=== PATIENT | female | born 1965 | race African-American/Black ===

== ENCOUNTER 2016-09-23 15:29 | Emergency (ER) | payer MEDICARE, MEDICAID ==
[~2016-09-23] VITALS: Ht 165.1 cm; Wt 80.0 kg
[~2016-09-23 15:29] MED LIST: ALBU0.086 INH; ALBU1AER INH; AMOX500T PO; ASPI81TA82 PO; ATOR20TA PO; FAMO20TA2 PO; GLIP5 PO; HYDR-2768 PO; KCL10 PO; METF1000 PO; NIFE1TAB86 PO; PRED20 PO; VENTAER INH; VITA400D PO; ZOLP10TA3 PO
[2016-09-23 15:30] VITALS: BP 160/80; PULSE 84; RESP 16; TEMP 97.8; O2SAT 95
--- NOTE | 2016-09-23 15:38 | PD ---
Physical Exam Date Seen by Provider: September 23, 2016 Time Seen by Provider: 15:35 Narrative Pt is a 51 y/o female presenting to the ED with cc of left ear pain. This has been ongoing for a month. Pt c/o a frontal headache. She has not taken anything for the pain. Pt denies any nasal congestion, sore throat, cough. VSS. She has a primary she has not followed up with, she was prescribed abx recently. Data Data Last Documented VS Vital Signs Date Time Temp Pulse Resp B/P Pulse Ox O2 Delivery O2 Flow Rate FiO2 09/23/16 15:30 97.8 84 16 160/80 95 MDM Supervised Visit with TERESA: Kendra Welch September 23, 2016 15:38
--- NOTE | 2016-09-23 15:40 | PD ---
HPI . left ear pain and frontal sinus pressure for 1 mt Chief Complaint: ENT Complaint Time Seen by Provider: 15:40 Travel History International Travel<30 days: No Contact w/Intl Traveler<30days: No Traveled to known affect area: No History of Present Illness HPI 51-year-old female with hypertension, hyperlipidemia, diabetes and COPD here with complaints of left-sided ear pain and frontal sinus pressure for over one month. Patient says she was seen by her primary care provider and completed antibiotics. She initially got better and now her symptoms are back. She decided to come to the emergency department for further evaluation. Patient is complaining of a throbbing type of headache that is intermittent in her sinus area on the front. She tells me that it's not really a headache but it's more like pressure. She also tells me that she has some left ear pressure. She denies any fever or chills. She denies any recent illness. PFSH Past Medical History Hx Anticoagulant Therapy: Yes (ASA) Anemia: Yes Arthritis: Yes (LEFT KNEE) Asthma: No Blood Disorders: No Anxiety: No Depression: No Heart Rhythm Problems: No Cancer: No Cardiac Catheterization: Yes (DENIES BUT PREVIOUSLY LISTED YES) Cardiovascular Problems: Yes (HTN) High Cholesterol: Yes Chemotherapy: No Chest Pain: No Congestive Heart Failure: No COPD: Yes Diabetes: Yes Diminished Hearing: No Endocrine: Yes GERD: Yes Glaucoma: No Gout: Yes Genitourinary: No Hepatitis: No Hiatal Hernia: No Hypertension: Yes Immune Disorder: No Implanted Vascular Access Dvce: No Kidney Stones: No Musculoskeletal: Yes Neurologic: Yes (CVA) Psychiatric: No Reproductive: No Respiratory: Yes (COPD) Immunizations Current: Yes Migraines: No Myocardial Infarction: No Pneumonia: Yes Radiation Therapy: No Renal Failure: No Seizures: No Sickle Cell Disease: No Sleep Apnea: No Thyroid Disease: No Ulcer: No ?: Not Menopausal: Yes : 5 Para: 7 Miscarriage: 0 : 0 Tubal Ligation: Yes Past Surgical History Abdominal Surgery: No Appendectomy: No Arteriovenous Shunt: No Cardiac Surgery: No Section: Yes (4) Cholecystectomy: No Ear Surgery: No Endocrine Surgery: No Eye Surgery: No Genitourinary Surgery: No Gynecologic Surgery: Yes (4 CSECTIONS) Neurologic Surgery: Yes (CVA) Oral Surgery: No Pacemaker: No Thoracic Surgery: No Social History Alcohol Use: No Tobacco Use: Yes (1/2 PACK A DAY) Substance Use: No Allergies-Medications (Allergen,Severity, Reaction): Coded Allergies: Levaquin (Verified Allergy, Severe, ITCHING, 09/23/16) OCCURRED THIS FIRST DOSE; ONLY RECEIVED 1/2 Reported Meds & Prescriptions Reported Meds & Active Scripts Active Flonase Nasal [place] (Fluticasone Nasal [place]) 50 Mcg/Act [place] 50 Mcg EACH NARE BID Augmentin (Amoxicillin-Clavulanate) 875-125 mg Tab 875 Mg PO BID not for use in CrCl <30 ml/min. Amoxicillin 500 Mg Cap 1 Tab PO TID Deltasone (Prednisone) 20 Mg Tab 1 Tab PO DAILY 5 Days Ventolin Hfa (Albuterol Sulfate) 18 Gm Aero 2 Puff INH Q4H PRN * SHAKE WELL BEFORE USE * Klor-Con 10 (Potassium Chloride) 10 Meq Tabcr 20 Meq PO DAILY 30 Days Nifedipine Er (Nifedipine) 60 Mg Tabcr 60 Mg PO DAILY 30 Days Reported Ambien 10 Mg Tab (Zolpidem Tartrate) 10 Mg Tab 10 Mg PO HS Glipizide 5 Mg Tab 5 Mg PO BID Famotidine 20 Mg Tab 20 Mg PO DAILY Aspir-81 (Aspirin) 81 Mg Tab 81 Mg PO DAILY Vitamin D (Cholecalciferol) 400 Unit Beto 0 PO DAILY UNKNOWN DOSE Proventil Ud 0.083% (2.5 Mg/3 Ml) (Albuterol Sulfate) 2.5 Mg/3 Ml Inha 2.5 Mg INH Q4 PRN Atorvastatin 20 mg tab (Atorvastatin Calcium) 20 Mg Tab 20 Mg PO DAILY 30 Days Metformin (Metformin HCl) 1,000 Mg Tab 1,000 Mg PO BID Proair Hfa (Albuterol Sulfate) 8.5 Gm Aero 2 Puff INH Q4H PRN * SHAKE WELL BEFORE USE * Hctz (Hydrochlorothiazide) 25 Mg Tab 25 Mg PO DAILY Review of Systems General / Constitutional: No: Fever Eyes: No: Visual changes HENT: Positive: Headaches, Earache, Other (facial pressure) Cardiovascular: No: Chest Pain or Discomfort Respiratory: No: Shortness of Breath Gastrointestinal: No: Abdominal Pain Genitourinary: No: Dysuria Musculoskeletal: No: Pain Skin: No Rash Neurologic: No: Weakness Psychiatric: No: Depression Endocrine: No: Polydipsia Hematologic/Lymphatic: No: Easy Bruising Physical Exam Narrative GENERAL: AAO x 3, no acute distress, Well-nourished, well-developed patient. SKIN: Warm and dry. No visible rashes or bruising. HEAD: Normocephalic and atraumatic. EYES: No scleral icterus. No injection or drainage. EOM intact, PERRLA, ENT: No nasal drainage noted. Mucous membranes pink. Airway patent. B/L ear canal with mild-moderate cerumen, TM otherwise normal, + post nasal drip, + frontal sinus tenderness NECK: Supple, trachea midline. No JVD. No lymphadenopathy CARDIOVASCULAR: Regular rate and rhythm without murmurs, gallops, or rubs. RESPIRATORY: Breath sounds equal bilaterally. No accessory muscle use. No rhonchi or rales. GASTROINTESTINAL: Visual inspection is normal EXTREMITIES: No cyanosis or edema. BACK: Nontender without obvious deformity. No CVA tenderness. PSYCH: AAO x 3, normal affect. Data Data Last Documented VS Vital Signs Date Time Temp Pulse Resp B/P Pulse Ox O2 Delivery O2 Flow Rate FiO2 09/23/16 15:30 97.8 84 16 160/80 95 MDM Medical Decision Making Medical Screen Exam Complete: Yes Emergency Medical Condition: Yes Medical Record Reviewed: Yes Differential Diagnosis Sinusitis, otitis media, otitis externa cerumen impaction, less likely pneumonia Narrative Course 51-year-old female with hypertension, hyperlipidemia, diabetes and COPD here with complaints of left-sided ear pain and frontal sinus pressure for over one month. Patient says she was seen by her primary care provider and completed antibiotics. She initially got better and now her symptoms are back. She decided to come to the emergency department for further evaluation. Patient is complaining of a throbbing type of headache that is intermittent in her sinus area on the front. She tells me that it's not really a headache but it's more like pressure. She also tells me that she has some left ear pressure. She denies any fever or chills. She denies any recent illness. Patient seen and examined. She appears to have an acute sinusitis. She also has mild to moderate buildup of cerumen bilaterally in her ears. I recommend that she try some antibiotics to help with her sinus infection. I've also explained to her to try Debrox [id number] eardrops to help reduce her cerumen buildup. She should try to follow-up with her primary care provider. Patient verbalized understanding of instructions, questions were answered, and thanked me for their care. I advised them if their condition worsens, please return to the nearest emergency room for further care. Diagnosis Primary Impression: Acute sinusitis Qualified Code: J01.10 - Acute non-recurrent frontal sinusitis Additional Impression: Cerumen debris on tympanic membrane of both ears Patient Instructions: General Instructions Additional Instructions: Please return to emergency department if your symptoms return or worsen. Follow up with your primary care provider. Take medications as prescribed. Try [id number] Debrox to help reduce your ear wax buildup. Med/Other Pt SpecificInfo: Prescription(s) given Scripts Fluticasone Nasal [place] (Flonase Nasal [place])50 Mcg/Act Spray50 Mcg EACH NARE BID #1 BOTTLE Ref 0 Prov:Michelle Ventura MD 09/23/16 Amoxicillin-Clavulanate (Augmentin)875-125 mg Fam242 Mg PO BID #20 TAB not for use in CrCl <30 ml/min. Prov:Michelle Ventura MD 09/23/16 Disposition: 01 DISCHARGE HOME Condition: Stable Hilda Benavidez September 23, 2016 15:40
[2016-09-23] MEDS ORDERED: AUGM875T PO (15:46)
[2016-09-23] MEDS ORDERED: FLUT1SPR5 EACH NARE (15:46)
== END 2016-09-23 15:57 | disposition home or self-care (01) ==
LOC: NEPK 15:29
DX: J01.90 Acute sinusitis, unspecified (principal); I10 Essential (primary) hypertension; E11.9 Type 2 diabetes mellitus without complications; D64.9 Anemia, unspecified; F17.210 Nicotine dependence, cigarettes, uncomplicated; Z79.01 Long term (current) use of anticoagulants
CPT/HCPCS: 99283

== ENCOUNTER 2016-12-04 09:47 | Emergency (ER) | payer MEDICARE, MEDICAID ==
[~2016-12-04] VITALS: Ht 165.1 cm; Wt 79.0 kg
[~2016-12-04 09:47] MED LIST changes: +AUGM875T PO; +FLUT1SPR5 EACH NARE
[2016-12-04 09:50] VITALS: BP 175/90; PULSE 98; RESP 24; TEMP 98.7; O2SAT 96
[2016-12-04] MEDS ORDERED: KETOROLAC TROMETHAMINE 60 MG/2 ML (IM) VIAL IM ONE (11:00)
[2016-12-04] MEDS ORDERED: CYCLOBENZAPRINE HCL 10 MG TAB PO ONE (11:00)
--- NOTE | 2016-12-04 11:43 | PD ---
HPI Chief Complaint: Back/ Neck Pain or Injury Time Seen by Provider: 10:49 Travel History International Travel<30 days: No Contact w/Intl Traveler<30days: No Traveled to known affect area: No History of Present Illness HPI Patient is a 51-year-old female comes in complaining of upper back pain. She says about 2 days ago she was carrying a heavy box and a watermelon, the next morning she woke up with the severe pain. She says pain is worse with movement. She localizes the pain to Her left scapula. She denies any direct injury. She denies any falls. She denies any numbness or tingling of her extremities. She denies any incontinence. She denies chest pain or shortness of breath. She has not taken anything at home for pain. PFSH Past Medical History Hx Anticoagulant Therapy: No Anemia: Yes Arthritis: Yes (LEFT KNEE) Asthma: No Blood Disorders: No Anxiety: No Depression: No Heart Rhythm Problems: No Cancer: No Cardiac Catheterization: Yes (DENIES BUT PREVIOUSLY LISTED YES) Cardiovascular Problems: Yes (HTN) High Cholesterol: Yes Chemotherapy: No Chest Pain: No Congestive Heart Failure: No COPD: Yes Cerebrovascular Accident: Yes Diabetes: Yes Patient Takes Glucophage: Yes Diminished Hearing: No Endocrine: Yes GERD: Yes Glaucoma: No Gout: Yes Genitourinary: No Hepatitis: No Hiatal Hernia: No Hypertension: Yes Immune Disorder: No Implanted Vascular Access Dvce: No Kidney Stones: No Musculoskeletal: Yes Neurologic: Yes (CVA) Psychiatric: No Reproductive: No Respiratory: Yes (COPD) Immunizations Current: Yes Migraines: No Myocardial Infarction: No Pneumonia: Yes Radiation Therapy: No Renal Failure: No Seizures: No Sickle Cell Disease: No Sleep Apnea: No Thyroid Disease: No Ulcer: No Tetanus Vaccination: Unknown ?: Unknown Menopausal: Yes : 5 Para: 7 Miscarriage: 0 : 0 Tubal Ligation: Yes Past Surgical History Abdominal Surgery: No Appendectomy: No Arteriovenous Shunt: No Section: Yes (4) Gynecologic Surgery: Yes (4 CSECTIONS) Hysterectomy: No Neurologic Surgery: Yes (CVA) Pacemaker: No Other Surgery: Yes (BREAST SURGERY LEFT BREAST ABCESS 2X ) Social History Alcohol Use: No Tobacco Use: Yes (1/2 PACK A DAY) Substance Use: No Allergies-Medications (Allergen,Severity, Reaction): Coded Allergies: Levaquin (Verified Allergy, Severe, ITCHING, 12/04/16) OCCURRED THIS FIRST DOSE; ONLY RECEIVED 1/2 Reported Meds & Prescriptions Reported Meds & Active Scripts Active Flonase Nasal [place] (Fluticasone Nasal [place]) 50 Mcg/Act [place] 50 Mcg EACH NARE BID Augmentin (Amoxicillin-Clavulanate) 875-125 mg Tab 875 Mg PO BID not for use in CrCl <30 ml/min. Amoxicillin 500 Mg Cap 1 Tab PO TID Deltasone (Prednisone) 20 Mg Tab 1 Tab PO DAILY 5 Days Ventolin Hfa (Albuterol Sulfate) 18 Gm Aero 2 Puff INH Q4H PRN * SHAKE WELL BEFORE USE * Klor-Con 10 (Potassium Chloride) 10 Meq Tabcr 20 Meq PO DAILY 30 Days Nifedipine Er (Nifedipine) 60 Mg Tabcr 60 Mg PO DAILY 30 Days Reported Ambien 10 Mg Tab (Zolpidem Tartrate) 10 Mg Tab 10 Mg PO HS Glipizide 5 Mg Tab 5 Mg PO BID Famotidine 20 Mg Tab 20 Mg PO DAILY Aspir-81 (Aspirin) 81 Mg Tab 81 Mg PO DAILY Vitamin D (Cholecalciferol) 400 Unit Beto 0 PO DAILY UNKNOWN DOSE Proventil Ud 0.083% (2.5 Mg/3 Ml) (Albuterol Sulfate) 2.5 Mg/3 Ml Inha 2.5 Mg INH Q4 PRN Atorvastatin 20 mg tab (Atorvastatin Calcium) 20 Mg Tab 20 Mg PO DAILY 30 Days Metformin (Metformin HCl) 1,000 Mg Tab 1,000 Mg PO BID Proair Hfa (Albuterol Sulfate) 8.5 Gm Aero 2 Puff INH Q4H PRN * SHAKE WELL BEFORE USE * Hctz (Hydrochlorothiazide) 25 Mg Tab 25 Mg PO DAILY Review of Systems Except as stated in HPI: all other systems reviewed are Neg General / Constitutional: No: Fever, Chills HENT: No: Headaches, Lightheadedness Cardiovascular: No: Chest Pain or Discomfort Respiratory: No: Shortness of Breath Gastrointestinal: No: Nausea, Vomiting Musculoskeletal: Positive: Pain Skin: No Rash, No Change in Pigmentation Neurologic: No: Paresthesia, Sensory Disturbance Physical Exam Narrative GENERAL: Awake and alert, in no acute distress. SKIN: Focused skin assessment warm/dry. HEAD: Atraumatic. Normocephalic. EYES: Pupils equal and round. No scleral icterus. No injection or drainage. ENT: No nasal bleeding or discharge. Mucous membranes pink and moist. NECK: Trachea midline. No JVD. CARDIOVASCULAR: Regular rate and rhythm. No murmur appreciated. RESPIRATORY: No accessory muscle use. Clear to auscultation. Breath sounds equal bilaterally. MUSCULOSKELETAL: No obvious deformities. No clubbing. No cyanosis. No edema. Tender to palpation adjacent to the left scapula. No spinal tenderness. NEUROLOGICAL: Awake and alert. No obvious cranial nerve deficits. Motor grossly within normal limits. Normal speech. PSYCHIATRIC: Appropriate mood and affect; insight and judgment normal. Data Data Last Documented VS Vital Signs Date Time Temp Pulse Resp B/P Pulse Ox O2 Delivery O2 Flow Rate FiO2 12/04/16 09:50 98.7 98 24 175/90 96 Room Air Orders Ketorolac Inj (Toradol Inj) (12/04/16 11:00) Cyclobenzaprine (Flexeril) (12/04/16 11:00) [facility] Medical Decision Making Medical Screen Exam Complete: Yes Emergency Medical Condition: Yes Medical Record Reviewed: Yes Differential Diagnosis Musculoskeletal pain vs fracture vs spasm Narrative Course Patient is a 51-year-old female comes in complaining of back pain. Exam shows tenderness to the paraspinal muscles. Patient given Toradol and Flexeril. She reports feeling much better. Discharge with prescription for Flexeril. She is advised to stretch and take Flexeril and Tylenol as needed. Advised to follow- up with her doctor. Advised to return to the emergency department as needed for any worsening symptoms. Diagnosis Primary Impression: Musculoskeletal back pain Patient Instructions: General Instructions, Musculoskeletal Pain (ED) Additional Instructions: Take Tylenol and Flexeril as needed for pain. Follow up with your doctor. Return to the ED as needed for any worsening symptoms. Scripts Cyclobenzaprine (Flexeril)10 Mg Tab10 Mg PO TID #15 TAB Ref 0 Prov:Michelle Ventura MD 12/04/16 Disposition: 01 DISCHARGE HOME Condition: Stable Michelle Ventura MD Dec 04, 2016 11:43
[2016-12-04] MEDS ORDERED: CYCL1TAB29 PO (11:50)
== END 2016-12-04 12:03 | disposition home or self-care (01) ==
LOC: NEPD 09:47
DX: M54.89 Other dorsalgia (principal); E11.9 Type 2 diabetes mellitus without complications; I10 Essential (primary) hypertension; F17.200 Nicotine dependence, unspecified, uncomplicated; Z79.84 Long term (current) use of oral hypoglycemic drugs; Z86.2 Personal history of diseases of the blood and blood-forming organs and certain disorders involving the immune mechanism; Z87.39 Personal history of other diseases of the musculoskeletal system and connective tissue; Z86.79 Personal history of other diseases of the circulatory system; Z87.09 Personal history of other diseases of the respiratory system; Z87.19 Personal history of other diseases of the digestive system; Z86.69 Personal history of other diseases of the nervous system and sense organs
CPT/HCPCS: 96372; 99284; J1885

== ENCOUNTER 2017-06-21 15:10 | Inpatient (IN) | payer MEDICARE, MEDICAID ==
[2017-06-21] VITALS: BP 185/100; PULSE 88; RESP 18; TEMP 97.5; O2SAT 94
[~2017-06-21] VITALS: Ht 165.1 cm; Wt 87.2 kg
[~2017-06-21 15:10] MED LIST changes: +CYCL10TA PO
[2017-06-21 15:14] VITALS: BP 171/99; PULSE 84; RESP 18; TEMP 98.5; O2SAT 98
--- NOTE | 2017-06-21 16:18 | RADRPT ---
EXAM DATE/TIME: 06/21/2017 15:46 [facility] COMPARISON: CHEST SINGLE AP, January 05, 2016, 7:33. INDICATIONS : Short of breath. Cough. MEDICAL HISTORY : Chronic obstructive pulmonary disease. Hypertension Diabetes mellitus type II. Stroke. SURGICAL HISTORY : None. ENCOUNTER: Initial ACUITY: 3 days PAIN SCORE: 0/10 LOCATION: Bilateral chest FINDINGS: PA and lateral views of the chest demonstrate minimal density right lower lobe. Left lung clear. Hear t normal in size The cardiomediastinal contours are unremarkable. Osseous structures are intact. CONCLUSION: Minimal patchy densities right lower lobe could be infiltrate.. Hardeep Mensah MD on June 21, 2017 at 16:15 Board Certified Radiologist. This report was verified electronically.
[2017-06-21 17:04] LABS: AUTOMATED NEUTROPHIL # 3.9 TH/MM3 (1.8-7.7); BASOPHIL # 0.1 TH/MM3 (0-0.2); BASOPHIL % 0.9 % (0.0-2.0); EOSINOPHIL # 0.4 TH/MM3 (0-0.4); EOSINOPHIL % 6.3 % (0.0-4.0); HEMATOCRIT 32.2 % (35.0-46.0); HEMOGLOBIN 10.8 GM/DL (11.6-15.3); LYMPH % 15.3 % (9.0-44.0); MEAN CELL VOLUME 83.2 FL (80.0-100.0); MEAN CORPUSCULAR HEMOGLOBIN 27.9 PG (27.0-34.0); MEAN CORPUSCULAR HGB CONC 33.5 % (32.0-36.0); MEAN PLATELET VOLUME 8.4 FL (7.0-11.0); MONO % 18.1 % (0.0-8.0); MONOCYTE # 1.2 TH/MM3 (0-0.9); NEUT % 59.4 % (16.0-70.0); PLATELET COUNT 209 TH/MM3 (150-450); RED BLOOD COUNT 3.87 MIL/MM3 (4.00-5.30); RED CELL DISTRIBUTION WIDTH 15.9 % (11.6-17.2); WHITE BLOOD COUNT 6.6 TH/MM3 (4.0-11.0)
[2017-06-21 17:21] LABS: BICARBONATE 29.7 MEQ/L (21.0-32.0); CALCIUM 8.3 MG/DL (8.5-10.1); CREATININE 2.25 MG/DL (0.50-1.00); MAGNESIUM 2.5 MG/DL (1.5-2.5)
[2017-06-21 17:26] LABS: TROPONIN I 0.11 NG/ML (0.02-0.05)
[2017-06-21] MEDS ORDERED: NIFE60TA58 PO (17:59)
[2017-06-21] MEDS ORDERED: LOSA100T PO (17:59)
[2017-06-21] MEDS ORDERED: D200CAP PO (17:59)
[2017-06-21] MEDS ORDERED: ZOLP10TA3 PO (17:59)
[2017-06-21] MEDS ORDERED: OMEGCAP PO (17:59)
[2017-06-21] MEDS ORDERED: VITA250T3 PO (17:59)
[2017-06-21] MEDS ORDERED: ASPI-516 CHEW (17:59)
[2017-06-21] MEDS ORDERED: GLIP10TA6 PO (17:59)
[2017-06-21] MEDS ORDERED: METF1000 PO (17:59)
[2017-06-21] MEDS ORDERED: RESP: ALBUTEROL 2.5 MG/IPRATROPIUM 0.5 MG NEB (SCH) NEB ONE (18:00)
[2017-06-21] MEDS ORDERED: methylPREDNISolone SOD SUCC 125 MG/2 ML VIAL IV PUSH ONE (18:00)
[2017-06-21] MEDS ORDERED: ASPIRIN 81 MG CHEW TAB CHEW ONE (18:00)
[2017-06-21] MEDS ORDERED: AZITHROMYCIN INJ 500 MG in SODIUM CHLOR 0.9% 250 ML INJ 250 ML IV ONE (18:00)
[2017-06-21] MEDS ORDERED: SODIUM CHLOR 0.9% 1000 ML INJ 1,000 ML IV ONE (18:00)
[2017-06-21] MEDS ORDERED: cefTRIAXone INJ 1,000 MG in SODIUM CHLORIDE 0.9% INJ 100 ML IV ONE (18:00)
[2017-06-21] MEDS ORDERED: ACETAMINOPHEN 325 MG TAB PO ONE (18:00)
--- NOTE | 2017-06-21 18:02 | PD ---
HPI Chief Complaint: Respiratory Symptoms Time Seen by Provider: 17:49 Travel History International Travel<30 days: No Contact w/Intl Traveler<30days: No Traveled to known affect area: No History of Present Illness HPI Patient is a 52-year-old female who comes in complaining of cough and shortness of breath. She says this is been going on for 3 days. She says she has pain to her upper abdomen/lower chest, but only when she coughs. She says she is not sure if she has had fever or chills. She says she just does not feel well. She has been using albuterol at home without much relief of her symptoms. She denies any sick contacts. She denies nausea or vomiting. She denies any leg swelling. She says she did get a flu shot this year. PFSH Past Medical History Hx Anticoagulant Therapy: No Anemia: Yes Arthritis: Yes (LEFT KNEE) Asthma: No Blood Disorders: No Anxiety: No Depression: No Heart Rhythm Problems: No Cancer: No Cardiac Catheterization: Yes (DENIES BUT PREVIOUSLY LISTED YES) Cardiovascular Problems: Yes (HTN) High Cholesterol: Yes Chemotherapy: No Chest Pain: No Congestive Heart Failure: No COPD: Yes Cerebrovascular Accident: Yes Diabetes: Yes Patient Takes Glucophage: No Diminished Hearing: No Endocrine: Yes GERD: Yes Glaucoma: No Gout: Yes Genitourinary: No Hepatitis: No Hiatal Hernia: No Hypertension: Yes Immune Disorder: No Implanted Vascular Access Dvce: No Kidney Stones: No Musculoskeletal: Yes Neurologic: Yes (CVA) Psychiatric: No Reproductive: No Respiratory: Yes (COPD) Immunizations Current: Yes Migraines: No Myocardial Infarction: No Pneumonia: Yes Radiation Therapy: No Renal Failure: No Seizures: No Sickle Cell Disease: No Sleep Apnea: No Thyroid Disease: No Ulcer: No Influenza Vaccination: Yes ?: Not Menopausal: Yes : 5 Para: 7 Miscarriage: 0 : 0 Tubal Ligation: Yes Past Surgical History Abdominal Surgery: No Appendectomy: No Arteriovenous Shunt: No Section: Yes (4) Gynecologic Surgery: Yes (4 CSECTIONS) Hysterectomy: No Neurologic Surgery: Yes (CVA) Pacemaker: No Other Surgery: Yes (BREAST SURGERY LEFT BREAST ABCESS 2X ) Social History Alcohol Use: No Tobacco Use: Yes Substance Use: No Allergies-Medications (Allergen,Severity, Reaction): Coded Allergies: levofloxacin (Unverified Allergy, Severe, ITCHING, 06/21/17) OCCURRED THIS FIRST DOSE; ONLY RECEIVED /2 Reported Meds & Prescriptions Reported Meds & Active Scripts Active Reported Glipizide 10 Mg Tab 10 Mg PO BIDAC Take 30 minutes before a meal Zolpidem (Zolpidem Tartrate) 10 Mg Tab 10 Mg PO HS PRN Vitamin C (Ascorbic Acid) 250 Mg Tab 500 Mg PO DAILY Aspirin 81 Mg Chew 81 Mg CHEW DAILY Nifedipine ER 24 HR (Nifedipine) 60 Mg Tab 60 Mg PO DAILY Losartan (Losartan Potassium) 100 Mg Tab 100 Mg PO DAILY Metformin (Metformin HCl) 1,000 Mg Tab 1,000 Mg PO DAILY With a meal D3 Super Strength (Cholecalciferol) 2,000 Unit Cap 1,000 Units PO DAILY [place]-3 Fish Oil/Vitamin (Fish Oil-Cholecalciferol) 1,000-1,000 Mg Cap 1 Cap PO DAILY Review of Systems Except as stated in HPI: all other systems reviewed are Neg General / Constitutional: Positive: Fever, Chills HENT: No: Headaches, Lightheadedness Respiratory: Positive: Cough, Shortness of Breath Gastrointestinal: No: Nausea, Vomiting Genitourinary: No: Dysuria Musculoskeletal: Positive: Myalgias, No: Edema Skin: No Rash, No Change in Pigmentation Neurologic: No: Weakness, Dizziness Physical Exam Narrative GENERAL: Awake and alert, in no acute distress. SKIN: Focused skin assessment warm/dry. No wounds or signs of infection. HEAD: Atraumatic. Normocephalic. EYES: Pupils equal and round. No scleral icterus. ENT: Mucous membranes pink and moist. NECK: Trachea midline. No JVD. CARDIOVASCULAR: Regular rate and rhythm. No murmur appreciated. RESPIRATORY: No accessory muscle use. Clear to auscultation. Breath sounds equal bilaterally. GASTROINTESTINAL: Abdomen soft, non-tender, nondistended. Hepatic and splenic margins not palpable. MUSCULOSKELETAL: No obvious deformities. No clubbing. No cyanosis. No edema. NEUROLOGICAL: Awake and alert. No obvious cranial nerve deficits. Motor grossly within normal limits. Normal speech. PSYCHIATRIC: Appropriate mood and affect; insight and judgment normal. Data Data Last Documented VS Vital Signs Date Time Temp Pulse Resp B/P (MAP) Pulse Ox O2 Delivery O2 Flow Rate FiO2 06/21/17 15:14 98.5 84 18 171/99 (123) 98 Orders Orders Complete Blood Count With Diff (06/21/17 15:36) Basic Metabolic Panel (Bmp) (06/21/17 15:36) Magnesium (Mg) (06/21/17 15:36) Ckmb (Isoenzyme) Profile (06/21/17 15:36) Troponin I (06/21/17 15:36) Influenzae A/B Antigen (06/21/17 15:36) Electrocardiogram (06/21/17 15:36) Chest, Pa & Lat (06/21/17 15:36) CKMB (06/21/17 16:18) CKMB% (06/21/17 16:18) Ceftriaxone Inj (Rocephin Inj) (06/21/17 18:00) Azithromycin Inj (Zithromax Inj) (06/21/17 18:00) Aspirin Chew (Aspirin Chew) (06/21/17 18:00) Sodium Chlor 0.9% 1000 Ml Inj (Ns 1000 M (06/21/17 18:00) Acetaminophen (Tylenol) (06/21/17 18:00) Methylprednisolone So Succ Inj (Solumedr (06/21/17 18:00) Albuterol-Ipratropium Neb (Duoneb Neb) (06/21/17 18:00) Admit Order (Ed Use Only) (06/21/17 ) Labs Laboratory Tests Test 06/21/17 16:18 White Blood Count 6.6 TH/MM3 Red Blood Count 3.87 MIL/MM3 Hemoglobin 10.8 GM/DL Hematocrit 32.2 % Mean Corpuscular Volume 83.2 FL Mean Corpuscular Hemoglobin 27.9 PG Mean Corpuscular Hemoglobin Concent 33.5 % Red Cell Distribution Width 15.9 % Platelet Count 209 TH/MM3 Mean Platelet Volume 8.4 FL Neutrophils (%) (Auto) 59.4 % Lymphocytes (%) (Auto) 15.3 % Monocytes (%) (Auto) 18.1 % Eosinophils (%) (Auto) 6.3 % Basophils (%) (Auto) 0.9 % Neutrophils # (Auto) 3.9 TH/MM3 Lymphocytes # (Auto) 1.0 TH/MM3 Monocytes # (Auto) 1.2 TH/MM3 Eosinophils # (Auto) 0.4 TH/MM3 Basophils # (Auto) 0.1 TH/MM3 CBC Comment DIFF FINAL Differential Comment Blood Urea Nitrogen 51 MG/DL Creatinine 2.25 MG/DL Random Glucose 105 MG/DL Calcium Level 8.3 MG/DL Magnesium Level 2.5 MG/DL Sodium Level 148 MEQ/L Potassium Level 4.0 MEQ/L Chloride Level 112 MEQ/L Carbon Dioxide Level 29.7 MEQ/L Anion Gap 6 MEQ/L Estimat Glomerular Filtration Rate 28 ML/MIN Total Creatine Kinase 202 U/L Creatine Kinase MB 1.2 NG/ML Creatine Kinase MB % 0.6 % Troponin I 0.11 NG/ML MDM Medical Decision Making Medical Screen Exam Complete: Yes Emergency Medical Condition: Yes Medical Record Reviewed: Yes Interpretation(s) ECG shows sinus rhythm, no ST elevation. Differential Diagnosis Influenza versus COPD exacerbation versus pneumonia Narrative Course Patient is a 52-year-old female comes in complaining of increasing shortness of breath. IV established, labs sent. Labs show a troponin of 0.11. Flu swab is positive. X-ray concerning for pneumonia. Given antibiotics. Given duo nebs. She will be admitted for further management. Given aspirin. Diagnosis Primary Impression: COPD exacerbation Additional Impressions: Elevated troponin Influenza Pneumonia Qualified Codes: J18.9 - Pneumonia, unspecified organism Admitting Information Admitting Physician Requests: Admit Michelle Ventura MD Jun 21, 2017 18:02
[2017-06-21] MEDS ORDERED: SODIUM CHLORIDE 0.9% FLUSH 10 ML FLUSH IV FLUSH PRN (19:15)
[2017-06-21] MEDS ORDERED: DEXTROSE 50% IN WATER 50 ML VIAL(D50) IV PUSH PRN (19:15)
[2017-06-21] MEDS ORDERED: GLUCAGON 1 MG/ML VIAL OTHER PRN (19:15)
[2017-06-21 19:55] VITALS: BP 179/88; PULSE 77; RESP 18; O2SAT 97
[2017-06-21 20:00] VITALS: BP 169/94; PULSE 80; RESP 18; TEMP 98.6; O2SAT 92
[2017-06-21] MEDS: SODIUM CHLORIDE 0.9% FLUSH 10 ML FLUSH IV FLUSH SCH (20:19)
--- NOTE | 2017-06-21 20:32 | HHI.HP ---
[facility] M[facility] Admission Diagnosis Cough, Pneumonia, elevated troponin, influenza Diagnoses: Travel History International Travel<30 Days: No Contact w/Intl Traveler <30 Da: No Traveled to Known Affected Are: No History of Present Illness 52-year-old female with past medical history significant for COPD, diabetes mellitus, hypertension, hyperlipidemia and CK D presents to the emergency department with 3 days of progressively worsening shortness of breath. Patient reports she had URI symptoms that began 3 days ago including congestion and a cough productive of yellow sputum. She states she has been having a difficult time catching her breath, worse with activity. She endorses fever/chills of one day duration. Denies chest pain. Patient is positive for flu and has a chest x-ray concerning for pneumonia. Vital signs: Temperature 98.5, pulse 84, respirations 18, BP 171/99, pulse ox 98% on room air. Review of Systems Except as stated in HPI: all other systems reviewed are Neg Shortness of breath, productive cough, fever/chills Past Family Social History Past Medical History COPD Diabetes mellitus Hypertension Hyperlipidemia CKD Past Surgical History Reported Medications Reported Meds & Active Scripts Active Reported Glipizide 10 Mg Tab 10 Mg PO BIDAC Take 30 minutes before a meal Zolpidem (Zolpidem Tartrate) 10 Mg Tab 10 Mg PO HS PRN Vitamin C (Ascorbic Acid) 250 Mg Tab 500 Mg PO DAILY Aspirin 81 Mg Chew 81 Mg CHEW DAILY Nifedipine ER 24 HR (Nifedipine) 60 Mg Tab 60 Mg PO DAILY Losartan (Losartan Potassium) 100 Mg Tab 100 Mg PO DAILY Metformin (Metformin HCl) 1,000 Mg Tab 1,000 Mg PO DAILY With a meal D3 Super Strength (Cholecalciferol) 2,000 Unit Cap 1,000 Units PO DAILY [place]-3 Fish Oil/Vitamin (Fish Oil-Cholecalciferol) 1,000-1,000 Mg Cap 1 Cap PO DAILY Allergies: Coded Allergies: levofloxacin (Unverified Allergy, Severe, ITCHING, 06/21/17) OCCURRED THIS FIRST DOSE; ONLY RECEIVED 1/2 Family History Mother with CAD/DM Social History Quit smoking on 04/12/17. Denies alcohol, illicit drugs. Physical Exam Vital Signs Vital Signs Date Time Temp Pulse Resp B/P (MAP) Pulse Ox O2 Delivery O2 Flow Rate FiO2 06/21/17 19:55 77 18 179/88 (118) 97 Room Air 06/21/17 15:14 98.5 84 18 171/99 (123) 98 Physical Exam GENERAL: female sitting up in bed SKIN: No rashes, ecchymoses or lesions. Cool and dry. HEAD: Atraumatic. Normocephalic. No temporal or scalp tenderness. EYES: Pupils equal round and reactive. Extraocular motions intact. No scleral icterus. No injection or drainage. ENT: Nose without bleeding, purulent drainage or septal hematoma. Throat without erythema, tonsillar hypertrophy or exudate. Uvula midline. Airway patent. NECK: Trachea midline. No JVD or lymphadenopathy. Supple, nontender, no meningeal signs. CARDIOVASCULAR: Regular rate and rhythm without murmurs, gallops, or rubs. RESPIRATORY: Clear to auscultation. Breath sounds equal bilaterally. No wheezes , rales, or rhonchi. Poor air movement. GASTROINTESTINAL: Abdomen soft, non-tender, nondistended. No hepato-splenomegaly , or palpable masses. No guarding. MUSCULOSKELETAL: Extremities without clubbing, cyanosis, or edema. No joint tenderness, effusion, or edema noted. No calf tenderness. NEUROLOGICAL: Awake and alert. Cranial nerves II through XII intact. Motor and sensory grossly within normal limits. Normal speech. Laboratory Laboratory Tests Test 06/21/17 16:18 White Blood Count 6.6 Red Blood Count 3.87 Hemoglobin 10.8 Hematocrit 32.2 Mean Corpuscular Volume 83.2 Mean Corpuscular Hemoglobin 27.9 Mean Corpuscular Hemoglobin Concent 33.5 Red Cell Distribution Width 15.9 Platelet Count 209 Mean Platelet Volume 8.4 Neutrophils (%) (Auto) 59.4 Lymphocytes (%) (Auto) 15.3 Monocytes (%) (Auto) 18.1 Eosinophils (%) (Auto) 6.3 Basophils (%) (Auto) 0.9 Neutrophils # (Auto) 3.9 Lymphocytes # (Auto) 1.0 Monocytes # (Auto) 1.2 Eosinophils # (Auto) 0.4 Basophils # (Auto) 0.1 CBC Comment DIFF FINAL Differential Comment Blood Urea Nitrogen 51 Creatinine 2.25 Random Glucose 105 Calcium Level 8.3 Magnesium Level 2.5 Sodium Level 148 Potassium Level 4.0 Chloride Level 112 Carbon Dioxide Level 29.7 Anion Gap 6 Estimat Glomerular Filtration Rate 28 Total Creatine Kinase 202 Creatine Kinase MB 1.2 Creatine Kinase MB % 0.6 Troponin I 0.11 Date/Time Source Procedure Growth Status 06/21/17 16:18 Nasal Aspirate Influenza Types A,B Antigen (MOSES) - Final Positive For Flu A Antigen Complete Result Diagram: 06/21/17 1618 06/21/17 1618 Caprin VTE Risk Assessment Caprin VTE Risk Assessment: No/Low Risk (score <= 1) Caprini Risk Assessment Model Point Value = 1 Point Value = 2 Point Value = 3 Point Value = 5 Age 41-60 Minor surgery BMI > 25 kg/m2 Swollen legs Varicose veins or History of unexplained or recurrent spontaneous Oral contraceptives or hormone replacement Sepsis (< 1 month) Serious lung disease, including pneumonia (< 1 month) Abnormal pulmonary function Acute myocardial infarction Congestive heart failure (< 1 month) History of inflammatory bowel disease Medical patient at bed rest Age 61-74 Arthroscopic surgery Major open surgery (> 45 min) Laparoscopic surgery (> 45 min) Malignancy Confined to bed (> 72 hours) Immobilizing plaster cast Central venous access Age >= 75 History of VTE Family history of VTE Factor V Leiden Prothrombin [id number] Lupus anticoagulant Anticardiolipin antibodies Elevated serum homocysteine Heparin-induced thrombocytopenia Other congenital or acquired thrombophilia Stroke (< 1 month) Elective arthroplasty Hip, pelvis, or leg fracture Acute spinal cord injury (< 1 month) Prophylaxis Regimen Total Risk Factor Score Risk Level Prophylaxis Regimen 0-1 Low Early ambulation 2 Moderate Order ONE of the following: *Sequential Compression Device (SCD) *Heparin 5000 units SQ BID 3-4 Higher Order ONE of the following medications: *Heparin 5000 units SQ TID *Enoxaparin/Lovenox 40 mg SQ daily (WT < 150 kg, CrCl > 30 mL/min) *Enoxaparin/Lovenox 30 mg SQ daily (WT < 150 kg, CrCl > 10-29 mL/min) *Enoxaparin/Lovenox 30 mg SQ BID (WT < 150 kg, CrCl > 30 mL/min) AND/OR *Sequential Compression Device (SCD) 5 or more Highest Order ONE of the following medications: *Heparin 5000 units SQ TID (Preferred with Epidurals) *Enoxaparin/Lovenox 40 mg SQ daily (WT < 150 kg, CrCl > 30 mL/min) *Enoxaparin/Lovenox 30 mg SQ daily (WT < 150 kg, CrCl > 10-29 mL/min) *Enoxaparin/Lovenox 30 mg SQ BID (WT < 150 kg, CrCl > 30 mL/min) AND *Sequential Compression Device (SCD) Assessment and Plan Assessment and Plan Assessment/plan: 1. Influenza Positive for flu a antigen Tamiflu 2. Community acquired pneumonia/SOB Chest x-ray showed minimal patchy densities in the right lower lobe, possible infiltrate, personally reviewed Rocephin/azithromycin Duo nebs Supplemental oxygen when necessary 3. Acute on chronic renal insufficiency Creatinine 2.25, most recent value for comparison was 0.84 on 01/05 Patient reports a history of chronic kidney disease IV fluid hydration Monitor renal function 4. Elevated troponin Troponin 0.11 Initial EKG showed NSR with T wave inversion in V5/V6, no ST segment elevations or depressions, personally reviewed Likely secondary to renal insufficiency ACS rule out pending, serial troponins/EKGs 5. COPD Treatment as above IV steroids 6. Diabetes mellitus Holding home oral anti-hyperglycemics SSI Monitor blood glucose 7. Hypertension/hyperlipidemia Continue home medications FEN NS at 100 cc/hr Heart healthy diet Electrolytes: monitor and replete prn SCDs Physician Certification 2 Midnight Certification Type: Admission for Inpatient Services Order for Inpatient Services The services are ordered in accordance with Medicare regulations or non- Medicare payer requirements, as applicable. In the case of services not specified as inpatient-only, they are appropriately provided as inpatient services in accordance with the 2-midnight benchmark. Estimated LOS (days): 2 2 days is the estimated time the patient will need to remain in the hospital, assuming treatment plan goals are met and no additional complications. Post-Hospital Plan: Not yet determined Charleen Suh MD Jun 21, 2017 20:32
[2017-06-21] MEDS ORDERED: OSELTAMIVIR PHOSPHATE 75 MG CAP PO SCH (21:00)
[2017-06-21 21:11] VITALS: O2SAT 95
[2017-06-21] MEDS: HEPARIN SODIUM - SQ 10,000 UNITS/ML VIAL SQ SCH (22:37)
[2017-06-21] MEDS: INSULIN ASPART SUPPLEMENTAL SCALE SQ SCH (22:37)
[2017-06-21] MEDS: SODIUM CHLOR 0.9% 1000 ML INJ 1,000 ML IV SCH (22:39)
[2017-06-21] MEDS: OSELTAMIVIR PHOSPHATE 6 MG/ML 60 ML SUSP PO SCH (23:05)
[2017-06-21] MEDS: ZOLPIDEM TARTRATE 10 MG TAB PO PRN (23:05)
[2017-06-21 23:23] LABS: TROPONIN I 0.1 NG/ML (0.02-0.05)
[2017-06-21 23:58] VITALS: PULSE 86
[2017-06-22] VITALS (7 sets, daily range): BP systolic 165–186; BP diastolic 87–104; PULSE 56–93; RESP 18–20; TEMP 97.7–98.8; O2SAT 94–96
[2017-06-22] MEDS: cloNIDine HCL 0.1 MG TAB PO PRN ×2 (03:06→11:34)
[2017-06-22] MEDS: methylPREDNISolone SOD SUCC 40 MG/1 ML VIAL IV PUSH SCH ×2 (05:24→14:26)
[2017-06-22] MEDS: HEPARIN SODIUM - SQ 10,000 UNITS/ML VIAL SQ SCH ×3 (05:24→22:10)
[2017-06-22] MEDS: SODIUM CHLOR 0.9% 1000 ML INJ 1,000 ML IV SCH (06:30)
[2017-06-22] MEDS: INSULIN ASPART SUPPLEMENTAL SCALE SQ SCH ×4 (08:00→22:23)
[2017-06-22 08:22] LABS: AUTOMATED NEUTROPHIL # 4.5 TH/MM3 (1.8-7.7); BASOPHIL % 0.5 % (0.0-2.0); EOSINOPHIL % 0.1 % (0.0-4.0); HEMATOCRIT 30.5 % (35.0-46.0); HEMOGLOBIN 10.1 GM/DL (11.6-15.3); LYMPH % 12.3 % (9.0-44.0); LYMPHOCYTE # 0.7 TH/MM3 (1.0-4.8); MEAN CELL VOLUME 82.1 FL (80.0-100.0); MEAN CORPUSCULAR HEMOGLOBIN 27.2 PG (27.0-34.0); MEAN CORPUSCULAR HGB CONC 33.1 % (32.0-36.0); MEAN PLATELET VOLUME 8.3 FL (7.0-11.0); MONO % 6.1 % (0.0-8.0); MONOCYTE # 0.3 TH/MM3 (0-0.9); PLATELET COUNT 185 TH/MM3 (150-450); RED BLOOD COUNT 3.71 MIL/MM3 (4.00-5.30); RED CELL DISTRIBUTION WIDTH 15.9 % (11.6-17.2); WHITE BLOOD COUNT 5.5 TH/MM3 (4.0-11.0)
[2017-06-22 08:38] LABS: BICARBONATE 24.2 MEQ/L (21.0-32.0); CALCIUM 8.3 MG/DL (8.5-10.1); CREATININE 1.93 MG/DL (0.50-1.00)
[2017-06-22 08:43] LABS: TROPONIN I 0.11 NG/ML (0.02-0.05)
[2017-06-22] MEDS: SODIUM CHLORIDE 0.9% FLUSH 10 ML FLUSH IV FLUSH SCH ×2 (09:00→21:00)
[2017-06-22] MEDS ORDERED: LOSARTAN 50 MG TAB PO SCH (09:00)
[2017-06-22] MEDS: OSELTAMIVIR PHOSPHATE 6 MG/ML 60 ML SUSP PO SCH ×2 (09:00→22:09)
[2017-06-22] MEDS: NIFEdipine 60 MG SUSTAINED RELEASE TAB PO SCH (09:33)
[2017-06-22] MEDS: ASPIRIN 81 MG CHEW TAB CHEW SCH (09:34)
--- NOTE | 2017-06-22 09:43 | EKG ---
Date Performed: 06/21/2017 Time Performed: 16:25:27 PTAGE: 52 years EKG: Sinus rhythm POSSIBLE LEFT ATRIAL ENLARGEMENT MODERATE T-WAVE ABNORMALITY, CONSIDER LATERAL ISCHEMIA ABNORMAL ECG PREVIOUS TRACING : 01/05/2016 07.30 Since the prior tracing, nonspecific T-wave changes are mor e prominent DOCTOR: Juan Amaral Interpretating Date/Time 06/22/2017 09:41:36
--- NOTE | 2017-06-22 09:44 | EKG ---
Date Performed: 06/22/2017 Time Performed: 03:13:46 PTAGE: 52 years EKG: Sinus rhythm Extensive ST-T changes are nonspecific Borderline ECG Since the prior tracing, there has been no sig nificant change PREVIOUS TRACING : 06/21/2017 21.30 DOCTOR: Juan Amaral Interpretating Date/Time 06/22/2017 09:43:21
--- NOTE | 2017-06-22 09:45 | EKG ---
Date Performed: 06/21/2017 Time Performed: 21:30:29 PTAGE: 52 years EKG: Sinus rhythm POSSIBLE LEFT ATRIAL ENLARGEMENT NONSPECIFIC T-WAVE ABNORMALITY BORDERLINE ECG Since the prior fransico ng, there has been no significant change PREVIOUS TRACING : 06/21/2017 16.25 DOCTOR: Juan Amaral Interpretating Date/Time 06/22/2017 09:43:30
[2017-06-22] MEDS: RESP: ALBUTEROL 2.5 MG/IPRATROPIUM 0.5 MG NEB (PRN) INH ×2 (14:18→19:45)
[2017-06-22] MEDS: SODIUM CHLOR 0.45% 1000 ML INJ 1,000 ML IV SCH (16:30)
--- NOTE | 2017-06-22 16:49 | HHI.PR ---
Subjective Remarks The pt said she felt a lot better. She said she had kidney problems. She has been eating and ambulating. Discussed with family and nursing. Objective Vitals Vital Signs Date Time Temp Pulse Resp B/P (MAP) Pulse Ox O2 Delivery O2 Flow Rate FiO2 06/22/17 12:00 56 06/22/17 08:00 96 Room Air 21 06/22/17 08:00 93 06/22/17 04:00 98.8 73 18 175/100 (125) 95 06/22/17 03:56 73 06/21/17 23:58 86 06/21/17 23:13 Room Air 06/21/17 21:11 95 06/21/17 20:38 06/21/17 20:00 98.6 80 18 169/94 (119) 92 06/21/17 19:55 77 18 179/88 (118) 97 Room Air 06/21/17 19:55 97 21 I/O 06/21/17 06/21/17 06/21/17 06/22/17 06/22/17 06/22/17 07:00 15:00 23:00 07:00 15:00 23:00 Intake Total 1375 ml 617 ml Balance 1375 ml 617 ml Intake IV Total 1375 ml 617 ml # Voids 3 Result Diagram: 06/22/17 0710 06/22/17 0710 Imaging Last Impressions Chest X-Ray 06/21/17 1536 Signed Impressions: Service Date/Time: Wednesday, June 21, 2017 15:46 - CONCLUSION: Minimal patchy densities right lower lobe could be infiltrate.. Hardeep Mensah MD Objective Remarks GENERAL: Resting comfortably. SKIN: No rashes, ecchymoses or lesions. Cool and dry. HEAD: Atraumatic. Normocephalic. No temporal or scalp tenderness. EYES: Pupils equal round and reactive. Extraocular motions intact. No scleral icterus. No injection or drainage. ENT: Nose without bleeding, purulent drainage or septal hematoma. Throat without erythema, tonsillar hypertrophy or exudate. Uvula midline. Airway patent. NECK: Trachea midline. No JVD or lymphadenopathy. Supple, nontender, no meningeal signs. CARDIOVASCULAR: Regular rate and rhythm without murmurs, gallops, or rubs. RESPIRATORY: Clear to auscultation. Breath sounds equal bilaterally. No wheezes , rales, or rhonchi. Poor air movement. GASTROINTESTINAL: Abdomen soft, non-tender, nondistended. No hepato-splenomegaly , or palpable masses. No guarding. MUSCULOSKELETAL: Extremities without clubbing, cyanosis, or edema. No joint tenderness, effusion, or edema noted. NEUROLOGICAL: Awake and alert. Cranial nerves II through XII intact. Motor and sensory grossly within normal limits. Normal speech. PSYCH: Mood and affect appropriate. Medications and IVs Current Medications Medications (Trade) Dose Ordered Sig/Jesus Manuel Route Start Time Stop Time Status Last Admin (NS Flush) 2 ml UNSCH PRN IV FLUSH 06/21/17 19:15 (NS Flush) 2 ml BID IV FLUSH 06/21/17 21:00 06/22/17 09:00 Ceftriaxone Sodium 1000 mg/ Sodium Chloride 100 ml @ 200 mls/hr Q24H IV 06/22/17 18:00 Azithromycin 500 mg/Sodium Chloride 250 ml @ 250 mls/hr Q24H IV 06/22/17 18:00 (Duoneb Neb) 1 ampule Q4HR NEB PRN INH 06/21/17 19:15 06/22/17 14:18 (Heparin Inj) 5,000 units Q8H SQ 06/21/17 22:00 06/22/17 14:26 (SoluMEDROL INJ) 40 mg Q8HR IV PUSH 06/22/17 06:00 06/22/17 14:26 (Aspirin Chew) 81 mg DAILY CHEW 06/22/17 09:00 06/22/17 09:34 (Procardia Xl) 60 mg DAILY PO 06/22/17 09:00 06/22/17 09:33 (Ambien) 10 mg HS PRN PO 06/21/17 19:15 06/21/17 23:05 (D50w (Vial) Inj) 50 ml UNSCH PRN IV PUSH 06/21/17 19:15 (Glucagon Inj) 1 mg UNSCH PRN OTHER 06/21/17 19:15 (NovoLOG SUPPLEMENTAL SCALE) 1 ACHS SLIDING SCALE SQ 06/21/17 21:00 06/22/17 12:00 (Tamiflu Liq) 30 mg BID PO 06/21/17 21:00 06/22/17 09:00 (Catapres) 0.1 mg Q6H PRN PO 06/22/17 02:30 06/22/17 11:34 Sodium Chloride 1,000 ml @ 100 mls/hr Q10H IV 06/22/17 16:30 UNV A/P Assessment and Plan Influenza Positive for flu a antigen. - Tamiflu. Community acquired pneumonia/ SOB Chest x-ray showed minimal patchy densities in the right lower lobe, possible infiltrate. Also with flu as above. - Rocephin/azithromycin IV. - Duo nebs. - Supplemental oxygen when necessary. Acute on chronic renal insufficiency Creatinine 2.25 on admission. Patient reports a history of chronic kidney disease s/t DM. - IV fluid hydration. - Monitor renal function. Elevated troponin Troponin 0.11. Initial EKG showed NSR with T wave inversion in V5/V6, no ST segment elevations or depressions. Likely secondary to flu/ PNA/ renal insufficiency. No chest pain. - treatment as above. - EKG in AM. Diabetes mellitus Steroids are increasing values. - Holding home oral anti-hyperglycemics. - SSI and Levemir. - d/c steroids. Hypertension Poorly controlled. - Continue home medications. - clonidine as needed. PPx: SCDs Rayshawn Lindsay DO Jun 22, 2017 16:49
[2017-06-22] MEDS: cefTRIAXone INJ 1,000 MG in SODIUM CHLORIDE 0.9% INJ 100 ML IV SCH (17:52)
[2017-06-22] MEDS: INSULIN DETEMIR 100 UNITS/ML VIAL SQ SCH (17:58)
[2017-06-22] MEDS: AZITHROMYCIN INJ 500 MG in SODIUM CHLOR 0.9% 250 ML INJ 250 ML IV SCH (18:42)
[2017-06-22] MEDS: ZOLPIDEM TARTRATE 10 MG TAB PO PRN (22:10)
[2017-06-23] VITALS (12 sets, daily range): BP systolic 150–171; BP diastolic 80–98; PULSE 63–79; RESP 20; TEMP 97–98; O2SAT 96–99
[2017-06-23] MEDS: RESP: ALBUTEROL 2.5 MG/IPRATROPIUM 0.5 MG NEB (PRN) INH ×5 (02:55→20:48)
[2017-06-23] MEDS: cloNIDine HCL 0.1 MG TAB PO PRN ×2 (05:41→21:24)
[2017-06-23] MEDS: SODIUM CHLOR 0.45% 1000 ML INJ 1,000 ML IV SCH ×3 (05:42→21:24)
[2017-06-23] MEDS: HEPARIN SODIUM - SQ 10,000 UNITS/ML VIAL SQ SCH ×3 (05:44→21:23)
[2017-06-23] MEDS: INSULIN ASPART SUPPLEMENTAL SCALE SQ SCH ×4 (08:00→21:24)
[2017-06-23 08:25] LABS: HEMATOCRIT 28.8 % (35.0-46.0); HEMOGLOBIN 9.5 GM/DL (11.6-15.3); MEAN CELL VOLUME 82.3 FL (80.0-100.0); MEAN CORPUSCULAR HGB CONC 32.9 % (32.0-36.0); MEAN PLATELET VOLUME 8.3 FL (7.0-11.0); PLATELET COUNT 186 TH/MM3 (150-450); RED CELL DISTRIBUTION WIDTH 16.1 % (11.6-17.2); WHITE BLOOD COUNT 4.9 TH/MM3 (4.0-11.0)
[2017-06-23] MEDS: ASPIRIN 81 MG CHEW TAB CHEW SCH (08:44)
[2017-06-23] MEDS: NIFEdipine 60 MG SUSTAINED RELEASE TAB PO SCH (08:44)
[2017-06-23] MEDS: INSULIN DETEMIR 100 UNITS/ML VIAL SQ SCH (08:45)
[2017-06-23] MEDS: SODIUM CHLORIDE 0.9% FLUSH 10 ML FLUSH IV FLUSH SCH ×2 (08:47→21:00)
[2017-06-23] MEDS: OSELTAMIVIR PHOSPHATE 6 MG/ML 60 ML SUSP PO SCH ×2 (08:47→21:23)
[2017-06-23 09:02] LABS: CREATININE 2.15 MG/DL (0.50-1.00); MAGNESIUM 2.2 MG/DL (1.5-2.5)
[2017-06-23] MEDS ORDERED: POTASSIUM CHLORIDE 25 MEQ EFFERVESCENT TAB PO ONE (10:30)
--- NOTE | 2017-06-23 10:31 | HHI.PR ---
Subjective Remarks The patient's that she had some leg swelling yesterday that has since resolved. She said her breathing was better. She said she was worried about her kidneys. She said she has been urinating normally. No other acute complaints. Objective Vitals Vital Signs Date Time Temp Pulse Resp B/P (MAP) Pulse Ox O2 Delivery O2 Flow Rate FiO2 06/23/17 09:19 Room Air 06/23/17 09:02 98 21 06/23/17 08:00 71 06/23/17 04:05 69 06/23/17 04:00 Room Air 06/23/17 04:00 97.0 66 20 161/98 (119) 96 06/23/17 00:01 68 06/23/17 00:00 Room Air 06/23/17 00:00 98.0 78 20 151/96 (114) 97 06/22/17 20:00 Room Air 06/22/17 20:00 77 06/22/17 19:49 96 21 06/22/17 16:00 63 06/22/17 16:00 97.8 67 20 165/90 (115) 94 06/22/17 12:00 56 06/22/17 12:00 97.7 72 20 166/87 (113) 95 I/O 06/22/17 06/22/17 06/22/17 06/23/17 06/23/17 06/23/17 07:00 15:00 23:00 07:00 15:00 23:00 Intake Total 617 ml 1430 ml 1512 ml Output Total 400 ml Balance 617 ml 1430 ml 1112 ml Intake Oral 1080 ml 500 ml IV Total 617 ml 350 ml 1012 ml Output Urine Total 400 ml # Voids 3 3 # Bowel Movements 2 0 Result Diagram: 06/23/17 0748 06/23/17 0748 Imaging Last Impressions Chest X-Ray 06/21/17 1536 Signed Impressions: Service Date/Time: Wednesday, June 21, 2017 15:46 - CONCLUSION: Minimal patchy densities right lower lobe could be infiltrate.. Hardeep Mensah MD Objective Remarks GENERAL: Resting comfortably. SKIN: No rashes, ecchymoses or lesions. Cool and dry. HEAD: Atraumatic. Normocephalic. No temporal or scalp tenderness. EYES: Pupils equal round and reactive. Extraocular motions intact. No scleral icterus. No injection or drainage. ENT: Nose without bleeding, purulent drainage or septal hematoma. Throat without erythema, tonsillar hypertrophy or exudate. Uvula midline. Airway patent. NECK: Trachea midline. No JVD or lymphadenopathy. Supple, nontender, no meningeal signs. CARDIOVASCULAR: Regular rate and rhythm without murmurs, gallops, or rubs. RESPIRATORY: Clear to auscultation. Breath sounds equal bilaterally. No wheezes , rales, or rhonchi. Poor air movement. GASTROINTESTINAL: Abdomen soft, non-tender, nondistended. No hepato-splenomegaly , or palpable masses. No guarding. MUSCULOSKELETAL: Extremities without clubbing, cyanosis, or edema. No joint tenderness, effusion, or edema noted. NEUROLOGICAL: Awake and alert. Cranial nerves II through XII intact. Motor and sensory grossly within normal limits. Normal speech. PSYCH: Mood and affect appropriate. Medications and IVs Current Medications Medications (Trade) Dose Ordered Sig/Jesus Manuel Route Start Time Stop Time Status Last Admin (NS Flush) 2 ml UNSCH PRN IV FLUSH 06/21/17 19:15 (NS Flush) 2 ml BID IV FLUSH 06/21/17 21:00 06/22/17 09:00 Ceftriaxone Sodium 1000 mg/ Sodium Chloride 100 ml @ 200 mls/hr Q24H IV 06/22/17 18:00 06/22/17 17:52 Azithromycin 500 mg/Sodium Chloride 250 ml @ 250 mls/hr Q24H IV 06/22/17 18:00 06/22/17 18:42 (Duoneb Neb) 1 ampule Q4HR NEB PRN INH 06/21/17 19:15 06/23/17 09:02 (Heparin Inj) 5,000 units Q8H SQ 06/21/17 22:00 06/23/17 05:44 (Aspirin Chew) 81 mg DAILY CHEW 06/22/17 09:00 06/23/17 08:44 (Procardia Xl) 60 mg DAILY PO 06/22/17 09:00 06/23/17 08:44 (Ambien) 10 mg HS PRN PO 06/21/17 19:15 06/22/17 22:10 (D50w (Vial) Inj) 50 ml UNSCH PRN IV PUSH 06/21/17 19:15 (Glucagon Inj) 1 mg UNSCH PRN OTHER 06/21/17 19:15 (NovoLOG SUPPLEMENTAL SCALE) 1 ACHS SLIDING SCALE SQ 06/21/17 21:00 06/22/17 22:23 (Tamiflu Liq) 30 mg BID PO 06/21/17 21:00 06/23/17 08:47 (Catapres) 0.1 mg Q6H PRN PO 06/22/17 02:30 06/23/17 05:41 Sodium Chloride 1,000 ml @ 100 mls/hr Q10H IV 06/22/17 16:30 06/23/17 05:42 (Levemir Inj) 10 units DAILY SQ 06/22/17 16:30 06/23/17 08:45 (K-Lyte Cl Eff) 25 meq ONCE ONCE PO 06/23/17 10:30 06/23/17 10:31 UNV A/P Assessment and Plan Influenza Positive for flu A antigen. - continue Tamiflu, renally dosed. Community acquired pneumonia/ SOB Chest x-ray showed minimal patchy densities in the right lower lobe, possible infiltrate. Also with flu as above. - Rocephin/azithromycin IV. - Duo nebs. - Supplemental oxygen when necessary. Acute on chronic renal insufficiency Creatinine 2.25 on admission. Patient reports a history of chronic kidney disease s/t DM. - IV fluid hydration. - Monitor renal function. - check UA, calculate FENa. - nephrology consult requested. - replete potassium. Elevated troponin Troponin 0.11. Initial EKG showed NSR with T wave inversion in V5/V6, no ST segment elevations or depressions. Likely secondary to flu/ PNA/ renal insufficiency. No chest pain. - treatment as above. - repeat EKG 06/23. Diabetes mellitus Steroids are increasing values. - Holding home oral anti-hyperglycemics. - SSI and Levemir. - d/c steroids. Hypertension Poorly controlled. - Continue home medications. - clonidine as needed. Anemia Likely s/t renal disease. - follow CBC and transfuse as needed. PPx: SCDs Discharge Planning Awaiting nephrology eval. Hopefully d/c home in [place]. Rayshawn Lindsay DO Jun 23, 2017 10:31
--- NOTE | 2017-06-23 11:41 | PD.CONS ---
[facility] Service Nephrology Consult Requested By Reason for Consult Acute on CKD Primary Care Physician Jose Thompson M.D. History of Present Illness This is our 52 y/o office patient. She has a hx of DM II, HTN, COPD (former smoker), and hyperlipidemia. She presented and was admitted to the hospital on following 3 days of progressively worsening shortness of breath, fatigue, fever/body aches. She tested positive for Influenza A, started on Tamiflu. Chest Xray also suggests RLL pneumonia, started on IV Rocephin and azithromycin. In September of 2015, her creatinine was 0.87. In September of 2016, it pramod to 1.02, GFR 73. She was seen in May in CKD clinic. At that time her creatinine pramod to 1.57, GFR fell to 43. In addition she was spilling over 4 grams of protein in the urine. We had sent off for serum electrophoresis, results not available. It was thought she had diabetic nephropathy, she was on ARB. This admission her creatinine was 2.25, improved to 1.93 with IVF, is 2.15 today. She is non oliguric. There was a question of renal stones last year, but she was seen by urology and that had resolved. We were consulted for renal management. She is on isolation, not in distress. (Aileen Lawrence) Review of Systems Constitutional: COMPLAINS OF: Fatigue, Fever, Chills, Change in appetite Respiratory: COMPLAINS OF: Cough, Wheezing, Sputum production, Shortness of breath Cardiovascular: DENIES: Chest pain, Lower Extremity Edema Gastrointestinal: COMPLAINS OF: Nausea, DENIES: Abdominal pain (Aileen Lawrence) Past Family Social History Allergies: Coded Allergies: levofloxacin (Unverified Allergy, Severe, ITCHING, 06/21/17) OCCURRED THIS FIRST DOSE; ONLY RECEIVED 1/2 Past Medical History CKD 3, baseline creatinine 1.57, GFR 43 in Apr 2017 COPD Diabetes mellitus Hypertension Hyperlipidemia Past Surgical History Reported Medications Glipizide 10 Mg Tab 10 Mg PO BIDAC Take 30 minutes before a meal Zolpidem (Zolpidem Tartrate) 10 Mg Tab 10 Mg PO HS PRN Vitamin C (Ascorbic Acid) 250 Mg Tab 500 Mg PO DAILY Aspirin 81 Mg Chew 81 Mg CHEW DAILY Nifedipine ER 24 HR (Nifedipine) 60 Mg Tab 60 Mg PO DAILY Losartan (Losartan Potassium) 100 Mg Tab 100 Mg PO DAILY Metformin (Metformin HCl) 1,000 Mg Tab 1,000 Mg PO DAILY With a meal D3 Super Strength (Cholecalciferol) 2,000 Unit Cap 1,000 Units PO DAILY [place]-3 Fish Oil/Vitamin (Fish Oil-Cholecalciferol) 1,000-1,000 Mg Cap 1 Cap PO DAILY Active Ordered Medications Current Medications Medications (Trade) Dose Ordered Sig/Jesus Manuel Route Start Time Stop Time Status Last Admin (NS Flush) 2 ml UNSCH PRN IV FLUSH 06/21/17 19:15 (NS Flush) 2 ml BID IV FLUSH 06/21/17 21:00 06/22/17 09:00 Ceftriaxone Sodium 1000 mg/ Sodium Chloride 100 ml @ 200 mls/hr Q24H IV 06/22/17 18:00 06/22/17 17:52 Azithromycin 500 mg/Sodium Chloride 250 ml @ 250 mls/hr Q24H IV 06/22/17 18:00 06/22/17 18:42 (Duoneb Neb) 1 ampule Q4HR NEB PRN INH 06/21/17 19:15 06/23/17 11:17 (Heparin Inj) 5,000 units Q8H SQ 06/21/17 22:00 06/23/17 05:44 (Aspirin Chew) 81 mg DAILY CHEW 06/22/17 09:00 06/23/17 08:44 (Procardia Xl) 60 mg DAILY PO 06/22/17 09:00 06/23/17 08:44 (Ambien) 10 mg HS PRN PO 06/21/17 19:15 06/22/17 22:10 (D50w (Vial) Inj) 50 ml UNSCH PRN IV PUSH 06/21/17 19:15 (Glucagon Inj) 1 mg UNSCH PRN OTHER 06/21/17 19:15 (NovoLOG SUPPLEMENTAL SCALE) 1 ACHS SLIDING SCALE SQ 06/21/17 21:00 06/22/17 22:23 (Tamiflu Liq) 30 mg BID PO 06/21/17 21:00 06/23/17 08:47 (Catapres) 0.1 mg Q6H PRN PO 06/22/17 02:30 06/23/17 05:41 Sodium Chloride 1,000 ml @ 50 mls/hr Q20H IV 06/22/17 16:30 06/23/17 05:42 (Levemir Inj) 10 units DAILY SQ 06/22/17 16:30 06/23/17 08:45 Family History Non contributory Social History Lives with boyfriend Recently stopped smoking Denies illicit drug use Full code (Aileen Lawrence) Physical Exam Vital Signs Vital Signs Date Time Temp Pulse Resp B/P (MAP) Pulse Ox O2 Delivery O2 Flow Rate FiO2 06/23/17 09:19 Room Air 06/23/17 09:02 98 21 06/23/17 08:00 71 06/23/17 04:05 69 06/23/17 04:00 Room Air 06/23/17 04:00 97.0 66 20 161/98 (119) 96 06/23/17 00:01 68 06/23/17 00:00 Room Air 06/23/17 00:00 98.0 78 20 151/96 (114) 97 06/22/17 20:00 Room Air 06/22/17 20:00 77 06/22/17 19:49 96 21 06/22/17 16:00 63 06/22/17 16:00 97.8 67 20 165/90 (115) 94 06/22/17 12:00 56 06/22/17 12:00 97.7 72 20 166/87 (113) 95 Physical Exam Middle aged AAF sitting up Awake, alert, oriented Lungs with trace crackles right lower field S1/S2, RRR no murmurs Ext no edema Abd soft Laboratory Laboratory Tests Test 06/22/17 13:01 06/23/17 07:48 Total Creatine Kinase 302 Creatine Kinase MB 1.2 Creatine Kinase MB % 0.4 White Blood Count 4.9 Red Blood Count 3.50 Hemoglobin 9.5 Hematocrit 28.8 Mean Corpuscular Volume 82.3 Mean Corpuscular Hemoglobin 27.0 Mean Corpuscular Hemoglobin Concent 32.9 Red Cell Distribution Width 16.1 Platelet Count 186 Mean Platelet Volume 8.3 Blood Urea Nitrogen 40 Creatinine 2.15 Random Glucose 76 Calcium Level 8.0 Magnesium Level 2.2 Sodium Level 145 Potassium Level 3.3 Chloride Level 112 Carbon Dioxide Level 25.0 Anion Gap 8 Estimat Glomerular Filtration Rate 29 Date/Time Source Procedure Growth Status 06/21/17 16:18 Nasal Aspirate Influenza Types A,B Antigen (MOSES) - Final Positive For Flu A Antigen Complete (Aileen Lawrence) Result Diagram: 06/23/17 0748 06/23/17 0748 Imaging Last 72 hours Impressions Chest X-Ray 06/21/17 1536 Signed Impressions: Service Date/Time: Wednesday, June 21, 2017 15:46 - CONCLUSION: Minimal patchy densities right lower lobe could be infiltrate.. Hardeep Mensah MD (Aileen Lawrence) Assessment and Plan Problem List: (1) Acute renal failure superimposed on stage 3 chronic kidney disease ICD Codes: N17.9 - Acute kidney failure, unspecified; N18.3 - Chronic kidney disease, stage 3 (moderate) Plan: Her renal function has been declining over the past 12-18 months Most recent GFR was 43, creatinine 1.57. Suspected diabetic nephropathy with heavy proteinuria. REBEL may be due to infection, limited oral intake; may also have allergic interstitial nephritis due to recent antibiotic use. Tolerating oral fluids, reduce IVF to 50 cc/hr Obtain renal US UA with electrolytes has been ordered and is pending Non oliguric, monitor urine output Quantify proteinuria. Repeat labs in AM, avoid nephrotoxic agents. (2) Hypertension ICD Codes: I10 - Hypertension Status: Acute Plan: Needs better control On nifedipine XL, increase to 90 mg daily Losartan on hold, resume in AM (3) Hypokalemia ICD Codes: E87.6 - Hypokalemia Status: Acute Plan: Replacement has been given, repeat labs (4) Diabetes mellitus ICD Codes: E11.9 - Diabetes mellitus Status: Acute Plan: May be diet controlled, she states her metformin was stopped Monitor and use low dose insulin if needed. Check A1c (5) Flu ICD Codes: J11.1 - Influenza due to unidentified influenza virus with other respiratory manifestations Plan: With superimposed pneumonia On Tamiflu, also on Rocephin and Zithromax On droplet precautions, monitor clinically, continue supportive care (6) Anemia ICD Codes: D64.9 - Anemia, unspecified Plan: mild, Check iron profile tomorrow. (Aileen Lawrence) Assessment and Plan patient was seen and examined. REBEL could be pre-renal azotemia due to influenza and dehydration. Underlying proteinuric CKD, with some decline renal function. Will monitor. Quantify proteinuria. (Daniel Garber MD) Aileen Lawrence Jun 23, 2017 11:41 Daniel Garber MD Jun 23, 2017 14:45
--- NOTE | 2017-06-23 15:14 | RADRPT ---
EXAM DATE/TIME: 06/23/2017 12:43 [facility] COMPARISON: CT ABDOMEN & PELVIS W CONTRAST, October 12, 2011, 8:32. EXTERNAL COMPARISON : [facility], US KIDNEY, BILATERAL, March 15, 2017 INDICATIONS : Increased BUN/creatinine. MEDICAL HISTORY : Hypercholesterolemia. Gastroparesis. Arthritis. CVA. Hyperlipidemia. HTN. COPD. Pneumonia. Dyspnea. G ERD. Chronic kidney disease. Gout. Diabetes. Anemia. SURGICAL HISTORY : Tubal ligation. section. Cardiac cath. Blood transfusions. Left breast surgery x2. ENCOUNTER: Initial ACUITY: 1 day PAIN SCORE: 3/10 LOCATION: Bilateral flank MEASUREMENTS: RIGHT KIDNEY: 14.0 x 5.3 x 7.6 cm LEFT KIDNEY: 10.9 x 5.0 x 5.5 cm FINDINGS: RIGHT KIDNEY: Diffusely increased cortical echogenicity without stone, mass or significant hydronephrosis. Very sub tle perinephric free fluid near the superior pole. LEFT KIDNEY: Diffusely increased cortical echogenicity without stone, mass or significant hydronephrosis. BLADDER: Within normal limits given the degree of distension. CONCLUSION: 1. Echogenic kidneys consistent with medical renal disease. 2. No obstructive uropathy. 3. Very subtle trace nonspecific perinephric fluid near the superior pole of the right kidney. Jay Donnelly MD on June 23, 2017 at 15:08 Board Certified Radiologist. This report was verified electronically.
[2017-06-23] MEDS: AZITHROMYCIN INJ 500 MG in SODIUM CHLOR 0.9% 250 ML INJ 250 ML IV SCH (16:11)
[2017-06-23] MEDS: cefTRIAXone INJ 1,000 MG in SODIUM CHLORIDE 0.9% INJ 100 ML IV SCH (18:14)
[2017-06-23 19:35] LABS: BILIRUBIN, URINE NEG (NEG); BLOOD, URINE SMALL (NEG); GLUCOSE,URINE 300 mg/dL (NEG); KETONE, URINE NEG (NEG); NITRITE,URINE NEG (NEG); SQUAMOUS EPITHELIAL CELL URINE 1 /hpf (0-5); URINE COLOR LIGHT-YELLOW (YELLW/STRAW); URINE LEUKOCYTE ESTERASE NEG (NEG)
[2017-06-23 19:39] LABS: CREATININE, RANDOM URINE 38.1 MG/DL
[2017-06-23] MEDS: ZOLPIDEM TARTRATE 10 MG TAB PO PRN (21:24)
[2017-06-24 00:35] VITALS: BP 174/99; PULSE 77; RESP 20; TEMP 97.7; O2SAT 98
[2017-06-24] MEDS: RESP: ALBUTEROL 2.5 MG/IPRATROPIUM 0.5 MG NEB (PRN) INH (01:25)
[2017-06-24 01:30] VITALS: BP 161/83
[2017-06-24 03:41] VITALS: PULSE 73
[2017-06-24 06:00] VITALS: BP 168/95
[2017-06-24] MEDS: HEPARIN SODIUM - SQ 10,000 UNITS/ML VIAL SQ SCH (06:26)
[2017-06-24] MEDS: cloNIDine HCL 0.1 MG TAB PO PRN (06:26)
[2017-06-24 07:18] LABS: HEMATOCRIT 30.9 % (35.0-46.0); HEMOGLOBIN 10.2 GM/DL (11.6-15.3); MEAN CELL VOLUME 82.4 FL (80.0-100.0); MEAN CORPUSCULAR HEMOGLOBIN 27.2 PG (27.0-34.0); MEAN PLATELET VOLUME 8.5 FL (7.0-11.0); PLATELET COUNT 219 TH/MM3 (150-450); RED BLOOD COUNT 3.75 MIL/MM3 (4.00-5.30); RED CELL DISTRIBUTION WIDTH 16.2 % (11.6-17.2); WHITE BLOOD COUNT 7.2 TH/MM3 (4.0-11.0)
[2017-06-24 07:41] LABS: BICARBONATE 24.5 MEQ/L (21.0-32.0); BLOOD UREA NITROGEN 33 MG/DL (7-18); CALCIUM 8.5 MG/DL (8.5-10.1); CHLORIDE 111 MEQ/L (98-107); CREATININE 2.01 MG/DL (0.50-1.00); GLOMERULAR FILTRATION RATE 31 ML/MIN (>89); GLUCOSE,RANDOM 121 MG/DL (74-106); MAGNESIUM 2.1 MG/DL (1.5-2.5); SODIUM (NA) 143 MEQ/L (136-145)
[2017-06-24 07:42] LABS: IRON (FE) 17 MCG/DL (50-170)
[2017-06-24] MEDS: INSULIN ASPART SUPPLEMENTAL SCALE SQ SCH (07:50)
[2017-06-24 07:52] LABS: % SATURATION IRON PROFILE 7.5 % (20-50); TOTAL IRON BINDING CAPACITY 225 MCG/DL (250-450)
[2017-06-24 08:00] VITALS: PULSE 71; O2SAT 98
[2017-06-24 08:43] VITALS: BP 154/92; PULSE 73; RESP 18; TEMP 98.8; O2SAT 98
[2017-06-24] MEDS ORDERED: LOSARTAN 50 MG TAB PO SCH (09:00)
[2017-06-24] MEDS: SODIUM CHLORIDE 0.9% FLUSH 10 ML FLUSH IV FLUSH SCH (09:00)
[2017-06-24] MEDS ORDERED: NIFEdipine 90 MG SUSTAINED RELEASE TAB PO SCH (09:00)
[2017-06-24] MEDS: ASPIRIN 81 MG CHEW TAB CHEW SCH (09:12)
[2017-06-24] MEDS: OSELTAMIVIR PHOSPHATE 6 MG/ML 60 ML SUSP PO SCH (09:12)
[2017-06-24] MEDS: INSULIN DETEMIR 100 UNITS/ML VIAL SQ SCH (09:13)
[2017-06-24] MEDS ORDERED: CEFU1TAB20 PO (10:58)
[2017-06-24] MEDS ORDERED: AZIT500T2 PO (10:58)
[2017-06-24] MEDS ORDERED: OSEL30 PO (10:58)
[2017-06-24] MEDS ORDERED: NIFE90TA2 PO (10:58)
[2017-06-24] MEDS ORDERED: COZA50TA PO (10:58)
[2017-06-24] MEDS ORDERED: POTASSIUM CHLORIDE 25 MEQ EFFERVESCENT TAB PO ONE (11:00)
--- NOTE | 2017-06-24 11:17 | HHI.DCPOC ---
Discharge Care Plan Diagnosis: (1) Pneumonia (2) Acute renal failure superimposed on stage 3 chronic kidney disease (3) Hypertension (4) Anemia (5) Diabetes mellitus (6) Flu (7) Hypokalemia Goals to Promote Your Health * To prevent worsening of your condition and complications * To maintain your health at the optimal level Directions to Meet Your Goals Take your medications as prescribed Follow your dietary instruction Follow activity as directed Keep your appointments as scheduled Take your immunizations and boosters as scheduled If your symptoms worsen call your PCP, if no PCP go to Urgent Care Center or Emergency Room Smoking is Dangerous to Your Health. Avoid second hand smoke Call the 24-hour hour crisis hotline for domestic abuse at Rayshawn Lindsay DO Jun 24, 2017 11:17
--- NOTE | 2017-06-24 11:41 | HHI.DS ---
cc: RealJoeJosemanuel L MD Discharge Summary Admission Date Jun 21, 2017 at 18:26 Discharge Date: Jun 24, 2017 Admitting Diagnosis Cough, Pneumonia, elevated troponin, influenza (1) Pneumonia ICD Code: J18.9 - Pneumonia, unspecified organism Diagnosis: Principal (2) Acute renal failure superimposed on stage 3 chronic kidney disease ICD Code: N17.9 - Acute kidney failure, unspecified; N18.3 - Chronic kidney disease, stage 3 (moderate) Diagnosis: Principal (3) Hypertension ICD Code: I10 - Hypertension Diagnosis: Principal Status: Acute (4) Anemia ICD Code: D64.9 - Anemia, unspecified (5) Diabetes mellitus ICD Code: E11.9 - Diabetes mellitus Status: Acute (6) Flu ICD Code: J11.1 - Influenza due to unidentified influenza virus with other respiratory manifestations Diagnosis: Principal (7) Hypokalemia ICD Code: E87.6 - Hypokalemia Status: Acute Procedures None Brief History - From Admission 52-year-old female with past medical history significant for COPD, diabetes mellitus, hypertension, hyperlipidemia and CK D presents to the emergency department with 3 days of progressively worsening shortness of breath. Patient reports she had URI symptoms that began 3 days ago including congestion and a cough productive of yellow sputum. She states she has been having a difficult time catching her breath, worse with activity. She endorses fever/chills of one day duration. Denies chest pain. Patient is positive for flu and has a chest x-ray concerning for pneumonia. Vital signs: Temperature 98.5, pulse 84, respirations 18, BP 171/99, pulse ox 98% on room air. CBC/BMP: 06/24/17 0605 06/24/17 0605 Significant Findings Laboratory Tests Test 06/21/17 16:18 06/21/17 22:53 06/22/17 07:10 06/22/17 13:01 Red Blood Count 3.87 MIL/MM3 (4.00-5.30) 3.71 MIL/MM3 (4.00-5.30) Hemoglobin 10.8 GM/DL (11.6-15.3) 10.1 GM/DL (11.6-15.3) Hematocrit 32.2 % (35.0-46.0) 30.5 % (35.0-46.0) Monocytes (%) (Auto) 18.1 % (0.0-8.0) Eosinophils (%) (Auto) 6.3 % (0.0-4.0) Monocytes # (Auto) 1.2 TH/MM3 (0-0.9) Blood Urea Nitrogen 51 MG/DL (7-18) 43 MG/DL (7-18) Creatinine 2.25 MG/DL (0.50-1.00) 1.93 MG/DL (0.50-1.00) Calcium Level 8.3 MG/DL (8.5-10.1) 8.3 MG/DL (8.5-10.1) Sodium Level 148 MEQ/L (136-145) Chloride Level 112 MEQ/L (98-107) 112 MEQ/L (98-107) Estimat Glomerular Filtration Rate 28 ML/MIN (>89) 33 ML/MIN (>89) Total Creatine Kinase 202 U/L (26-192) 211 U/L (26-192) 274 U/L (26-192) 302 U/L (26-192) Troponin I 0.11 NG/ML (0.02-0.05) 0.10 NG/ML (0.02-0.05) 0.11 NG/ML (0.02-0.05) Neutrophils (%) (Auto) 81.0 % (16.0-70.0) Lymphocytes # (Auto) 0.7 TH/MM3 (1.0-4.8) Random Glucose 183 MG/DL (74-106) Test 06/23/17 07:48 06/23/17 15:40 06/24/17 06:05 Red Blood Count 3.50 MIL/MM3 (4.00-5.30) 3.75 MIL/MM3 (4.00-5.30) Hemoglobin 9.5 GM/DL (11.6-15.3) 10.2 GM/DL (11.6-15.3) Hematocrit 28.8 % (35.0-46.0) 30.9 % (35.0-46.0) Blood Urea Nitrogen 40 MG/DL (7-18) 33 MG/DL (7-18) Creatinine 2.15 MG/DL (0.50-1.00) 2.01 MG/DL (0.50-1.00) Calcium Level 8.0 MG/DL (8.5-10.1) Potassium Level 3.3 MEQ/L (3.5-5.1) 3.4 MEQ/L (3.5-5.1) Chloride Level 112 MEQ/L (98-107) 111 MEQ/L (98-107) Estimat Glomerular Filtration Rate 29 ML/MIN (>89) 31 ML/MIN (>89) Total Creatine Kinase 326 U/L (26-192) 348 U/L (26-192) Urine Protein 300 mg/dL (NEG-TRACE) Urine Glucose (UA) 300 mg/dL (NEG) Urine Occult Blood SMALL (NEG) Urine Microalbumin/Creatinine Ratio 6237 MG/G CRE (0-30) Random Glucose 121 MG/DL (74-106) Iron Level 17 MCG/DL (50-170) Total Iron Binding Capacity 225 MCG/DL (250-450) Percent Iron Saturation 7.5 % (20-50) Imaging Last Impressions Renal Ultrasound 06/23/17 0000 Signed Impressions: Service Date/Time: June 12:43 - CONCLUSION: 1. Echogenic kidneys consistent with medical renal disease. 2. No obstructive uropathy. 3. Very subtle trace nonspecific perinephric fluid near the superior pole of the right kidney. Jay Donnelly MD Chest X-Ray 06/21/17 1536 Signed Impressions: Service Date/Time: Wednesday, June 21, 2017 15:46 - CONCLUSION: Minimal patchy densities right lower lobe could be infiltrate.. Hardeep Mensah MD PE at Discharge GENERAL: Resting comfortably. SKIN: No rashes, ecchymoses or lesions. Cool and dry. HEAD: Atraumatic. Normocephalic. No temporal or scalp tenderness. EYES: Pupils equal round and reactive. Extraocular motions intact. No scleral icterus. No injection or drainage. ENT: Nose without bleeding, purulent drainage or septal hematoma. Throat without erythema, tonsillar hypertrophy or exudate. Uvula midline. Airway patent. NECK: Trachea midline. No JVD or lymphadenopathy. Supple, nontender, no meningeal signs. CARDIOVASCULAR: Regular rate and rhythm without murmurs, gallops, or rubs. RESPIRATORY: Clear to auscultation. Breath sounds equal bilaterally. No wheezes , rales, or rhonchi. Poor air movement. GASTROINTESTINAL: Abdomen soft, non-tender, nondistended. No hepato-splenomegaly , or palpable masses. No guarding. MUSCULOSKELETAL: Extremities without clubbing, cyanosis, or edema. No joint tenderness, effusion, or edema noted. NEUROLOGICAL: Awake and alert. Cranial nerves II through XII intact. Motor and sensory grossly within normal limits. Normal speech. PSYCH: Mood and affect appropriate. Pt update on day of discharge The pt wanted to go home. She said she will follow up with her kidney doctor. She said her breathing was much improved. Discussed with nursing. Hospital Course Influenza Positive for flu A antigen. Shw will complete a course of Tamiflu, renally dosed. Community acquired pneumonia Chest x-ray showed minimal patchy densities in the right lower lobe, possible infiltrate. Also with flu as above. She received Rocephin/azithromycin IV and Duonebs. She received supplemental oxygen when necessary. She will complete a course of Ceftin and azithromycin, renally dosed. She will be provided with an albuterol inhaler. Acute on chronic renal insufficiency Creatinine 2.25 on admission. Patient reports a history of chronic kidney disease s/t DM. Nephrology was consulted. She received IVFs. FENa calculated at 2.8%. Renal US with medical renal disease. UA negative for infection. Her potassium was repleted. Losartan dose was decreased. Metformin will be discontinued. 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 Elevated troponin Troponin peaked at 0.11. Initial EKG showed NSR with T wave inversion in V5/V6, no ST segment elevations or depressions. Thought to be demand ischemia secondary to influenza/ PNA/ acute on chronic renal failure. She denied any chest pain. She received treatment as above. She did not wish to pursue further testing in the hospital with a stress test and would like to follow up with her medical laboratory technologist as an outpatient upon discharge. Diabetes mellitus Glucose levels elevated as pt was started on steroids. Steroids were discontinued. She was placed on SSI and Levemir. She will resume her glipizide upon discharge. Metformin will be d/c in light of renal function. Hypertension Nifedipine increased by nephrology. She will resume losartan at a lower dose. Pt Condition on Discharge: Stable Discharge Disposition: Discharge Home Discharge Time: > 30 minutes Discharge Instructions DIET: Follow Instructions for: Diabetic Diet Activities you can perform: Weight Bearing as Pham Follow up Referrals: Cardiology - 1 Week with Josemanuel Noble MD Nephrology - [address] Ponce Blanco PCP Follow-up - 1 Week New Orders: BASIC METABOLIC PROF - 3-5 Days New Medications: Albuterol 8.5 GM Inh (Proair Hfa 8.5 GM Inh) 90 Mcg/Act Aer 2 PUFF INH Q4-6H PRN for SHORTNESS OF BREATH, #1 INHALER 0 Refills 108 mcg/actuation Azithromycin (Azithromycin) 500 Mg Tab 500 MG PO DAILY for Infection, #2 TAB 0 Refills Cefuroxime (Cefuroxime) 500 Mg Tab 500 MG PO DAILY for Infection for 5 Days, #5 TAB 0 Refills Losartan (Losartan) 50 Mg Tab 50 MG PO BID for Blood Pressure Management, #60 TAB 0 Refills Oseltamivir (Tamiflu) 30 Mg Cap 30 MG PO BID for Mgmt Viral Infection for 2 Days, #4 CAP 0 Refills Nifedipine (Nifedipine ER) 90 Mg Tab 90 MG PO DAILY for Blood Pressure Management, #30 TAB Continued Medications: Ascorbic Acid (Vitamin C) 250 Mg Tab 500 MG PO DAILY for Nutritional Supplement, TAB 0 Refills Aspirin (Aspirin) 81 Mg Chew 81 MG CHEW DAILY, TAB 0 Refills Cholecalciferol (D3 Super Strength) 2,000 Unit Cap 1000 UNITS PO DAILY for Nutritional Supplement, #30 CAP 0 Refills Fish Oil-Cholecalciferol ([place]-3 Fish Oil/Vitamin) 1,000-1,000 Mg Cap 1 CAP PO DAILY for Nutritional Supplement, CAP 0 Refills Glipizide (Glipizide) 10 Mg Tab 10 MG PO BIDAC for Blood Sugar Management, #60 TAB 0 Refills Take 30 minutes before a meal Zolpidem (Zolpidem) 10 Mg Tab 10 MG PO HS PRN for INSOMNIA, TAB 0 Refills Discontinued Medications: Losartan (Losartan) 100 Mg Tab 100 MG PO DAILY for Blood Pressure Management, #30 TAB 0 Refills Metformin (Metformin) 1,000 Mg Tab 1000 MG PO DAILY for Blood Sugar Management, #30 TAB 0 Refills With a meal Nifedipine ER 24 HR (Nifedipine ER 24 HR) 60 Mg Tab 60 MG PO DAILY, #30 TAB 0 Refills Rayshawn Lindsay DO Jun 24, 2017 11:41
[2017-06-24] MEDS ORDERED: LOSA50TA PO (11:45)
--- NOTE | 2017-06-24 12:09 | HHI.NPPN ---
Subjective General Problems: Anemia Renal Failure: Chronic, Acute, Stage III Interval History Renal function is better. She is going to be discharged today. (Aileen Lawrence) Review of Systems Respiratory Lungs: SOB, Cough (Aileen Lawrence) Objective Data Data 06/24/17 06/25/17 19:00 07:00 Intake Total 240 ml Balance 240 ml Intake Oral 240 ml Vital Signs Date Time Temp Pulse Resp B/P (MAP) Pulse Ox O2 Delivery O2 Flow Rate FiO2 06/24/17 09:28 Room Air 06/24/17 08:43 98.8 73 18 154/92 (112) 98 06/24/17 08:00 71 06/24/17 08:00 98 06/24/17 06:00 168/95 (119) 06/24/17 03:41 73 06/24/17 01:30 161/83 (109) 06/24/17 00:35 Room Air 06/24/17 00:35 97.7 77 20 174/99 (124) 98 06/23/17 23:48 72 06/23/17 20:57 Room Air 06/23/17 20:57 97.8 77 20 162/89 (113) 98 06/23/17 20:52 96 06/23/17 19:44 78 06/23/17 16:00 97.6 79 20 171/97 (121) 96 06/23/17 16:00 76 (Aileen Lawrence) -: 06/24/17 0605 06/24/17 0605 Imaging Last 72 hours Impressions Renal Ultrasound 06/23/17 0000 Signed Impressions: Service Date/Time: June 12:43 - CONCLUSION: 1. Echogenic kidneys consistent with medical renal disease. 2. No obstructive uropathy. 3. Very subtle trace nonspecific perinephric fluid near the superior pole of the right kidney. Jay Donnelly MD Chest X-Ray 06/21/17 1536 Signed Impressions: Service Date/Time: Wednesday, June 21, 2017 15:46 - CONCLUSION: Minimal patchy densities right lower lobe could be infiltrate.. Hardeep Mensah MD (Aileen Lawrence) Physical Exam General Appearance: Well Developed, No Acute Distress, Comfortable (Aileen Lawrence. [employer]) Throat Throat Exam: Oral Mucosa [place] & Moist (Aileen Lawrence B. [employer]) Neck Neck Exam: Neck Supple (Aileen Lawrence B. [employer]) Pulmonary Resp Exam: No Distress, Crackles (Aileen Lawrence B. [employer]) Cardiology CV Exam: Regular, Normal Sinus Rhythm (Aileen Lawrence B. [employer]) Gastrointestinal/Abdomen GI Exam: Soft, Non-Tender (Aileen Lawrence B. [employer]) Musculoskeletal MS Exam: Joints Intact, Normal Gait, Normal Tone (Aileen Lawrence B. [employer]) Integumentary Skin Exam: Clear, Warm, Dry, Intact (Aileen Lawrence B. [employer]) Extremeties Extremities Exam: No Edema, Pedal Pulses Palpable (Aileen Lawrence B. [employer]) Neurologic Neuro Exam: Alert, Awake, Oriented, Speech Clear, Moving All Extremities (Aileen Lawrence. [employer]) Assessment/Plan Discussed Condition With: Patient Assessment Summary: REBEL/Acute Renal Failure, CKD Stage III Problem List: (1) Acute renal failure superimposed on stage 3 chronic kidney disease ICD Codes: N17.9 - Acute kidney failure, unspecified; N18.3 - Chronic kidney disease, stage 3 (moderate) Plan: Her renal function has been declining over the past 12-18 months Baseline CKD 3 with creatinine 1.57. Suspected diabetic nephropathy with heavy proteinuria. Over 6 grams this admission REBEL may have been due to prerenal azotemia secondary to limited oral intake and infection Renal function is better. Off IVF. K replaced. Renal US negative Excellent urine output Advised to avoid NSAIDs at home. (2) Hypertension ICD Codes: I10 - Hypertension Status: Acute Plan: Needs better control On nifedipine XL 90 mg daily Losartan increased to 50 mg BID (3) Hypokalemia ICD Codes: E87.6 - Hypokalemia Status: Acute Plan: Replacement has been given (4) Diabetes mellitus ICD Codes: E11.9 - Diabetes mellitus Status: Acute Plan: Advised to hold Metformin for one week On PO glipizide (5) Flu ICD Codes: J11.1 - Influenza due to unidentified influenza virus with other respiratory manifestations Plan: With superimposed pneumonia On Tamiflu, to be discharged on PO Zithromax (6) Anemia ICD Codes: D64.9 - Anemia, unspecified Plan: mild, has iron deficiency start oral iron Plan We will follow with the patient in our CKD clinic in 3-4 weeks. (Aileen Lawrence) Plan patient was seen and examined. Renal function is better. Has heavy proteinuria. We will discuss renal biopsy with her. To be discharged today. (Daniel Garber MD) Aileen Lawrence Jun 24, 2017 12:09 Daniel Garber MD Jun 24, 2017 14:47
[2017-06-24] MEDS ORDERED: ALBUAER3 INH (12:10)
[2017-06-24] MEDS ORDERED: FERROUS SULFATE 325 MG (65 MG ELEMENTAL IRON) TAB PO SCH (12:15)
== END 2017-06-24 12:34 | disposition home or self-care (01) | DRG 194 ==
LOC: NEPE 15:10 → NEDA 18:26 → N04B 20:39
PROVIDERS: ADMIT Hospitalist; ATTEND Hospitalist
DX: J10.00 Influenza due to other identified influenza virus with unspecified type of pneumonia (principal); J44.1 Chronic obstructive pulmonary disease with (acute) exacerbation; E11.21 Type 2 diabetes mellitus with diabetic nephropathy; N17.9 Acute kidney failure, unspecified; N18.3 Chronic kidney disease, stage 3 (moderate); J44.0 Chronic obstructive pulmonary disease with (acute) lower respiratory infection; E11.22 Type 2 diabetes mellitus with diabetic chronic kidney disease; I12.9 Hypertensive chronic kidney disease with stage 1 through stage 4 chronic kidney disease, or unspecified chronic kidney disease; R74.8 Abnormal levels of other serum enzymes; E78.5 Hyperlipidemia, unspecified; Z87.442 Personal history of urinary calculi; Z86.73 Personal history of transient ischemic attack (TIA), and cerebral infarction without residual deficits; Z79.84 Long term (current) use of oral hypoglycemic drugs; Z83.3 Family history of diabetes mellitus; Z82.49 Family history of ischemic heart disease and other diseases of the circulatory system; Z87.891 Personal history of nicotine dependence; K21.9 Gastro-esophageal reflux disease without esophagitis; E87.6 Hypokalemia; D50.9 Iron deficiency anemia, unspecified
CPT/HCPCS: 71046; 76775; 80048; 81001; 82043; 82550; 82552; 82570; 82948; 83540; 83550; 83735; 84100; 84300; 84484; 85025; 85027; 87804; 93005; 94640; 94664; J0456; J0696; J1644; J1815; J2920; J2930; J7030; J7050

== ENCOUNTER 2017-08-24 06:30 | Day surgery (SDC) | payer MEDICARE, OTHER ==
[~2017-08-24] VITALS: Ht 165.1 cm; Wt 78.6 kg
[2017-08-24] VITALS (9 sets, daily range): BP systolic 121–157; BP diastolic 55–85; PULSE 60–83; RESP 18–20; TEMP 97.7–97.8; O2SAT 93–98
[~2017-08-24 06:30] MED LIST changes: -ALBU0.086 INH; -ALBU1AER INH; +ALBUAER3 INH; -AMOX500T PO; +ASPI-516 CHEW; -ASPI81TA82 PO; -ATOR20TA PO; -AUGM875T PO; -CYCL10TA PO; +D200CAP PO; -FAMO20TA2 PO; -FLUT1SPR5 EACH NARE; +GLIP10TA6 PO; -GLIP5 PO; -HYDR-2768 PO; -KCL10 PO; +LOSA50TA PO; -METF1000 PO; -NIFE1TAB86 PO; +NIFE90TA2 PO; +OMEGCAP PO; +OSEL30 PO; -PRED20 PO; -VENTAER INH; +VITA250T3 PO; -VITA400D PO
[2017-08-24] MEDS ORDERED: LIDOCAINE HCL 1% 20 ML VIAL OTHER ONE (06:31)
[2017-08-24] MEDS ORDERED: TRAD5TAB PO (07:15)
[2017-08-24] MEDS ORDERED: ATOR80TA45 PO (07:15)
[2017-08-24] MEDS ORDERED: SODIUM CHLORIDE 2 ML FLUSH PRN IV FLUSH (07:30)
[2017-08-24] MEDS ORDERED: fentaNYL CITRATE 250 MCG/5 ML AMP ONE (07:35)
[2017-08-24] MEDS ORDERED: MIDAZOLAM HCL 5 MG/5 ML VIAL ONE (07:35)
[2017-08-24] MEDS ORDERED: SODIUM CHLOR 0.9% 1000 ML IV SCH (08:00)
[2017-08-24] MEDS ORDERED: SODIUM CHLORIDE 2 ML FLUSH BID IV FLUSH SCH (09:00)
[2017-08-24] MEDS ORDERED: THROMBIN (TOPICAL) 5,000 UNIT VIAL ONE (09:07)
--- NOTE | 2017-08-24 09:35 | PD.RAD ---
Post CT Procedure Prog Note Pre Procedure Diagnosis: (1) Acute renal failure superimposed on stage 3 chronic kidney disease Post Procedure Diagnosis: (1) Acute renal failure superimposed on stage 3 chronic kidney disease Procedure Date: Aug 24, 2017 Supervising Radiologist: Jose Miguel Koroma Anesthesia: Local, Analgesia, Conscious Sedation Plan of Activity Patient to Unit: ROPU Patient Condition: Good See PACS Report for procedural detail/treatment Biopsy Imaging Guidance: CT Side: Right Biopsy Procedure: Kidney (LP) Specimen: Core Biopsy (18 gauge) Findings: Coaxial bx. Tract sealed with Thrombin and Gelfoam slurry Jose Miguel Koroma MD Aug 24, 2017 09:35
[2017-08-24] MEDS ORDERED: HYDROmorphone HCL 2 MG TAB PO PRN (09:45)
[2017-08-24 10:10] LABS: AUTOMATED NEUTROPHIL # 2.7 TH/MM3 (1.8-7.7); BASOPHIL # 0.1 TH/MM3 (0-0.2); BASOPHIL % 1.3 % (0.0-2.0); EOSINOPHIL # 0.6 TH/MM3 (0-0.4); EOSINOPHIL % 10.7 % (0.0-4.0); HEMATOCRIT 32.4 % (35.0-46.0); HEMOGLOBIN 10.5 GM/DL (11.6-15.3); LYMPHOCYTE # 1.6 TH/MM3 (1.0-4.8); MEAN CELL VOLUME 81.8 FL (80.0-100.0); MEAN CORPUSCULAR HEMOGLOBIN 26.5 PG (27.0-34.0); MEAN CORPUSCULAR HGB CONC 32.4 % (32.0-36.0); MONO % 9.3 % (0.0-8.0); MONOCYTE # 0.5 TH/MM3 (0-0.9); NEUT % 49.7 % (16.0-70.0); PLATELET COUNT 256 TH/MM3 (150-450); RED BLOOD COUNT 3.97 MIL/MM3 (4.00-5.30); RED CELL DISTRIBUTION WIDTH 15.9 % (11.6-17.2); WHITE BLOOD COUNT 5.5 TH/MM3 (4.0-11.0)
--- NOTE | 2017-08-24 12:08 | RADRPT ---
EXAM DATE/TIME: 08/24/2017 08:40 [facility] COMPARISON: No previous studies available for comparison. INDICATIONS : Chronic kidney disease. SEDATION TIME: 30 minutes BIOPSY SITE: Right MEDICATION(S): 1.) 3.5 mg midazolam (Versed) IV 2.) 175 mcg fentanyl (Sublimaze) IV DEVICE(S): 1.) 18 gauge coaxial Bard MEDICAL HISTORY : Diabetes mellitus type 2. Renal failure, chronic. Hypertension. SURGICAL HISTORY : None. ENCOUNTER: Initial ACUITY: 1 day PAIN SCORE: 0/10 LOCATION: Right A total of one core specimen(s) were obtained and sent to the laboratory for pathologic evaluation. PROCEDURE: 1. CT guided renal biopsy. 2. Conscious sedation with continuous EKG and oximetry monitoring. 3. EKG and oximetry remained stable throughout the procedure. Prior to the procedure informed consent was obtained. Any appropriate prior imaging studies were rev iewed. Using automated exposure control and adjustment of the mA and/or kV according to patient size, radiat ion dose was kept as low as reasonably achievable to obtain optimal diagnostic quality images. DICOM format image data is available electronically for review and comparison. The site was prepped in a sterile fashion. Full sterile technique was used, including cap, mask, brian rile gloves and gown and a large sterile sheet. Hand hygiene and 2% chlorhexidine and/or betadine/al cohol prep was utilized per protocol for cutaneous antisepsis. The skin and subcutaneous tissues wer e infiltrated with local anesthetic solution. With CT guidance the previously identified target was localized. Biopsy was performed using the presc ribed needle as above. Adequate hemostasis was obtained with prominent Gelfoam slurry through the ca rrier needle and compression at the puncture site. Follow-up CT scan reveals minimal perinephric hemorrhage.. The patient tolerated the procedure well and there were no complications. The patient was returned to the Radiology Outpatient Unit in stable condition. CONCLUSION: Uncomplicated CT guided biopsy. Jose Miguel Koroma MD on August 24, 2017 at 12:04 Board Certified Radiologist. This report was verified electronically.
[2017-08-24 12:21] LABS: AUTOMATED NEUTROPHIL # 2.5 TH/MM3 (1.8-7.7); BASOPHIL # 0.1 TH/MM3 (0-0.2); BASOPHIL % 1.2 % (0.0-2.0); EOSINOPHIL # 0.6 TH/MM3 (0-0.4); EOSINOPHIL % 10.7 % (0.0-4.0); HEMATOCRIT 30.1 % (35.0-46.0); HEMOGLOBIN 9.9 GM/DL (11.6-15.3); LYMPH % 31.6 % (9.0-44.0); LYMPHOCYTE # 1.7 TH/MM3 (1.0-4.8); MEAN CELL VOLUME 82.5 FL (80.0-100.0); MEAN CORPUSCULAR HGB CONC 32.7 % (32.0-36.0); MONO % 8.7 % (0.0-8.0); MONOCYTE # 0.5 TH/MM3 (0-0.9); NEUT % 47.8 % (16.0-70.0); PLATELET COUNT 240 TH/MM3 (150-450); RED BLOOD COUNT 3.65 MIL/MM3 (4.00-5.30); RED CELL DISTRIBUTION WIDTH 16.6 % (11.6-17.2); WHITE BLOOD COUNT 5.3 TH/MM3 (4.0-11.0)
== END 2017-08-24 13:40 | disposition home or self-care (01) ==
LOC: HRAD 06:30 → HRIP 06:30 → HRAD 13:40
PROVIDERS: ATTEND Radiology Body Imaging
DX: N17.9 Acute kidney failure, unspecified (principal); N18.3 Chronic kidney disease, stage 3 (moderate); I12.9 Hypertensive chronic kidney disease with stage 1 through stage 4 chronic kidney disease, or unspecified chronic kidney disease; E11.22 Type 2 diabetes mellitus with diabetic chronic kidney disease
CPT/HCPCS: 50200; 77012; 85025; 88305; 88313; 88342; 88346; 88348; 88350; J2250; J3010

== ENCOUNTER 2017-09-26 22:32 | Inpatient (IN) | payer MEDICARE, MEDICAID ==
[~2017-09-26] VITALS: Ht 167.6 cm; Wt 90.0 kg
[~2017-09-26 22:32] MED LIST changes: +ATOR80TA45 PO; -OSEL30 PO; +TRAD5TAB PO
[2017-09-26 22:33] VITALS: BP 184/97; PULSE 79; RESP 16; TEMP 98.9; O2SAT 97
[2017-09-26] MEDS ORDERED: SODIUM CHLOR 0.9% 1000 ML INJ 1,000 ML IV ONE (22:42)
[2017-09-26 22:43] VITALS: O2SAT 96
[2017-09-26 22:51] VITALS: BP 183/97; PULSE 81; RESP 18; O2SAT 100
--- NOTE | 2017-09-26 23:01 | RADRPT ---
EXAM DATE/TIME: 09/26/2017 22:47 [facility] COMPARISON: No previous studies available for comparison. INDICATIONS : Stroke Alert, Dysthria. RADIATION DOSE: 56.35 CTDIvol (mGy) MEDICAL HISTORY : Non-responsive. SURGICAL HISTORY : Non-responsive. ENCOUNTER: Initial ACUITY: 1 day PAIN SCALE: Non-responsive LOCATION: cranial TECHNIQUE: Multiple contiguous axial images were obtained of the head. Using automated exposure control and adj ustment of the mA and/or kV according to patient size, radiation dose was kept as low as reasonably a chievable to obtain optimal diagnostic quality images. DICOM format image data is available electro nically for review and comparison. FINDINGS: CEREBRUM: There areas of encephalomalacia involving the external capsule and basal ganglia on the left. Old str néstor in the right cerebellar hemisphere and a large left previous cerebral stroke. The brain stem lacu rossana infarct. I don't see any evidence of acute hemorrhage or mass effect.. No extra-axial fluid haroldo ections are seen. POSTERIOR FOSSA: 2 old left cerebellar strokes. The 4th ventricle is midline. The cerebellopontine angle is unremark able. EXTRACRANIAL: The visualized portion of the orbits is intact. SKULL: The calvaria is intact. No evidence of skull fracture. CONCLUSION: Multiple old strokes including the cerebellar hemispheres. No evidence of hemorrhage or edema. This report was called to Dr. Wallis at <2259 hrs.>. Alvarez Sauceda MD on September 26, 2017 at 22:58 Board Certified Radiologist. This report was verified electronically.
[2017-09-26 23:05] LABS: AUTOMATED NEUTROPHIL # 2.7 TH/MM3 (1.8-7.7); BASOPHIL % 0.8 % (0.0-2.0); EOSINOPHIL # 0.5 TH/MM3 (0-0.4); EOSINOPHIL % 8.4 % (0.0-4.0); HEMATOCRIT 30.1 % (35.0-46.0); HEMOGLOBIN 9.8 GM/DL (11.6-15.3); LYMPH % 33.2 % (9.0-44.0); LYMPHOCYTE # 1.9 TH/MM3 (1.0-4.8); MEAN CELL VOLUME 82.3 FL (80.0-100.0); MEAN CORPUSCULAR HEMOGLOBIN 26.7 PG (27.0-34.0); MEAN CORPUSCULAR HGB CONC 32.5 % (32.0-36.0); MONO % 10.9 % (0.0-8.0); MONOCYTE # 0.6 TH/MM3 (0-0.9); NEUT % 46.7 % (16.0-70.0); PLATELET COUNT 246 TH/MM3 (150-450); RED BLOOD COUNT 3.66 MIL/MM3 (4.00-5.30); RED CELL DISTRIBUTION WIDTH 15.9 % (11.6-17.2); WHITE BLOOD COUNT 5.9 TH/MM3 (4.0-11.0)
[2017-09-26] MEDS ORDERED: ASPIRIN 81 MG CHEW TAB CHEW ONE (23:15)
--- NOTE | 2017-09-26 23:16 | RADRPT ---
EXAM DATE/TIME: 09/26/2017 22:49 [facility] COMPARISON: No previous studies available for comparison. INDICATIONS : Stroke Alert, Dysarthria. IV CONTRAST: 50 cc Visipaque (iodixanol) IV ; Cumulative dose for multiple exams. RADIATION DOSE: 10.31 CTDIvol (mGy) ; Combined studies MEDICAL HISTORY : Non-responsive. SURGICAL HISTORY : Non-responsive. ENCOUNTER: Initial ACUITY: 1 day PAIN SCALE: Non-responsive LOCATION: neck TECHNIQUE: Volumetric scanning was performed using a multi-row detector CT scanner. The data was post processed with a variety of visualization algorithms including full volume maximum intensity projection, multi -planar sliding thin slab reformation, curved planar reformation, and surface rendering techniques. Using automated exposure control and adjustment of the mA and/or kV according to patient size, radiat ion dose was kept as low as reasonably achievable to obtain optimal diagnostic quality images. DICO M format image data is available electronically for review and comparison. FINDINGS: There is poor visualization of the major intracranial arteries out to the second-order branch vessels . There is no evidence for aneurysm, vessel truncation or stenosis, and no evidence for vascular mal formation. The patient is right vertebral dominance. Lower poor visualization of the second-order branches after the origin of the cerebral vessels. CONCLUSION: Limit exam possibly related to motion. I don't see any definite filling defects or obvious stenoses b ut it is a limited exam. Alvarez Sauceda MD on September 26, 2017 at 23:14 Board Certified Radiologist. This report was verified electronically.
--- NOTE | 2017-09-26 23:17 | RADRPT ---
EXAM DATE/TIME: 09/26/2017 22:49 [facility] COMPARISON: No previous studies available for comparison. INDICATIONS : Stroke Alert, dysarthria. IV CONTRAST: 50 cc Visipaque (iodixanol) IV ; Cumulative dose for multiple exams. RADIATION DOSE: 10.31 CTDIvol (mGy) ; Combined studies MEDICAL HISTORY : Non-responsive. SURGICAL HISTORY : Non-responsive. ENCOUNTER: Initial ACUITY: 1 day PAIN SCALE: Non-responsive LOCATION: neck Elevated flow velocities and ICA/CCA ratios have been found to correlate with increased degrees of vessel stenosis, calculated as percentage of diameter relative to a normal segment of distal ICA/CCA. TECHNIQUE: Volumetric scanning was performed using a multirow detector CT scanner. The data was post processed with a variety of visualization algorithms including full-volume maximum intensity projection, multip lanar sliding thin-slab reformation, curved-planar reformation, and surface-rendering techniques. Us ing automated exposure control and adjustment of the mA and/or kV according to patient size, radiatio n dose was kept as low as reasonably achievable to obtain optimal diagnostic quality images. DICOM f ormat image data is available electronically for review and comparison. FINDINGS: AORTIC ARCH: There is a three-vessel origin of the great vessels from the aorta. No evidence of ostial narrowing. RIGHT CAROTID: The common carotid artery is intact. The carotid bulb has a normal configuration without ulceration o r narrowing. The internal carotid artery lumen is smooth without significant stenosis, there is a mur al thrombosis. The external carotid artery is intact. LEFT CAROTID: The common carotid artery is intact. The carotid bulb has a normal configuration without ulceration or narrowing. The internal carotid artery lumen is smooth without stenosis, there is a mild eccentri c stenosis. The external carotid artery is intact. VERTEBRALS: The right vertebral artery is dominant. No stenotic lesions are seen. CONCLUSION: Mild atherosclerotic disease bilaterally in the internal carotid bulb. No two-dimensional stenosis is noted. Alvarez Sauceda MD on September 26, 2017 at 23:15 Board Certified Radiologist. This report was verified electronically.
[2017-09-26] MEDS ORDERED: IODIXANOL 320 MG/ML 10 ML VIAL (for Rad CT) IVCONTRAST ONE (23:23)
[2017-09-26 23:24] LABS: TROPONIN I 0.1 NG/ML (0.02-0.05)
[2017-09-26 23:26] LABS: BACTERIA, URINE RARE /hpf; BILIRUBIN, URINE NEG (NEG); BLOOD, URINE SMALL (NEG); GLUCOSE,URINE NEG (NEG); KETONE, URINE NEG (NEG); MUCUS URINE FEW /lpf (OCC); NITRITE,URINE NEG (NEG); SQUAMOUS EPITHELIAL CELL URINE 3 /hpf (0-5); TRANSITIONAL EPI CELLS, URINE <1 /hpf; URINE COLOR LIGHT-YELLOW (YELLW/STRAW); URINE LEUKOCYTE ESTERASE NEG (NEG)
[2017-09-26 23:27] LABS: PROTHROMBIN TIME - PATIENT 9.8 SEC (9.8-11.6)
--- NOTE | 2017-09-26 23:38 | PD ---
HPI Chief Complaint: Neuro Symptoms/ Deficits Time Seen by Provider: 22:40 Travel History International Travel<30 days: No Contact w/Intl Traveler<30days: No Traveled to known affect area: No History of Present Illness HPI Patient 52-year-old female presents emergency department with "20 minutes" history of difficulty speaking and difficulty finding words. The patient's daughter she came home from work just after 11 and found her mom having difficulty speaking and given her history of strokes decided to bring her in to be seen. She is not currently on any blood thinners. This coming by another family member patient's son who states that when discussing this with the patient's daughter it apparently started about 20 minutes prior to daughter arriving home. Patient's son states this actually started about 10:00pm which is actually closer to 40 minutes ago. When asked when last seen normal he cannot definitively tell me when he thinks it was about 10 PM. Patient pleasantly confused denies any pain denies any focalized weakness. She is able to answer simple yes/no questions and just has some minor speech deficits. When asked to say "you cannot teach an old dog new tricks" she responds by saying "you cannot speak to an old dog". PFSH Past Medical History Hx Anticoagulant Therapy: Yes (81MG ASPIRIN ) Anemia: Yes Arthritis: Yes (LEFT KNEE) Asthma: No Blood Disorders: No Anxiety: No Depression: No Heart Rhythm Problems: No Cancer: No Cardiac Catheterization: Yes (DENIES BUT PREVIOUSLY LISTED YES) Cardiovascular Problems: No High Cholesterol: Yes Chemotherapy: No Chest Pain: No Congestive Heart Failure: No COPD: Yes Cerebrovascular Accident: Yes Diabetes: Yes Patient Takes Glucophage: Yes Diminished Hearing: No Endocrine: Yes Gastrointestinal Disorders: Yes (GASTROPARESIS) GERD: Yes Glaucoma: No Gout: Yes Genitourinary: Yes Hepatitis: No Hiatal Hernia: No Hypertension: Yes Immune Disorder: No Implanted Vascular Access Dvce: No Kidney Stones: No Musculoskeletal: No Neurologic: Yes (CVA) Psychiatric: No Reproductive: No Respiratory: Yes (COPD) Immunizations Current: Yes Migraines: No Myocardial Infarction: No Pneumonia: Yes Radiation Therapy: No Renal Failure: No Seizures: No Sickle Cell Disease: No Sleep Apnea: No Thyroid Disease: No Ulcer: No Tetanus Vaccination: Unknown Influenza Vaccination: Yes ?: Not Menopausal: Yes : 5 Para: 7 Miscarriage: 0 : 0 Tubal Ligation: Yes Past Surgical History Abdominal Surgery: No Appendectomy: No Arteriovenous Shunt: No Cardiac Surgery: No Section: Yes (4) Ear Surgery: No Endocrine Surgery: No Eye Surgery: No Genitourinary Surgery: No Gynecologic Surgery: Yes (4 CSECTIONS) Hysterectomy: No Oral Surgery: No Pacemaker: No Thoracic Surgery: No Other Surgery: Yes (BREAST SURGERY LEFT BREAST ABCESS 2X ) Social History Alcohol Use: No Tobacco Use: No Substance Use: No Allergies-Medications (Allergen,Severity, Reaction): Coded Allergies: levofloxacin (Verified Allergy, Severe, ITCHING, 09/26/17) OCCURRED THIS FIRST DOSE; ONLY RECEIVED 1/2 Reported Meds & Prescriptions Reported Meds & Active Scripts Active Proair Hfa 8.5 GM Inh (Albuterol Sulfate) 90 Mcg/Act Aer 2 Puff INH Q4-6H PRN 108 mcg/actuation Losartan (Losartan Potassium) 50 Mg Tab 50 Mg PO BID Nifedipine ER (Nifedipine) 90 Mg Tab 90 Mg PO DAILY Reported Atorvastatin (Atorvastatin Calcium) 80 Mg Tab 40 Mg PO HS Tradjenta (Linagliptin) 5 Mg Tab 5 Mg PO DAILY Glipizide 10 Mg Tab 10 Mg PO BIDAC Take 30 minutes before a meal Zolpidem (Zolpidem Tartrate) 10 Mg Tab 10 Mg PO HS PRN Vitamin C (Ascorbic Acid) 250 Mg Tab 500 Mg PO DAILY Aspirin 81 Mg Chew 81 Mg CHEW DAILY D3 Super Strength (Cholecalciferol) 2,000 Unit Cap 1,000 Units PO DAILY [place]-3 Fish Oil/Vitamin (Fish Oil-Cholecalciferol) 1,000-1,000 Mg Cap 1 Cap PO DAILY Review of Systems Except as stated in HPI: all other systems reviewed are Neg Physical Exam Narrative GENERAL: Well-developed well-nourished appears older than stated age in no obvious distress SKIN: Focused skin assessment warm/dry. HEAD: Atraumatic. Normocephalic. EYES: Pupils equal and round. No scleral icterus. No injection or drainage. ENT: No nasal bleeding or discharge. Mucous membranes pink and moist. NECK: Trachea midline. No JVD. CARDIOVASCULAR: Regular rate and rhythm. No murmur appreciated. RESPIRATORY: No accessory muscle use. Clear to auscultation. Breath sounds equal bilaterally. GASTROINTESTINAL: Abdomen soft, non-tender, nondistended. Hepatic and splenic margins not palpable. MUSCULOSKELETAL: No obvious deformities. No clubbing. No cyanosis. No edema. NEUROLOGICAL: Awake and alert and oriented, cranial nerves II through XII are grossly intact and nonfocal, 5 out of 5 strength in all 4 extremities, no arm drift, no pronator drift, total in a stroke scale is 1-2 for dysarthria only. Speech had normal as listed in the HPI. PSYCHIATRIC: Appropriate mood and affect; insight and judgment normal. Data Data Last Documented VS Vital Signs Date Time Temp Pulse Resp B/P (MAP) Pulse Ox O2 Delivery O2 Flow Rate FiO2 09/26/17 22:51 20 99 Room Air 09/26/17 22:51 81 183/97 (125) 09/26/17 22:43 21 09/26/17 22:33 98.9 Orders Orders Activity Bed Rest (09/26/17 ) Electrocardiogram (09/26/17 ) I-Stat Profile (09/26/17 22:42) Prothrombin Time / Inr (Pt) (09/26/17 22:42) Act Partial Throm Time (Ptt) (09/26/17 22:42) Complete Blood Count With Diff (09/26/17 22:42) Fibrinogen (09/26/17 22:42) Creatine Kinase (Cpk) (09/26/17 22:42) Troponin I (09/26/17 22:42) Ua Includes Microscopic (09/26/17 22:42) Drug Screen, Random Urine (09/26/17 22:42) Type And Screen (09/26/17 22:42) Ct Brain W/O Iv Contrast(Rout) (09/26/17 ) Cta Brain W Iv Contrast W 3d (09/26/17 22:42) Cta Neck W Iv Contrast W 3d (09/26/17 22:42) Consult Neurology (09/26/17 ) Blood Glucose (09/26/17 22:42) Ecg Monitoring (09/26/17 22:42) Neuro Checks Q2HX12,Q4H (09/26/17 22:42) Nursing Bedside Swallow Assess .ONCE (09/26/17 22:42) Iv Access Insert/Monitor (09/26/17 22:42) NPO (09/26/17 22:42) Oximetry (09/26/17 22:42) Resp Oxygen Nc Stroke (09/26/17 ) Sodium Chlor 0.9% 1000 Ml Inj (Ns 1000 M (09/26/17 22:42) Cath For Specimen (09/26/17 22:42) (Hub Use Only)Inp Phy Cons/Ref (09/26/17 ) Aspirin Chew (Aspirin Chew) (09/26/17 23:15) Red Blood Cells (Rbc) (09/26/17 22:45) Iodixanol 320 Inj (Rad Ct) (Visipaque 32 (09/26/17 23:23) CKMB (09/26/17 22:45) CKMB% (09/26/17 22:45) Admit Order (Ed Use Only) (09/27/17 ) Labs Laboratory Tests Test 09/26/17 22:45 09/26/17 23:17 White Blood Count 5.9 TH/MM3 Red Blood Count 3.66 MIL/MM3 Hemoglobin 9.8 GM/DL Bedside Hemoglobin 9.5 G/DL Hematocrit 30.1 % Bedside Hematocrit 28.0 % Mean Corpuscular Volume 82.3 FL Mean Corpuscular Hemoglobin 26.7 PG Mean Corpuscular Hemoglobin Concent 32.5 % Red Cell Distribution Width 15.9 % Platelet Count 246 TH/MM3 Mean Platelet Volume 8.0 FL Neutrophils (%) (Auto) 46.7 % Lymphocytes (%) (Auto) 33.2 % Monocytes (%) (Auto) 10.9 % Eosinophils (%) (Auto) 8.4 % Basophils (%) (Auto) 0.8 % Neutrophils # (Auto) 2.7 TH/MM3 Lymphocytes # (Auto) 1.9 TH/MM3 Monocytes # (Auto) 0.6 TH/MM3 Eosinophils # (Auto) 0.5 TH/MM3 Basophils # (Auto) 0.0 TH/MM3 CBC Comment DIFF FINAL Differential Comment Prothrombin Time 9.8 SEC Prothromb Time International Ratio 1.0 RATIO Activated Partial Thromboplast Time 23.8 SEC Fibrinogen 432 mg/dL Bedside Sodium 142 MMOL/L Bedside Potassium 3.9 MMOL/L Bedside Chloride 111 MMOL/L Bedside Blood Urea Nitrogen 76 MG/DL Bedside Creatinine 4.4 MG/DL Bedside Glucose 126 MG/DL Total Creatine Kinase 265 U/L Creatine Kinase MB 3.1 NG/ML Creatine Kinase MB % 1.2 % Troponin I 0.10 NG/ML Urine Color LIGHT-YELLOW Urine Turbidity CLEAR Urine pH 6.0 Urine Specific [place] 1.011 Urine Protein 300 mg/dL Urine Glucose (UA) NEG mg/dL Urine Ketones NEG mg/dL Urine Occult Blood SMALL Urine Nitrite NEG Urine Bilirubin NEG Urine Urobilinogen LESS THAN 2.0 MG/DL Urine Leukocyte Esterase NEG Urine RBC LESS THAN 1 /hpf Urine WBC 1 /hpf Urine Squamous Epithelial Cells 2 /hpf Urine Transitional Epithelial Cells <1 /hpf Urine Bacteria RARE /hpf Urine Mucus FEW /lpf Microscopic Urinalysis Comment CULT NOT INDICATED Urine Random Creatinine 43.8 MG/DL Urine Random Sodium 94 MEQ/L Urine Opiates Screen NEG Urine Barbiturates Screen NEG Urine Amphetamines Screen NEG Urine Benzodiazepines Screen NEG Urine Cocaine Screen NEG Urine Cannabinoids Screen NEG MDM Medical Screen Exam Complete: Yes Emergency Medical Condition: Yes Differential Diagnosis Acute CVA, subacute CVA, acute hemorrhage, hyperglycemia, electrolyte abnormality. Narrative Course Patient room to the emergency department, after discussing with the family I have my doubts on the timeline, still son fairly insistent that started just about 10 PM, she was therefore made a stroke alert, with her NIH stroke scale of 1-2 the patient was discussed with Dr. Jerez and we agree that the patient risks probably outweigh the benefits for TPA at this time. She was given a full dose aspirin, mildly hypertensive on arrival, progressive hypertensive for now. Patient was taken to CAT scan which was negative, a CTA was ordered which was performed by protocol prior to ice as being performed. This was a poor study secondary to patient cooperation, patient's creatinine returns to greater than 4 , I have instructed the patient to return to the examination room as I believe an additional dose of contrast is not warranted at this time. Patient symptoms are remaining somewhat constant while in the emergency department. I did have a discussion with the family regarding TPA and the my recommendation is for withholding the medication the family states they would not want it given the risk of bleeding. Permissive hypertension. DIscussed with Dr. Moe for admission. Stroke Alert NIHSS NIH Stroke Scale Result: 1 NIHSS Time Completed: 10:40 Diagnosis Diagnosis: Primary Impression: CVA (cerebral infarction) Admitting Physician Requests: Admit Condition: Stable Juan Wallis MD September 26, 2017 23:38
--- NOTE | 2017-09-26 23:57 | PD ---
HPI Chief Complaint: Neuro Symptoms/ Deficits Time Seen by Provider: 22:40 Travel History International Travel<30 days: No Contact w/Intl Traveler<30days: No Traveled to known affect area: No History of Present Illness HPI Patient 52-year-old female presents emergency department for evaluation of slurred speech and difficulty finding words starting at about 10 PM tonight. Patient has a history of multiple strokes in the past. PFSH Past Medical History Hx Anticoagulant Therapy: Yes (81MG ASPIRIN ) Anemia: Yes Arthritis: Yes (LEFT KNEE) Asthma: No Blood Disorders: No Anxiety: No Depression: No Heart Rhythm Problems: No Cancer: No Cardiac Catheterization: Yes (DENIES BUT PREVIOUSLY LISTED YES) Cardiovascular Problems: No High Cholesterol: Yes Chemotherapy: No Chest Pain: No Congestive Heart Failure: No COPD: Yes Cerebrovascular Accident: Yes Diabetes: Yes Diminished Hearing: No Endocrine: Yes GERD: Yes Glaucoma: No Gout: Yes Genitourinary: Yes Hepatitis: No Hiatal Hernia: No Hypertension: Yes Immune Disorder: No Implanted Vascular Access Dvce: No Kidney Stones: No Musculoskeletal: No Neurologic: Yes (CVA) Psychiatric: No Reproductive: No Respiratory: Yes (COPD) Immunizations Current: Yes Migraines: No Myocardial Infarction: No Pneumonia: Yes Radiation Therapy: No Renal Failure: No Seizures: No Sickle Cell Disease: No Sleep Apnea: No Thyroid Disease: No Ulcer: No Menopausal: Yes : 5 Para: 7 Miscarriage: 0 : 0 Tubal Ligation: Yes Past Surgical History Abdominal Surgery: No Appendectomy: No Arteriovenous Shunt: No Cardiac Surgery: No Section: Yes (4) Ear Surgery: No Endocrine Surgery: No Eye Surgery: No Genitourinary Surgery: No Gynecologic Surgery: Yes (4 CSECTIONS) Hysterectomy: No Neurologic Surgery: Yes (CVA) Oral Surgery: No Pacemaker: No Thoracic Surgery: No Other Surgery: Yes (BREAST SURGERY LEFT BREAST ABCESS 2X ) Social History Alcohol Use: No Tobacco Use: Yes Substance Use: No Allergies-Medications (Allergen,Severity, Reaction): Coded Allergies: levofloxacin (Verified Allergy, Severe, ITCHING, 09/26/17) OCCURRED THIS FIRST DOSE; ONLY RECEIVED 1/2 Reported Meds & Prescriptions Reported Meds & Active Scripts Active Proair Hfa 8.5 GM Inh (Albuterol Sulfate) 90 Mcg/Act Aer 2 Puff INH Q4-6H PRN 108 mcg/actuation Losartan (Losartan Potassium) 50 Mg Tab 50 Mg PO BID Nifedipine ER (Nifedipine) 90 Mg Tab 90 Mg PO DAILY Reported Atorvastatin (Atorvastatin Calcium) 80 Mg Tab 40 Mg PO HS Tradjenta (Linagliptin) 5 Mg Tab 5 Mg PO DAILY Glipizide 10 Mg Tab 10 Mg PO BIDAC Take 30 minutes before a meal Zolpidem (Zolpidem Tartrate) 10 Mg Tab 10 Mg PO HS PRN Vitamin C (Ascorbic Acid) 250 Mg Tab 500 Mg PO DAILY Aspirin 81 Mg Chew 81 Mg CHEW DAILY D3 Super Strength (Cholecalciferol) 2,000 Unit Cap 1,000 Units PO DAILY [place]-3 Fish Oil/Vitamin (Fish Oil-Cholecalciferol) 1,000-1,000 Mg Cap 1 Cap PO DAILY Data Data Last Documented VS Vital Signs Date Time Temp Pulse Resp B/P (MAP) Pulse Ox O2 Delivery O2 Flow Rate FiO2 09/26/17 22:51 20 99 Room Air 09/26/17 22:51 81 183/97 (125) 09/26/17 22:43 21 09/26/17 22:33 98.9 Orders Orders Activity Bed Rest (09/26/17 ) Electrocardiogram (09/26/17 ) I-Stat Profile (09/26/17 22:42) Prothrombin Time / Inr (Pt) (09/26/17 22:42) Act Partial Throm Time (Ptt) (09/26/17 22:42) Complete Blood Count With Diff (09/26/17 22:42) Fibrinogen (09/26/17 22:42) Creatine Kinase (Cpk) (09/26/17 22:42) Troponin I (09/26/17 22:42) Ua Includes Microscopic (09/26/17 22:42) Drug Screen, Random Urine (09/26/17 22:42) Type And Screen (09/26/17 22:42) Ct Brain W/O Iv Contrast(Rout) (09/26/17 ) Cta Brain W Iv Contrast W 3d (09/26/17 22:42) Cta Neck W Iv Contrast W 3d (09/26/17 22:42) Consult Neurology (09/26/17 ) Blood Glucose (09/26/17 22:42) Ecg Monitoring (09/26/17 22:42) Neuro Checks Q2HX12,Q4H (09/26/17 22:42) Nursing Bedside Swallow Assess .ONCE (09/26/17 22:42) Iv Access Insert/Monitor (09/26/17 22:42) NPO (09/26/17 22:42) Oximetry (09/26/17 22:42) Resp Oxygen Nc Stroke (09/26/17 ) Sodium Chlor 0.9% 1000 Ml Inj (Ns 1000 M (09/26/17 22:42) Cath For Specimen (09/26/17 22:42) (Hub Use Only)Inp Phy Cons/Ref (09/26/17 ) Aspirin Chew (Aspirin Chew) (09/26/17 23:15) Red Blood Cells (Rbc) (09/26/17 22:45) Iodixanol 320 Inj (Rad Ct) (Visipaque 32 (09/26/17 23:23) CKMB (09/26/17 22:45) CKMB% (09/26/17 22:45) Admit Order (Ed Use Only) (09/27/17 ) Labs Laboratory Tests Test 09/26/17 22:45 09/26/17 23:17 White Blood Count 5.9 TH/MM3 Red Blood Count 3.66 MIL/MM3 Hemoglobin 9.8 GM/DL Bedside Hemoglobin 9.5 G/DL Hematocrit 30.1 % Bedside Hematocrit 28.0 % Mean Corpuscular Volume 82.3 FL Mean Corpuscular Hemoglobin 26.7 PG Mean Corpuscular Hemoglobin Concent 32.5 % Red Cell Distribution Width 15.9 % Platelet Count 246 TH/MM3 Mean Platelet Volume 8.0 FL Neutrophils (%) (Auto) 46.7 % Lymphocytes (%) (Auto) 33.2 % Monocytes (%) (Auto) 10.9 % Eosinophils (%) (Auto) 8.4 % Basophils (%) (Auto) 0.8 % Neutrophils # (Auto) 2.7 TH/MM3 Lymphocytes # (Auto) 1.9 TH/MM3 Monocytes # (Auto) 0.6 TH/MM3 Eosinophils # (Auto) 0.5 TH/MM3 Basophils # (Auto) 0.0 TH/MM3 CBC Comment DIFF FINAL Differential Comment Prothrombin Time 9.8 SEC Prothromb Time International Ratio 1.0 RATIO Activated Partial Thromboplast Time 23.8 SEC Fibrinogen 432 mg/dL Bedside Sodium 142 MMOL/L Bedside Potassium 3.9 MMOL/L Bedside Chloride 111 MMOL/L Bedside Blood Urea Nitrogen 76 MG/DL Bedside Creatinine 4.4 MG/DL Bedside Glucose 126 MG/DL Total Creatine Kinase 265 U/L Creatine Kinase MB 3.1 NG/ML Creatine Kinase MB % 1.2 % Troponin I 0.10 NG/ML Urine Color LIGHT-YELLOW Urine Turbidity CLEAR Urine pH 6.0 Urine Specific [place] 1.011 Urine Protein 300 mg/dL Urine Glucose (UA) NEG mg/dL Urine Ketones NEG mg/dL Urine Occult Blood SMALL Urine Nitrite NEG Urine Bilirubin NEG Urine Urobilinogen LESS THAN 2.0 MG/DL Urine Leukocyte Esterase NEG Urine RBC LESS THAN 1 /hpf Urine WBC 1 /hpf Urine Squamous Epithelial Cells 2 /hpf Urine Transitional Epithelial Cells <1 /hpf Urine Bacteria RARE /hpf Urine Mucus FEW /lpf Microscopic Urinalysis Comment CULT NOT INDICATED Urine Random Creatinine 43.8 MG/DL Urine Random Sodium 94 MEQ/L Urine Opiates Screen NEG Urine Barbiturates Screen NEG Urine Amphetamines Screen NEG Urine Benzodiazepines Screen NEG Urine Cocaine Screen NEG Urine Cannabinoids Screen NEG MDM Medical Screen Exam Complete: Yes Emergency Medical Condition: Yes Stroke Alert NIHSS NIH Stroke Scale Result: 1 NIHSS Time Completed: 22:40 Juan Wallis MD September 26, 2017 23:57
[2017-09-27] VITALS (10 sets, daily range): BP systolic 137–204; BP diastolic 90–114; PULSE 73–84; RESP 17–24; TEMP 97.3–98.2; O2SAT 94–100
[2017-09-27] MEDS ORDERED: SODIUM CHLORIDE 0.9% FLUSH 10 ML FLUSH IV FLUSH PRN (00:15)
[2017-09-27] MEDS ORDERED: SENNOSIDES 8.6 MG TAB PO PRN (00:15)
[2017-09-27] MEDS ORDERED: NALOXONE HCL 0.4 MG/ML AMP IV PUSH PRN (00:15)
[2017-09-27] MEDS ORDERED: BISACODYL 10 MG SUPP RECTAL PRN (00:15)
[2017-09-27] MEDS ORDERED: ONDANSETRON HCL 4 MG/2 ML VIAL IVP PRN (00:15)
[2017-09-27] MEDS ORDERED: LACTULOSE SYRUP 20 GM/30 ML CUP PO PRN (00:15)
[2017-09-27] MEDS ORDERED: MAGNESIUM HYDROXIDE SUSP 30 ML CUP PO PRN (00:15)
[2017-09-27 00:33] LABS: CREATININE, RANDOM URINE 43.8 MG/DL
[2017-09-27] MEDS: SODIUM CHLOR 0.9% 1000 ML INJ 1,000 ML IV SCH ×3 (00:35→17:49)
[2017-09-27 00:37] LABS: BILIRUBIN, URINE NEG (NEG); BLOOD, URINE SMALL (NEG); GLUCOSE,URINE NEG (NEG); KETONE, URINE NEG (NEG); NITRITE,URINE NEG (NEG); SQUAMOUS EPITHELIAL CELL URINE 2 /hpf (0-5); URINE COLOR LIGHT-YELLOW (YELLW/STRAW); URINE LEUKOCYTE ESTERASE NEG (NEG)
--- NOTE | 2017-09-27 01:26 | HHI.HP ---
[facility] Service [facility] Primary Care Physician Jose Thompson M.D. Admission Diagnosis Stroke, REBEL Diagnoses: Travel History International Travel<30 Days: No Contact w/Intl Traveler <30 Da: No Traveled to Known Affected Are: No History of Present Illness 52-year-old female who presents brought in by family due to slurred speech starting possibly around 10 PM. She says she does not know why she was brought into the hospital. She is somnolent, wakes her exam, is actually oriented 3. She denies any changes in medications. Denies any pain. Denies any chest pain or shortness of breath. She says she is tired I would like to sleep. Review of Systems Except as stated in HPI: all other systems reviewed are Neg Past Family Social History Past Medical History COPD Diabetes mellitus Hypertension Hyperlipidemia CKD Past Surgical History Reported Medications Reported Meds & Active Scripts Active Proair Hfa 8.5 GM Inh (Albuterol Sulfate) 90 Mcg/Act Aer 2 Puff INH Q4-6H PRN 108 mcg/actuation Losartan (Losartan Potassium) 50 Mg Tab 50 Mg PO BID Nifedipine ER (Nifedipine) 90 Mg Tab 90 Mg PO DAILY Reported Atorvastatin (Atorvastatin Calcium) 80 Mg Tab 80 Mg PO HS Tradjenta (Linagliptin) 5 Mg Tab 5 Mg PO DAILY Glipizide 10 Mg Tab 10 Mg PO BIDAC Take 30 minutes before a meal Zolpidem (Zolpidem Tartrate) 10 Mg Tab 10 Mg PO HS PRN Vitamin C (Ascorbic Acid) 250 Mg Tab 500 Mg PO DAILY Aspirin 81 Mg Chew 81 Mg CHEW DAILY D3 Super Strength (Cholecalciferol) 2,000 Unit Cap 1,000 Units PO DAILY [place]-3 Fish Oil/Vitamin (Fish Oil-Cholecalciferol) 1,000-1,000 Mg Cap 1 Cap PO DAILY Allergies: Coded Allergies: levofloxacin (Verified Allergy, Severe, ITCHING, 09/26/17) OCCURRED THIS FIRST DOSE; ONLY RECEIVED 1/2 Family History Mother with CAD and diabetes Social History Patient quit smoking in March 2017. Nondrinker. Denies illicit drugs. Physical Exam Vital Signs Vital Signs Date Time Temp Pulse Resp B/P (MAP) Pulse Ox O2 Delivery O2 Flow Rate FiO2 09/27/17 00:31 84 18 185/97 (126) 100 Room Air 09/26/17 22:51 20 99 Room Air 09/26/17 22:51 81 18 183/97 (125) 100 Room Air 09/26/17 22:51 99 Room Air 09/26/17 22:43 96 09/26/17 22:43 96 21 09/26/17 22:33 98.9 79 16 184/97 (126) 97 Physical Exam GENERAL: This is a well-nourished, well-developed patient, in no apparent distress. Somnolent, wakes for exam. Oriented 3. SKIN: No rashes, ecchymoses or lesions. Cool and dry. HEAD: Atraumatic. Normocephalic. No temporal or scalp tenderness. EYES: Pupils equal round and reactive. Extraocular motions intact. No scleral icterus. No injection or drainage. ENT: Nose without bleeding, purulent drainage or septal hematoma. Throat without erythema, tonsillar hypertrophy or exudate. Uvula midline. Airway patent. NECK: Trachea midline. No JVD or lymphadenopathy. Supple, nontender, no meningeal signs. CARDIOVASCULAR: Regular rate and rhythm without murmurs, gallops, or rubs. RESPIRATORY: Clear to auscultation. Breath sounds equal bilaterally. No wheezes , rales, or rhonchi. GASTROINTESTINAL: Abdomen soft, non-tender, nondistended. No hepato-splenomegaly , or palpable masses. No guarding. MUSCULOSKELETAL: Extremities without clubbing, cyanosis, or edema. No joint tenderness, effusion, or edema noted. No calf tenderness. Negative Homans sign bilaterally. NEUROLOGICAL: Awake and alert. Cranial nerves II through XII intact. Motor and sensory grossly within normal limits. Five out of 5 muscle strength in all muscle groups. Normal speech. Laboratory Laboratory Tests Test 09/26/17 22:45 09/26/17 23:17 White Blood Count 5.9 Red Blood Count 3.66 Hemoglobin 9.8 Bedside Hemoglobin 9.5 Hematocrit 30.1 Bedside Hematocrit 28.0 Mean Corpuscular Volume 82.3 Mean Corpuscular Hemoglobin 26.7 Mean Corpuscular Hemoglobin Concent 32.5 Red Cell Distribution Width 15.9 Platelet Count 246 Mean Platelet Volume 8.0 Neutrophils (%) (Auto) 46.7 Lymphocytes (%) (Auto) 33.2 Monocytes (%) (Auto) 10.9 Eosinophils (%) (Auto) 8.4 Basophils (%) (Auto) 0.8 Neutrophils # (Auto) 2.7 Lymphocytes # (Auto) 1.9 Monocytes # (Auto) 0.6 Eosinophils # (Auto) 0.5 Basophils # (Auto) 0.0 CBC Comment DIFF FINAL Differential Comment Prothrombin Time 9.8 Prothromb Time International Ratio 1.0 Activated Partial Thromboplast Time 23.8 Fibrinogen 432 Bedside Sodium 142 Bedside Potassium 3.9 Bedside Chloride 111 Bedside Blood Urea Nitrogen 76 Bedside Creatinine 4.4 Bedside Glucose 126 Total Creatine Kinase 265 Creatine Kinase MB 3.1 Creatine Kinase MB % 1.2 Troponin I 0.10 Urine Color LIGHT-YELLOW Urine Turbidity CLEAR Urine pH 6.0 Urine Specific [place] 1.011 Urine Protein 300 Urine Glucose (UA) NEG Urine Ketones NEG Urine Occult Blood SMALL Urine Nitrite NEG Urine Bilirubin NEG Urine Urobilinogen LESS THAN 2.0 Urine Leukocyte Esterase NEG Urine RBC LESS THAN 1 Urine WBC 1 Urine Squamous Epithelial Cells 2 Urine Transitional Epithelial Cells <1 Urine Bacteria RARE Urine Mucus FEW Microscopic Urinalysis Comment CULT NOT INDICATED Urine Random Creatinine 43.8 Urine Random Sodium 94 Urine Opiates Screen NEG Urine Barbiturates Screen NEG Urine Amphetamines Screen NEG Urine Benzodiazepines Screen NEG Urine Cocaine Screen NEG Urine Cannabinoids Screen NEG Result Diagram: 09/26/172244 Imaging Last Impressions Neck CTA 09/26/172241 Signed Impressions: Service Date/Time: Tuesday, September 26, 2017 22:49 - CONCLUSION: Mild atherosclerotic disease bilaterally in the internal carotid bulb. No two-dimensional stenosis is noted. Alvarez Sauceda MD Head CTA [id number]/26/172241 Signed Impressions: Service Date/Time: Tuesday, September 26, 2017 22:49 - CONCLUSION: Limit exam possibly related to motion. I don't see any definite filling defects or obvious stenoses but it is a limited exam. Alvarez Sauceda MD Head CT 09/26/17 0000 Signed Impressions: Service Date/Time: Tuesday, September 26, 2017 22:47 - CONCLUSION: Multiple old strokes including the cerebellar hemispheres. No evidence of hemorrhage or edema. This report was called to Dr. Wallis at <2259 hrs.>. MD Jolene Ortiz VTE Risk Assessment Caprini VTE Risk Assessment: No/Low Risk (score <= 1) Caprini Risk Assessment Model Point Value = 1 Point Value = 2 Point Value = 3 Point Value = 5 Age 41-60 Minor surgery BMI > 25 kg/m2 Swollen legs Varicose veins or History of unexplained or recurrent spontaneous Oral contraceptives or hormone replacement Sepsis (< 1 month) Serious lung disease, including pneumonia (< 1 month) Abnormal pulmonary function Acute myocardial infarction Congestive heart failure (< 1 month) History of inflammatory bowel disease Medical patient at bed rest Age 61-74 Arthroscopic surgery Major open surgery (> 45 min) Laparoscopic surgery (> 45 min) Malignancy Confined to bed (> 72 hours) Immobilizing plaster cast Central venous access Age >= 75 History of VTE Family history of VTE Factor V Leiden Prothrombin [id number] Lupus anticoagulant Anticardiolipin antibodies Elevated serum homocysteine Heparin-induced thrombocytopenia Other congenital or acquired thrombophilia Stroke (< 1 month) Elective arthroplasty Hip, pelvis, or leg fracture Acute spinal cord injury (< 1 month) Prophylaxis Regimen Total Risk Factor Score Risk Level Prophylaxis Regimen 0-1 Low Early ambulation 2 Moderate Order ONE of the following: *Sequential Compression Device (SCD) *Heparin 5000 units SQ BID 3-4 Higher Order ONE of the following medications: *Heparin 5000 units SQ TID *Enoxaparin/Lovenox 40 mg SQ daily (WT < 150 kg, CrCl > 30 mL/min) *Enoxaparin/Lovenox 30 mg SQ daily (WT < 150 kg, CrCl > 10-29 mL/min) *Enoxaparin/Lovenox 30 mg SQ BID (WT < 150 kg, CrCl > 30 mL/min) AND/OR *Sequential Compression Device (SCD) 5 or more Highest Order ONE of the following medications: *Heparin 5000 units SQ TID (Preferred with Epidurals) *Enoxaparin/Lovenox 40 mg SQ daily (WT < 150 kg, CrCl > 30 mL/min) *Enoxaparin/Lovenox 30 mg SQ daily (WT < 150 kg, CrCl > 10-29 mL/min) *Enoxaparin/Lovenox 30 mg SQ BID (WT < 150 kg, CrCl > 30 mL/min) AND *Sequential Compression Device (SCD) Assessment and Plan Assessment and Plan //Possible acute ischemic stroke = Uncertain timing of onset of slurred speech. = No reported changes in medications = Imaging negative for acute stroke, however chronic strokes noted. = Ultrasound carotids negative for stenosis. Status post aspirin. = Echocardiogram ordered and pending. = Neurology consulted. Appreciate assistance. //COPD. Respiratory status stable. Continue home meds. //REBEL on CKD4. = Creatinine 4.4 from baseline of 2. Consult nephrology. Renal ultrasound ordered and pending. Start on IV fluids. //Diabetes mellitus. Chronic. Diabetic diet. Insulin sliding scale. //Hypertension. Permissive hypertension. Continue to monitor. Discussed Condition With Patient, nurse, ED physician. Physician Certification 2 Midnight Certification Type: Admission for Inpatient Services Order for Inpatient Services The services are ordered in accordance with Medicare regulations or non- Medicare payer requirements, as applicable. In the case of services not specified as inpatient-only, they are appropriately provided as inpatient services in accordance with the 2-midnight benchmark. Estimated LOS (days): 2 days is the estimated time the patient will need to remain in the hospital, assuming treatment plan goals are met and no additional complications. Post-Hospital Plan: Not yet determined Den Moe MD September 27, 2017 01:26
[2017-09-27] MEDS ORDERED: ALBUTEROL SULFATE 90 MCG/ACT HFA 8 GM INHALER INH PRN (01:30)
[2017-09-27] MEDS: INSULIN ASPART SUPPLEMENTAL SCALE SQ SCH ×4 (07:49→21:00)
--- NOTE | 2017-09-27 08:51 | PD.CONS ---
History of Present Illness Service Neurology Consult Requested By ER Reason for Consult Slurred speech, poss CVA Primary Care Physician Jose Thompson M.D. History of Present Illness 52 y/o female with past hx of stroke, HTN, hyperlipidemia, COPD, CKD, DM presented to ER with slurred speech. Reports her boyfriend noticed her having slurred speech around 10pm last night. She is unsure how long it lasted, though now symptoms are resolved. Reports she had a stroke about a year ago presenting with slurred speech and left arm weakness. Denies any residual symptoms. Weakness in arm improved after a few weeks. Did not have any associated weakness with this recent episode. No sensory changes, no change in gait, no change in vision. Had been on ASA 81mg daily, but missed about a week of her ASA 81mg. She follows with nephrology for her CKD and pulmonology for her COPD. No hx of A-fib. She is on medication at home for HTN and high cholesterol. She has never been on Aggrenox or Plavix. She denies any hx of cardiac issues. She stopped smoking in Mar 2017, though smoked about 1.5 ppd for most of her life prior to quitting. (Claudia Sun) Review of Systems All other ROS: ROS reviewed as documented in chart (Claudia Sun) Past Family Social History Allergies: Coded Allergies: levofloxacin (Verified Allergy, Severe, ITCHING, 09/26/17) OCCURRED THIS FIRST DOSE; ONLY RECEIVED 1/2 Past Medical History HTN, hyperlipidemia, diabetic retinopathy, DM since 1993, CVA - no residual symptoms, COPD, CKD Past Surgical History , tubal ligation Active Ordered Medications Current Medications Medications (Trade) Dose Ordered Sig/Jesus Manuel Route Start Time Stop Time Status Last Admin Sodium Chloride 1,000 ml @ 70 mls/hr [id number] ONCE IV 09/26/17 22:42 09/27/17 12:59 09/26/17 22:59 Sodium Chloride 1,000 ml @ 100 mls/hr Q10H IV 09/27/17 00:07 09/27/17 00:35 (NS Flush) 2 ml UNSCH PRN IV FLUSH 09/27/17 00:15 (NS Flush) 2 ml BID IV FLUSH 09/27/17 09:00 (Zofran Inj) 4 mg Q6H PRN IVP 5/8/18 00:15 (Heparin Inj) 5,000 units Q12H SQ 09/27/17 09:00 (Narcan Inj) 0.4 mg UNSCH PRN IV PUSH 09/27/17 00:15 (Milk Of Magnesia Liq) 30 ml Q12H PRN PO 09/27/17 00:15 (Senokot) 17.2 mg Q12H PRN PO 09/27/17 00:15 (Dulcolax Supp) 10 mg DAILY PRN RECTAL 09/27/17 00:15 (Lactulose Liq) 30 ml DAILY PRN PO 09/27/17 00:15 (NovoLOG SUPPLEMENTAL SCALE) 1 ACHS SLIDING SCALE SQ 09/27/17 08:00 (Proair Hfa Inh) 2 puff Q4H PRN INH 09/27/17 01:30 (Aspirin Chew) 81 mg DAILY CHEW 09/27/17 09:00 (Lipitor) 40 mg HS PO 09/27/17 21:00 Family History mother CAD and dm Social History smoked 1.5 ppd x many years, stopped in Mar 2017, no alcohol or illict drugs (Claudia Sun) Exam I&O / VS Vital Signs Date Time Temp Pulse Resp B/P (MAP) Pulse Ox O2 Delivery O2 Flow Rate FiO2 09/27/17 04:58 75 18 146/92 (110) 96 Room Air 09/27/17 00:31 84 18 185/97 (126) 100 Room Air 09/26/17 22:51 20 99 Room Air 09/26/17 22:51 81 18 183/97 (125) 100 Room Air 09/26/17 22:51 99 Room Air 09/26/17 22:43 96 09/26/17 22:43 96 21 09/26/17 22:33 98.9 79 16 184/97 (126) 97 General: Alert and Oriented, No acute distress Eye: PERRL, EOMI Respiratory: Non-labored respirations Cardiology: Normal rate Neurologic: Alert, Oriented, Normal sensory, Normal motor, No focal defects, CN II-XII intact, Normal DTR's Psychiatric: Cooperative Exam Comments gait normal, sensory normal to light touch, f-n-f normal, no tremor, no facial droop, no drift, speech normal, no dysarthria or aphasia (Claudia Sun) Review/Management Diagnosis/Plan: (1) Slurred speech ICD Codes: R47.81 - Slurred speech Status: Resolved Plan: no longer having slurred speech, suspect this was exacerbation of previous stroke CT did not show acute event CTA head/neck unremarkable check MRI brain (2) Diabetes mellitus ICD Codes: E11.9 - Diabetes mellitus Status: Chronic Plan: discussed importance of blood sugar control with pt (3) Hypertension ICD Codes: I10 - Hypertension Status: Acute Plan: elevated BP on admission, will continue to monitor pt aware of importance of controlling for secondary stroke risk factors as outpt (4) Acute renal failure superimposed on stage 3 chronic kidney disease ICD Codes: N17.9 - Acute kidney failure, unspecified; N18.3 - Chronic kidney disease, stage 3 (moderate) Plan: CR 4.4 (5) Dyslipidemia ICD Codes: E78.5 - Dyslipidemia Status: Acute Plan: lipid panel pending goal LDL 70 (6) CVA (cerebral infarction) ICD Codes: I63.9 - CVA (cerebral infarction) Status: Acute Plan: continue telemetry symptoms have resolved CT showed old CVA will check MRI brain CTA unremarkable pt missed 1 week ASA 81mg discussed importance of controlling for secondary stroke risk factors ECHO pending (Claudia Sun) Diagnosis/Plan: (1) Slurred speech ICD Codes: R47.81 - Slurred speech Status: Resolved Plan: no longer having slurred speech, suspect this was exacerbation of previous stroke CT did not show acute event CTA head/neck unremarkable check MRI brain- old strokes. moderate white matter dz. likely 2/2 chronic uncontrolled htn seen and examined. d/w PA. agree with above recs aspirin and plavix d/w pt importance of compliance with medications on statin bp goal <120/80 d/c planning in am d/w rn (Gerson Mcleod MD) Problem Qualifiers (1) Diabetes mellitus: Claudia Sun September 27, 2017 08:51 Gerson Mcleod MD September 27, 2017 16:08
[2017-09-27] MEDS: SODIUM CHLORIDE 0.9% FLUSH 10 ML FLUSH IV FLUSH SCH ×2 (09:00→21:00)
--- NOTE | 2017-09-27 09:12 | RADRPT ---
EXAM DATE/TIME: 09/27/2017 07:41 [place] COMPARISON: No previous studies available for comparison. EXTERNAL COMPARISON : Harish Khan, GEORGEDNJOEY, BILATERAL, March 15, 2017 INDICATIONS : Increased BUN/creatinine. MEDICAL HISTORY : Hypercholesterolemia. Gastroparesis. Arthritis. CVA. Hyperlipidemia. HTN. COPD. Pneumonia. Dyspnea. G ERD. Chronic kidney disease. Gout. Diabetes. Anemia. Clotting problems. SURGICAL HISTORY : section. Tubal ligation. Cardiac cath. Left breast abscess drainage x2. Blood transfusions . ENCOUNTER: Subsequent ACUITY: 1 day PAIN SCORE: 0/10 LOCATION: Bilateral flank MEASUREMENTS: RIGHT KIDNEY: 13.7 x 6.1 x 4.8 cm LEFT KIDNEY: 11.9 x 5.1 x 4.8 cm FINDINGS: Mild right-sided hydronephrosis. Right kidney is enlarged to 13.7 cm in length. Both kidneys have increased echogenicity characteristic of medical renal disease. Also minimal left h ydronephrosis. CONCLUSION: 1. Mild hydronephrosis. Mild medical renal disease. Bladder unremarkable. Sky Omalley MD on September 27, 2017 at 9:04 Board Certified Radiologist. This report was verified electronically.
--- NOTE | 2017-09-27 10:39 | RADRPT ---
EXAM DATE/TIME: 09/27/2017 10:05 [facility] COMPARISON: CT BRAIN W/O CONTRAST, September 26, 2017, 22:47. INDICATIONS : Dysthria. MEDICAL HISTORY : Hypertension. Diabetes mellitus type 2. Hypercholesterolemia. Stroke SURGICAL HISTORY : section. Lt breast cyst removed ENCOUNTER: Subsequent ACUITY: 2 day PAIN SCORE: 0/10 LOCATION: cranial TECHNIQUE: Multiplanar, multisequence MRI of the brain was performed without contrast. FINDINGS: CEREBRUM: The ventricles are normal for age. No evidence of midline shift, mass lesion, hemorrhage or acute in farction. There may be old lacunar type infarcts in the left basal ganglia. No extraaxial fluid haroldo ections are seen. The pituitary gland and suprasellar cistern are normal in configuration. WHITE MATTER: Severe periventricular and scattered deep white matter tract there is a small vessel ischemic [place] POSTERIOR FOSSA: Old lacunar type infarct in the right side of the parker. Encephalomalacia changes indicative of old in farcts in the superior aspect of the right cerebellar hemisphere and an inferior left cerebellar infa rct DIFFUSION IMAGING: No focal areas of restricted diffusion are seen. No evidence of acute infarction. EXTRACRANIAL: The visualized portions of the orbits and paranasal sinuses are unremarkable. CONCLUSION: 1. Severe chronic changes with old infarcts involving the inferior aspect of the left cerebellar bel sphere, superior aspect of the right cerebellar hemisphere, lacunar type infarct in the right side of the parker and punctate lacunar type infarcts in the left basal ganglia. 2. Severe periventricular and scattered deep white matter tract areas of small vessel ischemic demyel ination. 3. Nothing acute Jose Miguel Koroma MD on September 27, 2017 at 10:31 Board Certified Radiologist. This report was verified electronically.
[2017-09-27] MEDS: ASPIRIN 81 MG CHEW TAB CHEW SCH (10:41)
[2017-09-27] MEDS: HEPARIN SODIUM - SQ 10,000 UNITS/ML VIAL SQ SCH ×2 (10:41→21:14)
--- NOTE | 2017-09-27 10:50 | RADRPT ---
EXAM DATE/TIME: 09/27/2017 10:25 [facility] COMPARISON: US KIDNEY/RENAL/BLADDER, September 27, 2017, 7:41. INDICATIONS : Hydronephrosis seen on renal ultrasound. ORAL CONTRAST: No oral contrast ingested. RADIATION DOSE: 11.99 CTDIvol (mGy) MEDICAL HISTORY : Cardiovascular disease. Hypertension. Chronic kidney disease SURGICAL HISTORY : section. ENCOUNTER: Initial ACUITY: 1 day PAIN SCALE: 0/10 LOCATION: anterior TECHNIQUE: Volumetric scanning of the abdomen and pelvis was performed. Using automated exposure control and ad justment of the mA and/or kV according to patient size, radiation dose was kept as low as reasonably achievable to obtain optimal diagnostic quality images. DICOM format image data is available electro nically for review and comparison. FINDINGS: LOWER LUNGS: Parenchymal cyst in the left lingula/lung base measuring upwards at 3.1 cm in diameter. Minimal pleur al parenchymal scarring or atelectasis in the medial right base and left lingula. No confluent infilt rate LIVER: Homogeneous density without lesion. There is no dilation of the biliary tree. No calcified gallston es. There does appear to be some vicarious excretion of contrast into the gallbladder, however. SPLEEN: Normal size without lesion. PANCREAS: Within normal limits. KIDNEYS: Normal in size and shape. Contrast is identified in the collecting systems probably from the previous CTA of the brain/carotids. While there is some asymmetric prominence of the left renal pelvis, I do not see marcella hydronephrosis. Visualized portions of both ureters are normal in caliber without obvio us stone disease. ADRENAL GLANDS: Within normal limits. VASCULAR: There is no aortic aneurysm. BOWEL/MESENTERY: The stomach, small bowel, and colon demonstrate no acute abnormality. There is no free intraperitone al air or fluid. ABDOMINAL WALL: Within normal limits. RETROPERITONEUM: There is no lymphadenopathy. BLADDER: No wall thickening or mass. REPRODUCTIVE: Uterus is enlarged, heterogeneous with multiple mass lesions, some of which are partially calcified. Uterus measures approximately 9.7 cm in diameter. Probable 2.1 cm left ovarian cyst. INGUINAL: There is no lymphadenopathy or hernia. MUSCULOSKELETAL: Asymmetric sclerosis in the left SI joint may represent some degree of sacroiliitis. CONCLUSION: 1. There is some asymmetric prominence of the left renal pelvis but I do not see marcella hydronephrosis . Contrast is seen in both renal collecting systems from the prior contrasted CTA of the carotids and intracranial vessels. 2. Enlarged, fibroid uterus. 3. Vicarious excretion of contrast in the gallbladder lumen. 4. Parenchymal cyst in the left lingula/lung base with some pleural parenchymal scarring or atelectas is in the medial right base and left lingula. 5. Possible small, 2.1 cm left ovarian cyst. Jose Miguel Koroma MD on September 27, 2017 at 10:40 Board Certified Radiologist. This report was verified electronically.
--- NOTE | 2017-09-27 11:01 | EKG ---
Date Performed: 09/26/2017 Time Performed: 23:08:47 PTAGE: 52 years EKG: Sinus rhythm WITH OCCASIONAL VENTRICULAR PREMATURE COMPLEXES POSSIBLE LEFT ATRIAL ENLARGEMENT BORDERLINE RIGHT AX IS DEVIATION MODERATE T-WAVE ABNORMALITY, CONSIDER LATERAL ISCHEMIA ABNORMAL ECG NO PREVIOUS TRACING DOCTOR: Alvarez Olson Interpretating Date/Time 09/27/2017 11:00:19
[2017-09-27] MEDS ORDERED: ENALAPRILAT 1.25 MG/ML VIAL IV PUSH PRN (12:00)
--- NOTE | 2017-09-27 12:03 | PD.CONS ---
[facility] Service Nephrology Consult Requested By Reason for Consult Acute on CKD Primary Care Physician Jose Thompson M.D. History of Present Illness This is a 52 y/o AAF patient who came to ER for stroke like symptoms. It seems her symptoms have resolved. She has CKD, had a biopsy in August that showed diabetic nephropathy. Her creatinine has been increasing rapidly. In June it was around 2, increased to 3 in July, 3.4 in August. This admission it was 4.4. A repeat renal panel has been ordered. Renal US showed bilateral hydronephrosis. She did receive IV contrast yesterday. She reports normal urination. We were consulted to assist. She is a full code. (Aileen Lawrence) Review of Systems Constitutional: DENIES: Fatigue, Weight gain Neurologic: COMPLAINS OF: Speech Problems, DENIES: Abnormal gait, Headache, Localized weakness (Aileen Lawrence) Past Family Social History Allergies: Coded Allergies: levofloxacin (Verified Allergy, Severe, ITCHING, 09/26/17) OCCURRED THIS FIRST DOSE; ONLY RECEIVED 1/2 Past Medical History CKD 4, baseline creatinine 3.4; renal biopsy showing diabetic nephropathy with heavy proteinuria. COPD Diabetes mellitus Hypertension Hyperlipidemia Past Surgical History Renal Biopsy Cesarian Reported Medications Proair Hfa 8.5 GM Inh (Albuterol Sulfate) 90 Mcg/Act Aer 2 Puff INH Q4-6H PRN 108 mcg/actuation Losartan (Losartan Potassium) 50 Mg Tab 50 Mg PO BID Nifedipine ER (Nifedipine) 90 Mg Tab 90 Mg PO DAILY Atorvastatin (Atorvastatin Calcium) 80 Mg Tab 80 Mg PO HS Tradjenta (Linagliptin) 5 Mg Tab 5 Mg PO DAILY Glipizide 10 Mg Tab 10 Mg PO BIDAC Take 30 minutes before a meal Zolpidem (Zolpidem Tartrate) 10 Mg Tab 10 Mg PO HS PRN Vitamin C (Ascorbic Acid) 250 Mg Tab 500 Mg PO DAILY Aspirin 81 Mg Chew 81 Mg CHEW DAILY D3 Super Strength (Cholecalciferol) 2,000 Unit Cap 1,000 Units PO DAILY [place]-3 Fish Oil/Vitamin (Fish Oil-Cholecalciferol) 1,000-1,000 Mg Cap 1 Cap PO DAILY Active Ordered Medications Current Medications Medications (Trade) Dose Ordered Sig/Jesus Manuel Route Start Time Stop Time Status Last Admin Sodium Chloride 1,000 ml @ 70 mls/hr [id number] ONCE IV 5/7/18 22:42 09/27/17 12:59 09/26/17 22:59 Sodium Chloride 1,000 ml @ 100 mls/hr Q10H IV 09/27/17 00:07 09/27/17 10:07 (NS Flush) 2 ml UNSCH PRN IV FLUSH 09/27/17 00:15 (NS Flush) 2 ml BID IV FLUSH 09/27/17 09:00 (Zofran Inj) 4 mg Q6H PRN IVP 09/27/17 00:15 (Heparin Inj) 5,000 units Q12H SQ 09/27/17 09:00 09/27/17 10:41 (Narcan Inj) 0.4 mg UNSCH PRN IV PUSH 09/27/17 00:15 (Milk Of Magnesia Liq) 30 ml Q12H PRN PO 09/27/17 00:15 (Senokot) 17.2 mg Q12H PRN PO 09/27/17 00:15 (Dulcolax Supp) 10 mg DAILY PRN RECTAL 09/27/17 00:15 (Lactulose Liq) 30 ml DAILY PRN PO 09/27/17 00:15 (NovoLOG SUPPLEMENTAL SCALE) 1 ACHS SLIDING SCALE SQ 09/27/17 08:00 (Proair Hfa Inh) 2 puff Q4H PRN INH 09/27/17 01:30 (Aspirin Chew) 81 mg DAILY CHEW 09/27/17 09:00 09/27/17 10:41 (Lipitor) 40 mg HS PO 09/27/17 21:00 Family History DM, HTN Social History Former smoker She is single Full code Independent Unemployed (Aileen Lawrence) Physical Exam Vital Signs Vital Signs Date Time Temp Pulse Resp B/P (MAP) Pulse Ox O2 Delivery O2 Flow Rate FiO2 09/27/17 09:09 74 24 183/103 (129) 98 09/27/17 07:15 97.5 73 17 194/103 (133) 99 Room Air 09/27/17 07:15 73 17 99 Room Air 09/27/17 04:58 75 18 146/92 (110) 96 Room Air 09/27/17 00:31 84 18 185/97 (126) 100 Room Air 5/7/18 22:51 20 99 Room Air 09/26/17 22:51 81 18 183/97 (125) 100 Room Air 09/26/17 22:51 99 Room Air 09/26/17 22:43 96 09/26/17 22:43 96 21 09/26/17 22:33 98.9 79 16 184/97 (126) 97 Physical Exam Middle aged AAF Awake, alert, follows commands Lungs clear S1/S2, RRR Abd soft, bladder not palpable Trace edema Laboratory Laboratory Tests Test 09/26/17 22:45 09/26/17 23:17 White Blood Count 5.9 Red Blood Count 3.66 Hemoglobin 9.8 Bedside Hemoglobin 9.5 Hematocrit 30.1 Bedside Hematocrit 28.0 Mean Corpuscular Volume 82.3 Mean Corpuscular Hemoglobin 26.7 Mean Corpuscular Hemoglobin Concent 32.5 Red Cell Distribution Width 15.9 Platelet Count 246 Mean Platelet Volume 8.0 Neutrophils (%) (Auto) 46.7 Lymphocytes (%) (Auto) 33.2 Monocytes (%) (Auto) 10.9 Eosinophils (%) (Auto) 8.4 Basophils (%) (Auto) 0.8 Neutrophils # (Auto) 2.7 Lymphocytes # (Auto) 1.9 Monocytes # (Auto) 0.6 Eosinophils # (Auto) 0.5 Basophils # (Auto) 0.0 CBC Comment DIFF FINAL Differential Comment Prothrombin Time 9.8 Prothromb Time International Ratio 1.0 Activated Partial Thromboplast Time 23.8 Fibrinogen 432 Bedside Sodium 142 Bedside Potassium 3.9 Bedside Chloride 111 Bedside Blood Urea Nitrogen 76 Bedside Creatinine 4.4 Bedside Glucose 126 Total Creatine Kinase 265 Creatine Kinase MB 3.1 Creatine Kinase MB % 1.2 Troponin I 0.10 Urine Color LIGHT-YELLOW Urine Turbidity CLEAR Urine pH 6.0 Urine Specific [place] 1.011 Urine Protein 300 Urine Glucose (UA) NEG Urine Ketones NEG Urine Occult Blood SMALL Urine Nitrite NEG Urine Bilirubin NEG Urine Urobilinogen LESS THAN 2.0 Urine Leukocyte Esterase NEG Urine RBC LESS THAN 1 Urine WBC 1 Urine Squamous Epithelial Cells 2 Urine Transitional Epithelial Cells <1 Urine Bacteria RARE Urine Mucus FEW Microscopic Urinalysis Comment CULT NOT INDICATED Urine Random Creatinine 43.8 Urine Random Sodium 94 Urine Opiates Screen NEG Urine Barbiturates Screen NEG Urine Amphetamines Screen NEG Urine Benzodiazepines Screen NEG Urine Cocaine Screen NEG Urine Cannabinoids Screen NEG (Aileen Lawrence) Result Diagram: 09/26/175 Imaging Last 72 hours Impressions Renal Ultrasound 09/27/17 0000 Signed Impressions: Service Date/Time: Wednesday, September 27, 2017 07:41 - CONCLUSION: 1. Mild hydronephrosis. Mild medical renal disease. Bladder unremarkable. Sky Omalley MD Brain MRI 09/27/17 0000 Signed Impressions: Service Date/Time: Wednesday, September 27, 2017 10:05 - CONCLUSION: 1. Severe chronic changes with old infarcts involving the inferior aspect of the left cerebellar hemisphere, superior aspect of the right cerebellar hemisphere, lacunar type infarct in the right side of the parker and punctate lacunar type infarcts in the left basal ganglia. 2. Severe periventricular and scattered deep white matter tract areas of small vessel ischemic demyelination. 3. Nothing acute Jose Miguel Koroma MD Abdomen/Pelvis CT 09/27/17 Signed Impressions: Service Date/Time: Wednesday, September 27, 2017 10:25 - CONCLUSION: 1. There is some asymmetric prominence of the left renal pelvis but I do not see marcella hydronephrosis. Contrast is seen in both renal collecting systems from the prior contrasted CTA of the carotids and intracranial vessels. 2. Enlarged, fibroid uterus. 3. Vicarious excretion of contrast in the gallbladder lumen. 4. Parenchymal cyst in the left lingula/lung base with some pleural parenchymal scarring or atelectasis in the medial right base and left lingula. 5. Possible small, 2.1 cm left ovarian cyst. Jose Miguel Koroma MD Neck CTA [id number] Signed Impressions: Service Date/Time: Tuesday, September 26, 2017 22:49 - CONCLUSION: Mild atherosclerotic disease bilaterally in the internal carotid bulb. No two-dimensional stenosis is noted. Alvarez Sauceda MD Head CTA [id number]/[id number] Signed Impressions: Service Date/Time: Tuesday, September 26, 2017 22:49 - CONCLUSION: Limit exam possibly related to motion. I don't see any definite filling defects or obvious stenoses but it is a limited exam. Alvarez Sauceda MD Head CT 09/26/17 0000 Signed Impressions: Service Date/Time: Tuesday, September 26, 2017 22:47 - CONCLUSION: Multiple old strokes including the cerebellar hemispheres. No evidence of hemorrhage or edema. This report was called to Dr. Wallis at <2259 hrs.>. Alvarez Sauceda MD (Aileen Lawrence) Assessment and Plan Problem List: (1) Acute kidney injury superimposed on chronic kidney disease ICD Codes: N17.9 - Acute kidney failure, unspecified; N18.9 - Chronic kidney disease, unspecified Plan: REBEL on CKD 4, baseline creatinine 3.4 Repeat labs pending She received IV contrast on admission CT abdomen ordered as renal US showed bilateral hydronephrosis Avoid nephrotoxic agents Monitor urine output Stop IVF (2) CVA (cerebral infarction) ICD Codes: I63.9 - CVA (cerebral infarction) Status: Acute Plan: vs TIA Imaging reviewed, symptoms resolved. (3) Diabetes mellitus ICD Codes: E11.9 - Diabetes mellitus Status: Chronic Plan: Maintain glucose 140-180mg/dL while hospitalized (4) Hypertension ICD Codes: I10 - Hypertension Status: Acute Plan: Monitor blood pressure, resume nifedipine Stop IVF (Aileen Lawrence) Problem List: (1) Acute kidney injury superimposed on chronic kidney disease ICD Codes: N17.9 - Acute kidney failure, unspecified; N18.9 - Chronic kidney disease, unspecified Plan: REBEL on CKD 4, baseline creatinine 3.4 Repeat labs pending She received IV contrast on admission CT abdomen ordered as renal US showed bilateral hydronephrosis Avoid nephrotoxic agents Monitor urine output Stop IVF (2) CVA (cerebral infarction) ICD Codes: I63.9 - CVA (cerebral infarction) Status: Acute Plan: vs TIA Imaging reviewed, symptoms resolved. (3) Diabetes mellitus ICD Codes: E11.9 - Diabetes mellitus Status: Chronic Plan: Maintain glucose 140-180mg/dL while hospitalized (4) Hypertension ICD Codes: I10 - Hypertension Status: Acute Plan: Monitor blood pressure, resume nifedipine Stop IVF Assessment and Plan patient was seen and examined. She has biopsy proven diabetic nephropathy. Renal function is worse, she has heavy proteinuria: she is at risk for progressive renal dysfunction. Also, she received IV contrast yesterday. CT of the abdomen was negative for hydronephrosis. Monitor. No immediate need for dialysis. (Daniel Garber MD) Problem Qualifiers (1) Diabetes mellitus: Aileen Lawrence September 27, 2017 12:03 Daniel Garber MD September 27, 2017 21:37
[2017-09-27 12:23] LABS: ALBUMIN 2.8 GM/DL (3.4-5.0); BICARBONATE 21.6 MEQ/L (21.0-32.0); CALCIUM 8.6 MG/DL (8.5-10.1); CREATININE 3.83 MG/DL (0.50-1.00); PHOSPHORUS 4.8 MG/DL (2.5-4.9)
[2017-09-27] MEDS: NIFEdipine 90 MG SUSTAINED RELEASE TAB PO SCH (13:17)
[2017-09-27] MEDS: CLOPIDOGREL 75 MG TAB PO SCH (17:23)
[2017-09-27 17:46] LABS: HEMOGLOBIN A1C 5.8 % (4.3-6.0)
[2017-09-27] MEDS: ATORVASTATIN 80 MG TAB PO SCH (21:13)
[2017-09-28] VITALS (9 sets, daily range): BP systolic 162–189; BP diastolic 87–96; PULSE 67–78; RESP 16–20; TEMP 97.5–98.4; O2SAT 95–100
[2017-09-28] MEDS: SODIUM CHLOR 0.9% 1000 ML INJ 1,000 ML IV SCH ×2 (04:10→16:08)
--- NOTE | 2017-09-28 08:20 | HHI.PR ---
Subjective Remarks in no acute distress. no focal weakness. no new complaints. Objective Vitals Vital Signs Date Time Temp Pulse Resp B/P (MAP) Pulse Ox O2 Delivery O2 Flow Rate FiO2 09/28/17 07:55 97.5 74 19 178/92 (120) 95 09/28/17 05:48 97.8 78 20 175/89 (117) 98 09/28/17 02:19 75 09/28/17 00:50 21 09/28/17 00:18 97.8 77 18 173/87 (115) 98 09/27/17 22:30 74 09/27/17 20:36 98.0 73 20 176/90 (118) 99 09/27/17 17:44 97.3 77 20 175/94 (121) 94 09/27/17 16:15 98.2 75 18 137/101 (113) 100 09/27/17 12:30 175/100 (125) 09/27/17 11:35 77 22 204/114 (144) 100 09/27/17 09:09 74 24 183/103 (129) 98 I/O 09/27/17 09/27/17 09/27/17 09/28/17 09/28/17 09/28/17 07:00 15:00 23:00 07:00 15:00 23:00 Intake Total 1000 ml Balance 1000 ml Intake IV Total 1000 ml # Voids 2 5 # Bowel Movements 1 Result Diagram: 09/26/17 2245 09/27/17 1145 Imaging Last Impressions Renal Ultrasound 09/27/17 0000 Signed Impressions: Service Date/Time: Wednesday, September 27, 2017 07:41 - CONCLUSION: 1. Mild hydronephrosis. Mild medical renal disease. Bladder unremarkable. Sky Omalley MD Brain MRI 09/27/17 0000 Signed Impressions: Service Date/Time: Wednesday, September 27, 2017 10:05 - CONCLUSION: 1. Severe chronic changes with old infarcts involving the inferior aspect of the left cerebellar hemisphere, superior aspect of the right cerebellar hemisphere, lacunar type infarct in the right side of the parker and punctate lacunar type infarcts in the left basal ganglia. 2. Severe periventricular and scattered deep white matter tract areas of small vessel ischemic demyelination. 3. Nothing acute Jose Miguel Koroma MD Abdomen/Pelvis CT 09/27/17 0000 Signed Impressions: Service Date/Time: Wednesday, September 27, 2017 10:25 - CONCLUSION: 1. There is some asymmetric prominence of the left renal pelvis but I do not see marcella hydronephrosis. Contrast is seen in both renal collecting systems from the prior contrasted CTA of the carotids and intracranial vessels. 2. Enlarged, fibroid uterus. 3. Vicarious excretion of contrast in the gallbladder lumen. 4. Parenchymal cyst in the left lingula/lung base with some pleural parenchymal scarring or atelectasis in the medial right base and left lingula. 5. Possible small, 2.1 cm left ovarian cyst. Jose Miguel Koroma MD Neck CTA 09/26/172 Signed Impressions: Service Date/Time: Tuesday, September 26, 2017 22:49 - CONCLUSION: Mild atherosclerotic disease bilaterally in the internal carotid bulb. No two-dimensional stenosis is noted. Alvarez Sauceda MD Head CTA 09/26/172 Signed Impressions: Service Date/Time: Tuesday, September 26, 2017 22:49 - CONCLUSION: Limit exam possibly related to motion. I don't see any definite filling defects or obvious stenoses but it is a limited exam. Alvarez Sauceda MD Head CT 09/26/17 0000 Signed Impressions: Service Date/Time: Tuesday, September 26, 2017 22:47 - CONCLUSION: Multiple old strokes including the cerebellar hemispheres. No evidence of hemorrhage or edema. This report was called to Dr. Wallis at <2259 hrs.>. Alvarez Sauceda MD Objective Remarks GENERAL: This is a well-nourished, well-developed patient, in no apparent distress. CARDIOVASCULAR: Regular rate and regular rhythm without murmurs, gallops, or rubs. RESPIRATORY: Clear to auscultation. Breath sounds equal bilaterally. No wheezes , rales, or rhonchi. GASTROINTESTINAL: Abdomen soft, non-tender, nondistended. Normal, active bowel sounds MUSCULOSKELETAL: Extremities without clubbing, cyanosis, or edema. NEURO: Alert & Oriented x4 to person, place, time, situation. Moves all ext x4 Medications and IVs Inpatient Medications Albuterol Sulfate (Proair Hfa Inh) 2 puff Q4H PRN INH SHORTNESS OF BREATH; Start 09/27/17 at 01:30 Aspirin (Aspirin Chew) 81 mg DAILY CHEW Last administered on 09/27/17at 10:41; Start 09/27/17 at 09:00 Atorvastatin Calcium (Lipitor) 40 mg HS PO Last administered on 09/27/17at 21:13 ; Start 09/27/17 at 21:00 Bisacodyl (Dulcolax Supp) 10 mg DAILY PRN RECTAL SEVERE CONSITIPATION; Start at 00:15 Clopidogrel Bisulfate (Plavix) 75 mg DAILY PO Last administered on 09/27/17at 17: 23; Start 09/27/17 at 16:15 Enalaprilat (Vasotec Inj) 1.25 mg Q4H PRN IV PUSH For SBP > 220 or DBP > 120; Start 09/27/17 at 12:00 Heparin Sodium (Porcine) (Heparin Inj) 5,000 units Q12H SQ Last administered on 09/27/17at 21:14; Start 09/27/17 at 09:00 Insulin Aspart (NovoLOG SUPPLEMENTAL SCALE) 1 ACHS SLIDING SCALE SQ ; Start 09/27/17 at 08:00 Lactulose (Lactulose Liq) 30 ml DAILY PRN PO SEVERE CONSITIPATION; Start at 00:15 Magnesium Hydroxide (Milk Of Magnesia Liq) 30 ml Q12H PRN PO Mild constipation ; Start 09/27/17 at 00:15 Naloxone HCl (Narcan Inj) 0.4 mg UNSCH PRN IV PUSH SEE LABEL COMMENTS; Start at 00:15 Nifedipine (Procardia Xl) 90 mg DAILY PO Last administered on 09/27/17at 13:17; Start 09/27/17 at 13:00 Ondansetron HCl (Zofran Inj) 4 mg Q6H PRN IVP NAUSEA OR VOMITING; Start at 00:15 Sennosides (Senokot) 17.2 mg Q12H PRN PO Moderate constipation; Start 09/27/17 at 00:15 Sodium Chloride (NS Flush) 2 ml BID IV FLUSH ; Start 09/27/17 at 09:00 A/P Assessment and Plan A/P possible TIA Imaging negative for acute stroke, however chronic strokes noted. Ultrasound carotids negative for stenosis. sinus rhythm on telemetry. echo and lipid panel pending. continue aspirin, plavix. neurology consult appreciated. PT consulted. COPD. Respiratory status stable. Continue home meds. REBEL on CKD4. CT of the abdomen with no hydronephrosis. BMP today pending. neurology following. Diabetes mellitus. Chronic. Diabetic diet. Insulin sliding scale. Hypertension. continue Nifedipine- will consider adding hydralazine if BP remains elevated. DVT prophylaxis with subq Heparin. Discharge Planning dc home within the next 24hrs if renal function stable and cleared by neurology and nephrology. pending echo. Ju Camilo MD September 28, 2017 08:20
[2017-09-28] MEDS: NIFEdipine 90 MG SUSTAINED RELEASE TAB PO SCH (08:50)
[2017-09-28] MEDS: CLOPIDOGREL 75 MG TAB PO SCH (08:50)
[2017-09-28] MEDS: INSULIN ASPART SUPPLEMENTAL SCALE SQ SCH ×4 (08:53→21:00)
[2017-09-28] MEDS: HEPARIN SODIUM - SQ 10,000 UNITS/ML VIAL SQ SCH ×2 (08:53→22:16)
[2017-09-28] MEDS: SODIUM CHLORIDE 0.9% FLUSH 10 ML FLUSH IV FLUSH SCH ×2 (08:53→22:18)
[2017-09-28] MEDS: ASPIRIN 81 MG CHEW TAB CHEW SCH (08:53)
[2017-09-28 09:33] LABS: AUTOMATED NEUTROPHIL # 2.7 TH/MM3 (1.8-7.7); EOSINOPHIL # 0.5 TH/MM3 (0-0.4); EOSINOPHIL % 10.5 % (0.0-4.0); HEMATOCRIT 28.5 % (35.0-46.0); HEMOGLOBIN 9.3 GM/DL (11.6-15.3); LYMPH % 24.8 % (9.0-44.0); LYMPHOCYTE # 1.2 TH/MM3 (1.0-4.8); MEAN CELL VOLUME 81.2 FL (80.0-100.0); MEAN CORPUSCULAR HEMOGLOBIN 26.5 PG (27.0-34.0); MEAN CORPUSCULAR HGB CONC 32.6 % (32.0-36.0); MEAN PLATELET VOLUME 7.6 FL (7.0-11.0); MONO % 9.7 % (0.0-8.0); MONOCYTE # 0.5 TH/MM3 (0-0.9); PLATELET COUNT 225 TH/MM3 (150-450); RED BLOOD COUNT 3.51 MIL/MM3 (4.00-5.30); RED CELL DISTRIBUTION WIDTH 15.1 % (11.6-17.2); WHITE BLOOD COUNT 4.9 TH/MM3 (4.0-11.0)
[2017-09-28 10:03] LABS: ALBUMIN 2.6 GM/DL (3.4-5.0); AST (GOT) 15 U/L (15-37); BICARBONATE 21.2 MEQ/L (21.0-32.0); BLOOD UREA NITROGEN 67 MG/DL (7-18); CALCIUM 8.5 MG/DL (8.5-10.1); CHLORIDE 114 MEQ/L (98-107); CREATININE 3.91 MG/DL (0.50-1.00); GLOMERULAR FILTRATION RATE 15 ML/MIN (>89); GLUCOSE,RANDOM 121 MG/DL (74-106); SODIUM (NA) 146 MEQ/L (136-145)
[2017-09-28 10:05] LABS: CHOLESTEROL 145 MG/DL (120-200); TRIGLYCERIDES 97 MG/DL (42-150)
[2017-09-28 10:08] LABS: ALKALINE PHOSPHATASE 93 U/L (45-117); ALT (GPT) 29 U/L (10-53); CHOLESTEROL/ HDL RATIO 1.94 RATIO; HDL CHOLESTEROL 74.5 MG/DL (40.0-60.0); LDL CHOLESTEROL 51 MG/DL (0-99); PHOSPHORUS 5.1 MG/DL (2.5-4.9); TOTAL BILIRUBIN ADULT 0.3 MG/DL (0.2-1.0); TOTAL PROTEIN 6.2 GM/DL (6.4-8.2)
[2017-09-28] MEDS: RESP: ALBUTEROL 2.5 MG/IPRATROPIUM 0.5 MG NEB (PRN) NEB (11:49)
--- NOTE | 2017-09-28 12:11 | HHI.NPPN ---
Subjective General Problems: Anemia Renal Failure: Chronic, Acute, Stage IV Interval History She is wanting to go home. Renal function yesterday was slightly better than admission. GFR stable today. (Aileen Lawrence) Objective Data Data Vital Signs Date Time Temp Pulse Resp B/P (MAP) Pulse Ox O2 Delivery O2 Flow Rate FiO2 09/28/17 11:58 97.9 70 19 180/93 (122) 99 09/28/17 08:00 72 09/28/17 07:55 97.5 74 19 178/92 (120) 95 09/28/17 05:48 97.8 78 20 175/89 (117) 98 09/28/17 02:19 75 09/28/17 00:50 21 09/28/17 00:18 97.8 77 18 173/87 (115) 98 09/27/17 22:30 74 09/27/17 20:36 98.0 73 20 176/90 (118) 99 09/27/17 17:44 97.3 77 20 175/94 (121) 94 09/27/17 16:15 98.2 75 18 137/101 (113) 100 09/27/17 12:30 175/100 (125) (Aileen Lawrence) -: 09/28/17 0805 09/28/17 0805 Imaging Last 72 hours Impressions Renal Ultrasound 09/27/17 0000 Signed Impressions: Service Date/Time: Wednesday, September 27, 2017 07:41 - CONCLUSION: 1. Mild hydronephrosis. Mild medical renal disease. Bladder unremarkable. Sky Omalley MD Brain MRI 09/27/17 0000 Signed Impressions: Service Date/Time: Wednesday, September 27, 2017 10:05 - CONCLUSION: 1. Severe chronic changes with old infarcts involving the inferior aspect of the left cerebellar hemisphere, superior aspect of the right cerebellar hemisphere, lacunar type infarct in the right side of the parker and punctate lacunar type infarcts in the left basal ganglia. 2. Severe periventricular and scattered deep white matter tract areas of small vessel ischemic demyelination. 3. Nothing acute Jose Miguel Koroma MD Abdomen/Pelvis CT 09/27/17 0000 Signed Impressions: Service Date/Time: Wednesday, September 27, 2017 10:25 - CONCLUSION: 1. There is some asymmetric prominence of the left renal pelvis but I do not see marcella hydronephrosis. Contrast is seen in both renal collecting systems from the prior contrasted CTA of the carotids and intracranial vessels. 2. Enlarged, fibroid uterus. 3. Vicarious excretion of contrast in the gallbladder lumen. 4. Parenchymal cyst in the left lingula/lung base with some pleural parenchymal scarring or atelectasis in the medial right base and left lingula. 5. Possible small, 2.1 cm left ovarian cyst. Jose Miguel Koroma MD Neck CTA 09/26/172 Signed Impressions: Service Date/Time: Tuesday, September 26, 2017 22:49 - CONCLUSION: Mild atherosclerotic disease bilaterally in the internal carotid bulb. No two-dimensional stenosis is noted. Alvarez Sauceda MD Head CTA 09/26/172 Signed Impressions: Service Date/Time: Tuesday, September 26, 2017 22:49 - CONCLUSION: Limit exam possibly related to motion. I don't see any definite filling defects or obvious stenoses but it is a limited exam. Alvarez Sauceda MD Head CT 09/26/17 0000 Signed Impressions: Service Date/Time: Tuesday, September 26, 2017 22:47 - CONCLUSION: Multiple old strokes including the cerebellar hemispheres. No evidence of hemorrhage or edema. This report was called to Dr. Wallis at <2259 hrs.>. Alvarez Sauceda MD (Aileen Lawrence) Physical Exam General Appearance: Well Developed, No Acute Distress, Comfortable (Aileen Lawrence) Throat Throat Exam: Oral Mucosa [place] & Moist (Aileen Lawrence) Pulmonary Resp Exam: Clear Bilaterally, Breath Sounds Equal (Aileen Lawrence) Cardiology CV Exam: Regular, Normal Sinus Rhythm (Aileen Lawrence) Gastrointestinal/Abdomen GI Exam: Soft, Non-Tender, Bowel Sounds Present (Aileen Lawrence) Musculoskeletal MS Exam: Joints Intact, Normal Gait, Normal Tone (Aileen Lawrence) Integumentary Skin Exam: Clear, Warm, Dry, Intact (Aileen Lawrence) Extremeties Extremities Exam: No Edema, Pedal Pulses Palpable (Aileen Lawrence) Neurologic Neuro Exam: Alert, Awake, Oriented, Speech Clear, Moving All Extremities (Aileen Lawrence) Psychiatric Psych Exam: Appropriate Responses (Aileen Lawrence) Assessment/Plan Discussed Condition With: Patient Assessment Summary: REBEL/Acute Renal Failure, Anemia of CKD, Proteinuria, Hypertension, Diabetes Mellitus, CKD Stage IV Problem List: (1) Acute kidney injury superimposed on chronic kidney disease ICD Codes: N17.9 - Acute kidney failure, unspecified; N18.9 - Chronic kidney disease, unspecified Plan: REBEL on CKD 4, baseline creatinine 3.4 She has biopsy proven diabetic nephropathy with heavy proteinuria. She is at risk for progressive renal decline. We discussed possibility of needing dialysis in the near future. No indication for HD now. She is non oliguric Given IV contrast, stop IVF We will follow in CKD clinic if discharged CT reviewed, no hydronephrosis Avoid nephrotoxic agents Monitor urine output (2) CVA (cerebral infarction) ICD Codes: I63.9 - CVA (cerebral infarction) Status: Acute Plan: vs TIA Imaging reviewed, symptoms resolved. (3) Diabetes mellitus ICD Codes: E11.9 - Diabetes mellitus Status: Chronic Plan: Maintain glucose 140-180mg/dL while hospitalized (4) Hypertension ICD Codes: I10 - Hypertension Status: Acute Plan: Monitor blood pressure, resume nifedipine Stop IVF (Aileen Lawrence) Plan patient was seen and examined. Poor renal function, she is going to need dialysis soon in the near future. (Daniel Garber MD) Problem Qualifiers (1) Diabetes mellitus: Aileen Lawrence September 28, 2017 12:11 Daniel Garber MD September 28, 2017 21:02
--- NOTE | 2017-09-28 15:57 | PD.CONS ---
Assessment and Plan Assessment Consult received per stroke order set. EMR reviewed. MRI negative for acute stroke. Neurology consult reviewed. Consult deferred due to no acute stroke. Please reconsult as appropriate. Thank you. Christen Jones MD September 28, 2017 15:57
--- NOTE | 2017-09-28 19:10 | ECHRPT ---
Indication: CVA/TIA CONCLUSIONS Normal left ventricular size. The left ventricular systolic function is low normal with an estimated ejection fraction in the rang e of 50- 55%. Mild concentric left ventricular hypertrophy. The left atrial size is woim-fl-vtozzvaovf dilated. The right atrial size is xwoa-ty-lndipkyvrd dilated. A patent foramen ovale is present with a dbaf-vl-luqxp shunt demonstrated by color flow Doppler interrogation. Mitral valve sclerosis. Mild mitral valve regurgitation. Mild mitral annular calcification. Aortic valve sclerosis is present. Trace aortic valve regurgitation. There is trace tricuspid valve regurgitation. The estimated pulmonary arterial pressure is 42 mmHg. BP: 146 / 92 HR: 75 Rhythm: Sinus MEASUREMENTS (Male / Female) Normal Values Technical Quality:Fair 2D ECHO LV Diastolic Diameter PLAX 5.7 cm 4.2 - 5.9 / 3.9 - 5.3 cm LV Systolic Diameter PLAX 4.1 cm IVS Diastolic Thickness 1.2 cm 0.6 - 1.0 / 0.6 - 0.9 cm LVPW Diastolic Thickness 1.2 cm 0.6 - 1.0 / 0.6 - 0.9 cm LV Relative Wall Thickness 0.4 RV Internal Dim ED PLAX 3.1 cm LVOT Diameter 2.0 cm Aortic Root Diameter 3.0 cm LA Systolic Diameter LX 5.2 cm 3.0 - 4.0 / 2.7 - 3.8 cm M-MODE AV Cusp Separation MM 1.6 cm DOPPLER AV Peak Velocity 125.0 cm/s AV Peak Gradient 6.3 mmHg AV Mean Gradient 3.0 mmHg AV Velocity Time Integral 25.1 cm LVOT Peak Velocity 65.4 cm/s LVOT Peak Gradient 1.7 mmHg LVOT Velocity Time Integral 14.2 cm AV Area Cont Eq vti 1.8 cm AV Area Cont Eq pk 1.6 cm LV E' Lateral Velocity 2.9 cm/s LV E' Septal Velocity 5.0 cm/s TR Peak Velocity 282.0 cm/s TR Peak Gradient 31.8 mmHg Right Atrial Pressure 10.0 mmHg Pulmonary Artery Systolic Pressu 41.8 mmHg Right Ventricular Systolic Press 41.8 mmHg PV Peak Velocity 64.7 cm/s PV Peak Gradient 1.7 mmHg FINDINGS LEFT VENTRICLE Normal left ventricular size. The left ventricular systolic function is low normal with an estimated ejection fraction in the rang e of 50- 55%. Mild concentric left ventricular hypertrophy. RIGHT VENTRICLE Normal right ventricular size and systolic function. LEFT ATRIUM The left atrial size is zibi-op-yfnpauwopg dilated. RIGHT ATRIUM The right atrial size is bqfb-fr-jirczvalmf dilated. ATRIAL SEPTUM A patent foramen ovale is present with a ctwd-in-ugipm shunt demonstrated by color flow Doppler interrogation. AORTA The aortic root and proximal ascending aorta are normal in size on limited imaging. MITRAL VALVE Mild mitral valve regurgitation. Mild mitral annular calcification. AORTIC VALVE Aortic valve sclerosis is present. Trace aortic valve regurgitation. TRICUSPID VALVE There is trace tricuspid valve regurgitation. The estimated pulmonary arterial pressure is 41.8 mmHg. PULMONARY VALVE No pulmonary valve regurgitation or stenosis. VESSELS The inferior vena cava is normal in size. PERICARDIUM No pericardial effusion. Mable Mendoza MD, FACC (Electronically Signed) Final Date:28 Sep 2017 19:09
[2017-09-28] MEDS: ATORVASTATIN 80 MG TAB PO SCH (22:16)
[2017-09-28] MEDS ORDERED: ONDANSETRON ODT 4 MG TAB SL PRN (22:45)
[2017-09-29] VITALS (11 sets, daily range): BP systolic 147–183; BP diastolic 79–96; PULSE 70–92; RESP 14–18; TEMP 97.6–98; O2SAT 95–99
[2017-09-29] MEDS: SODIUM CHLOR 0.9% 1000 ML INJ 1,000 ML IV SCH (01:14)
[2017-09-29] MEDS: RESP: ALBUTEROL 2.5 MG/IPRATROPIUM 0.5 MG NEB (PRN) NEB ×2 (02:55→13:33)
[2017-09-29 05:47] LABS: BICARBONATE 21.2 MEQ/L (21.0-32.0); CALCIUM 8.5 MG/DL (8.5-10.1); CREATININE 3.88 MG/DL (0.50-1.00)
[2017-09-29] MEDS: INSULIN ASPART SUPPLEMENTAL SCALE SQ SCH ×4 (07:23→21:53)
[2017-09-29] MEDS: ASPIRIN 81 MG CHEW TAB CHEW SCH (07:23)
[2017-09-29] MEDS: HEPARIN SODIUM - SQ 10,000 UNITS/ML VIAL SQ SCH ×2 (07:24→21:32)
[2017-09-29] MEDS: NIFEdipine 90 MG SUSTAINED RELEASE TAB PO SCH (07:24)
[2017-09-29] MEDS: CLOPIDOGREL 75 MG TAB PO SCH (07:24)
[2017-09-29] MEDS: SODIUM CHLORIDE 0.9% FLUSH 10 ML FLUSH IV FLUSH SCH ×2 (07:24→21:32)
--- NOTE | 2017-09-29 08:25 | HHI.PR ---
Review/Management Diagnosis/Plan: (1) Slurred speech ICD Codes: R47.81 - Slurred speech Status: Resolved Plan: no longer having slurred speech. possible exacerbation of previous stroke CT did not show acute event CTA head/neck unremarkable check MRI brain- old strokes. moderate white matter dz. likely 2/2 chronic uncontrolled htn recs neuro stable aspirin and plavix d/w pt importance of compliance with medications on statin bp goal <120/80 d/c planning from neuro (2) Hypertension ICD Codes: I10 - Hypertension Status: Acute Plan: elevated BP on admission, will continue to monitor pt aware of importance of controlling for secondary stroke risk factors as outpt (3) Dyslipidemia ICD Codes: E78.5 - Dyslipidemia Status: Acute Plan: lipid panel pending goal LDL 70 (4) Acute renal failure superimposed on stage 3 chronic kidney disease ICD Codes: N17.9 - Acute kidney failure, unspecified; N18.3 - Chronic kidney disease, stage 3 (moderate) Plan: CR 4.4 Subjective Subjective Comments No acute events reported No headache No chest pain No dyspnea Active Medications Current Medications Medications (Trade) Dose Ordered Sig/Jesus Manuel Route Start Time Stop Time Status Last Admin Sodium Chloride 1,000 ml @ 100 mls/hr Q10H IV 09/27/17 00:07 09/29/17 01:14 (NS Flush) 2 ml UNSCH PRN IV FLUSH 09/27/17 00:15 (NS Flush) 2 ml BID IV FLUSH 09/27/17 09:00 09/28/17 22:18 (Heparin Inj) 5,000 units Q12H SQ 09/27/17 09:00 09/29/17 07:24 (Narcan Inj) 0.4 mg UNSCH PRN IV PUSH 09/27/17 00:15 (Milk Of Magnesia Liq) 30 ml Q12H PRN PO 09/27/17 00:15 (Senokot) 17.2 mg Q12H PRN PO 09/27/17 00:15 (Dulcolax Supp) 10 mg DAILY PRN RECTAL 09/27/17 00:15 (Lactulose Liq) 30 ml DAILY PRN PO 09/27/17 00:15 (NovoLOG SUPPLEMENTAL SCALE) 1 ACHS SLIDING SCALE SQ 09/27/17 08:00 09/28/17 13:30 (Proair Hfa Inh) 2 puff Q4H PRN INH 09/27/17 01:30 (Aspirin Chew) 81 mg DAILY CHEW 09/27/17 09:00 09/29/17 07:23 (Lipitor) 40 mg HS PO 09/27/17 21:00 09/28/17 22:16 (Vasotec Inj) 1.25 mg Q4H PRN IV PUSH 09/27/17 12:00 (Procardia Xl) 90 mg DAILY PO 09/27/17 13:00 09/29/17 07:24 (Plavix) 75 mg DAILY PO 09/27/17 16:15 09/29/17 07:24 (Duoneb Neb) 1 ampule Q6HR NEB PRN NEB 09/28/17 10:15 09/29/17 02:55 (Zofran Odt) 4 mg Q6H PRN SL 09/28/17 22:45 Allergies Allergies Coded Allergies levofloxacin (Verified Allergy, Severe, ITCHING, 09/26/17) Review of Systems All other ROS: ROS reviewed as documented in chart Exam I&O / VS Vital Signs Date Time Temp Pulse Resp B/P (MAP) Pulse Ox O2 Delivery O2 Flow Rate FiO2 09/29/17 08:00 84 18 166/89 (114) 97 09/29/17 04:14 92 09/29/17 04:00 97.6 70 14 151/84 (106) 95 09/29/17 02:57 97 09/29/17 00:00 98.0 74 16 147/96 (113) 96 09/28/17 20:00 98.4 74 16 162/95 (117) 99 09/28/17 20:00 76 09/28/17 15:44 98.0 71 20 189/96 (127) 100 09/28/17 12:37 67 09/28/17 11:58 97.9 70 19 180/93 (122) 99 General: Alert and Oriented, No acute distress Eye: PERRL, EOMI Respiratory: Non-labored respirations Cardiology: Normal rate Neurologic: Alert, Oriented, Normal sensory, Normal motor, No focal defects, CN II-XII intact, Normal DTR's Psychiatric: Cooperative Objective Micro and Labs Laboratory Tests Test 09/29/17 04:50 Blood Urea Nitrogen 60 Creatinine 3.88 Random Glucose 110 Calcium Level 8.5 Sodium Level 147 Potassium Level 3.3 Chloride Level 115 Carbon Dioxide Level 21.2 Anion Gap 11 Estimat Glomerular Filtration Rate 15 Gerson Mcleod MD September 29, 2017 08:25
--- NOTE | 2017-09-29 08:56 | HHI.PR ---
Subjective Remarks in no acute distress. no new complaints. wants to go home today. Objective Vitals Vital Signs Date Time Temp Pulse Resp B/P (MAP) Pulse Ox O2 Delivery O2 Flow Rate FiO2 09/29/17 08:00 84 18 166/89 (114) 97 09/29/17 04:14 92 09/29/17 04:00 97.6 70 14 151/84 (106) 95 09/29/17 02:57 97 09/29/17 00:00 98.0 74 16 147/96 (113) 96 09/28/17 20:00 98.4 74 16 162/95 (117) 99 09/28/17 20:00 76 09/28/17 15:44 98.0 71 20 189/96 (127) 100 09/28/17 12:37 67 09/28/17 11:58 97.9 70 19 180/93 (122) 99 I/O 09/28/17 09/28/17 09/28/17 09/29/17 09/29/17 09/29/17 07:00 15:00 23:00 07:00 15:00 23:00 Intake Total 1000 ml 989 ml Balance 1000 ml 989 ml Intake IV Total 1000 ml 989 ml # Voids 5 # Bowel Movements 1 Result Diagram: 09/28/17 0805 09/29/17 0450 Imaging Last Impressions Renal Ultrasound 09/27/17 0000 Signed Impressions: Service Date/Time: Wednesday, September 27, 2017 07:41 - CONCLUSION: 1. Mild hydronephrosis. Mild medical renal disease. Bladder unremarkable. Sky Omalley MD Brain MRI 09/27/17 0000 Signed Impressions: Service Date/Time: Wednesday, September 27, 2017 10:05 - CONCLUSION: 1. Severe chronic changes with old infarcts involving the inferior aspect of the left cerebellar hemisphere, superior aspect of the right cerebellar hemisphere, lacunar type infarct in the right side of the parker and punctate lacunar type infarcts in the left basal ganglia. 2. Severe periventricular and scattered deep white matter tract areas of small vessel ischemic demyelination. 3. Nothing acute Jose Miguel Koroma MD Abdomen/Pelvis CT 09/27/17 0000 Signed Impressions: Service Date/Time: Wednesday, September 27, 2017 10:25 - CONCLUSION: 1. There is some asymmetric prominence of the left renal pelvis but I do not see marcella hydronephrosis. Contrast is seen in both renal collecting systems from the prior contrasted CTA of the carotids and intracranial vessels. 2. Enlarged, fibroid uterus. 3. Vicarious excretion of contrast in the gallbladder lumen. 4. Parenchymal cyst in the left lingula/lung base with some pleural parenchymal scarring or atelectasis in the medial right base and left lingula. 5. Possible small, 2.1 cm left ovarian cyst. Jose Miguel Koroma MD Neck CTA 09/26/172 Signed Impressions: Service Date/Time: Tuesday, September 26, 2017 22:49 - CONCLUSION: Mild atherosclerotic disease bilaterally in the internal carotid bulb. No two-dimensional stenosis is noted. Alvarez Sauceda MD Head CTA 09/26/172 Signed Impressions: Service Date/Time: Tuesday, September 26, 2017 22:49 - CONCLUSION: Limit exam possibly related to motion. I don't see any definite filling defects or obvious stenoses but it is a limited exam. Alvarez Sauceda MD Head CT 09/26/17 0000 Signed Impressions: Service Date/Time: Tuesday, September 26, 2017 22:47 - CONCLUSION: Multiple old strokes including the cerebellar hemispheres. No evidence of hemorrhage or edema. This report was called to Dr. Wallis at <2259 hrs.>. Alvarez Sauceda MD Objective Remarks GENERAL: This is a well-nourished, well-developed patient, in no apparent distress. CARDIOVASCULAR: Regular rate and regular rhythm without murmurs, gallops, or rubs. RESPIRATORY: Clear to auscultation. Breath sounds equal bilaterally. No wheezes , rales, or rhonchi. GASTROINTESTINAL: Abdomen soft, non-tender, nondistended. Normal, active bowel sounds MUSCULOSKELETAL: Extremities without clubbing, cyanosis, or edema. NEURO: Alert & Oriented x4 to person, place, time, situation. Moves all ext x4 Medications and IVs Inpatient Medications Albuterol Sulfate (Proair Hfa Inh) 2 puff Q4H PRN INH SHORTNESS OF BREATH; Start 09/27/17 at 01:30 Albuterol/ Ipratropium (Duoneb Neb) 1 ampule Q6HR NEB PRN NEB SHORTNESS OF BREATH Last administered on 09/29/17at 02:55; Start 09/28/17 at 10:15 Aspirin (Aspirin Chew) 81 mg DAILY CHEW Last administered on 09/29/17at 07:23; Start 09/27/17 at 09:00 Atorvastatin Calcium (Lipitor) 40 mg HS PO Last administered on 09/28/17at 22:16 ; Start 09/27/17 at 21:00 Bisacodyl (Dulcolax Supp) 10 mg DAILY PRN RECTAL SEVERE CONSITIPATION; Start at 00:15 Clopidogrel Bisulfate (Plavix) 75 mg DAILY PO Last administered on 09/29/17at 07 :24; Start 09/27/17 at 16:15 Enalaprilat (Vasotec Inj) 1.25 mg Q4H PRN IV PUSH For SBP > 220 or DBP > 120; Start 09/27/17 at 12:00 Heparin Sodium (Porcine) (Heparin Inj) 5,000 units Q12H SQ Last administered on 09/29/17at 07:24; Start 09/27/17 at 09:00 Insulin Aspart (NovoLOG SUPPLEMENTAL SCALE) 1 ACHS SLIDING SCALE SQ Last administered on 09/28/17at 13:30; Start 09/27/17 at 08:00 Lactulose (Lactulose Liq) 30 ml DAILY PRN PO SEVERE CONSITIPATION; Start at 00:15 Magnesium Hydroxide (Milk Of Magnesia Liq) 30 ml Q12H PRN PO Mild constipation ; Start 09/27/17 at 00:15 Naloxone HCl (Narcan Inj) 0.4 mg UNSCH PRN IV PUSH SEE LABEL COMMENTS; Start at 00:15 Nifedipine (Procardia Xl) 90 mg DAILY PO Last administered on 09/29/17at 07:24; Start 09/27/17 at 13:00 Ondansetron HCl (Zofran Odt) 4 mg Q6H PRN SL NAUSEA OR VOMITING; Start at 22:45 Ondansetron HCl (Zofran Inj) 4 mg Q6H PRN IVP NAUSEA OR VOMITING; Start at 00:15; Stop 09/28/17 at 22:44; Status DC Sennosides (Senokot) 17.2 mg Q12H PRN PO Moderate constipation; Start 09/27/17 at 00:15 Sodium Chloride (NS Flush) 2 ml BID IV FLUSH Last administered on 09/28/17at 22: 18; Start 09/27/17 at 09:00 A/P Assessment and Plan A/P possible TIA Imaging negative for acute stroke, however chronic strokes noted. Ultrasound carotids negative for stenosis. sinus rhythm on telemetry. echo with EF 55% , mild LVH and patent foramen ovale continue aspirin, plavix and statin. neurology following. will consult cardiology. PT consulted. COPD. Respiratory status stable. Continue home meds. REBEL on CKD4. CT of the abdomen with no hydronephrosis. nephrology following- might need HD in near future and the patient is aware- f/ u as outpatient. Diabetes mellitus. Chronic. Diabetic diet. Insulin sliding scale. Hypertension. continue Nifedipine- will add hydralazine. DVT prophylaxis with subq Heparin. Discharge Planning awaiting cardiology consult. d/w the patient regarding the echo findings . Ju Camilo MD September 29, 2017 08:56
[2017-09-29] MEDS ORDERED: hydrALAZINE HCL 25 MG TAB PO SCH (09:00)
[2017-09-29] MEDS ORDERED: PLAV75TA29 PO (09:06)
[2017-09-29] MEDS ORDERED: HYDR-3799 PO (09:06)
[2017-09-29] MEDS ORDERED: cloNIDine HCL 0.1 MG TAB PO ONE (09:15)
[2017-09-29] MEDS ORDERED: POTASSIUM CHLORIDE 20 MEQ CONTROLLED RELEASE TAB PO ONE (10:00)
--- NOTE | 2017-09-29 10:38 | HHI.NPPN ---
Subjective General Problems: Anemia Renal Failure: Chronic, Acute, Stage IV Interval History Renal function poor but stable. Wanting to go home. (Aileen Lawrence) Objective Data Data 09/29/17 09/30/17 19:00 07:00 Intake Total 273 ml Balance 273 ml Intake IV Total 273 ml Vital Signs Date Time Temp Pulse Resp B/P (MAP) Pulse Ox O2 Delivery O2 Flow Rate FiO2 09/29/17 09:49 97 21 09/29/17 09:07 73 09/29/17 08:00 84 18 166/89 (114) 97 09/29/17 04:14 92 09/29/17 04:00 97.6 70 14 151/84 (106) 95 09/29/17 02:57 97 09/29/17 00:00 98.0 74 16 147/96 (113) 96 09/28/17 20:00 98.4 74 16 162/95 (117) 99 09/28/17 20:00 76 09/28/17 15:44 98.0 71 20 189/96 (127) 100 09/28/17 12:37 67 09/28/17 11:58 97.9 70 19 180/93 (122) 99 (Aileen Lawrence) -: 09/28/17 0805 09/29/17 0450 Imaging Last 72 hours Impressions Renal Ultrasound 09/27/17 0000 Signed Impressions: Service Date/Time: Wednesday, September 27, 2017 07:41 - CONCLUSION: 1. Mild hydronephrosis. Mild medical renal disease. Bladder unremarkable. Sky Omalley MD Brain MRI 09/27/17 0000 Signed Impressions: Service Date/Time: Wednesday, September 27, 2017 10:05 - CONCLUSION: 1. Severe chronic changes with old infarcts involving the inferior aspect of the left cerebellar hemisphere, superior aspect of the right cerebellar hemisphere, lacunar type infarct in the right side of the parker and punctate lacunar type infarcts in the left basal ganglia. 2. Severe periventricular and scattered deep white matter tract areas of small vessel ischemic demyelination. 3. Nothing acute Jose Miguel Koroma MD Abdomen/Pelvis CT 09/27/17 0000 Signed Impressions: Service Date/Time: Wednesday, September 27, 2017 10:25 - CONCLUSION: 1. There is some asymmetric prominence of the left renal pelvis but I do not see marcella hydronephrosis. Contrast is seen in both renal collecting systems from the prior contrasted CTA of the carotids and intracranial vessels. 2. Enlarged, fibroid uterus. 3. Vicarious excretion of contrast in the gallbladder lumen. 4. Parenchymal cyst in the left lingula/lung base with some pleural parenchymal scarring or atelectasis in the medial right base and left lingula. 5. Possible small, 2.1 cm left ovarian cyst. Jose Miguel Koroma MD Neck CTA [id number] Signed Impressions: Service Date/Time: Tuesday, September 26, 2017 22:49 - CONCLUSION: Mild atherosclerotic disease bilaterally in the internal carotid bulb. No two-dimensional stenosis is noted. Alvarez Sauceda MD Head CTA [id number] Signed Impressions: Service Date/Time: Tuesday, September 26, 2017 22:49 - CONCLUSION: Limit exam possibly related to motion. I don't see any definite filling defects or obvious stenoses but it is a limited exam. Alvarez Sauceda MD (Aileen Lawrence) Physical Exam General Appearance: Well Developed, No Acute Distress, Comfortable (Aileen Lawrence. FITNESS SERVICES MANAGER) Throat Throat Exam: Oral Mucosa [place] & Moist (Aileen Lawrence) Pulmonary Resp Exam: Clear Bilaterally, Breath Sounds Equal (Aileen Lawrence B. FITNESS SERVICES MANAGER) Cardiology CV Exam: Regular, Normal Sinus Rhythm (Aileen Lawrence. [employer] SERVICES MANAGER) Gastrointestinal/Abdomen GI Exam: Soft, Non-Tender, Bowel Sounds Present (Aileen Lawrence) Musculoskeletal MS Exam: Joints Intact, Normal Gait, Normal Tone (Aileen Lawrence) Integumentary Skin Exam: Clear, Warm, Dry, Intact (Aileen Lawrence. FITNESS SERVICES MANAGER) Extremeties Extremities Exam: No Edema, Pedal Pulses Palpable (Aileen Lawrence BJacki GIBSON) Neurologic Neuro Exam: Alert, Awake, Oriented, Speech Clear, Moving All Extremities (Aileen Lawrence. FITNESS SERVICES MANAGER) Psychiatric Psych Exam: Appropriate Responses (Aileen Lawrence) Assessment/Plan Discussed Condition With: Patient Assessment Summary: REBEL/Acute Renal Failure, Anemia of CKD, Proteinuria, Hypertension, Diabetes Mellitus, CKD Stage IV Problem List: (1) Acute kidney injury superimposed on chronic kidney disease ICD Codes: N17.9 - Acute kidney failure, unspecified; N18.9 - Chronic kidney disease, unspecified Plan: REBEL on CKD 4, baseline creatinine 3.4 She has biopsy proven diabetic nephropathy with heavy proteinuria. She is at risk for progressive renal decline. She will be needing dialysis in the near future. No indication for HD now. Has plans for outpatient education. She is non oliguric We will follow in CKD clinic after discharge Advised to continue antihypertensives at home (2) CVA (cerebral infarction) ICD Codes: I63.9 - CVA (cerebral infarction) Status: Acute Plan: vs TIA Imaging reviewed, symptoms resolved. (3) Diabetes mellitus ICD Codes: E11.9 - Diabetes mellitus Status: Chronic Plan: Maintain glucose 140-180mg/dL while hospitalized (4) Hypertension ICD Codes: I10 - Hypertension Status: Acute Plan: On nifedipine and hydralazine On losartan at home Plan Cleared for discharge (Aileen Lawrence) Plan patient was seen and examined. She is interested in PD. Will see her in our CKD clinic after discharge. Stable for discharge now. (Daniel Garber MD) Problem Qualifiers (1) Diabetes mellitus: Aileen Lawrence September 29, 2017 10:38 Daniel Garber MD September 29, 2017 14:37
--- NOTE | 2017-09-29 21:24 | MB ---
cc: Geovany Schulz MD, Arthur W MD DATE: 09/29/2017 HISTORY OF PRESENT ILLNESS: Amber is a very pleasant 52-year-old lady who presents on 09/26/2017 with dysarthria. She till has some speech impediment, but does not appear to be focal, is anxious to go home. In the ER, she was noted to be confused. PAST MEDICAL HISTORY: Includes arthritis of the left knee, anemia, history of CVA, diabetes, gastroparesis, COPD, pneumonia, left breast abscess status post surgery. SOCIAL HISTORY: Denies tobacco or alcohol use. MEDICATIONS PRIOR TO ADMISSION: 1. ProAir. 2. Losartan 50 mg b.i.d. 3. Nifedipine extended release -90 mg daily. 4. Atorvastatin 80 mg at bedtime. 5. Tradjenta 6. Glipizide. 7. Zolpidem. 8. Vitamin C. 9. Aspirin 81 mg a day 10. D3 super strength 11. [place] 3 fish oil. MEDICATIONS IN THE HOSPITAL: 1. Hydralazine 25 mg q. 12 hrs. 2. Atorvastatin 40 mg at bedtime. 3. Albuterol p.r.n. 4. Clopidogrel 75 mg daily. 5. Nifedipine 90 mg daily. 6. Aspirin 81 mg daily. 7. heparin 5000 subcu q 12 hrs. PHYSICAL EXAMINATION: VITAL SIGNS: Blood pressure 183/93, pulse 77, temperature 97.6, sat is 98% on room air. GENERAL: She is alert and oriented x 3, in no acute distress. NECK: Supple. No JVD. No bruit. CARDIOVASCULAR: S1, S2. No murmurs, rubs or gallops. LUNGS: Clear to auscultation bilaterally. ABDOMEN: Soft, nontender, nondistended with positive bowel sounds. EXTREMITIES: No lower extremity edema. IMAGING STUDIES: Head CT on 09/26/2017: Multiple old strokes including the cerebellar hemispheres. No evidence of hemorrhage or edema. Neck CTA: Mild atherosclerotic disease bilaterally in the internal carotid bulb. No 2-dimensional stenosis is noted. Head CTA: Limited exam possibly related to motion. I do not see any definite filling defects or obvious stenoses, but it is a "limited exam". Renal ultrasound: Mild hydronephrosis. Brain MRI 09/27/2017: Severe chronic changes with old infarcts involving the inferior aspect of the left cerebellar hemisphere, superior aspect of the right cerebellar hemisphere, lacunar type infarct in the right side of the parker and punctate lacunar type infarcts in the left basal ganglia, severe periventricular and scattered deep white matter tract areas of small vessel ischemic demyelination, nothing acute. Abdominal pelvic CT: Some asymmetric prominence of the left renal pelvis, but I do not see marcella hydronephrosis. Contrast is seen in both renal collecting systems from the prior contrast of CT of the carotids and intracranial vessels. Large fibroid uterus, vicarious excretion of contrast in the gallbladder lumen, parenchymal cyst in the left lingula lung base with some pleural parenchymal scarring or atelectasis in the medial right base in the left lingula, possible small 2.1 cm left ovarian cyst . CARDIOLOGY STUDIES: EKG: Normal sinus rhythm at 76 beats per minute, PVCs. LABORATORY DATA: White count 4.9, hemoglobin 9.3, hematocrit 28.5, platelet count 225. INR 1.0. Sodium 147, potassium 3.3, chloride 115, BUN 60, creatinine 3.88, LDL 51. Albumin 2.6, INR 1.0. Toxicology is negative. DIAGNOSES: 1. History of cerebrovascular accident. 2. Hypertension. 3. Transient ischemic attack. 4. Carotid stenosis. 5. Diabetes mellitus. 6. Hypertension. 7. Acute renal failure. DISCUSSION: At this point in time, we will increase her hydralazine to 25 mg q 12 hours. Suspect a lot of her hypertension is related to acute renal failure. She is on aspirin and Plavix and is otherwise asymptomatic. Ejection fraction is 55%. Geovany Schulz MD Peggy/SA , 08:17 PM , 09:23 PM
[2017-09-29] MEDS: ATORVASTATIN 80 MG TAB PO SCH (21:31)
[2017-09-29] MEDS: hydrALAZINE HCL 25 MG TAB PO SCH (21:31)
[2017-09-30] VITALS: BP 158/88; PULSE 65; PULSE 74; RESP 18; TEMP 98.1; O2SAT 98
[2017-09-30 04:00] VITALS: BP 160/88; PULSE 76; RESP 18; TEMP 97.3; O2SAT 98
[2017-09-30] MEDS: hydrALAZINE HCL 25 MG TAB PO SCH ×2 (05:09→12:40)
[2017-09-30 08:00] VITALS: BP 157/98; PULSE 81; RESP 18; TEMP 98.6; O2SAT 96
[2017-09-30] MEDS: INSULIN ASPART SUPPLEMENTAL SCALE SQ SCH ×2 (08:00→12:00)
--- NOTE | 2017-09-30 08:02 | HHI.PR ---
Review/Management Diagnosis/Plan: (1) Slurred speech ICD Codes: R47.81 - Slurred speech Status: Resolved Plan: no longer having slurred speech. possible exacerbation of previous stroke CT did not show acute event CTA head/neck unremarkable check MRI brain- old strokes. moderate white matter dz. likely 2/2 chronic uncontrolled htn recs seen by cardiology- ? pfo not addressed. closure vs medical management. has had previous strokes. closure not unreasonable, although shunt is left to right. may need ricardo- defer to cardiology bp control neuro stable aspirin and plavix on statin bp goal <120/80 d/c planning from neuro (2) Hypertension ICD Codes: I10 - Hypertension Status: Acute Plan: elevated BP on admission, will continue to monitor pt aware of importance of controlling for secondary stroke risk factors as outpt (3) Dyslipidemia ICD Codes: E78.5 - Dyslipidemia Status: Acute Plan: lipid panel pending goal LDL 70 (4) Acute renal failure superimposed on stage 3 chronic kidney disease ICD Codes: N17.9 - Acute kidney failure, unspecified; N18.3 - Chronic kidney disease, stage 3 (moderate) Plan: CR 4.4 Subjective Subjective Comments No acute events reported No headache No chest pain No dyspnea Active Medications Current Medications Medications (Trade) Dose Ordered Sig/Jesus Manuel Route Start Time Stop Time Status Last Admin (NS Flush) 2 ml UNSCH PRN IV FLUSH 09/27/17 00:15 (NS Flush) 2 ml BID IV FLUSH 09/27/17 09:00 09/29/17 21:32 (Heparin Inj) 5,000 units Q12H SQ 09/27/17 09:00 09/29/17 21:32 (Narcan Inj) 0.4 mg UNSCH PRN IV PUSH 09/27/17 00:15 (Milk Of Magnesia Liq) 30 ml Q12H PRN PO 09/27/17 00:15 (Senokot) 17.2 mg Q12H PRN PO 09/27/17 00:15 (Dulcolax Supp) 10 mg DAILY PRN RECTAL 09/27/17 00:15 (Lactulose Liq) 30 ml DAILY PRN PO 09/27/17 00:15 (NovoLOG SUPPLEMENTAL SCALE) 1 ACHS SLIDING SCALE SQ 09/27/17 08:00 09/29/17 21:53 (Proair Hfa Inh) 2 puff Q4H PRN INH 09/27/17 01:30 (Aspirin Chew) 81 mg DAILY CHEW 09/27/17 09:00 09/29/17 07:23 (Lipitor) 40 mg HS PO 09/27/17 21:00 09/29/17 21:31 (Vasotec Inj) 1.25 mg Q4H PRN IV PUSH 09/27/17 12:00 09/29/17 16:49 (Procardia Xl) 90 mg DAILY PO 09/27/17 13:00 09/29/17 07:24 (Plavix) 75 mg DAILY PO 09/27/17 16:15 09/29/17 07:24 (Duoneb Neb) 1 ampule Q6HR NEB PRN NEB 09/28/17 10:15 09/29/17 13:33 (Zofran Odt) 4 mg Q6H PRN SL 09/28/17 22:45 (Apresoline) 25 mg Q8HR PO 09/29/17 22:00 09/30/17 05:09 Allergies Allergies Coded Allergies levofloxacin (Verified Allergy, Severe, ITCHING, 09/26/17) Review of Systems All other ROS: ROS reviewed as documented in chart Exam I&O / VS Vital Signs Date Time Temp Pulse Resp B/P (MAP) Pulse Ox O2 Delivery O2 Flow Rate FiO2 09/30/17 04:00 76 09/30/17 04:00 97.3 76 18 160/88 (112) 98 09/30/17 00:00 65 09/30/17 00:00 98.1 74 18 158/88 (111) 98 09/29/17 20:00 97.9 75 18 152/79 (103) 99 09/29/17 20:00 76 09/29/17 16:24 73 09/29/17 16:00 77 18 183/93 (123) 98 09/29/17 12:18 78 09/29/17 09:49 97 21 09/29/17 09:07 73 09/29/17 08:00 84 18 166/89 (114) 97 General: Alert and Oriented, No acute distress Eye: PERRL, EOMI Respiratory: Non-labored respirations Cardiology: Normal rate Neurologic: Alert, Oriented, Normal sensory, Normal motor, No focal defects, CN II-XII intact, Normal DTR's Psychiatric: Cooperative, Appropriate mood & affect Gerson Mcleod MD September 30, 2017 08:02
[2017-09-30] MEDS: NIFEdipine 90 MG SUSTAINED RELEASE TAB PO SCH (09:07)
[2017-09-30] MEDS: CLOPIDOGREL 75 MG TAB PO SCH (09:07)
[2017-09-30] MEDS: SODIUM CHLORIDE 0.9% FLUSH 10 ML FLUSH IV FLUSH SCH (09:08)
[2017-09-30] MEDS: ASPIRIN 81 MG CHEW TAB CHEW SCH (09:08)
[2017-09-30] MEDS: HEPARIN SODIUM - SQ 10,000 UNITS/ML VIAL SQ SCH (09:09)
--- NOTE | 2017-09-30 09:16 | HHI.PR ---
Subjective Remarks in no acute distress. no slurred speech or focal weakness. no new complaints. Objective Vitals Vital Signs Date Time Temp Pulse Resp B/P (MAP) Pulse Ox O2 Delivery O2 Flow Rate FiO2 09/30/17 08:00 98.6 81 18 157/98 (117) 96 09/30/17 04:00 76 09/30/17 04:00 97.3 76 18 160/88 (112) 98 09/30/17 00:00 65 09/30/17 00:00 98.1 74 18 158/88 (111) 98 09/29/17 20:00 97.9 75 18 152/79 (103) 99 09/29/17 20:00 76 09/29/17 16:24 73 09/29/17 16:00 77 18 183/93 (123) 98 09/29/17 12:18 78 09/29/17 09:49 97 21 I/O 09/29/17 09/29/17 09/29/17 09/30/17 09/30/17 09/30/17 07:00 15:00 23:00 07:00 15:00 23:00 Intake Total 989 ml 273 ml Balance 989 ml 273 ml Intake IV Total 989 ml 273 ml Result Diagram: 09/28/17 0805 09/29/17 0450 Imaging Last Impressions Renal Ultrasound 09/27/17 0000 Signed Impressions: Service Date/Time: Wednesday, September 27, 2017 07:41 - CONCLUSION: 1. Mild hydronephrosis. Mild medical renal disease. Bladder unremarkable. Syk Omalley MD Brain MRI 09/27/17 0000 Signed Impressions: Service Date/Time: Wednesday, September 27, 2017 10:05 - CONCLUSION: 1. Severe chronic changes with old infarcts involving the inferior aspect of the left cerebellar hemisphere, superior aspect of the right cerebellar hemisphere, lacunar type infarct in the right side of the parker and punctate lacunar type infarcts in the left basal ganglia. 2. Severe periventricular and scattered deep white matter tract areas of small vessel ischemic demyelination. 3. Nothing acute Jose Miguel Koroma MD Abdomen/Pelvis CT 09/27/17 0000 Signed Impressions: Service Date/Time: Wednesday, September 27, 2017 10:25 - CONCLUSION: 1. There is some asymmetric prominence of the left renal pelvis but I do not see marcella hydronephrosis. Contrast is seen in both renal collecting systems from the prior contrasted CTA of the carotids and intracranial vessels. 2. Enlarged, fibroid uterus. 3. Vicarious excretion of contrast in the gallbladder lumen. 4. Parenchymal cyst in the left lingula/lung base with some pleural parenchymal scarring or atelectasis in the medial right base and left lingula. 5. Possible small, 2.1 cm left ovarian cyst. Jose Miguel Koroma MD Neck CTA 09/26/172 Signed Impressions: Service Date/Time: Tuesday, September 26, 2017 22:49 - CONCLUSION: Mild atherosclerotic disease bilaterally in the internal carotid bulb. No two-dimensional stenosis is noted. Alvarez Sauceda MD Head CTA [id number] Signed Impressions: Service Date/Time: Tuesday, September 26, 2017 22:49 - CONCLUSION: Limit exam possibly related to motion. I don't see any definite filling defects or obvious stenoses but it is a limited exam. Alvarez Sauceda MD Head CT 09/26/17 0000 Signed Impressions: Service Date/Time: Tuesday, September 26, 2017 22:47 - CONCLUSION: Multiple old strokes including the cerebellar hemispheres. No evidence of hemorrhage or edema. This report was called to Dr. Wallis at <2259 hrs.>. Alvarez Sauceda MD Objective Remarks GENERAL: This is a well-nourished, well-developed patient, in no apparent distress. CARDIOVASCULAR: Regular rate and regular rhythm without murmurs, gallops, or rubs. RESPIRATORY: Clear to auscultation. Breath sounds equal bilaterally. No wheezes , rales, or rhonchi. GASTROINTESTINAL: Abdomen soft, non-tender, nondistended. Normal, active bowel sounds MUSCULOSKELETAL: Extremities without clubbing, cyanosis, or edema. NEURO: Alert & Oriented x4 to person, place, time, situation. Moves all ext x4 Procedures none Medications and IVs Inpatient Medications Albuterol Sulfate (Proair Hfa Inh) 2 puff Q4H PRN INH SHORTNESS OF BREATH; Start 09/27/17 at 01:30 Albuterol/ Ipratropium (Duoneb Neb) 1 ampule Q6HR NEB PRN NEB SHORTNESS OF BREATH Last administered on 09/29/17at 13:33; Start 09/28/17 at 10:15 Aspirin (Aspirin Chew) 81 mg DAILY CHEW Last administered on 09/29/17 07:23; Start 09/27/17 at 09:00 Atorvastatin Calcium (Lipitor) 40 mg HS PO Last administered on 09/29/17 21:31 ; Start 09/27/17 at 21:00 Bisacodyl (Dulcolax Supp) 10 mg DAILY PRN RECTAL SEVERE CONSITIPATION; Start at 00:15 Clopidogrel Bisulfate (Plavix) 75 mg DAILY PO Last administered on 09/29/17 07 :24; Start 09/27/17 at 16:15 Enalaprilat (Vasotec Inj) 1.25 mg Q4H PRN IV PUSH For SBP > 180 or DBP > 100 Last administered on 09/29/17at 16:49; Start 09/27/17 at 12:00 Heparin Sodium (Porcine) (Heparin Inj) 5,000 units Q12H SQ Last administered on 09/29/17 21:32; Start 09/27/17 at 09:00 Hydralazine HCl (Apresoline) 25 mg Q8HR PO Last administered on 09/30/17 05:09 ; Start 09/29/17 at 22:00 Insulin Aspart (NovoLOG SUPPLEMENTAL SCALE) 1 ACHS SLIDING SCALE SQ Last administered on 09/29/17 21:53; Start 09/27/17 at 08:00 Lactulose (Lactulose Liq) 30 ml DAILY PRN PO SEVERE CONSITIPATION; Start at 00:15 Magnesium Hydroxide (Milk Of Magnesia Liq) 30 ml Q12H PRN PO Mild constipation ; Start 09/27/17 at 00:15 Naloxone HCl (Narcan Inj) 0.4 mg UNSCH PRN IV PUSH SEE LABEL COMMENTS; Start at 00:15 Nifedipine (Procardia Xl) 90 mg DAILY PO Last administered on 09/29/17at 07:24; Start 09/27/17 at 13:00 Ondansetron HCl (Zofran Odt) 4 mg Q6H PRN SL NAUSEA OR VOMITING; Start at 22:45 Ondansetron HCl (Zofran Inj) 4 mg Q6H PRN IVP NAUSEA OR VOMITING; Start at 00:15; Stop 09/28/17 at 22:44; Status DC Potassium Chloride (KCl) 20 meq ONCE ONCE PO Last administered on 09/29/17at 10 :09; Start 09/29/17 at 10:00; Stop 09/29/17 at 10:01; Status DC Sennosides (Senokot) 17.2 mg Q12H PRN PO Moderate constipation; Start 09/27/17 at 00:15 Sodium Chloride (NS Flush) 2 ml BID IV FLUSH Last administered on 09/29/17at 21: 32; Start 09/27/17 at 09:00 A/P Assessment and Plan A/P possible TIA Imaging negative for acute stroke, however chronic strokes noted. Ultrasound carotids negative for stenosis. sinus rhythm on telemetry. echo with EF 55% , mild LVH and patent foramen ovale continue aspirin, plavix and statin. neurology following. cardiology consulted; d/w today who would see the patient today. PT consulted. COPD. Respiratory status stable. Continue home meds. REBEL on CKD4. CT of the abdomen with no hydronephrosis. nephrology following- might need HD in near future and the patient is aware- f/ u as outpatient. Diabetes mellitus. Chronic. Diabetic diet. Insulin sliding scale. Hypertension. continue Nifedipine- will add hydralazine. DVT prophylaxis with subq Heparin. Discharge Planning awaiting cardiology evaluation by . dc home when cleared by cardiology and neurology. see med list. d/w the patient and cardiology. Ju Camilo MD September 30, 2017 09:16
--- NOTE | 2017-09-30 11:41 | HHI.DS ---
Discharge Summary Admission Date September 27, 2017 at 00:08 Discharge Date: September 30, 2017 Admitting Diagnosis Stroke, REBEL (1) CVA (cerebral infarction) ICD Code: I63.9 - CVA (cerebral infarction) Diagnosis: Principal Status: Acute (2) Acute kidney injury superimposed on chronic kidney disease ICD Code: N17.9 - Acute kidney failure, unspecified; N18.9 - Chronic kidney disease, unspecified Diagnosis: Principal Procedures none Brief History - From Admission 52-year-old female who presents brought in by family due to slurred speech starting possibly around 10 PM. She says she does not know why she was brought into the hospital. She is somnolent, wakes her exam, is actually oriented 3. She denies any changes in medications. Denies any pain. Denies any chest pain or shortness of breath. She says she is tired I would like to sleep. CBC/BMP: 09/28/17 0805 09/29/17 0450 Significant Findings Laboratory Tests Test 09/27/17 11:45 09/28/17 08:05 09/29/17 04:50 Blood Urea Nitrogen 66 MG/DL (7-18) 67 MG/DL (7-18) 60 MG/DL (7-18) Creatinine 3.83 MG/DL (0.50-1.00) 3.91 MG/DL (0.50-1.00) 3.88 MG/DL (0.50-1.00) Random Glucose 109 MG/DL (74-106) 121 MG/DL (74-106) 110 MG/DL (74-106) Albumin 2.8 GM/DL (3.4-5.0) 2.6 GM/DL (3.4-5.0) Sodium Level 146 MEQ/L (136-145) 146 MEQ/L (136-145) 147 MEQ/L (136-145) Chloride Level 114 MEQ/L (98-107) 114 MEQ/L (98-107) 115 MEQ/L (98-107) Estimat Glomerular Filtration Rate 15 ML/MIN (>89) 15 ML/MIN (>89) 15 ML/MIN (>89) Red Blood Count 3.51 MIL/MM3 (4.00-5.30) Hemoglobin 9.3 GM/DL (11.6-15.3) Hematocrit 28.5 % (35.0-46.0) Mean Corpuscular Hemoglobin 26.5 PG (27.0-34.0) Monocytes (%) (Auto) 9.7 % (0.0-8.0) Eosinophils (%) (Auto) 10.5 % (0.0-4.0) Eosinophils # (Auto) 0.5 TH/MM3 (0-0.4) Total Protein 6.2 GM/DL (6.4-8.2) Phosphorus Level 5.1 MG/DL (2.5-4.9) HDL Cholesterol 74.5 MG/DL (40.0-60.0) Potassium Level 3.3 MEQ/L (3.5-5.1) Imaging Last Impressions Renal Ultrasound 09/27/17 Signed Impressions: Service Date/Time: Wednesday, September 27, 2017 07:41 - CONCLUSION: 1. Mild hydronephrosis. Mild medical renal disease. Bladder unremarkable. Sky Omalley MD Brain MRI 09/27/17 Signed Impressions: Service Date/Time: Wednesday, September 27, 2017 10:05 - CONCLUSION: 1. Severe chronic changes with old infarcts involving the inferior aspect of the left cerebellar hemisphere, superior aspect of the right cerebellar hemisphere, lacunar type infarct in the right side of the parker and punctate lacunar type infarcts in the left basal ganglia. 2. Severe periventricular and scattered deep white matter tract areas of small vessel ischemic demyelination. 3. Nothing acute Jose Miguel Koroma MD Abdomen/Pelvis CT 09/27/17 Signed Impressions: Service Date/Time: Wednesday, September 27, 2017 10:25 - CONCLUSION: 1. There is some asymmetric prominence of the left renal pelvis but I do not see marcella hydronephrosis. Contrast is seen in both renal collecting systems from the prior contrasted CTA of the carotids and intracranial vessels. 2. Enlarged, fibroid uterus. 3. Vicarious excretion of contrast in the gallbladder lumen. 4. Parenchymal cyst in the left lingula/lung base with some pleural parenchymal scarring or atelectasis in the medial right base and left lingula. 5. Possible small, 2.1 cm left ovarian cyst. Jose Miguel Koroma MD Neck CTA 09/26/172 Signed Impressions: Service Date/Time: Tuesday, September 26, 2017 22:49 - CONCLUSION: Mild atherosclerotic disease bilaterally in the internal carotid bulb. No two-dimensional stenosis is noted. Alvarez Sauceda MD Head CTA [id number]/26/[id number] Signed Impressions: Service Date/Time: Tuesday, September 26, 2017 22:49 - CONCLUSION: Limit exam possibly related to motion. I don't see any definite filling defects or obvious stenoses but it is a limited exam. Alvarez Sauceda MD Head CT 09/26/17 0000 Signed Impressions: Service Date/Time: Tuesday, September 26, 2017 22:47 - CONCLUSION: Multiple old strokes including the cerebellar hemispheres. No evidence of hemorrhage or edema. This report was called to Dr. Wallis at <2259 hrs.>. Alvarez Sauceda MD PE at Discharge GENERAL: This is a well-nourished, well-developed patient, in no apparent distress. CARDIOVASCULAR: Regular rate and regular rhythm without murmurs, gallops, or rubs. RESPIRATORY: Clear to auscultation. Breath sounds equal bilaterally. No wheezes , rales, or rhonchi. GASTROINTESTINAL: Abdomen soft, non-tender, nondistended. Normal, active bowel sounds MUSCULOSKELETAL: Extremities without clubbing, cyanosis, or edema. NEURO: Alert & Oriented x4 to person, place, time, situation. Moves all ext x4 Hospital Course possible TIA Imaging negative for acute stroke, however chronic strokes noted. Ultrasound carotids negative for stenosis. sinus rhythm on telemetry. echo with EF 55% , mild LVH and patent foramen ovale continue aspirin, plavix and statin. neurology following. cardiology consulted. PT consulted. COPD. Respiratory status stable. Continue home meds. REBEL on CKD4. CT of the abdomen with no hydronephrosis. nephrology following- might need HD in near future and the patient is aware- f/ u as outpatient. Diabetes mellitus. Chronic. Diabetic diet. Insulin sliding scale. Hypertension. continue Nifedipine- added hydralazine. Pt Condition on Discharge: Fair Discharge Disposition: Discharge Home Discharge Time: <= 30 minutes Discharge Instructions DIET: Follow Instructions for: Heart Healthy Diet, Diabetic Diet Activities you can perform: Regular-No Restrictions Ju Camilo MD September 30, 2017 11:41
[2017-09-30 12:00] VITALS: BP 153/92; PULSE 71; RESP 18; TEMP 97.7; O2SAT 99
--- NOTE | 2017-09-30 14:25 | MB ---
cc: Josemanuel Noble MD DATE: 09/30/2017 DATE OF : 1965 REFERRING PHYSICIAN: Dr. Camilo, hospitalist. REASON FOR CONSULTATION: I was asked to evaluate patient with history of severe hypertension, CVA/TIA and PFO noted on echocardiogram. HISTORY OF PRESENT ILLNESS: Amber Wallis is a pleasant 52-year-old woman with a past medical history significant for longstanding hypertension, COPD, CVA/TIA, hypercholesterolemia and diabetes mellitus. She was admitted for an episode of slurred speech noted by her boyfriend. She also noted left arm weakness. Emergency Room evaluation was significant for CT of the head that showed no acute intracranial pathology. Initial blood pressure on presentation was 184/97. She reports no recent episodes of chest pain with exertion or suggestive of angina. Additionally, she relates no congestive episodes of orthopnea and paroxysmal nocturnal dyspnea, sustained palpitations, lightheadedness, dizziness, presyncope and syncope. Echocardiogram showed a PFO, normal left ventricle size, ejection fraction 50-55%, mild concentric hypertrophy, mild/moderate left atrium dilatation, mild/moderate right atrium dilatation, mild mitral and tricuspid valve regurgitation. MEDICATIONS PRIOR TO ADMISSION: Reviewed and noted. ALLERGIES: LEVAQUIN. PAST MEDICAL HISTORY: As above. PAST SURGICAL HISTORY: Status post . REVIEW OF SYSTEMS: As above. A 12-point review of systems is reviewed and noted. No recent fever, chills, cough or any sputum production. No recent gastrointestinal or genitourinary symptoms. SOCIAL HISTORY: She continues to smoke. She denies illicit drug use. She does not drink alcohol. PHYSICAL EXAMINATION: VITAL SIGNS: Temperature 97.9, pulse 75, respirations 18, blood pressure 152/79, O2 saturation 99%. GENERAL: No acute distress, she wishes to go home today. HEENT: Anicteric. PERRLA. No xanthelasma. NECK: Flat JVD. No carotid bruits. LUNGS: Clear to auscultation. CARDIOVASCULAR: Regular rate and rhythm. 2/6 systolic murmur left lower sternal border. ABDOMEN: Soft and nontender. EXTREMITIES: No peripheral edema. LABORATORY DATA: WBC 5.9, hemoglobin is 9.8, hematocrit is 30.1, platelet count is 246,000. Sodium 142, potassium 3.9, chloride 111, BUN 66, creatinine 3.83. Glycosylated hemoglobin 5.8. IMPRESSION: 1. Transient ischemic accident. 2. Severe hypertension. 3. Patent foramen ovale. 4. Chronic renal insufficiency. PLAN: 1. Okay to discharge home from a cardiac standpoint. 2. Start Labetalol 50 mg b.i.d. 3. Discontinue hydralazine. 4. Continue all outpatient antihypertension medications. 5. We will arrange for implantable loop recorder as outpatient to evaluate for paroxysmal atrial fibrillation. 6. Instructed to maintain blood pressure diary. 7. Instructed to follow up with me in 1-2 weeks after discharge. Thank you for allowing me to contribute to the patient's care. Thank you for this consultation. MD JUSTINO RamosV/LIBRADO , 01:35 PM , 02:23 PM
--- NOTE | 2017-09-30 14:35 | HHI.NPPN ---
Subjective General Problems: Anemia Renal Failure: Chronic, Acute, Stage IV Interval History Echo showed PFO. Cardiology did evaluate. Labs were not obtained today. She is making urine. BP control is better. (Aileen Lawrence) Objective Data Data 09/30/17 10/01/17 18:59 06:59 # Bowel Movements 1 Vital Signs Date Time Temp Pulse Resp B/P (MAP) Pulse Ox O2 Delivery O2 Flow Rate FiO2 09/30/17 12:00 97.7 71 18 153/92 (112) 99 09/30/17 08:00 98.6 81 18 157/98 (117) 96 09/30/17 04:00 76 09/30/17 04:00 97.3 76 18 160/88 (112) 98 09/30/17 00:00 65 09/30/17 00:00 98.1 74 18 158/88 (111) 98 09/29/17 20:00 97.9 75 18 152/79 (103) 99 09/29/17 20:00 76 09/29/17 16:24 73 09/29/17 16:00 77 18 183/93 (123) 98 (Aileen Lawrence) -: 09/28/17 0805 09/29/17 0450 Physical Exam General Appearance: Well Developed, No Acute Distress, Comfortable (Aileen Lawrence) Throat Throat Exam: Oral Mucosa [place] & Moist (Aileen Lawrence) Pulmonary Resp Exam: Clear Bilaterally, Breath Sounds Equal (Aileen Lawrence) Cardiology CV Exam: Regular, Normal Sinus Rhythm (Aileen Lawrence) Gastrointestinal/Abdomen GI Exam: Soft, Non-Tender, Bowel Sounds Present (Aileen Lawrence) Musculoskeletal MS Exam: Joints Intact, Normal Gait, Normal Tone (Aileen Lawrence) Integumentary Skin Exam: Clear, Warm, Dry, Intact (Aileen Lawrence) Extremeties Extremities Exam: No Edema, Pedal Pulses Palpable (Aileen Lawrence) Neurologic Neuro Exam: Alert, Awake, Oriented, Speech Clear, Moving All Extremities (Aileen Lawrence) Psychiatric Psych Exam: Appropriate Responses (Aileen Lawrence) Assessment/Plan Discussed Condition With: Patient Assessment Summary: REBEL/Acute Renal Failure, Anemia of CKD, Proteinuria, Hypertension, Diabetes Mellitus, CKD Stage IV Problem List: (1) Acute kidney injury superimposed on chronic kidney disease ICD Codes: N17.9 - Acute kidney failure, unspecified; N18.9 - Chronic kidney disease, unspecified Plan: REBEL on CKD 4, baseline creatinine 3.4 She has biopsy proven diabetic nephropathy with heavy proteinuria. She is at risk for progressive renal decline. Eventually she will require dialysis, however there is no indication at this time. Stable for discharge. We will follow in CKD clinic and we have arranged outpatient education next week to discuss the different modalities. She is currently non oliguric Advised to continue antihypertensives at home , resume losartan. Stay well hydrated, avoid NSAIDs and PPI, limit excess protein consumption in her diet. (2) CVA (cerebral infarction) ICD Codes: I63.9 - CVA (cerebral infarction) Status: Acute Plan: vs TIA Imaging reviewed, symptoms resolved. (3) Diabetes mellitus ICD Codes: E11.9 - Diabetes mellitus Status: Chronic Plan: Maintain glucose 140-180mg/dL while hospitalized (4) Hypertension ICD Codes: I10 - Hypertension Status: Acute Plan: On nifedipine and hydralazine To resume losartan once home Low Na diet and exercise discussed (5) PFO (patent foramen ovale) ICD Codes: Q21.1 - Atrial septal defect Plan: Discovered on Echo. She has a right to left shunt, was evaluated by cardiology. 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 Agree with above assessment and plan. (Daniel Garber MD) Problem Qualifiers (1) Diabetes mellitus: Aileen Lawrence September 30, 2017 14:35 Daniel Garber MD September 30, 2017 15:02
[2017-09-30] MEDS ORDERED: LABE100T2 PO (14:52)
== END 2017-09-30 15:51 | disposition home or self-care (01) | DRG 65 ==
LOC: NEPC 22:32 → NEDA 09-27 00:08 → NEDH 09-27 04:15 → N05B 09-27 17:35
PROVIDERS: ADMIT Internal Medicine; ATTEND Internal Medicine
DX: I63.9 Cerebral infarction, unspecified (principal); N17.9 Acute kidney failure, unspecified; E11.21 Type 2 diabetes mellitus with diabetic nephropathy; N18.4 Chronic kidney disease, stage 4 (severe); Q21.1 Atrial septal defect; I08.1 Rheumatic disorders of both mitral and tricuspid valves; E11.319 Type 2 diabetes mellitus with unspecified diabetic retinopathy without macular edema; Z86.73 Personal history of transient ischemic attack (TIA), and cerebral infarction without residual deficits; R29.701 NIHSS score 1; R47.81 Slurred speech; R47.1 Dysarthria and anarthria; D63.1 Anemia in chronic kidney disease; E11.22 Type 2 diabetes mellitus with diabetic chronic kidney disease; M17.12 Unilateral primary osteoarthritis, left knee; I65.29 Occlusion and stenosis of unspecified carotid artery; E78.00 Pure hypercholesterolemia, unspecified; I12.9 Hypertensive chronic kidney disease with stage 1 through stage 4 chronic kidney disease, or unspecified chronic kidney disease; J44.9 Chronic obstructive pulmonary disease, unspecified; K21.9 Gastro-esophageal reflux disease without esophagitis; Z79.82 Long term (current) use of aspirin; Z79.84 Long term (current) use of oral hypoglycemic drugs; Z88.1 Allergy status to other antibiotic agents
CPT/HCPCS: 70450; 70496; 70498; 70551; 74176; 76775; 80048; 80053; 80061; 80069; 80307; 81001; 82550; 82552; 82570; 82948; 83036; 84100; 84300; 84484; 85025; 85384; 85610; 85730; 86850; 86900; 86901; 86920; 86922; 93005; 93306; 94640; 94664; 96360; J1644; J1815; J7030; Q9967

== ENCOUNTER 2017-10-31 11:28 | Emergency (ER) | payer MEDICARE, MEDICAID ==
[~2017-10-31] VITALS: Ht 165.1 cm; Wt 75.0 kg
[~2017-10-31 11:28] MED LIST changes: +LABE100T2 PO; -LOSA50TA PO; +PLAV75TA29 PO
[2017-10-31 11:30] VITALS: BP 131/70; PULSE 77; RESP 16; TEMP 98; O2SAT 98
[2017-10-31 11:46] VITALS: BP 119/69; PULSE 68; RESP 17; O2SAT 97
[2017-10-31 11:52] VITALS: BP 119/69; PULSE 73; RESP 17; O2SAT 97
[2017-10-31] MEDS ORDERED: SODIUM CHLORIDE 0.9% FLUSH 10 ML FLUSH IVF PRN (12:00)
[2017-10-31 12:06] LABS: AUTOMATED NEUTROPHIL # 4.2 TH/MM3 (1.8-7.7); BASOPHIL # 0.1 TH/MM3 (0-0.2); EOSINOPHIL # 0.4 TH/MM3 (0-0.4); EOSINOPHIL % 6.2 % (0.0-4.0); HEMOGLOBIN 7.8 GM/DL (11.6-15.3); LYMPH % 19.3 % (9.0-44.0); LYMPHOCYTE # 1.3 TH/MM3 (1.0-4.8); MEAN CELL VOLUME 80.4 FL (80.0-100.0); MEAN CORPUSCULAR HEMOGLOBIN 26.2 PG (27.0-34.0); MEAN CORPUSCULAR HGB CONC 32.6 % (32.0-36.0); MEAN PLATELET VOLUME 7.6 FL (7.0-11.0); MONO % 12.6 % (0.0-8.0); MONOCYTE # 0.9 TH/MM3 (0-0.9); NEUT % 60.9 % (16.0-70.0); PLATELET COUNT 240 TH/MM3 (150-450); RED BLOOD COUNT 2.98 MIL/MM3 (4.00-5.30); RED CELL DISTRIBUTION WIDTH 16.5 % (11.6-17.2); WHITE BLOOD COUNT 6.9 TH/MM3 (4.0-11.0)
[2017-10-31 12:19] LABS: PROTHROMBIN TIME - PATIENT 9.7 SEC (9.8-11.6)
[2017-10-31 12:22] LABS: ALBUMIN 2.9 GM/DL (3.4-5.0); ALT (GPT) 65 U/L (10-53); AST (GOT) 23 U/L (15-37); BLOOD UREA NITROGEN 80 MG/DL (7-18); CALCIUM 8.1 MG/DL (8.5-10.1); CHLORIDE 114 MEQ/L (98-107); CREATININE 5.14 MG/DL (0.50-1.00); GLOMERULAR FILTRATION RATE 11 ML/MIN (>89); GLUCOSE,RANDOM 62 MG/DL (74-106); SODIUM (NA) 144 MEQ/L (136-145)
[2017-10-31 12:24] LABS: ALKALINE PHOSPHATASE 149 U/L (45-117); TOTAL BILIRUBIN ADULT 0.3 MG/DL (0.2-1.0)
--- NOTE | 2017-10-31 12:41 | PD ---
HPI Chief Complaint: Abnormal Results Time Seen by Provider: 11:47 Travel History International Travel<30 days: No Contact w/Intl Traveler<30days: No Traveled to known affect area: No History of Present Illness HPI 52-year-old female with PMH of HTN, DM, stage IV CKD, COPD on Plavix presents to the ED for evaluation after phone call from her doctor reported abnormal result. She reports that her doctor was concerned for anemia and worsening kidney function. Patient endorses occasional shortness of breath. She states that she was recently treated for a URI. She states that this has been improving since that treatment. She otherwise has no somatic complaints. She denies headache, dizziness, weakness, chest pain, palpitations, abdominal pain, nausea, vomiting, changes in bowel habits, dysuria, hematuria. She endorses history of iron deficiency anemia, states that she has been off iron supplementation for "about a year." She states that she is in the process of having a PD cath implanted by Dr. Blanco's office. She has follow-up scheduled in early November. PFSH Past Medical History Hx Anticoagulant Therapy: Yes Anemia: Yes Arthritis: Yes (LEFT KNEE) Asthma: No Blood Disorders: No Anxiety: No Depression: No Heart Rhythm Problems: No Cancer: No Cardiac Catheterization: Yes Cardiovascular Problems: Yes High Cholesterol: Yes Chemotherapy: No Chest Pain: No Congestive Heart Failure: No COPD: Yes Cerebrovascular Accident: Yes Diabetes: Yes Patient Takes Glucophage: No Diminished Hearing: No Endocrine: Yes Gastrointestinal Disorders: Yes (GASTROPARESIS) GERD: Yes Glaucoma: No Gout: Yes Genitourinary: Yes Hepatitis: No Hiatal Hernia: No Hypertension: Yes Immune Disorder: No Implanted Vascular Access Dvce: No Kidney Stones: No Musculoskeletal: No Neurologic: Yes (CVA) Psychiatric: No Reproductive: No Respiratory: Yes Immunizations Current: Yes Migraines: No Myocardial Infarction: No Pneumonia: Yes Radiation Therapy: No Renal Failure: No Seizures: No Sickle Cell Disease: No Sleep Apnea: No Thyroid Disease: No Ulcer: No Tetanus Vaccination: Unknown Influenza Vaccination: Yes ?: Not Menopausal: Yes : 5 Para: 7 Miscarriage: 0 : 0 Tubal Ligation: Yes Past Surgical History Abdominal Surgery: No Appendectomy: No Arteriovenous Shunt: No Cardiac Surgery: No Section: Yes (4) Ear Surgery: No Endocrine Surgery: No Eye Surgery: No Genitourinary Surgery: No Gynecologic Surgery: Yes (4 CSECTIONS) Hysterectomy: No Oral Surgery: No Pacemaker: No Thoracic Surgery: No Other Surgery: Yes (BREAST SURGERY LEFT BREAST ABCESS 2X ) Social History Alcohol Use: No Tobacco Use: No Substance Use: Yes (years ago) Allergies-Medications (Allergen,Severity, Reaction): Coded Allergies: levofloxacin (Verified Allergy, Severe, ITCHING, 10/31/17) OCCURRED THIS FIRST DOSE; ONLY RECEIVED 1/2 Reported Meds & Prescriptions Reported Meds & Active Scripts Active Labetalol (Labetalol HCl) 100 Mg Tab 50 Mg PO BID 30 Days Plavix (Clopidogrel Bisulfate) 75 Mg Tab 75 Mg PO DAILY 30 Days Proair Hfa 8.5 GM Inh (Albuterol Sulfate) 90 Mcg/Act Aer 2 Puff INH Q4-6H PRN 108 mcg/actuation Nifedipine ER (Nifedipine) 90 Mg Tab 90 Mg PO DAILY Reported Atorvastatin (Atorvastatin Calcium) 80 Mg Tab 40 Mg PO HS Tradjenta (Linagliptin) 5 Mg Tab 5 Mg PO DAILY Glipizide 10 Mg Tab 10 Mg PO BIDAC Take 30 minutes before a meal Zolpidem (Zolpidem Tartrate) 10 Mg Tab 10 Mg PO HS PRN Vitamin C (Ascorbic Acid) 250 Mg Tab 500 Mg PO DAILY Aspirin 81 Mg Chew 81 Mg CHEW DAILY D3 Super Strength (Cholecalciferol) 2,000 Unit Cap 1,000 Units PO DAILY [place]-3 Fish Oil/Vitamin (Fish Oil-Cholecalciferol) 1,000-1,000 Mg Cap 1 Cap PO DAILY Review of Systems Except as stated in HPI: all other systems reviewed are Neg Physical Exam Narrative GENERAL: Pleasant -Ugandan female no acute distress. Sitting in the bed , drinking water, eating [employer]. SKIN: Focused skin assessment warm/dry. HEAD: Atraumatic. Normocephalic. EYES: Pupils equal and round. No scleral icterus. No injection or drainage. ENT: No nasal bleeding or discharge. Mucous membranes pink and moist. NECK: Trachea midline. No JVD. CARDIOVASCULAR: Regular rate and rhythm. No murmur appreciated. RESPIRATORY: No accessory muscle use. Clear to auscultation. Breath sounds clear and equal bilaterally. GASTROINTESTINAL: Abdomen soft, non-tender, nondistended. Hepatic and splenic margins not palpable. No fluid wave. MUSCULOSKELETAL: No obvious deformities. No clubbing. No cyanosis. No edema. NEUROLOGICAL: Awake and alert. No obvious cranial nerve deficits. Motor grossly within normal limits. Normal speech. PSYCHIATRIC: Appropriate mood and affect; insight and judgment normal. Data Data Last Documented VS Vital Signs Date Time Temp Pulse Resp B/P (MAP) Pulse Ox O2 Delivery O2 Flow Rate FiO2 10/31/17 14:34 10/31/17 13:52 86 18 98 Room Air 10/31/17 11:30 98.0 Orders Orders Complete Blood Count With Diff (10/31/17 11:47) Comprehensive Metabolic Panel (10/31/17 11:47) Prothrombin Time / Inr (Pt) (10/31/17 11:47) Act Partial Throm Time (Ptt) (10/31/17 11:47) Alcohol (Ethanol) (10/31/17 11:47) Urinalysis - C+S If Indicated (10/31/17 11:47) Type And Screen (10/31/17 11:47) Ecg Monitoring (10/31/17 11:47) Iv Access Insert/Monitor (10/31/17 11:47) Oximetry (10/31/17 11:47) Sodium Chloride 0.9% Flush (Ns Flush) (10/31/17 12:00) Red Blood Cells (Rbc) (10/31/17 11:55) Vital Signs (Adult) Q4H (10/31/17 13:55) Activity Oob With Assistance (10/31/17 13:55) Intake + Output FRANCO.QSHIFT (10/31/17 13:55) Diet Clear Liquid (10/31/17 Lunch) Sodium Chlor 0.9% 1000 Ml Inj (Ns 1000 M (10/31/17 13:55) Sodium Chloride 0.9% Flush (Ns Flush) (10/31/17 14:00) Sodium Chloride 0.9% Flush (Ns Flush) (10/31/17 21:00) Acetaminophen (Tylenol) (10/31/17 14:00) Metoclopramide Inj (Reglan Inj) (10/31/17 14:00) Resp Oxygen Ti C Titrat 1-4 L (10/31/17 ) Pt Request For Service (10/31/17 13:55) Case Management Consult (10/31/17 13:55) Scd Bilateral/Knee High FRANCO.BID (10/31/17 13:55) Go Bilateral/Knee High FRANCO.QSHIFT (10/31/17 13:55) Pharmacologic Contraindication (10/31/17 13:55) Naloxone Inj (Narcan Inj) (10/31/17 14:00) Docusate Sodium-Senna (Mayra-Colace) (10/31/17 21:00) Magnesium Hydroxide Liq (Milk Of Magnesi (10/31/17 14:00) Sennosides (Senokot) (10/31/17 14:00) Bisacodyl Supp (Dulcolax Supp) (10/31/17 14:00) Lactulose Liq (Lactulose Liq) (10/31/17 14:00) Ed Discharge Order (10/31/17 14:28) Labs Laboratory Tests Test 10/31/17 11:55 10/31/17 14:20 White Blood Count 6.9 TH/MM3 Red Blood Count 2.98 MIL/MM3 Hemoglobin 7.8 GM/DL Hematocrit 24.0 % Mean Corpuscular Volume 80.4 FL Mean Corpuscular Hemoglobin 26.2 PG Mean Corpuscular Hemoglobin Concent 32.6 % Red Cell Distribution Width 16.5 % Platelet Count 240 TH/MM3 Mean Platelet Volume 7.6 FL Neutrophils (%) (Auto) 60.9 % Lymphocytes (%) (Auto) 19.3 % Monocytes (%) (Auto) 12.6 % Eosinophils (%) (Auto) 6.2 % Basophils (%) (Auto) 1.0 % Neutrophils # (Auto) 4.2 TH/MM3 Lymphocytes # (Auto) 1.3 TH/MM3 Monocytes # (Auto) 0.9 TH/MM3 Eosinophils # (Auto) 0.4 TH/MM3 Basophils # (Auto) 0.1 TH/MM3 CBC Comment DIFF FINAL Differential Comment Prothrombin Time 9.7 SEC Prothromb Time International Ratio 1.0 RATIO Activated Partial Thromboplast Time 24.6 SEC Blood Urea Nitrogen 80 MG/DL Creatinine 5.14 MG/DL Random Glucose 62 MG/DL Total Protein 7.0 GM/DL Albumin 2.9 GM/DL Calcium Level 8.1 MG/DL Alkaline Phosphatase 149 U/L Aspartate Amino Transf (AST/SGOT) 23 U/L Alanine Aminotransferase (ALT/SGPT) 65 U/L Total Bilirubin 0.3 MG/DL Sodium Level 144 MEQ/L Potassium Level 3.9 MEQ/L Chloride Level 114 MEQ/L Carbon Dioxide Level 17.0 MEQ/L Anion Gap 13 MEQ/L Estimat Glomerular Filtration Rate 11 ML/MIN Ethyl Alcohol Level LESS THAN 3 MG/DL Urine Color YELLOW Urine Turbidity HAZY Urine pH 6.0 Urine Specific [place] 1.015 Urine Protein 300 mg/dL Urine Glucose (UA) NEG mg/dL Urine Ketones NEG mg/dL Urine Occult Blood SMALL Urine Nitrite NEG Urine Bilirubin NEG Urine Urobilinogen LESS THAN 2.0 MG/DL Urine Leukocyte Esterase NEG Urine RBC 2 /hpf Urine WBC 2 /hpf Urine Squamous Epithelial Cells 3 /hpf Urine Mucus FEW /lpf Microscopic Urinalysis Comment CULT NOT INDICATED MDM Medical Decision Making Medical Screen Exam Complete: Yes Emergency Medical Condition: Yes Differential Diagnosis Acute on chronic kidney disease versus anemia versus GI bleed versus metabolic derangement versus other Narrative Course 52-year-old female with PMH of HTN, DM, stage IV CKD, COPD on Plavix presents to the ED for evaluation after abnormal result. Patient states PCP was concerned for anemia and worsening kidney function. She has no somatic complaints. She endorses history of iron deficiency anemia, states that she has been off iron supplementation for "about a year." She states that she is in the process of having a PD cath implanted by Dr. Blanco's office. She has follow-up scheduled in early November. Vitals reviewed. On exam this is a pleasant -U[place]and[place] female in no acute distress. She is sitting up in bed , eating and drinking. No evidence of ascites. CBC: WBC 6.9. Hemoglobin 7.8, chronic, slightly worsened per record review. Guaiac negative on rectal exam. INR: 1.0. CMP: BUN 80, creatinine 5.14. Potassium 3.9. Calcium 8.1., Corrects when hypoalbuminemia is accounted for. Alk phos 149. UA: No culture indicated. I spoke with Dr. Blanco. I discussed the results of the workup, including the metabolic abnormalities. He states that they already have outpatient PD cath placement planned. He will move up her outpatient visit. From his standpoint the patient can be discharged. I discussed the results of the workup and the plan with the patient. She is extremely happy for discharge. I cautioned her that she should return to the ED for any worsening symptoms. She understands that she should follow-up with Dr. Blanco tomorrow to move up her appointment. She is stable and discharged home. [facility] Point of Care Internal Pos. & Neg. Controls: Passed Fecal Specimen Occult Blood: Negative Diagnosis Primary Impression: Anemia in chronic kidney disease (CKD) Qualified Codes: N18.9 - Chronic kidney disease, unspecified; D63.1 - Anemia in chronic kidney disease Additional Impression: CKD (chronic kidney disease) stage 5, GFR less than 15 ml/min Referrals: Ponce Blanco MD Disposition: 01 DISCHARGE HOME Condition: Stable Heidi Lr Oct 31, 2017 12:41
[2017-10-31 13:52] VITALS: BP 125/75; PULSE 86; RESP 18; O2SAT 98
[2017-10-31] MEDS ORDERED: SODIUM CHLOR 0.9% 1000 ML INJ 1,000 ML IV SCH (13:55)
[2017-10-31] MEDS ORDERED: SODIUM CHLORIDE 0.9% FLUSH 10 ML FLUSH IV FLUSH PRN (14:00)
[2017-10-31] MEDS ORDERED: LACTULOSE SYRUP 20 GM/30 ML CUP PO PRN (14:00)
[2017-10-31] MEDS ORDERED: MAGNESIUM HYDROXIDE SUSP 30 ML CUP PO PRN (14:00)
[2017-10-31] MEDS ORDERED: NALOXONE HCL 0.4 MG/ML AMP IV PUSH PRN (14:00)
[2017-10-31] MEDS ORDERED: METOCLOPRAMIDE HCL 10 MG/2 ML VIAL IV PUSH PRN (14:00)
[2017-10-31] MEDS ORDERED: BISACODYL 10 MG SUPP RECTAL PRN (14:00)
[2017-10-31] MEDS ORDERED: SENNOSIDES 8.6 MG TAB PO PRN (14:00)
[2017-10-31] MEDS ORDERED: ACETAMINOPHEN 325 MG TAB PO PRN (14:00)
[2017-10-31 15:01] LABS: BILIRUBIN, URINE NEG (NEG); BLOOD, URINE SMALL (NEG); GLUCOSE,URINE NEG (NEG); KETONE, URINE NEG (NEG); MUCUS URINE FEW /lpf (OCC); NITRITE,URINE NEG (NEG); SQUAMOUS EPITHELIAL CELL URINE 3 /hpf (0-5); URINE COLOR YELLOW (YELLW/STRAW); URINE LEUKOCYTE ESTERASE NEG (NEG)
[2017-10-31] MEDS ORDERED: DOCUSATE SODIUM 50 MG/SENNA 8.6 MG TAB PO SCH (21:00)
[2017-10-31] MEDS ORDERED: SODIUM CHLORIDE 0.9% FLUSH 10 ML FLUSH IV FLUSH SCH (21:00)
== END 2017-10-31 14:35 | disposition home or self-care (01) ==
LOC: NEPE 11:28
DX: I12.9 Hypertensive chronic kidney disease with stage 1 through stage 4 chronic kidney disease, or unspecified chronic kidney disease (principal); D63.1 Anemia in chronic kidney disease; E11.22 Type 2 diabetes mellitus with diabetic chronic kidney disease; N18.5 Chronic kidney disease, stage 5; Z79.84 Long term (current) use of oral hypoglycemic drugs; Z79.899 Other long term (current) drug therapy
CPT/HCPCS: 80053; 80307; 81001; 85025; 85610; 85730; 86850; 86900; 86901; 86920; 86922; 99284; J7030

== ENCOUNTER 2017-11-24 11:55 | Observation (INO) ==
[2017-11-24 14:47] LABS: Eos # (Auto) 0.5 th/mm3 (0.0-0.4); Eos % (Auto) 9.9 % (0.0-4.0); Hematocrit 23.8 % (35.0-46.0); Hemoglobin 7.9 gm/dL (11.6-15.3); Lymph # (Auto) 1.4 th/mm3 (1.0-4.8); Lymph % (Auto) 28.1 % (9.0-44.0); Mean Corpuscular HGB Conc 33.2 % (32.0-36.0); Mean Corpuscular Hemoglobin 26.6 pg (27.0-34.0); Mean Corpuscular Volume 80.4 fL (80.0-100.0); Mean Platelet Volume 7.5 fL (7.0-11.0); Mono # (Auto) 0.5 th/mm3 (0.0-0.9); Mono % (Auto) 10.7 % (0.0-8.0); Neut # (Auto) 2.5 th/mm3 (1.8-7.7); Neut % (Auto) 50.3 % (16.0-70.0); Platelet Count 252 th/mm3 (150-450); Red Blood Count 2.96 mil/mm3 (4.00-5.30); Red Cell Distribution Width 17.4 % (11.6-17.2)
[2017-11-24 14:58] LABS: Activated Partial Thrombo Time 21.5 sec (24.3-30.1); Prothrombin Time 10.4 sec (9.8-11.6)
--- NOTE | 2017-11-24 15:25 | XR ---
EXAM DATE: 11/24/2017 3:02 PM EDT AGE/SEX: 52 years / Female INDICATIONS: Shortness of breath. CLINICAL DATA: This is the patient's initial encounter. Patient reports that signs and symptoms have been present for 2 days and indicates a pain score of 0/10. MEDICAL/SURGICAL HISTORY: . Hypertension. Gastroparesis. Diabetes mellitus type II. CVA. COPD. . Tubal ligation. section. cardiac cath. COMPARISON: [facility] – [place], [place]ST PA & LAT, 11/17/2017. . FINDINGS: The previously noted patchy infiltrate in the right lung base has almost completely resolved. There i s some pulmonary venous congestion bilaterally. The heart size is enlarged but stable. There is blunt ing of both costophrenic angle suggestive of small effusions. The bony structures appear to be grossl y intact. CONCLUSION: 1. Improving right lower lung infiltrate compared to the prior exam. 2. Small bilateral effusions. 3. Pulmonary venous congestion. 4. Stable mild cardiomegaly. Electronically signed by: Edgar Vela MD 11/24/2017 3:24 PM EDT
[2017-11-24 15:43] LABS: Alanine Aminotransferase 77 U/L (10-53); Albumin 3.1 g/dL (3.4-5.0); Alkaline Phosphatase 144 U/L (45-117); Anion Gap 13 meq/L (5-15); Aspartate Aminotransferase 48 U/L (15-37); Blood Urea Nitrogen 80 mg/dL (7-18); Calcium 8.3 mg/dL (8.5-10.1); Carbon Dioxide 19.2 meq/L (21.0-32.0); Chloride 113 meq/L (98-107); Creatine Kinase 305 U/L (26-192); Glomerular Filtration Rate 12 mL/min (>89); Glucose,Random 93 mg/dL (74-106); Magnesium 2.1 mg/dL (1.5-2.5); Sodium 145 meq/L (136-145); Total Protein 7.1 g/dL (6.4-8.2); Troponin I 0.52 ng/mL (0.02-0.05)
[2017-11-24 15:47] LABS: Potassium 4.6 meq/L (3.5-5.1)
[2017-11-24 15:59] LABS: CKMB Percent 0.9 % (0.0-4.0); Creatine Kinase MB 2.7 ng/mL (0.5-3.6)
--- NOTE | 2017-11-24 17:56 | ECG ---
Date Performed: 11/24/2017 Time Performed: 14:21:25 PTAGE: 52 years EKG: Sinus rhythm POSSIBLE LEFT ATRIAL ENLARGEMENT NONSPECIFIC T-WAVE ABNORMALITY BORDERLINE ECG Compared to prior lisa ctrocardiogram, Premature ventricular contractions no longer present. PREVIOUS TRACING : 09/26/2017 23.08 DOCTOR: Stephen Salgado Interpretating Date/Time 11/24/2017 17:54:35
[2017-11-24] MEDS ORDERED: Bisacodyl 10 MG Supp RECTAL PRN (18:20)
[2017-11-24] MEDS ORDERED: Heparin - SQ 10,000 UNITS/ML Vial SQ SCH (18:30)
--- NOTE | 2017-11-24 18:34 | P.HPIM ---
History of Present Illness Primary Care Physician: UNKNOWN Chief Complaint: Shortness of breath History of Present Illness: 52-year-old female with a history of chronic kidney disease stage IV, COPD, diabetes mellitus, hypertension who presents to the emergency room with 1 day history of worsening shortness of breath with physical exertion. She also reports slightly decreased urine urinary output despite taking her Lasix. She states that she recently had her peritoneal dialysis catheter placed November 14 and has attended an education session. She has not started actual peritoneal dialysis. She denies any associated chest pain with the symptoms. She has not had any coughing, fever, sinus congestion with the symptoms. She has not had any lower extremity swelling. She denies any symptoms of PND or orthopnea. She has not had any changes in her diet recently however has admitted to drinking more fluid than normal during the past few days. Inpatient Certification: I certify that the inpatient services were ordered in accordance with Medicare regulations governing the order. This includes certification that hospital inpatient services are reasonable and necessary and in the case of services not specified as inpatient-only under 42 CFR 419.22(n), that they are appropriately provided as inpatient services in accordance to with the 2-midnight benchmark under 43 CFR 412.3(e) Review of Systems Constitutional: Denies chills, Denies fever(s) Eyes: Denies change in vision, Denies double vision Ears, Nose, Mouth, and Throat: Denies nasal congestion, Denies nose pain, Denies sore throat Cardiovascular: Reports shortness of breath with activity, Denies chest pain, Denies chest pain with activity, Denies leg swelling, Denies slow heart rate Respiratory: Reports shortness of breath with activity, Denies chest congestion , Denies cough Gastrointestinal: Denies abdominal pain, Denies bloating, Denies change in bowel habits, Denies pain with swallowing Genitourinary: Denies difficulty urinating, Denies frequent nighttime urination , Denies painful urination Neurologic: Denies abnormal hearing, Denies abnormal walking, Denies memory loss Psychiatric: Denies anxiety, Denies depression Endocrine: Denies cold intolerance, Denies heat intolerance Hematologic/Lymphatic: Denies easy bleeding PMFSH - History History Provided By: Patient - Medical History Medical History: Medical History (Last Updated 11/24/17 @ 18:28 by Vinita Quezada MD) CKD (chronic kidney disease) stage 4, GFR 15-29 ml/min COPD (chronic obstructive pulmonary disease) Diabetes Dialysis patient High cholesterol Hypertension Peritoneal dialysis catheter in place TIA (transient ischemic attack) - Surgical History Surgical History: Surgical History (Last Reviewed 11/24/17 @ 18:28 by Vinita Quezada MD) Status post - Family History Family History: Family History (Last Updated 11/24/17 @ 18:29 by Vinita Quezada MD) Mother Family history of diabetes mellitus Mother Family history of acute myocardial infarction - Tobacco History Second Hand Smoke Exposure: No Tobacco Use In Past 30 Days: No Smoking Status: Former smoker Tobacco Type: Cigarettes - Alcohol History How Often Do You Have a Drink Containing Alcohol: Never - Substance Use History Substance History: No History of Abuse - Travel History Recent Travel in the [place] Within the Last 8 Weeks: No Recent Travel Out of the Country Within the Last 8 Weeks: No - Immunization History Tetanus Immunization: <5 Years Hx Influenza Vaccine This Season: Yes Medications and Allergies Active Medications: Active Medications Al Hydroxide/Mg Hydroxide (Milk Of Magnesia Liq) 30 ml PO Q12H PRN PRN Reason: Mild Constipation Bisacodyl (Dulcolax Supp) 10 mg RECTAL DAILY PRN PRN Reason: SEVERE CONSITIPATION Heparin Sodium (Porcine) (Heparin Inj) 5,000 units SQ Q12H ZAK Lactulose (Lactulose Liq) 30 ml PO DAILY PRN PRN Reason: SEVERE CONSITIPATION Sennosides (Senokot) 17.2 mg PO Q12H PRN PRN Reason: Moderate Constipation Sodium Chloride (Ns Flush) 2 ml IV.FLUSH UNSCH PRN PRN Reason: FLUSH AFTER USING IV ACCESS Allergies Allergy/AdvReac Type Severity Reaction Status Date / Time levofloxacin Allergy Severe ITCHING Verified 10/31/17 11:45 Home Medications Medication Instructions Recorded Confirmed Type aspirin [Aspir-81] 81 mg PO DAILY 11/24/17 11/24/17 History atorvastatin 40 mg PO DAILY 11/24/17 11/24/17 History furosemide 80 mg PO DAILY 11/24/17 11/24/17 History glipizide 10 mg PO BID 11/24/17 11/24/17 History labetalol 200 mg PO BID 11/24/17 11/24/17 History losartan 0 mg PO BID 11/24/17 11/24/17 History nifedipine 90 mg PO DAILY 11/24/17 11/24/17 History zolpidem [Ambien] 10 mg PO HS 11/24/17 11/24/17 History Exam Vital signs: Vital Signs 11/24/17 12:04 11/24/17 13:45 11/24/17 14:00 Temperature 98.2 F Pulse Rate 85 69 70 Respiratory Rate 26 H 22 18 Blood Pressure 163/78 H 178/106 H 180/107 H Pulse Oximetry 97 100 100 11/24/17 14:20 11/24/17 14:21 11/24/17 15:00 Temperature Pulse Rate 61 77 Respiratory Rate 21 20 Blood Pressure Pulse Oximetry 100 95 11/24/17 17:31 11/24/17 17:34 Temperature Pulse Rate 70 Respiratory Rate 21 Blood Pressure 164/92 H Pulse Oximetry 97 97 Intake & Output 11/23/17 11/24/17 11/24/17 18:59 06:59 18:59 Weight 80.286 kg Narrative: GENERAL: Well-nourished well-developed -[place] female in no acute distress SKIN: Warm and dry. HEAD: Atraumatic. Normocephalic. EYES: Pupils equal and round. No scleral icterus. No injection or drainage. ENT: No nasal bleeding or discharge. Mucous membranes pink and moist. NECK: Trachea midline. No JVD. CARDIOVASCULAR: Regular rate and rhythm. RESPIRATORY: No accessory muscle use. Relatively clear to auscultation. Breath sounds equal bilaterally. GASTROINTESTINAL: Abdomen soft, non-tender, nondistended. Hepatic and splenic margins not palpable. Normoactive bowel sounds, peritoneal catheter in place with bandage surrounding with clean dry intact MUSCULOSKELETAL: Extremities without clubbing, cyanosis, or edema. No obvious deformities. NEUROLOGICAL: Awake and alert to person place time situation. No obvious cranial nerve deficits. Motor grossly within normal limits. Five out of 5 muscle strength in the arms and legs. Normal speech. PSYCHIATRIC: Appropriate mood and affect; insight and judgment normal. Results - Labs CBC & Chem 7: 11/24/17 14:30 11/24/17 14:30 Labs: Short CBC 11/24/17 Range/Units 14:30 WBC 5.0 (4.0-11.0) th/mm3 Hgb 7.9 L (11.6-15.3) gm/dL Hct 23.8 L (35.0-46.0) % Plt Count 252 (150-450) th/mm3 BMP 11/24/17 14:30 Sodium 145 Potassium 4.6 Chloride 113 H Carbon Dioxide 19.2 L BUN 80 H Creatinine 4.64 H Calcium 8.3 L Cardiac Enzymes 11/24/17 Range/Units 14:30 Total Creatine Kinase 305 H (26-192) U/L CK-MB (CK-2) 2.7 (0.5-3.6) ng/mL Troponin I 0.52 H (0.02-0.05) ng/mL Liver Function 11/24/17 Range/Units 14:30 Total Bilirubin 0.4 (0.2-1.0) mg/dL AST 48 H (15-37) U/L ALT 77 H (10-53) U/L Alkaline Phosphatase 144 H (45-117) U/L Albumin 3.1 L (3.4-5.0) g/dL - Imaging Impressions Chest X-Ray 11/24/17 14:08 CONCLUSION: 1. Improving right lower lung infiltrate compared to the prior exam. 2. Small bilateral effusions. 3. Pulmonary venous congestion. 4. Stable mild cardiomegaly. Caprini VTE Risk Assessment Caprini VTE Risk Assessment: Moderate/High Risk (score >= 2) Caprini Risk Assessment Model: Point Value = 1 Point Value = 2 Point Value = 3 Point Value = 5 Age 41-60 Minor surgery BMI > 25 kg/m2 Swollen legs Varicose veins or History of unexplained or recurrent spontaneous Oral contraceptives or hormone replacement Sepsis (< 1 month) Serious lung disease, including pneumonia (< 1 month) Abnormal pulmonary function Acute myocardial infarction Congestive heart failure (< 1 month) History of inflammatory bowel disease Medical patient at bed rest Age 61-74 Arthroscopic surgery Major open surgery (> 45 min) Laparoscopic surgery (> 45 min) Malignancy Confined to bed (> 72 hours) Immobilizing plaster cast Central venous access Age >= 75 History of VTE Family history of VTE Factor V Leiden Prothrombin [id number] Lupus anticoagulant Anticardiolipin antibodies Elevated serum homocysteine Heparin-induced thrombocytopenia Other congenital or acquired thrombophilia Stroke (< 1 month) Elective arthroplasty Hip, pelvis, or leg fracture Acute spinal cord injury (< 1 month) Prophylaxis Regimen: Total Risk Factor Score Risk Level Prophylaxis Regimen 0-1 Low Early ambulation 2 Moderate Order ONE of the following: *Sequential Compression Device (SCD) *Heparin 5000 units SQ BID 3-4 Higher Order ONE of the following medications: *Heparin 5000 units SQ TID *Enoxaparin/Lovenox 40 mg SQ daily (WT < 150 kg, CrCl > 30 mL/min) *Enoxaparin/Lovenox 30 mg SQ daily (WT < 150 kg, CrCl > 10-29 mL/min) *Enoxaparin/Lovenox 30 mg SQ BID (WT < 150 kg, CrCl > 30 mL/min) AND/OR *Sequential Compression Device (SCD) 5 or more Highest Order ONE of the following medications: *Heparin 5000 units SQ TID (Preferred with Epidurals) *Enoxaparin/Lovenox 40 mg SQ daily (WT < 150 kg, CrCl > 30 mL/min) *Enoxaparin/Lovenox 30 mg SQ daily (WT < 150 kg, CrCl > 10-29 mL/min) *Enoxaparin/Lovenox 30 mg SQ BID (WT < 150 kg, CrCl > 30 mL/min) AND *Sequential Compression Device (SCD) Assessment and Plan - Plan 1. Dyspnea on exertion with a history of likely fluid overload from her history of chronic kidney disease stage IV. Continue with diuretics Lasix IV and obtain consultation with glazing machine operator Dr. Chapa to determine if patient needs to initiate peritoneal dialysis. Strict I's and O's, fluid restriction. 2. Diabetes mellitus type 2 continue Accu-Cheks and sliding scale insulin, hold home oral hypoglycemia until oral intake reviewed. 3. Hypertension, chronic essentialcontinue nifedipine and labetalol, resume Lasix 4. History of hyperlipidemiaresume statin 5. Chronic kidney disease stage IVnephrology has been consulted to determine if patient needs proceed with peritoneal dialysis. 6. DVT prophylaxisheparin subcu
[2017-11-24] MEDS ORDERED: Dextrose 50% in Water 50 ML Vial IV.PUSH PRN (18:35)
[2017-11-24] MEDS: Labetalol 200 MG Tablet PO SCH (20:33)
[2017-11-24] MEDS: Insulin NovoLOG Aspart Correctional Sugar Inj SQ SCH (23:06)
[2017-11-24] MEDS: Heparin - SQ 10,000 UNITS/ML Vial SQ SCH (23:08)
[2017-11-25] MEDS: Heparin - SQ 10,000 UNITS/ML Vial SQ SCH (09:25)
[2017-11-25] MEDS: Labetalol 200 MG Tablet PO SCH (09:25)
[2017-11-25] MEDS: Insulin NovoLOG Aspart Correctional Sugar Inj SQ SCH ×2 (09:26→13:44)
--- NOTE | 2017-11-25 11:19 | P.CONNP ---
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 She had PD catheter placed 11/14 and was in the training phase of initiating dialysis. At the clinic yesterday she was short of breath, the staff also reports fluid overload, thus was sent in for evaluation. She was admitted overnight, placed on Lasix 40mg IV BID. She is seen today as we were consulted for assistance. On exam she is on room air, not visibly dyspneic, and her oxygen saturation is 100% . Her urine output is not recorded (volume), but she has responded to the IV diuretics and the patient feels better, reports the edema is no longer present. At home she is maintained on Lasix 80 mg daily. Other PMH includes DM II, anemia , metabolic bone disorder, Hyperlipidemia, and TIA. She is anemic this admission , hemoglobin is 7.9. She is a full code, requesting to be discharged. Review of Systems Constitutional: Denies anorexia Cardiovascular: Reports leg swelling, Reports shortness of breath, Reports shortness of breath with activity, Denies chest pain, Denies chest pain at rest , Denies fast heart rate, Denies irregular heart rhythm Respiratory: Reports shortness of breath, Reports shortness of breath with activity, Denies change in phlegm color, Denies chest congestion, Denies cough, Denies stridor, Denies wheezing Gastrointestinal: Denies abdominal pain Psychiatric: Denies abnormal sleep pattern, Denies anxiety Allergic/Immunologic: Denies GI upset with certain foods PMFSH - History History Provided By: Patient - Medical History Medical History: Medical History (Last Updated 11/25/17 @ 11:01 by ARTHUR Taylor) CKD (chronic kidney disease) stage V requiring chronic dialysis COPD (chronic obstructive pulmonary disease) Diabetes Dialysis patient High cholesterol Hypertension Peritoneal dialysis catheter in place TIA (transient ischemic attack) - Surgical History Surgical History: Surgical History (Last Reviewed 11/24/17 @ 18:28 by Vinita Quezada MD) Status post - Family History Family History: Family History (Last Updated 11/24/17 @ 18:29 by Vinita Quezada MD) Mother Family history of diabetes mellitus Mother Family history of acute myocardial infarction - Tobacco History Second Hand Smoke Exposure: Yes (BOYFRIEND DOES NOT SMOKE IN THE HOUSE) Tobacco Use In Past 30 Days: No Smoking Status: Former smoker Tobacco Type: Cigarettes - Alcohol History How Often Do You Have a Drink Containing Alcohol: Never - Substance Use History Substance History: Past History - Travel History Recent Travel in the [place] Within the Last 8 Weeks: No Recent Travel Out of the Country Within the Last 8 Weeks: No - Immunization History Tetanus Immunization: <5 Years Hx Influenza Vaccine This Season: Yes Medications and Allergies Allergies Allergy/AdvReac Type Severity Reaction Status Date / Time levofloxacin Allergy Severe ITCHING Verified 10/31/17 11:45 Home Medications Medication Instructions Recorded Confirmed Type aspirin [Aspir-81] 81 mg PO DAILY 11/24/17 11/24/17 History atorvastatin 40 mg PO DAILY 11/24/17 11/24/17 History furosemide 80 mg PO DAILY 11/24/17 11/24/17 History glipizide 10 mg PO BID 11/24/17 11/24/17 History labetalol 200 mg PO BID 11/24/17 11/24/17 History losartan 0 mg PO BID 11/24/17 11/24/17 History nifedipine 90 mg PO DAILY 11/24/17 11/24/17 History zolpidem [Ambien] 10 mg PO HS 11/24/17 11/24/17 History Active Medications: Active Medications Al Hydroxide/Mg Hydroxide (Milk Of Apolinar Liq) 30 ml PO Q12H PRN PRN Reason: Mild Constipation Aspirin (Ecotrin) 81 mg PO DAILY [facility] Last Admin: 11/25/17 09:25 Dose: 81 mg Atorvastatin Calcium (Lipitor) 40 mg PO DAILY [facility] Last Admin: 11/25/17 09:25 Dose: 40 mg Bisacodyl (Dulcolax Supp) 10 mg RECTAL DAILY PRN PRN Reason: SEVERE CONSITIPATION Dextrose (D50w Vial) 50 ml IV.PUSH UNSCH PRN PRN Reason: PER HYPOGLYCEMIA PROTOCOL Epoetin Yrn (Epogen Inj) 20,000 unit SQ ONCE ONE Stop: 07/06/18 10:57 Furosemide (Lasix Inj) 40 mg IV.PUSH BID@0900,1800 [facility] Last Admin: 11/25/17 09:26 Dose: 40 mg Glucagon (Glucagon Inj) 1 mg OTHER PRN PRN PRN Reason: for Hypoglycemia Protocol Heparin Sodium (Porcine) (Heparin Inj) 5,000 units SQ Q12H [facility] Last Admin: 11/25/17 09:25 Dose: 5,000 units Insulin Aspart (Novolog Insulin Suppl Scale Inj) 0 unit SQ [facility]; Protocol Last Admin: 11/25/17 09:26 Dose: Not Given Labetalol HCl (Trandate) 200 mg PO BID [facility] Last Admin: 11/25/17 09:25 Dose: 200 mg Lactulose (Lactulose Liq) 30 ml PO DAILY PRN PRN Reason: SEVERE CONSITIPATION Losartan Potassium (Cozaar) 25 mg PO BID [facility] Last Admin: 11/25/17 09:25 Dose: 25 mg Nifedipine (Procardia Xl) 90 mg PO DAILY [facility] Last Admin: 11/25/17 09:25 Dose: 90 mg Sennosides (Senokot) 17.2 mg PO Q12H PRN PRN Reason: Moderate Constipation Sodium Chloride (Ns Flush) 2 ml IV.FLUSH UNSCH PRN PRN Reason: FLUSH AFTER USING IV ACCESS Zolpidem Tartrate (Ambien) 10 mg PO HS [facility] Last Admin: 11/24/17 20:31 Dose: 10 mg Exam Vital signs: Vital Signs 11/24/17 12:04 11/24/17 13:45 11/24/17 14:00 Temperature 98.2 F Pulse Rate 85 69 70 Respiratory Rate 26 H 22 18 Blood Pressure 163/78 H 178/106 H 180/107 H Pulse Oximetry 97 100 100 11/24/17 14:20 11/24/17 14:21 11/24/17 15:00 Temperature Pulse Rate 61 77 Respiratory Rate 21 20 Blood Pressure Pulse Oximetry 100 95 11/24/17 17:31 11/24/17 17:34 11/24/17 20:00 Temperature Pulse Rate 70 Respiratory Rate 21 Blood Pressure 164/92 H Pulse Oximetry 97 97 98 11/24/17 20:11 11/24/17 23:34 11/25/17 00:00 Temperature 98.6 F 98.1 F Pulse Rate 70 71 68 Respiratory Rate 16 16 18 Blood Pressure 164/93 H 143/79 H 140/71 Pulse Oximetry 98 97 98 11/25/17 06:15 11/25/17 08:49 Temperature 98.7 F 97.6 F Pulse Rate 70 69 Respiratory Rate 18 17 Blood Pressure 167/75 H 159/87 H Pulse Oximetry 98 100 Intake & Output 11/24/17 11/25/17 11/25/17 18:59 06:59 18:59 Intake Total 960 / 960 Balance 960 / 960 Weight 80.286 kg Intake: Oral 960 / 960 Other: # Voids 7 Date of Last Bowel Movement 11/24/17 - Constitutional no acute distress - Routine HEENT Exam Head: Present: normocephalic Eye: Present: EOMI ENT: Present: mucous membranes moist - Routine Neck Exam Present: supple, full ROM - Routine Respiratory Exam Present: CTA bilaterally. Absent: accessory muscle use, rales - Routine Cardiovascular Exam Present: RRR, S1, S2. Absent: murmur, tachycardia - Routine Abdominal Exam Present: soft, normoactive bowel sounds Comments: PD catheter site unremarkable, no drainage or pain - Routine Extremities Exam Present: full ROM, pulses intact, normal capillary refill. Absent: edema, extremity cold to touch - Routine Skin Exam Present: intact, warm - Routine Neurological Exam Present: alert, oriented X3, CN II-XII intact Results - Lab Results 11/24/17 14:30 11/24/17 14:30 Most recent lab results Calcium 8.3 mg/dL (8.5-10.1) L 11/24/17 14:30 Magnesium 2.1 mg/dL (1.5-2.5) 11/24/17 14:30 - Image Kidney/bladder ultrasound: pending (Chest Xray shows vascular congestion), other (Not required ) 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 2 diabetes mellitus Code(s): E11.22 - Type 2 diabetes mellitus with diabetic chronic kidney disease ; N18.5 - Chronic kidney disease, stage 5 Status: Acute Plan: She is in training phase of PD, the catheter was placed 11/14. Her symptoms at admission have resolved, therefore temporary HD to manage her fluid volume is not required. She still makes urine, and has responded to diuretics. She has mild acidosis, start oral sodium bicarbonate. Her potassium is acceptable today. Monitor her response to diuretics. Blood pressure is slightly elevated, continue present medications and titrate as needed. (2) Shortness of breath Code(s): R06.02 - Shortness of breath Status: Acute Plan: Continue diuresis, see above. CXR reviewed. Give another 40 mg IV Lasix now. For discharge purposes will most likely give Rx for metolazone to use three times weekly or as needed. Fluid restriction discussed. (3) DM II (diabetes mellitus, type II), controlled Code(s): E11.9 - Type 2 diabetes mellitus without complications Status: Acute Plan: Maintain glucose 140-180 mg/dL while admitted. Insulin as ordered. (4) Anemia Code(s): D64.9 - Anemia, unspecified Status: Acute Plan: Give a dose of Epogen today. - Plan Discussed Condition With: Patient, RN <TenaedyDaniel - Last Filed: 11/25/17 14:58> History of Present Illness Primary Care Provider: UNKNOWN Family Provider: Jsoe Thompson MD [facility] - Medical History Medical History: Medical History (Last Updated 11/25/17 @ 11:01 by Aileen Lawrence [facility]) CKD (chronic kidney disease) stage V requiring chronic dialysis COPD (chronic obstructive pulmonary disease) Diabetes Dialysis patient High cholesterol Hypertension Peritoneal dialysis catheter in place TIA (transient ischemic attack) - Surgical History Surgical History: Surgical History (Last Reviewed 11/24/17 @ 18:28 by Vinita Quezada MD) Status post - Family History Family History: Family History (Last Updated 11/24/17 @ 18:29 by Vinita Queazda MD) Mother Family history of diabetes mellitus Mother Family history of acute myocardial infarction Medications and Allergies Active Medications: Active Medications Al Hydroxide/Mg Hydroxide (Milk Of Magnsumaya Liq) 30 ml PO Q12H PRN PRN Reason: Mild Constipation Aspirin (Ecotrin) 81 mg PO DAILY [facility] Last Admin: 11/25/17 09:25 Dose: 81 mg Atorvastatin Calcium (Lipitor) 40 mg PO DAILY [facility] Last Admin: 11/25/17 09:25 Dose: 40 mg Bisacodyl (Dulcolax Supp) 10 mg RECTAL DAILY PRN PRN Reason: SEVERE CONSITIPATION Dextrose (D50w Vial) 50 ml IV.PUSH UNSCH PRN PRN Reason: PER HYPOGLYCEMIA PROTOCOL Furosemide (Lasix Inj) 40 mg IV.PUSH BID@0900,1800 [facility] Last Admin: 11/25/17 09:26 Dose: 40 mg Glucagon (Glucagon Inj) 1 mg OTHER PRN PRN PRN Reason: for Hypoglycemia Protocol Heparin Sodium (Porcine) (Heparin Inj) 5,000 units SQ Q12H [facility] Last Admin: 11/25/17 09:25 Dose: 5,000 units Insulin Aspart (Novolog Insulin Suppl Scale Inj) 0 unit SQ [facility]; Protocol Last Admin: 11/25/17 13:44 Dose: 3 unit Labetalol HCl (Trandate) 200 mg PO BID [facility] Last Admin: 11/25/17 09:25 Dose: 200 mg Lactulose (Lactulose Liq) 30 ml PO DAILY PRN PRN Reason: SEVERE CONSITIPATION Losartan Potassium (Cozaar) 25 mg PO BID [facility] Last Admin: 11/25/17 09:25 Dose: 25 mg Nifedipine (Procardia Xl) 90 mg PO DAILY [facility] Last Admin: 11/25/17 09:25 Dose: 90 mg Sennosides (Senokot) 17.2 mg PO Q12H PRN PRN Reason: Moderate Constipation Sodium Bicarbonate (Sodium Bicarbonate) 650 mg PO BID [facility] Sodium Chloride (Ns Flush) 2 ml IV.FLUSH UNSCH PRN PRN Reason: FLUSH AFTER USING IV ACCESS Zolpidem Tartrate (Ambien) 10 mg PO HS [facility] Last Admin: 11/24/17 20:31 Dose: 10 mg Exam Vital signs: Vital Signs 11/24/17 15:00 11/24/17 17:31 11/24/17 17:34 Temperature Pulse Rate 77 70 Respiratory Rate 20 21 Blood Pressure 164/92 H Pulse Oximetry 95 97 97 11/24/17 20:00 11/24/17 20:11 11/24/17 23:34 Temperature 98.6 F Pulse Rate 70 71 Respiratory Rate 16 16 Blood Pressure 164/93 H 143/79 H Pulse Oximetry 98 98 97 11/25/17 00:00 11/25/17 06:15 11/25/17 08:49 Temperature 98.1 F 98.7 F 97.6 F Pulse Rate 68 70 69 Respiratory Rate 18 18 17 Blood Pressure 140/71 167/75 H 159/87 H Pulse Oximetry 98 98 100 11/25/17 11:39 Temperature 97 F L Pulse Rate 72 Respiratory Rate 18 Blood Pressure 150/82 H Pulse Oximetry 100 Intake & Output 11/24/17 11/25/17 11/25/17 18:59 06:59 18:59 Intake Total 960 / 960 Balance 960 / 960 Weight 80.286 kg 80.2 kg Intake: Oral 960 / 960 Other: # Voids 7 Date of Last Bowel Movement 11/24/17 Results - Lab Results 11/24/17 14:30 11/24/17 14:30 Most recent lab results Calcium 8.3 mg/dL (8.5-10.1) L 11/24/17 14:30 Magnesium 2.1 mg/dL (1.5-2.5) 11/24/17 14:30 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 2 diabetes mellitus Code(s): E11.22 - Type 2 diabetes mellitus with diabetic chronic kidney disease ; N18.5 - Chronic kidney disease, stage 5 Status: Acute (2) Shortness of breath Code(s): R06.02 - Shortness of breath Status: Acute (3) DM II (diabetes mellitus, type II), controlled Code(s): E11.9 - Type 2 diabetes mellitus without complications Status: Acute (4) Anemia Code(s): D64.9 - Anemia, unspecified Status: Acute - Attending Attestation patient was seen and examined. Agree with above assessment and plan. She is s/p PD catheter placement, training started, next session is on Tuesday. Epogen given today. Will obtain iron studies. She should be discharged on Lasix 80 mg PO BID. No immediate plans to start dialysis during this admission. <Aileen Lawrence - Last Filed: 11/25/17 10:59> (3) DM II (diabetes mellitus, type II), controlled Qualifiers: Diabetes mellitus penitentiary insulin use: with bed bug exterminator use Diabetes mellitus complication status: with kidney complications Diabetes mellitus complication detail: with nephropathy Qualified Code(s): E11.21 - Type 2 diabetes mellitus with diabetic nephropathy; Z79.4 - nursing home (current) use of insulin (4) Anemia Qualifiers: Anemia type: due to chronic kidney disease Chronic kidney disease stage: on chronic dialysis Qualified Code(s): N18.6 - End stage renal disease; D63.1 - Anemia in chronic kidney disease; Z99.2 - Dependence on renal dialysis <Daniel Garber - Last Filed: 11/25/17 14:58> (3) DM II (diabetes mellitus, type II), controlled Qualifiers: Diabetes mellitus bed bug exterminator insulin use: with penitentiary use Diabetes mellitus complication status: with kidney complications Diabetes mellitus complication detail: with nephropathy Qualified Code(s): E11.21 - Type 2 diabetes mellitus with diabetic nephropathy; Z79.4 - nursing home (current) use of insulin (4) Anemia Qualifiers: Anemia type: due to chronic kidney disease Chronic kidney disease stage: on chronic dialysis Qualified Code(s): N18.6 - End stage renal disease; D63.1 - Anemia in chronic kidney disease; Z99.2 - Dependence on renal dialysis
[2017-11-25] MEDS ORDERED: Epoetin Alfa Inj 20,000 UNIT/ML Vial SQ ONE (12:00)
--- NOTE | 2017-11-25 15:24 | P.PN ---
Subjective Interval history: Follow-up visit dyspnea on exertion possibly second chronic kidney disease stage V with trial of peritoneal dialysis, HTN, DM 2. Patient seen and examined today. Reports she is doing well. States she is not short of breath anymore and has been walking around the unit possibly more than 10 times now today. As per nursing, she received a dose of Epogen. Denies pain and discomfort. Denies SOB/ dyspnea. Denies chest pain, palpitations, headaches, dizziness. Denies fevers, chills, n/v/d. Physical Exam Vital signs: Vital Signs 11/24/17 17:31 11/24/17 17:34 11/24/17 20:00 Temperature Pulse Rate 70 Respiratory Rate 21 Blood Pressure 164/92 H Pulse Oximetry 97 97 98 11/24/17 20:11 11/24/17 23:34 11/25/17 00:00 Temperature 98.6 F 98.1 F Pulse Rate 70 71 68 Respiratory Rate 16 16 18 Blood Pressure 164/93 H 143/79 H 140/71 Pulse Oximetry 98 97 98 11/25/17 06:15 11/25/17 08:49 11/25/17 11:39 Temperature 98.7 F 97.6 F 97 F L Pulse Rate 70 69 72 Respiratory Rate 18 17 18 Blood Pressure 167/75 H 159/87 H 150/82 H Pulse Oximetry 98 100 100 Intake & Output 11/24/17 11/25/17 11/25/17 18:59 06:59 18:59 Intake Total 960 / 960 Balance 960 / 960 Weight 80.286 kg 80.2 kg Intake: Oral 960 / 960 Other: # Voids 7 Date of Last Bowel Movement 11/24/17 Narrative: GENERAL: This is a well-nourished, well-developed patient, in no apparent distress. SKIN: Warm and dry HEENT: Normocephalic. Pupils equal round and reactive. Nose without bleeding. Airway patent. NECK: Trachea midline. No JVD. Supple. CARDIOVASCULAR: Regular rate and rhythm without murmurs, gallops, or rubs. RESPIRATORY: Clear to auscultation. Breath sounds equal bilaterally. No wheezes , rales, or rhonchi. GASTROINTESTINAL: Abdomen soft, non-tender, nondistended. Bowel Sounds normoactive x4. MUSCULOSKELETAL: Extremities without clubbing, cyanosis, or edema. NEUROLOGICAL: Awake and alert. Oriented to time, place, person. No focal neuro deficit. Moves all extremities. Normal speech. Results - Labs CBC & Chem 7: 11/24/17 14:30 11/24/17 14:30 Laboratory Results - last 24 hr 11/24/17 11/24/17 11/25/17 14:30 22:32 07:38 Sodium 145 Potassium 4.6 Chloride 113 H Carbon Dioxide 19.2 L Anion Gap 13 BUN 80 H Creatinine 4.64 H Estimated GFR 12 L POC Glucose 224 H 109 Random Glucose 93 Calcium 8.3 L Magnesium 2.1 Total Bilirubin 0.4 AST 48 H ALT 77 H Alkaline Phosphatase 144 H Total Creatine Kinase 305 H CK-MB (CK-2) 2.7 CK-MB (CK-2) % 0.9 Troponin I 0.52 H Total Protein 7.1 Albumin 3.1 L 11/25/17 12:17 Sodium Potassium Chloride Carbon Dioxide Anion Gap BUN Creatinine Estimated GFR POC Glucose 201 H Random Glucose Calcium Magnesium Total Bilirubin AST ALT Alkaline Phosphatase Total Creatine Kinase CK-MB (CK-2) CK-MB (CK-2) % Troponin I Total Protein Albumin - Imaging Impressions Chest X-Ray 11/24/17 14:08 CONCLUSION: 1. Improving right lower lung infiltrate compared to the prior exam. 2. Small bilateral effusions. 3. Pulmonary venous congestion. 4. Stable mild cardiomegaly. 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 2 diabetes mellitus Code(s): E11.22 - Type 2 diabetes mellitus with diabetic chronic kidney disease ; N18.5 - Chronic kidney disease, stage 5 Status: Acute (2) DM II (diabetes mellitus, type II), controlled Code(s): E11.9 - Type 2 diabetes mellitus without complications Status: Acute (3) Shortness of breath Code(s): R06.02 - Shortness of breath Status: Acute (4) Anemia Code(s): D64.9 - Anemia, unspecified Status: Acute - Plan 52-year-old female with a history of chronic kidney disease stage IV, COPD, diabetes mellitus, hypertension who presents to the emergency room with 1 day history of worsening shortness of breath with physical exertion. Dyspnea on exertion with a history of likely fluid overload from her history of chronic kidney disease stage IV. -Continue with diuretics Lasix IV and obtain consultation with banquet manager -Strict I's and O's, fluid restriction. -Patient responded to diuretics. Symptoms have improved. Not on any O2 supplement. Has been walking around the unit without any difficulty, dyspnea, shortness of breath -Nephrology recommends to discharge the patient with Lasix 80 p.o. milligrams twice daily. Diabetes mellitus type 2 continue Accu-Cheks and sliding scale insulin, -hold home oral hypoglycemia until oral intake reviewed. Hypertension, chronic essential -continue nifedipine and labetalol, resume Lasix History of hyperlipidemiaresume statin Chronic kidney disease stage V Anemia -nephrology consulted, trial for peritoneal dialysis. Appreciate recommendation. -Patient is status post PD catheter placement, training has started next session would be Tuesday. -Plan for Epogen injection DVT prophylaxisheparin subcu Discharge patient to home Condition on discharge: Improved Renal Diet as tolerated Ad Loretta activity Rx written: In discharge planning Follow-up with primary care physician, nephrology Code Status: Full Code Discussed Condition With: Patient, nursing Discharge Planning: Plan to DC home today (2) DM II (diabetes mellitus, type II), controlled Qualifiers: Diabetes mellitus nursing home insulin use: with nursing home use Diabetes mellitus complication status: with kidney complications Diabetes mellitus complication detail: with nephropathy Qualified Code(s): E11.21 - Type 2 diabetes mellitus with diabetic nephropathy; 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
[2017-11-25] MEDS ORDERED: Sodium Bicarbonate 650 MG Tablet PO SCH (15:30)
--- NOTE | 2017-11-27 18:01 | ED ---
HPI General Chief complaint: Respiratory Symptoms Stated complaint: sob Time Seen by Provider: 11/24/17 14:05 History of Present Illness HPI narrative: Patient 52-year-old female presents emergency department for evaluation shortness of breath chest discomfort. Has a history of CKD stage V, recent placement of peritoneal dialysis catheter is scheduled to start dialysis under Dr. Freeman castillo. She has not yet started dialysis. Denies any chest pain denies any dizziness denies any nausea or vomiting. States she has never had problems with her heart never had stress test or cardiac catheterization. States symptoms started yesterday gradually worsening peer Onset (ago): day(s) Location: chest Radiation: non-radiation Severity: moderate Relieving factors: none Exacerbating factors: none Associated symptoms: shortness of breath Related Data Home Medications Medication Instructions Recorded Confirmed aspirin [Aspir-81] 81 mg PO DAILY 11/24/17 11/24/17 atorvastatin 40 mg PO DAILY 11/24/17 11/24/17 glipizide 10 mg PO BID 11/24/17 11/24/17 labetalol 200 mg PO BID 11/24/17 11/24/17 losartan 0 mg PO BID 11/24/17 11/24/17 nifedipine 90 mg PO DAILY 11/24/17 11/24/17 zolpidem [Ambien] 10 mg PO HS 11/24/17 11/24/17 Previous Rx's Medication Instructions Recorded furosemide 80 mg PO BID #60 tab 11/25/17 sodium bicarbonate 650 mg PO BID #30 tab 11/25/17 Allergies Allergy/AdvReac Type Severity Reaction Status Date / Time levofloxacin Allergy Severe ITCHING Verified 10/31/17 11:45 Review of Systems Except as stated in HPI: all other systems reviewed are negative [facility] Medical History Medical History CKD (chronic kidney disease) stage V requiring chronic dialysis (Acute) COPD (chronic obstructive pulmonary disease) (Acute) Diabetes (Acute) Dialysis patient (Acute) High cholesterol (Acute) Hypertension (Acute) Peritoneal dialysis catheter in place (Acute) TIA (transient ischemic attack) (Acute) Surgical History Surgical History Status post (Acute) Family History Family History Mother Family history of diabetes mellitus Mother Family history of acute myocardial infarction Social History Social History Substance History: Past History Second Hand Smoke Exposure: Yes (BOYFRIEND DOES NOT SMOKE IN THE HOUSE) Smoking Status: Former smoker Tobacco Type: Cigarettes How Often Do You Have a Drink Containing Alcohol: Never Recent Travel in [facility] within the Last 8 Weeks: No Recent Out of Country Travel within the Last 8 Weeks: No Immunization History Tetanus Immunization: <5 Years Hx Influenza Vaccine This Season: Yes Exam Narrative Exam Narrative: GENERAL: Well-developed well-nourished no obvious distress, SKIN: Focused skin assessment warm/dry. HEAD: Atraumatic. Normocephalic. EYES: Pupils equal and round. No scleral icterus. No injection or drainage. ENT: No nasal bleeding or discharge. Mucous membranes pink and moist. NECK: Trachea midline. No JVD. CARDIOVASCULAR: Regular rate and rhythm. No murmur appreciated. 2+ bilateral equal pulses in all 4 extremities per RESPIRATORY: No accessory muscle use. Clear to auscultation. Breath sounds equal bilaterally. GASTROINTESTINAL: Abdomen soft, non-tender, nondistended. Hepatic and splenic margins not palpable. Peritoneal dialysis catheter site clean dry and intact. MUSCULOSKELETAL: No obvious deformities. No clubbing. No cyanosis. No edema. NEUROLOGICAL: Awake and alert. No obvious cranial nerve deficits. Motor grossly within normal limits. Normal speech. PSYCHIATRIC: Appropriate mood and affect; insight and judgment normal. Course Initial Documented Vital Signs Temperature 98.2 F 11/24/17 12:04 Pulse Rate 85 11/24/17 12:04 Respiratory Rate 26 H 11/24/17 12:04 Blood Pressure 163/78 H 11/24/17 12:04 Pulse Oximetry 97 11/24/17 12:04 Last Documented Vital Signs Temperature 97 F L 11/25/17 11:39 Pulse Rate 72 11/25/17 11:39 Respiratory Rate 18 11/25/17 11:39 Blood Pressure 150/82 H 11/25/17 11:39 Pulse Oximetry 100 11/25/17 11:39 Medical Decision Making MDM Narrative Medical decision making narrative: Patient room to the emergency department, shortness of breath is isolated symptoms, EKG does not show any signs of acute ischemia, troponin is elevated to 0.50, review previous records show that her troponin usually runs about 0.11. This could be from troponin leak CKD or could be from an acute coronary syndrome. She is a diabetic female and could have an atypical presentation. This was discussed with the patient, aspirin and nitroglycerin were given to her and I recommended admission to the hospital for further workup of her elevated troponin and she is agreeable. Discussed with Dr. Mota who is agreeable. Final diagnosis is non-STEMI Differential Diagnosis Differential Diagnosis: Pneumonia, PE unlikely, ACS, CA, fluid overload, pulmonary edema. Lab Data Result diagrams: 11/24/17 14:30 11/24/17 14:30 Lab Results 11/24/17 11/24/17 11/24/17 Range/Units 14:30 14:30 14:30 WBC 5.0 (4.0-11.0) th/mm3 RBC 2.96 L (4.00-5.30) mil/mm3 Hgb 7.9 L (11.6-15.3) gm/dL Hct 23.8 L (35.0-46.0) % MCV 80.4 (80.0-100.0) fL MCH 26.6 L (27.0-34.0) pg MCHC 33.2 (32.0-36.0) % RDW 17.4 H (11.6-17.2) % Plt Count 252 (150-450) th/mm3 MPV 7.5 (7.0-11.0) fL Neut % (Auto) 50.3 (16.0-70.0) % Lymph % (Auto) 28.1 (9.0-44.0) % Ada % (Auto) 10.7 H (0.0-8.0) % Eos % (Auto) 9.9 H (0.0-4.0) % Baso % (Auto) 1.0 (0.0-2.0) % Neut # (Auto) 2.5 (1.8-7.7) th/mm3 Lymph # (Auto) 1.4 (1.0-4.8) th/mm3 Ada # (Auto) 0.5 (0.0-0.9) th/mm3 Eos # (Auto) 0.5 H (0.0-0.4) th/mm3 Baso # (Auto) 0.0 (0.0-0.2) th/mm3 WBC Differential . Differential Comment Auto diff final PT 10.4 (9.8-11.6) sec INR 1.0 Ratio APTT 21.5 L (24.3-30.1) sec Sodium 145 (136-145) meq/L Potassium 4.6 (3.5-5.1) meq/L Chloride 113 H (98-107) meq/L Carbon Dioxide 19.2 L (21.0-32.0) meq/L Anion Gap 13 (5-15) meq/L BUN 80 H (7-18) mg/dL Creatinine 4.64 H (0.50-1.00) mg/dL Estimated GFR 12 L (>89) mL/min POC Glucose (68-110) mg/dl Random Glucose 93 (74-106) mg/dL Calcium 8.3 L (8.5-10.1) mg/dL Magnesium 2.1 (1.5-2.5) mg/dL Total Bilirubin 0.4 (0.2-1.0) mg/dL AST 48 H (15-37) U/L ALT 77 H (10-53) U/L Alkaline Phosphatase 144 H (45-117) U/L Total Creatine Kinase 305 H (26-192) U/L CK-MB (CK-2) 2.7 (0.5-3.6) ng/mL CK-MB (CK-2) % 0.9 (0.0-4.0) % Troponin I 0.52 H (0.02-0.05) ng/mL Total Protein 7.1 (6.4-8.2) g/dL Albumin 3.1 L (3.4-5.0) g/dL 11/24/17 11/25/17 11/25/17 Range/Units 22:32 07:38 12:17 WBC (4.0-11.0) th/mm3 RBC (4.00-5.30) mil/mm3 Hgb (11.6-15.3) gm/dL Hct (35.0-46.0) % MCV (80.0-100.0) fL MCH (27.0-34.0) pg MCHC (32.0-36.0) % RDW (11.6-17.2) % Plt Count (150-450) th/mm3 MPV (7.0-11.0) fL Neut % (Auto) (16.0-70.0) % Lymph % (Auto) (9.0-44.0) % Ada % (Auto) (0.0-8.0) % Eos % (Auto) (0.0-4.0) % Baso % (Auto) (0.0-2.0) % Neut # (Auto) (1.8-7.7) th/mm3 Lymph # (Auto) (1.0-4.8) th/mm3 Ada # (Auto) (0.0-0.9) th/mm3 Eos # (Auto) (0.0-0.4) th/mm3 Baso # (Auto) (0.0-0.2) th/mm3 WBC Differential Differential Comment PT (9.8-11.6) sec INR Ratio APTT (24.3-30.1) sec Sodium (136-145) meq/L Potassium (3.5-5.1) meq/L Chloride (98-107) meq/L Carbon Dioxide (21.0-32.0) meq/L Anion Gap (5-15) meq/L BUN (7-18) mg/dL Creatinine (0.50-1.00) mg/dL Estimated GFR (>89) mL/min POC Glucose 224 H 109 201 H (68-110) mg/dl Random Glucose (74-106) mg/dL Calcium (8.5-10.1) mg/dL Magnesium (1.5-2.5) mg/dL Total Bilirubin (0.2-1.0) mg/dL AST (15-37) U/L ALT (10-53) U/L Alkaline Phosphatase (45-117) U/L Total Creatine Kinase (26-192) U/L CK-MB (CK-2) (0.5-3.6) ng/mL CK-MB (CK-2) % (0.0-4.0) % Troponin I (0.02-0.05) ng/mL Total Protein (6.4-8.2) g/dL Albumin (3.4-5.0) g/dL Imaging Data Radiologist's impression: ITS Impressions Chest X-Ray 11/24/17 14:08 CONCLUSION: 1. Improving right lower lung infiltrate compared to the prior exam. 2. Small bilateral effusions. 3. Pulmonary venous congestion. 4. Stable mild cardiomegaly. Discharge Plan Discharge Disposition Patient Disposition: 30 Still Patient Discharge Condition Condition: Good Discharge Order Discharge Orders: Discharge Order (Routine); Ordered 11/25/17 Ordered By: Jonah Dalton Physicians Team ED Provider: Juan Wallis Primary Care Provider: UNKNOWN, Attending Provider: Mega Mathias Other Providers: Daniel Garber Discharge Interventions Interventions: ED Discharge Assessment Last Done: 11/24/17 18:22 Status ED Status: Left Department Discharge Information Discharge Date/Time: 11/24/17 18:23
== END 2017-11-25 16:01 | disposition home or self-care (01) ==
LOC: NEPD 11:55 → NEPHCDU 11:55 → NEDA 11:55 → NEPHCDU 19:28
PROVIDERS: ADMIT Family Medicine; ATTEND Family Medicine

== ENCOUNTER 2017-12-03 00:59 | Observation (INO) ==
--- NOTE | 2017-12-04 06:38 | ED ---
HPI General Chief complaint: Respiratory Symptoms Stated complaint: meidcal Time Seen by Provider: 12/04/17 06:34 Source: patient and EMS Mode of arrival: EMS Limitations: no limitations History of Present Illness HPI narrative: Patient has had shortness of breath feels as if she cannot breathe feels as if he cannot lie flat she is end-stage renal disease but is just beginning to do peritoneal dialysis she urinates still she has normal volume of urine she says she took Lasix 80 in the morning Lasix 80 at night and then she felt so short of breath she took another late 80 of Lasix paramedics find her to be deciding to put her on BiPAP the BiPAP helps improves her oxygen saturation she arrives she is on 98% she has Nitropaste sublingual nitro and she is improving she is urinating diuresing she was use the BiPAP after about half an hour in our ER chest x-ray shows early chest edema but BNP is 1262 Related Data Home Medications Medication Instructions Recorded Confirmed aspirin [Aspir-81] 81 mg PO DAILY 11/24/17 12/04/17 atorvastatin 40 mg PO DAILY 11/24/17 12/04/17 glipizide 10 mg PO BID 11/24/17 12/04/17 labetalol 200 mg PO BID 11/24/17 12/04/17 losartan 0 mg PO BID 11/24/17 12/04/17 nifedipine 90 mg PO DAILY 11/24/17 12/04/17 zolpidem [Ambien] 10 mg PO HS 11/24/17 12/04/17 Previous Rx's Medication Instructions Recorded furosemide 80 mg PO BID #60 tab 11/25/17 sodium bicarbonate 650 mg PO BID #30 tab 11/25/17 Allergies Allergy/AdvReac Type Severity Reaction Status Date / Time levofloxacin Allergy Severe ITCHING Verified 10/31/17 11:45 Review of Systems Except as stated in HPI: all other systems reviewed are negative Respiratory Reports dyspnea PMFSH Medical History Medical History CKD (chronic kidney disease) stage V requiring chronic dialysis (Acute) COPD (chronic obstructive pulmonary disease) (Acute) Diabetes (Acute) Dialysis patient (Acute) High cholesterol (Acute) Hypertension (Acute) Peritoneal dialysis catheter in place (Acute) TIA (transient ischemic attack) (Acute) Surgical History Surgical History Status post (Acute) Family History Family History Mother Family history of diabetes mellitus Mother Family history of acute myocardial infarction Social History Social History Substance History: No History of Abuse Second Hand Smoke Exposure: No Smoking Status: Former smoker Tobacco Type: Cigarettes How Often Do You Have a Drink Containing Alcohol: Never Recent Travel in [facility] within the Last 8 Weeks: No Recent Out of Country Travel within the Last 8 Weeks: No Immunization History Tetanus Immunization: Unsure Exam Narrative Exam Narrative: GENERAL: SKIN: Warm and dry. HEAD: Atraumatic. Normocephalic. EYES: Pupils equal and round. No scleral icterus. No injection or drainage. ENT: No nasal bleeding or discharge. Mucous membranes pink and moist. NECK: Trachea midline. No JVD. CARDIOVASCULAR: Regular rate and rhythm. RESPIRATORY: No accessory muscle use. basilar rales and uper field wheeze bilateral GASTROINTESTINAL: Abdomen soft, non-tender, nondistended. Hepatic and splenic margins not palpable. MUSCULOSKELETAL: Extremities without clubbing, cyanosis, or edema. No obvious deformities. NEUROLOGICAL: Awake and alert. No obvious cranial nerve deficits. Motor grossly within normal limits. Five out of 5 muscle strength in the arms and legs. Normal speech. PSYCHIATRIC: Appropriate mood and affect; insight and judgment normal. Course Initial Documented Vital Signs Temperature 98.7 F 12/04/17 05:27 Pulse Rate 68 12/04/17 05:27 Respiratory Rate 20 12/04/17 05:27 Blood Pressure 161/100 H 12/04/17 05:27 Pulse Oximetry 100 12/04/17 05:27 Last Documented Vital Signs Temperature 97.9 F 12/04/17 12:00 Pulse Rate 65 12/04/17 12:00 Respiratory Rate 16 12/04/17 12:00 Blood Pressure 170/91 H 12/04/17 12:00 Pulse Oximetry 97 12/04/17 12:00 Medical Decision Making MDM Narrative Medical decision making narrative: pt given lasix nitro and admitted there was an issue with her chrts 2 different charts created and will be merged on discharge , Differential Diagnosis Differential Diagnosis: fluid overload vs bronchitis asthma vs chf exacrbation other Lab Data Result diagrams: 12/04/17 02:30 12/04/17 02:30 Lab Results 12/04/17 12/04/17 12/04/17 Range/Units 02:30 02:30 02:30 WBC 6.3 (4.0-11.0) th/mm3 RBC 3.09 L (4.00-5.30) mil/mm3 Hgb 8.0 L (11.6-15.3) gm/dL Hct 25.7 L (35.0-46.0) % MCV 83.1 (80.0-100.0) fL MCH 25.9 L (27.0-34.0) pg MCHC 31.2 L (32.0-36.0) % RDW 18.7 H (11.6-17.2) % Plt Count 250 (150-450) th/mm3 MPV 7.5 (7.0-11.0) fL Prelim Diff (Auto) Slide review pending Neut % (Auto) 45.0 (16.0-70.0) % Lymph % (Auto) 31.2 (9.0-44.0) % Lares % (Auto) 13.8 H (0.0-8.0) % Eos % (Auto) 9.4 H (0.0-4.0) % Baso % (Auto) 0.6 (0.0-2.0) % Neut # (Auto) 2.8 (1.8-7.7) th/mm3 Lymph # (Auto) 2.0 (1.0-4.8) th/mm3 Lares # (Auto) 0.9 (0.0-0.9) th/mm3 Eos # (Auto) 0.6 H (0.0-0.4) th/mm3 Baso # (Auto) 0.0 (0.0-0.2) th/mm3 WBC Differential Manual diff final Seg Neuts % (Manual) 52 (16-70) % Lymphocytes % (Manual) 31 (9-44) % Monocytes % (Manual) 9 H (0-8) % Eosinophils % (Manual) 8 H (0-4) % Abs Neuts (Manual) 3.3 (1.8-7.7) th/mm3 Nucleated RBCs/100 WBC 2 H (0-0) /100 WBC Differential Comment . Platelet Estimate Normal (Normal) Platelet Morphology Normal (Normal) Polychromasia 2.3 H (0.0-1.9) % Ovalocytes 1+ H (None) Acanthocytes (Spur) Occ H (None) Keratocytes Occ H (None) Sodium 147 H (136-145) meq/L Potassium 3.5 (3.5-5.1) meq/L Chloride 113 H (98-107) meq/L Carbon Dioxide 20.4 L (21.0-32.0) meq/L Anion Gap 14 (5-15) meq/L BUN 83 H (7-18) mg/dL Creatinine 5.88 H (0.50-1.00) mg/dL Estimated GFR 9 L (>89) mL/min Random Glucose 58 L (74-106) mg/dL Calcium 8.3 L (8.5-10.1) mg/dL Total Bilirubin 0.4 (0.2-1.0) mg/dL AST 32 (15-37) U/L ALT 66 H (10-53) U/L Alkaline Phosphatase 124 H (45-117) U/L Total Creatine Kinase (26-192) U/L CK-MB (CK-2) (0.5-3.6) ng/mL CK-MB (CK-2) % (0.0-4.0) % Troponin I 0.09 H (0.02-0.05) ng/mL B-Natriuretic Peptide 1262 H (0-100) pg/mL Total Protein 6.3 L (6.4-8.2) g/dL Albumin 2.9 L (3.4-5.0) g/dL 12/04/17 Range/Units 10:25 WBC (4.0-11.0) th/mm3 RBC (4.00-5.30) mil/mm3 Hgb (11.6-15.3) gm/dL Hct (35.0-46.0) % MCV (80.0-100.0) fL MCH (27.0-34.0) pg MCHC (32.0-36.0) % RDW (11.6-17.2) % Plt Count (150-450) th/mm3 MPV (7.0-11.0) fL Prelim Diff (Auto) Neut % (Auto) (16.0-70.0) % Lymph % (Auto) (9.0-44.0) % Lares % (Auto) (0.0-8.0) % Eos % (Auto) (0.0-4.0) % Baso % (Auto) (0.0-2.0) % Neut # (Auto) (1.8-7.7) th/mm3 Lymph # (Auto) (1.0-4.8) th/mm3 Lares # (Auto) (0.0-0.9) th/mm3 Eos # (Auto) (0.0-0.4) th/mm3 Baso # (Auto) (0.0-0.2) th/mm3 WBC Differential Seg Neuts % (Manual) (16-70) % Lymphocytes % (Manual) (9-44) % Monocytes % (Manual) (0-8) % Eosinophils % (Manual) (0-4) % Abs Neuts (Manual) (1.8-7.7) th/mm3 Nucleated RBCs/100 WBC (0-0) /100 WBC Differential Comment Platelet Estimate (Normal) Platelet Morphology (Normal) Polychromasia (0.0-1.9) % Ovalocytes (None) Acanthocytes (Spur) (None) Keratocytes (None) Sodium (136-145) meq/L Potassium (3.5-5.1) meq/L Chloride (98-107) meq/L Carbon Dioxide (21.0-32.0) meq/L Anion Gap (5-15) meq/L BUN (7-18) mg/dL Creatinine (0.50-1.00) mg/dL Estimated GFR (>89) mL/min Random Glucose (74-106) mg/dL Calcium (8.5-10.1) mg/dL Total Bilirubin (0.2-1.0) mg/dL AST (15-37) U/L ALT (10-53) U/L Alkaline Phosphatase (45-117) U/L Total Creatine Kinase 198 H (26-192) U/L CK-MB (CK-2) 2.4 (0.5-3.6) ng/mL CK-MB (CK-2) % 1.2 (0.0-4.0) % Troponin I 0.10 H (0.02-0.05) ng/mL B-Natriuretic Peptide (0-100) pg/mL Total Protein (6.4-8.2) g/dL Albumin (3.4-5.0) g/dL Discharge Plan Discharge Disposition Patient Disposition: 01 Discharge Home Discharge Condition Condition: Good Discharge Order Discharge Orders: Discharge Order (Routine); Ordered 12/04/17 Ordered By: Den Moe Discharge Details Anticipated Discharge Date: 12/04/17 Physicians Team ED Provider: Kenrick Love Primary Care Provider: NON STAFF,PROVIDER Attending Provider: Den Moe Other Providers: Cammie Granger ; [facility],Insurance Status ED Status: Left Department Discharge Information Discharge Date/Time: 12/04/17 07:55
[2017-12-04] MEDS ORDERED: Morphine Inj 4 MG/ML Vial IV.PUSH PRN (07:25)
[2017-12-04] MEDS ORDERED: Bisacodyl 10 MG Supp RECTAL PRN (08:30)
[2017-12-04] MEDS ORDERED: Labetalol 200 MG Tablet PO SCH (09:00)
[2017-12-04] MEDS ORDERED: Labetalol 100 MG Tablet PO SCH (09:00)
[2017-12-04] MEDS ORDERED: Heparin - SQ 10,000 UNITS/ML Vial SQ SCH (09:00)
[2017-12-04] MEDS ORDERED: Furosemide 80 MG Tablet PO SCH (09:00)
[2017-12-04] MEDS ORDERED: Senna/Docusate Sodium 8.6/50 MG Tablet PO SCH (09:00)
[2017-12-04] MEDS: Sodium Bicarbonate 650 MG Tablet PO SCH ×2 (10:03→10:11)
[2017-12-04 11:16] LABS: Troponin I 0.1 ng/mL (0.02-0.05)
[2017-12-04 11:28] LABS: CKMB Percent 1.2 % (0.0-4.0); Creatine Kinase MB 2.4 ng/mL (0.5-3.6)
--- NOTE | 2017-12-04 14:12 | P.PNIM ---
Subjective Interval history: Patient seen this morning around 5 AM by Melissa Harrington+p in [facility] [id number] Patient found to have [employer] at bedside. Patient advised to avoid salty food, fast food. We discussed moderate fluid restrictions of 1800 mL per day. Patient conveys understanding. Physical Exam Vital signs: Vital Signs 12/04/17 05:27 12/04/17 07:41 12/04/17 12:00 Temperature 98.7 F 97.9 F Pulse Rate 68 68 65 Respiratory Rate 20 18 16 Blood Pressure 161/100 H 163/88 H 170/91 H Pulse Oximetry 100 98 97 Intake & Output 12/03/17 12/04/17 12/04/17 18:59 06:59 18:59 Weight 75.1 kg Results - Labs Laboratory Results - last 24 hr 12/04/17 10:25 Total Creatine Kinase 198 H CK-MB (CK-2) 2.4 CK-MB (CK-2) % 1.2 Troponin I 0.10 H Assessment and Plan - Plan //ESRD: //Fluid overload = w/ acute Fluid Overload state, BNP 1262, CXR w/ early edema, s/p Lasix IV in ER w/ some diuresis as pt does have urine output. Follows w/ Dr. Garber, s/p PD cath placement, currently undergoing training phase for PD in the next few weeks. Monitor I/O, continue w/ Diuresis. = Renal cardiac syndrome. Appreciate nephrology assistance. Continue diuresis. Await nephrology clearance for discharge. //Elevated Trop: Trop 0.09, no c/o chest pain, no evidence of ischemia, likely related to underlying renal disease. Telemetry, check serial cardiac enzymes for trend. = Patient without any chest pain. Troponin stable at 0.1. // DVT Prophylaxis: SCD/Teds Discharge Planning: Discussed with nephrology. Patient feeling better. Would like to go home. Nephrology says that patient can go home after getting 1 dose of IV Lasix. - Attending Attestation //ESRD: //Fluid overload = w/ acute Fluid Overload state, BNP 1262, CXR w/ early edema, s/p Lasix IV in ER w/ some diuresis as pt does have urine output. Follows w/ Dr. Garber, s/p PD cath placement, currently undergoing training phase for PD in the next few weeks. Monitor I/O, continue w/ Diuresis. = Renal cardiac syndrome. Appreciate nephrology assistance. Continue diuresis. Await nephrology clearance for discharge. //Elevated Trop: Trop 0.09, no c/o chest pain, no evidence of ischemia, likely related to underlying renal disease. Telemetry, check serial cardiac enzymes for trend. = Patient without any chest pain. Troponin stable at 0.1. // DVT Prophylaxis: SCD/Teds
--- NOTE | 2017-12-04 14:35 | MB ---
cc: Cammie Granger MD DATE: 12/04/2017 REASON FOR CONSULTATION: Chronic kidney disease, came with worsening shortness of breath. HISTORY OF PRESENT ILLNESS: This is a very pleasant 52-year-old female with past medical history of hypertension, diabetes mellitus, chronic kidney disease, advanced renal failure, history of transient ischemic attack, hyperlipidemia, COPD, came to the hospital with worsening shortness of breath. I was called to see the patient for the management of renal failure and shortness of breath. The patient has been following with Dr. Garber and she had a PD catheter done on 11/15/2017, and she has started already with training for the peritoneal dialysis and she was supposed to start the PD sometime next week. The patient has worsening shortness of breath, initially was on lying down, but later on it was also on sitting up. She has been taking Lasix 80 mg p.o. b.i.d. at home. She has been passing reasonable amount of urine. She has mild cough which is mainly dry. There is no chest pain. No palpitation. No history of fever. No nausea, vomiting. No abdominal pain. No history of diarrhea. PAST MEDICAL HISTORY: Hypertension, diabetes mellitus, hyperlipidemia, chronic obstructive pulmonary disease, TIA, chronic kidney disease with advanced stage IV renal failure. PAST SURGICAL HISTORY: History of PD catheter placement, section in the past. REVIEW OF SYSTEMS: The patient denies any history of fever, no headache, no dizziness. She has this worsening shortness of breath, more on lying down, but also some while she is sitting. Currently, she is off oxygen, but she was on oxygen when she came in here. The patient has been passing urine. There is no dysuria or hematuria. No nausea, vomiting. No history of diarrhea. No abdominal pain. SOCIAL HISTORY: The patient has past history of smoking. There is no history of heavy alcoholism. FAMILY HISTORY: Noncontributory. ALLERGIES: SHE IS ALLERGIC TO LEVOFLOXACIN. MEDICATIONS: Currently, she is on following medications: 1. Milk of magnesia. 2. Ecotrin 81 mg once a day. 3. Lipitor 40 mg once a day. 4. Dulcolax as needed. 5. Lasix 80 mg p.o. b.i.d. 6. Heparin subcutaneous every 12 hours. 7. Labetalol 200 mg b.i.d. 8. Lactulose 30 mL once a day. 9. Ambien at bedtime. 10. Sodium bicarbonate 650 mg b.i.d. PHYSICAL EXAMINATION: GENERAL: The patient is awake, alert. She is not in acute distress. VITAL SIGNS: Her last blood pressure is 170/91, temperature 97.9, oxygen saturation now on room air is 97%. HEENT: Pupils are mid constricted. Nonicteric sclerae. Conjunctivae normal. NECK: Supple. JVD is slightly elevated. LUNGS: The patient has bilateral good air entry with basal rales and scattered wheezing. HEART: S1, S2. Regular rate and rhythm. ABDOMEN: Distended, soft, lax. PD catheter in place. There is no tenderness. EXTREMITIES: She has mild edema in the legs. LABORATORY DATA: There is no investigation done here except creatinine kinase of 198 and troponin of 0.1. Previously, her BMP was done on 10/31/2017 and the BUN was 80, and the creatinine was 5.1, hemoglobin was 7.8, and this was also done on 10/31/2017. The patient had EKG done and the report is not available yet. ASSESSMENT AND PLAN: 1. Chronic kidney disease, advanced renal failure. 2. Fluid overload status. 3. Hypertension, uncontrolled. 4. Diabetes mellitus. 5. Anemia. 6. Hyperlipidemia. 7. History of chronic obstructive pulmonary disease. The patient does not have any labs done, so I ordered for the BMP and also to get the CBC and the phosphorus level. I will change her Lasix to IV 80 mg b.i.d. Need to get some fluid out and if her labs are stable and the blood pressure is better, then she can be discharged later today or tomorrow and need to follow closely with Dr. Garber to decide when she will need to start on dialysis. If her labs are not very good, she possibly will need dialysis during this admission. Thank you for the consultation. If the patient stays in the hospital, she will be followed by Dr. Garber from tomorrow. MD TRENA Liao/KASIA , 01:19 PM , 02:33 PM
--- NOTE | 2017-12-04 19:01 | P.HPIM ---
History of Present Illness Primary Care Physician: PROVIDER NON STAFF History of Present Illness: ORIGINAL H&P ENTERED UNDER [id number] PT REGISTERED UNDER ALTERNATE MEDICAL RECORD.... This is a 47-year-old female with a PMH of ESRD, HTN and DM who was brought to the ER by EMS due to SOB, initially placed on CPAP due to increased respiratory distress. On Lasix 80mg bid at home, states she took an additional dose of Lasix w/ minimal improvement. Upon arrival to ER, pt placed on BIPAP w/ improvement, currently weaned to 2L NC w/ O2 sat 98%. Follows w/ Dr. Garber for ESRD, s/p PD cath placement 11/14/17 and undergoing training phase for PD. Recent admit 11/25/17 for similar complaints ([id number]). On arrival, BP 161/ 94, HR 68, O2 sat 100% on BiPAP, Afebrile. CBC at baseline. Hemoglobin 8.0, previously 7.9 on 11/25/2017. Creatinine 5.88, previously 5.19 on last admission. Troponin 0 0.09. BNP 1262. CXR with borderline heart size and early parenchymal edema. S/p Lasix in ER. - Diagnosis (1) ESRD (end stage renal disease) (2) Elevated troponin Inpatient Certification: I certify that the inpatient services were ordered in accordance with Medicare regulations governing the order. This includes certification that hospital inpatient services are reasonable and necessary and in the case of services not specified as inpatient-only under 42 CFR 419.22(n), that they are appropriately provided as inpatient services in accordance to with the 2-midnight benchmark under 43 CFR 412.3(e) Review of Systems All other systems reviewed negative except as stated in HPI [facility] - History History Provided By: Patient - Medical History Medical History: Medical History (Last Updated 11/25/17 @ 11:01 by ARTHUR Taylor) CKD (chronic kidney disease) stage V requiring chronic dialysis COPD (chronic obstructive pulmonary disease) Diabetes Dialysis patient High cholesterol Hypertension Peritoneal dialysis catheter in place TIA (transient ischemic attack) - Surgical History Surgical History: Surgical History (Last Reviewed 11/24/17 @ 18:28 by Vinita Quezada MD) Status post - Family History Family History: Family History (Last Updated 11/24/17 @ 18:29 by Vinita Quezada MD) Mother Family history of diabetes mellitus Mother Family history of acute myocardial infarction - Tobacco History Second Hand Smoke Exposure: No Tobacco Use In Past 30 Days: No Smoking Status: Former smoker Tobacco Type: Cigarettes - Alcohol History How Often Do You Have a Drink Containing Alcohol: Never - Substance Use History Substance History: No History of Abuse - Travel History Recent Travel in the [place] Within the Last 8 Weeks: No Recent Travel Out of the Country Within the Last 8 Weeks: No - Immunization History Tetanus Immunization: Unsure Medications and Allergies Allergies Allergy/AdvReac Type Severity Reaction Status Date / Time levofloxacin Allergy Severe ITCHING Verified 10/31/17 11:45 Home Medications Medication Instructions Recorded Confirmed Type aspirin [Aspir-81] 81 mg PO DAILY 11/24/17 12/04/17 History atorvastatin 40 mg PO DAILY 11/24/17 12/04/17 History glipizide 10 mg PO BID 11/24/17 12/04/17 History labetalol 200 mg PO BID 11/24/17 12/04/17 History losartan 0 mg PO BID 11/24/17 12/04/17 History nifedipine 90 mg PO DAILY 11/24/17 12/04/17 History zolpidem [Ambien] 10 mg PO HS 11/24/17 12/04/17 History Exam Vital signs: Vital Signs 12/04/17 05:27 12/04/17 07:41 12/04/17 12:00 Temperature 98.7 F 97.9 F Pulse Rate 68 68 65 Respiratory Rate 20 18 16 Blood Pressure 161/100 H 163/88 H 170/91 H Pulse Oximetry 100 98 97 Intake & Output 12/03/17 12/04/17 12/04/17 18:59 06:59 18:59 Weight 75.1 kg Narrative: PE: GENERAL: Middle-aged white female in no acute distress, lying flat, resting comfortably. HEENT: PERRLA, EOMI. No scleral icterus or conjunctival pallor. No lid lag or facial droop. CARDIOVASCULAR: Regular rate and rhythm. No obvious murmurs to auscultation. No chest tenderness to palpation. RESPIRATORY: No obvious rhonchi or wheezing. Clear to auscultation. Breath sounds equal bilaterally. GASTROINTESTINAL: Abdomen soft, non-tender, nondistended. BS normal. MUSCULOSKELETAL: Extremities without clubbing, cyanosis, or edema. No obvious deformities. NEUROLOGICAL: Awake, alert and oriented x4. No focal neurologic deficits. Moving both upper and lower extremities spontaneously. Results - Labs Labs: Cardiac Enzymes 12/04/17 Range/Units 10:25 Total Creatine Kinase 198 H (26-192) U/L CK-MB (CK-2) 2.4 (0.5-3.6) ng/mL Troponin I 0.10 H (0.02-0.05) ng/mL Caprini VTE Risk Assessment Caprini VTE Risk Assessment: No/Low Risk (score <= 1) Caprini Risk Assessment Model: Point Value = 1 Point Value = 2 Point Value = 3 Point Value = 5 Age 41-60 Minor surgery BMI > 25 kg/m2 Swollen legs Varicose veins or History of unexplained or recurrent spontaneous Oral contraceptives or hormone replacement Sepsis (< 1 month) Serious lung disease, including pneumonia (< 1 month) Abnormal pulmonary function Acute myocardial infarction Congestive heart failure (< 1 month) History of inflammatory bowel disease Medical patient at bed rest Age 61-74 Arthroscopic surgery Major open surgery (> 45 min) Laparoscopic surgery (> 45 min) Malignancy Confined to bed (> 72 hours) Immobilizing plaster cast Central venous access Age >= 75 History of VTE Family history of VTE Factor V Leiden Prothrombin [id number] Lupus anticoagulant Anticardiolipin antibodies Elevated serum homocysteine Heparin-induced thrombocytopenia Other congenital or acquired thrombophilia Stroke (< 1 month) Elective arthroplasty Hip, pelvis, or leg fracture Acute spinal cord injury (< 1 month) Prophylaxis Regimen: Total Risk Factor Score Risk Level Prophylaxis Regimen 0-1 Low Early ambulation 2 Moderate Order ONE of the following: *Sequential Compression Device (SCD) *Heparin 5000 units SQ BID 3-4 Higher Order ONE of the following medications: *Heparin 5000 units SQ TID *Enoxaparin/Lovenox 40 mg SQ daily (WT < 150 kg, CrCl > 30 mL/min) *Enoxaparin/Lovenox 30 mg SQ daily (WT < 150 kg, CrCl > 10-29 mL/min) *Enoxaparin/Lovenox 30 mg SQ BID (WT < 150 kg, CrCl > 30 mL/min) AND/OR *Sequential Compression Device (SCD) 5 or more Highest Order ONE of the following medications: *Heparin 5000 units SQ TID (Preferred with Epidurals) *Enoxaparin/Lovenox 40 mg SQ daily (WT < 150 kg, CrCl > 30 mL/min) *Enoxaparin/Lovenox 30 mg SQ daily (WT < 150 kg, CrCl > 10-29 mL/min) *Enoxaparin/Lovenox 30 mg SQ BID (WT < 150 kg, CrCl > 30 mL/min) AND *Sequential Compression Device (SCD) Assessment and Plan - Assessment (1) ESRD (end stage renal disease) Code(s): N18.6 - End stage renal disease Status: Acute (2) Elevated troponin Code(s): R74.8 - Abnormal levels of other serum enzymes Status: Acute - Plan A/P: 1. ESRD: w/ acute Fluid Overload state, BNP 1262, CXR w/ early edema, s/p Lasix IV in ER w/ some diuresis as pt does have urine output. Follows w/ Dr. Garber, s/p PD cath placement, currently undergoing training phase for PD in the next few weeks. Monitor I/O, continue w/ Diuresis. 2. Elevated Trop: Trop 0.09, no c/o chest pain, no evidence of ischemia, likely related to underlying renal disease. Telemetry, check serial cardiac enzymes for trend. 3. DVT Prophylaxis: SCD/Teds 4. Social work for d/c planning as needed 5. Case discussed w/ ER physician at length, labs/records/imaging reviewed by me. H&P: Quality - VTE Deep Vein Thrombosis/Pulmonary Embolism Present on Admission: No
--- NOTE | 2017-12-05 12:05 | ECG ---
Date Performed: 12/04/2017 Time Performed: 07:37:01 PTAGE: 52 years EKG: Sinus rhythm POSSIBLE LEFT ATRIAL ENLARGEMENT NONSPECIFIC T-WAVE ABNORMALITY BORDERLINE ECG NO PREVIOUS TRACING DOCTOR: Tawny Mckeon Interpretating Date/Time 12/05/2017 12:02:31
[2017-12-07 16:22] LABS: Hematocrit 25.7 % (35.0-46.0); Mean Corpuscular HGB Conc 31.2 % (32.0-36.0); Mean Corpuscular Hemoglobin 25.9 pg (27.0-34.0); Mean Corpuscular Volume 83.1 fL (80.0-100.0); Mean Platelet Volume 7.5 fL (7.0-11.0); Platelet Count 250 th/mm3 (150-450); Red Blood Count 3.09 mil/mm3 (4.00-5.30); Red Cell Distribution Width 18.7 % (11.6-17.2); White Blood Count 6.3 th/mm3 (4.0-11.0)
[2017-12-07 16:23] LABS: Baso % (Auto) 0.6 % (0.0-2.0); Eos # (Auto) 0.6 th/mm3 (0.0-0.4); Eos % (Auto) 9.4 % (0.0-4.0); Lymph % (Auto) 31.2 % (9.0-44.0); Mono # (Auto) 0.9 th/mm3 (0.0-0.9); Mono % (Auto) 13.8 % (0.0-8.0); Neut # (Auto) 2.8 th/mm3 (1.8-7.7)
[2017-12-07 16:24] LABS: Eosinophils 8 % (0-4); Lymphocytes 31 % (9-44); Monocytes 9 % (0-8); Tallied Nucleated RBC 2 (0-0)
[2017-12-07 16:25] LABS: Acanthocytes Occ; Ovalocytes 1+; Platelet Estimate Normal (Normal); Platelet Morphology Normal (Normal); Polychromasia 2.3 % (0.0-1.9)
[2017-12-07 16:27] LABS: Anion Gap 14 meq/L (5-15); Blood Urea Nitrogen 83 mg/dL (7-18); Carbon Dioxide 20.4 meq/L (21.0-32.0); Chloride 113 meq/L (98-107); Glomerular Filtration Rate 9 mL/min (>89); Glucose,Random 58 mg/dL (74-106); Potassium 3.5 meq/L (3.5-5.1); Sodium 147 meq/L (136-145)
[2017-12-07 16:28] LABS: Alanine Aminotransferase 66 U/L (10-53); Albumin 2.9 g/dL (3.4-5.0); Aspartate Aminotransferase 32 U/L (15-37); Calcium 8.3 mg/dL (8.5-10.1); Total Protein 6.3 g/dL (6.4-8.2); Troponin I 0.09 ng/mL (0.02-0.05)
[2017-12-07 16:29] LABS: Alkaline Phosphatase 124 U/L (45-117)
--- NOTE | 2017-12-13 11:34 | XR ---
EXAM DATE: 12/04/2017 2:49 AM EDT AGE/SEX: 47 years / female INDICATIONS: Shortness of breath. CLINICAL DATA: This is the patient's initial encounter. Patient reports that signs and symptoms have been present for 1 day and indicates a pain score of 3/10. MEDICAL/SURGICAL HISTORY: Chronic obstructive pulmonary disease. None. COMPARISON: No prior exams available for comparison. FINDINGS: The heart is mildly enlarged. There is mild hazy perihilar and basilar parenchymal opacity which may be early edema. CONCLUSION: Borderline heart size and possible early parenchymal edema Electronically signed by: Jim Younger MD 12/04/2017 2:50 AM EDT
== END 2017-12-04 16:54 | disposition home or self-care (01) ==
LOC: NEPGCP 00:59 → NEDA 00:59 → NEPC 00:59 → NEDA 12-04 07:55 → NEPGCP 12-04 08:16
PROVIDERS: ADMIT Internal Medicine; ATTEND Internal Medicine

== ENCOUNTER 2018-05-04 10:49 | Observation (INO) ==
[~2018-05-04 10:49] MED LIST changes: -ALBUAER3 INH; -ASPI-516 CHEW; -ATOR80TA45 PO; -D200CAP PO; -GLIP10TA6 PO; +Heparin 10,000 UNITS/10 ML Vial (for IV use) ONE; +Heparin/NS PF Inj 500 ML ONE; -LABE100T2 PO; -NIFE90TA2 PO; -OMEGCAP PO; -PLAV75TA29 PO; +Protamine Sulfate Inj 50 MG/5 ML Vial ONE; -TRAD5TAB PO; +Thrombin Topical 20,000 UNIT Spray Kit TOPICAL ONE; -VITA250T3 PO; -ZOLP10TA3 PO
[2018-05-04] MEDS ORDERED: Chlorhexidine Gluconate 2% 1 Pack (2 Cloths) TOPICAL SCH (11:22)
[2018-05-04] MEDS ORDERED: Metoprolol Tartrate 25 MG Tablet PO SCH (11:22)
[2018-05-04] MEDS ORDERED: Sodium Chlor 0.9% Inj 500 ML IV.SIG SCH (12:00)
[2018-05-04 12:05] LABS: Calcium 8.9 mg/dL (8.5-10.1); Carbon Dioxide 22.9 meq/L (21.0-32.0); Potassium 4.6 meq/L (3.5-5.1)
--- NOTE | 2018-05-04 12:07 | XR ---
EXAM DATE: 05/04/2018 12:02 PM EST AGE/SEX: 52 years / Female INDICATIONS: Evaluate for pneumonia, pneumothorax, or communicable disease. Pre-op. CLINICAL DATA: This is the patient's initial encounter. Patient reports that signs and symptoms have been present for 1 day and indicates a pain score of 0/10. MEDICAL/SURGICAL HISTORY: . Diabetic. HTN. High cholesterol. section. COMPARISON: [facility] – [place], CHEST 1V SINGLE AP, 02/02/2018. . FINDINGS: A single AP view of the chest demonstrates the lungs to be symmetrically aerated without evidence of mass, infiltrate or effusion. The heart size remains mildly prominent. The right-sided double-lumen central venous line remains in place. Osseous structures are intact. CONCLUSION: Stable appearance with no acute cardiopulmonary disease. Electronically signed by: Rayshawn Roa MD Board Certified Radiologist 05/04/2018 12:05 PM FERDINAND Mcneill
[2018-05-04 12:20] LABS: Baso # (Auto) 0.1 th/mm3 (0.0-0.2); Baso % (Auto) 1.4 % (0.0-2.0); Eos # (Auto) 0.4 th/mm3 (0.0-0.4); Eos % (Auto) 7.4 % (0.0-4.0); Hematocrit 36.4 % (35.0-46.0); Hemoglobin 11.7 gm/dL (11.6-15.3); Lymph # (Auto) 1.3 th/mm3 (1.0-4.8); Lymph % (Auto) 27.7 % (9.0-44.0); Mean Corpuscular HGB Conc 32.1 % (32.0-36.0); Mean Corpuscular Hemoglobin 26.5 pg (27.0-34.0); Mean Corpuscular Volume 82.6 fL (80.0-100.0); Mean Platelet Volume 9.3 fL (7.0-11.0); Mono # (Auto) 0.7 th/mm3 (0.0-0.9); Mono % (Auto) 13.5 % (0.0-8.0); Neut # (Auto) 2.4 th/mm3 (1.8-7.7); Platelet Count 133 th/mm3 (150-450); Red Blood Count 4.41 mil/mm3 (4.00-5.30); Red Cell Distribution Width 20.4 % (11.6-17.2); White Blood Count 4.9 th/mm3 (4.0-11.0)
[2018-05-04 12:30] LABS: Activated Partial Thrombo Time 61.3 sec (23.4-31.7); INR 1.1 Ratio; Prothrombin Time 11.1 sec (9.8-11.6)
[2018-05-04 12:45] LABS: Amorphous Sediment,Urine Rare /hpf; Bilirubin,Urine Negative (Negative); Clarity,Urine Hazy (Clear); Color,Urine Yellow (Yellw/Straw); Glucose,Urine (UA) Negative (Negative); Leukocyte Esterase,Urine Negative (Negative); Mucus,Urine Few /lpf (Occasional); Nitrite,Urine Negative (Negative); Specific Gravity,Urine 1.014 (1.002-1.035); Squamous Epithelial Cell,Urine 3 /hpf (0-5)
--- NOTE | 2018-05-04 12:47 | P.HPVS ---
History of Present Illness Chief Complaint: ESRD, need for HD access History of Present Illness: 52 yo female with ESRD currently on HD who underwent R BB AVF as the first stage of a planned 2 stage procedure. AVF now mature by exam and duplex. Presents for second stage. No changes in health that would preclude OR. - Inpatient Certification If this patient has been admitted as an Inpatient: I certify that the inpatient services were ordered in accordance with Medicare regulations governing the order. This includes certification that hospital inpatient services are reasonable and necessary and in the case of services not specified as inpatient-only under 42 CFR 419.22(n), that they are appropriately provided as inpatient services in accordance to with the 2-midnight benchmark under 43 CFR 412.3(e) Estimated Total Length of Stay (Days): 2 Plans for Post Hospital Care: Home Review of Systems All other systems reviewed negative except as stated in HPI [facility] - History History Provided By: Patient - Medical History Medical History: Medical History (Last Reviewed 05/04/18 @ 12:45 by Juan Cornell MD) CKD (chronic kidney disease) stage V requiring chronic dialysis COPD (chronic obstructive pulmonary disease) Diabetes Dialysis patient High cholesterol History of illicit drug use History of peritoneal dialysis Hx of transfusion Hypertension Peritoneal dialysis catheter in place Smoking hx TIA (transient ischemic attack) - Surgical History Surgical History: Surgical History (Last Reviewed 05/04/18 @ 12:45 by Juan Cornell MD) History of vascular access device Status post - Family History Family History: Family History (Last Reviewed 05/03/18 @ 10:08 by Gil Mojica RN) Mother Family history of diabetes mellitus Mother Family history of acute myocardial infarction - Tobacco History Second Hand Smoke Exposure: No Tobacco Use In Past 30 Days: No Smoking Status: Former smoker Tobacco Type: Cigarettes - Alcohol History How Often Do You Have a Drink Containing Alcohol: Never - Substance Use History Substance History: Past History - Travel History Recent Travel in the [place] Within the Last 8 Weeks: No Recent Travel Out of the Country Within the Last 8 Weeks: No Medications and Allergies Active Medications: Active Medications Chlorhexidine Gluconate (Chlorhexidine 2% Cloth) 3 pack TOPICAL DEWER ZAK Stop: 05/07/18 11:21 Last Admin: 05/04/18 11:30 Dose: 3 pack Lactated Ringer's (Lr 1000 Ml Inj) 1,000 mls @ 30 mls/hr IV.SIG .Q24H [facility] Stop: 05/07/18 11:29 Last Admin: 05/04/18 12:05 Dose: Not Given Metoprolol Tartrate (Lopressor) 25 mg PO DEWER [facility] Stop: 05/07/18 11:21 Last Admin: 05/04/18 12:06 Dose: Not Given Povidone Iodine (Betadine 5% Antisepsis Kit) 1 applicatio EACH NARE DEWER [facility] Stop: 05/07/18 11:21 Last Admin: 05/04/18 12:00 Dose: 1 applicatio Allergies Allergy/AdvReac Type Severity Reaction Status Date / Time levofloxacin Allergy Severe ITCHING Verified 05/04/18 11:27 Home Medications Medication Instructions Recorded Confirmed Type aspirin [Aspir-81] 81 mg PO DAILY 11/24/17 05/04/18 History atorvastatin 40 mg PO HS 11/24/17 05/04/18 History labetalol 200 mg PO BID 11/24/17 05/04/18 History nifedipine 90 mg PO DAILY 11/24/17 05/04/18 History zolpidem [Ambien] 10 mg PO HS 11/24/17 05/04/18 History clopidogrel 75 mg PO DAILY 01/19/18 05/04/18 History ferric citrate 210 mg PO TID 01/19/18 05/04/18 History omega-3 fatty acids-fish oil [Fish 1 cap PO DAILY 01/19/18 05/04/18 History Oil] albuterol sulfate [ProAir HFA] 2 puff INHALATION Q4-6H PRN 02/01/18 05/04/18 History ascorbic acid (vitamin C) 500 mg PO DAILY 02/01/18 05/04/18 History cholecalciferol (vitamin D3) 2,000 unit PO DAILY 02/01/18 05/04/18 History [Vitamin D3] glipizide 10 mg PO BID 02/01/18 05/04/18 History losartan 50 mg PO BID 02/01/18 05/04/18 History vitamin B comp and C no.3 [B 1 cap PO DAILY 02/01/18 05/04/18 History Complex Plus Vitamin C] Physical Exam Vital Signs / I&O: Vital Signs 05/04/18 11:15 Temperature 98.6 F Pulse Rate 45 L Respiratory Rate 18 Blood Pressure 142/69 H Pulse Oximetry 96 Intake & Output 05/03/18 05/04/18 05/04/18 18:59 06:59 18:59 Weight 80.7 kg Other: Weight On Admission 80.7 kg Neuro: alert, oriented HEENT: wears glasses, anicteric sclera Neck: no JVD Heart: reg rate Lungs: clear Vascular: R UE with + thrill hand ok Laboratory Results - last 24 hr 05/04/18 05/04/18 05/04/18 11:19 11:25 11:50 WBC 4.9 RBC 4.41 Hgb 11.7 Hct 36.4 MCV 82.6 MCH 26.5 L MCHC 32.1 RDW 20.4 H Plt Count 133 L MPV 9.3 Neut % (Auto) 50.0 Lymph % (Auto) 27.7 [place] % (Auto) 13.5 H Eos % (Auto) 7.4 H Baso % (Auto) 1.4 Neut # (Auto) 2.4 Lymph # (Auto) 1.3 [place] # (Auto) 0.7 Eos # (Auto) 0.4 Baso # (Auto) 0.1 WBC Differential . Differential Comment Auto diff final PT INR APTT Sodium 144 Potassium 4.6 Chloride 110 H Carbon Dioxide 22.9 Anion Gap 11 BUN 68 H Creatinine 6.52 H Estimated GFR 8 L Random Glucose 109 H Calcium 8.9 Blood Type O Positive Blood Type Recheck Not needed Antibody Screen Negative MTS Gel Crossmatch See Detail 05/04/18 11:50 WBC RBC Hgb Hct MCV MCH MCHC RDW Plt Count MPV Neut % (Auto) Lymph % (Auto) [place] % (Auto) Eos % (Auto) Baso % (Auto) Neut # (Auto) Lymph # (Auto) [place] # (Auto) Eos # (Auto) Baso # (Auto) WBC Differential Differential Comment PT 11.1 INR 1.1 APTT 61.3 H Sodium Potassium Chloride Carbon Dioxide Anion Gap BUN Creatinine Estimated GFR Random Glucose Calcium Blood Type Blood Type Recheck Antibody Screen MTS Gel Crossmatch Impressions Chest X-Ray 05/04/18 00:00 CONCLUSION: Stable appearance with no acute cardiopulmonary disease. Caprini VTE Risk Assessment Caprini VTE Risk Assessment: No/Low Risk (score <= 1) (intraop heparin) Caprini Risk Assessment Model: Point Value = 1 Point Value = 2 Point Value = 3 Point Value = 5 Age 41-60 Minor surgery BMI > 25 kg/m2 Swollen legs Varicose veins or History of unexplained or recurrent spontaneous Oral contraceptives or hormone replacement Sepsis (< 1 month) Serious lung disease, including pneumonia (< 1 month) Abnormal pulmonary function Acute myocardial infarction Congestive heart failure (< 1 month) History of inflammatory bowel disease Medical patient at bed rest Age 61-74 Arthroscopic surgery Major open surgery (> 45 min) Laparoscopic surgery (> 45 min) Malignancy Confined to bed (> 72 hours) Immobilizing plaster cast Central venous access Age >= 75 History of VTE Family history of VTE Factor V Leiden Prothrombin [id number] Lupus anticoagulant Anticardiolipin antibodies Elevated serum homocysteine Heparin-induced thrombocytopenia Other congenital or acquired thrombophilia Stroke (< 1 month) Elective arthroplasty Hip, pelvis, or leg fracture Acute spinal cord injury (< 1 month) Prophylaxis Regimen: Total Risk Factor Score Risk Level Prophylaxis Regimen 0-1 Low Early ambulation 2 Moderate Order ONE of the following: *Sequential Compression Device (SCD) *Heparin 5000 units SQ BID 3-4 Higher Order ONE of the following medications: *Heparin 5000 units SQ TID *Enoxaparin/Lovenox 40 mg SQ daily (WT < 150 kg, CrCl > 30 mL/min) *Enoxaparin/Lovenox 30 mg SQ daily (WT < 150 kg, CrCl > 10-29 mL/min) *Enoxaparin/Lovenox 30 mg SQ BID (WT < 150 kg, CrCl > 30 mL/min) AND/OR *Sequential Compression Device (SCD) 5 or more Highest Order ONE of the following medications: *Heparin 5000 units SQ TID (Preferred with Epidurals) *Enoxaparin/Lovenox 40 mg SQ daily (WT < 150 kg, CrCl > 30 mL/min) *Enoxaparin/Lovenox 30 mg SQ daily (WT < 150 kg, CrCl > 10-29 mL/min) *Enoxaparin/Lovenox 30 mg SQ BID (WT < 150 kg, CrCl > 30 mL/min) AND *Sequential Compression Device (SCD) Assessment and Plan - Assessment (1) ESRD (end stage renal disease) Code(s): N18.6 - End stage renal disease Status: Acute - Plan R UE access revision to OR
[2018-05-04] MEDS ORDERED: Heparin 2,000 UNITS/2 ML Vial (for IV use) IV.FLUSH PRN (12:49)
[2018-05-04] MEDS: Bupivacaine PF 0.5% Inj 10 ML Vial ONE ×2 (14:47→14:51)
[2018-05-04] MEDS ORDERED: Morphine Inj 4 MG/ML Vial IV.PUSH PRN (14:56)
[2018-05-04] MEDS ORDERED: Bisacodyl 10 MG Supp RECTAL PRN (14:56)
--- NOTE | 2018-05-04 14:56 | P.OP ---
- Preoperative Diagnosis (1) ESRD (end stage renal disease) - Postoperative Diagnosis (1) ESRD (end stage renal disease) Date of procedure: 05/04/18 Procedure: RIGHT UE access revision (superficialization) Implants: none Anesthesia: GETA Surgeon: Juan Cornell MD Forensic Computer Examiner: Juan Vergara Estimated blood loss (mL): 50 IV fluids (mL): 450 Pathology: none sent Operation and Findings: AVF 6-10mm superficialized
[2018-05-04] MEDS ORDERED: fentaNYL Citrate Inj 100 MCG/2 ML Ampul ONE (15:01)
[2018-05-04] MEDS ORDERED: *Meperidine Inj 25 MG/ML Vial PERIprocedural Use ONLY ONE (15:24)
[2018-05-04] MEDS ORDERED: diphenhydrAMINE HCl 50 MG/ML VIAL IV.PUSH ONE (15:29)
[2018-05-04] MEDS ORDERED: *morphine SULFATE 4 MG/ML PERIprocedure ONLY ONE (15:38)
[2018-05-04] MEDS ORDERED: *morphine SULFATE 10 MG/ML PERIprocedure ONLY ONE (15:50)
--- NOTE | 2018-05-04 16:00 | MP ---
cc: Juan Cornell MD DATE OF OPERATION: 05/04/2018 PREOPERATIVE DIAGNOSIS: Endstage renal disease, need for dialysis access. POSTOPERATIVE DIAGNOSIS: Endstage renal disease, need for dialysis access. PROCEDURE: Right upper extremity access revision (superficialization). SURGEON: Juan Cornell MD TAPPER SUPERVISOR: Juan Vergara ANESTHESIA: General. INDICATIONS: Ms. Wallis is a 52-year-old lady who has end-stage renal disease and a right upper extremity fistula. It was a first stage of a planned 2-stage brachio-basilic and she presents for second stage. Intraoperatively, we found that this was widely patent, although somewhat tortuous and it was superficialized without difficulty. DESCRIPTION OF PROCEDURE: Informed consent was obtained. The patient was taken to the operating room and placed supine on the operating table. An appropriate timeout was taken to ensure the patient's identity, operative site and planned procedure. The administration of 1 gram of vancomycin was initiated prior to skin incision and will be discontinued after a single preoperative dose. Everyone in the room agreed with the timeout and we proceeded. Of note, vancomycin was chosen because of the patient's end-stage renal disease. Her right arm and axilla were prepped and draped and an incision was made on the medial aspect of the upper arm, carried down through subcutaneous tissue with electrocautery. Basilic vein was identified and dissected free from the anastomosis all the way up to the axillary vein. Side branches were ligated with 3-0 silk. The vein was then superficialized without difficulty by closing it with a layer of 2-0 running Polysorb beneath the fistula and then interrupted 3-0 Polysorb superficial to this followed by 4-0 Monocryl. The sponge and needle counts were correct at the end of the case. I was present, scrubbed, and performed the entire procedure. Juan Cornell MD RJF/edinson , 03:33 PM , 03:40 PM
[2018-05-04] MEDS ORDERED: *Enalaprilat Inj 1.25 MG/ML Vial IV.PUSH ONE ×2 (16:02→16:35)
[2018-05-04] MEDS ORDERED: HYDROmorphone PF Inj 0.5 MG/0.5 ML Syringe ONE ×2 (16:03→16:23)
[2018-05-04] MEDS ORDERED: FERRIC CITRATE 210 MG PO SCH (18:00)
[2018-05-04] MEDS ORDERED: [UNRECOGNIZED DRUG - OTHER] PO SCH (18:00)
[2018-05-04] MEDS: Labetalol 100 MG Tablet PO SCH (21:50)
[2018-05-04] MEDS: Furosemide 80 MG Tablet PO SCH (21:50)
[2018-05-04] MEDS: Senna/Docusate Sodium 8.6/50 MG Tablet PO SCH (21:51)
[2018-05-04] MEDS: glipiZIDE 5 MG Tablet PO SCH (23:50)
[2018-05-05 05:03] LABS: Hematocrit 37.1 % (35.0-46.0); Hemoglobin 11.7 gm/dL (11.6-15.3); Mean Corpuscular HGB Conc 31.6 % (32.0-36.0); Mean Corpuscular Hemoglobin 26.3 pg (27.0-34.0); Mean Corpuscular Volume 83.2 fL (80.0-100.0); Mean Platelet Volume 9.2 fL (7.0-11.0); Platelet Count 141 th/mm3 (150-450); Red Blood Count 4.46 mil/mm3 (4.00-5.30); Red Cell Distribution Width 20.4 % (11.6-17.2); White Blood Count 6.2 th/mm3 (4.0-11.0)
[2018-05-05 05:23] LABS: Calcium 8.6 mg/dL (8.5-10.1); Carbon Dioxide 19.7 meq/L (21.0-32.0); Potassium 5.3 meq/L (3.5-5.1)
[2018-05-05 05:26] VITALS: PULSE 70
[2018-05-05 05:28] VITALS: RESP 18
--- NOTE | 2018-05-05 07:35 | P.PNVS ---
Subjective Post Op Day #: 1 Procedure: R UE access revision (superficialization) Subjective/Hospital Course: looks good; pain controlled hand ok Objective Vital Signs / I&O: Vital Signs 05/04/18 11:15 05/04/18 15:25 05/04/18 15:30 Temperature 98.6 F 98.1 F Pulse Rate 45 L 67 65 Respiratory Rate 18 19 17 Blood Pressure 142/69 H 124/95 H 170/80 H Pulse Oximetry 96 99 97 05/04/18 15:45 05/04/18 16:00 05/04/18 16:15 Temperature Pulse Rate 62 61 61 Respiratory Rate 12 15 18 Blood Pressure 171/81 H 188/80 H 187/90 H Pulse Oximetry 98 98 98 05/04/18 16:30 05/04/18 16:45 05/04/18 17:00 Temperature Pulse Rate 63 61 62 Respiratory Rate 13 14 13 Blood Pressure 182/88 H 172/100 H 160/80 H Pulse Oximetry 98 98 100 05/04/18 18:00 05/04/18 18:38 05/04/18 18:58 Temperature 98.3 F Pulse Rate 62 64 Respiratory Rate 13 14 Blood Pressure 170/89 H 174/86 H 142/89 H Pulse Oximetry 97 97 05/04/18 20:00 05/05/18 00:00 05/05/18 04:00 Temperature 97.7 F 98.0 F Pulse Rate 67 71 70 Respiratory Rate 22 20 18 Blood Pressure 172/98 H 151/84 H 162/87 H Pulse Oximetry 93 L 92 L 92 L Intake & Output 05/04/18 05/05/18 05/05/18 18:59 06:59 18:59 Intake Total 450 / 450 480 / 480 Output Total 50 / 50 200 / 200 Balance 400 / 400 280 / 280 Weight 80.7 kg 82 kg Intake: Oral 480 / 480 Anesthesia Amount 450 / 450 Output: Urine 200 / 200 Estimated Blood Loss 50 / 50 Other: # Voids 1 # Bowel Movements 0 Weight On Admission 80.7 kg Exam: R UE dressing ok + thrill good hand strength Laboratory Results - last 24 hr 05/04/18 05/04/18 05/04/18 11:19 11:25 11:50 WBC 4.9 RBC 4.41 Hgb 11.7 Hct 36.4 MCV 82.6 MCH 26.5 L MCHC 32.1 RDW 20.4 H Plt Count 133 L MPV 9.3 Neut % (Auto) 50.0 Lymph % (Auto) 27.7 [place] % (Auto) 13.5 H Eos % (Auto) 7.4 H Baso % (Auto) 1.4 Neut # (Auto) 2.4 Lymph # (Auto) 1.3 [place] # (Auto) 0.7 Eos # (Auto) 0.4 Baso # (Auto) 0.1 WBC Differential . Differential Comment Auto diff final PT INR APTT Sodium 144 Potassium 4.6 Chloride 110 H Carbon Dioxide 22.9 Anion Gap 11 BUN 68 H Creatinine 6.52 H Estimated GFR 8 L Random Glucose 109 H Calcium 8.9 Urine Color Urine Clarity Urine pH Ur Specific [place] Urine Protein Urine Glucose (UA) Urine Ketones Urine Occult Blood Urine Nitrate Urine Bilirubin Urine Urobilinogen Ur Leukocyte Esterase Urine RBC Urine WBC Ur Squamous Epith Cells Amorphous Sediment Urine Mucus Micro UA Comment Ur Microscopic Review Urine Culture Comments Blood Type O Positive Blood Type Recheck Not needed Antibody Screen Negative MTS Gel Crossmatch See Detail 05/04/18 05/04/18 05/05/18 11:50 12:20 04:08 WBC 6.2 RBC 4.46 Hgb 11.7 Hct 37.1 MCV 83.2 MCH 26.3 L MCHC 31.6 L RDW 20.4 H Plt Count 141 L MPV 9.2 Neut % (Auto) Lymph % (Auto) [place] % (Auto) Eos % (Auto) Baso % (Auto) Neut # (Auto) Lymph # (Auto) [place] # (Auto) Eos # (Auto) Baso # (Auto) WBC Differential Differential Comment PT 11.1 INR 1.1 APTT 61.3 H Sodium Potassium Chloride Carbon Dioxide Anion Gap BUN Creatinine Estimated GFR Random Glucose Calcium Urine Color Yellow Urine Clarity Hazy H Urine pH 5.0 Ur Specific [place] 1.014 Urine Protein 500 or greater Urine Glucose (UA) Negative Urine Ketones Negative Urine Occult Blood Negative Urine Nitrate Negative Urine Bilirubin Negative Urine Urobilinogen Less than 2 Ur Leukocyte Esterase Negative Urine RBC 1 Urine WBC 5 Ur Squamous Epith Cells 3 Amorphous Sediment Rare H Urine Mucus Few H Micro UA Comment Culture not ind Ur Microscopic Review Not Reportable Urine Culture Comments Culture not ind Blood Type Blood Type Recheck Antibody Screen MTS Gel Crossmatch 05/05/18 04:08 WBC RBC Hgb Hct MCV MCH MCHC RDW Plt Count MPV Neut % (Auto) Lymph % (Auto) [place] % (Auto) Eos % (Auto) Baso % (Auto) Neut # (Auto) Lymph # (Auto) [place] # (Auto) Eos # (Auto) Baso # (Auto) WBC Differential Differential Comment PT INR APTT Sodium 142 Potassium 5.3 H Chloride 110 H Carbon Dioxide 19.7 L Anion Gap 12 BUN 75 H Creatinine 7.24 H Estimated GFR 7 L Random Glucose 182 H Calcium 8.6 Urine Color Urine Clarity Urine pH Ur Specific [place] Urine Protein Urine Glucose (UA) Urine Ketones Urine Occult Blood Urine Nitrate Urine Bilirubin Urine Urobilinogen Ur Leukocyte Esterase Urine RBC Urine WBC Ur Squamous Epith Cells Amorphous Sediment Urine Mucus Micro UA Comment Ur Microscopic Review Urine Culture Comments Blood Type Blood Type Recheck Antibody Screen MTS Gel Crossmatch Assessment and Plan - Assessment (1) ESRD (end stage renal disease) Code(s): N18.6 - End stage renal disease Status: Acute - Plan POD#1 s/p R UE Access revision 1. HD this morning - nephrology consulted post-op 2. D/C after HD Discharge Planning: today
--- NOTE | 2018-05-05 07:42 | P.DS ---
Discharge Summary - Admission Date 05/04/18 15:18 - Admission Diagnosis (1) ESRD (end stage renal disease) - Discharge Diagnosis (1) ESRD (end stage renal disease) Status: Acute - Summary Brief History from admission: 52 yo female with ESRD currently on HD who underwent R BB AVF as the first stage of a planned 2 stage procedure. AVF now mature by exam and duplex. Presents for second stage. No changes in health that would preclude OR. Procedure: R UE access revision (superficialization) Significant Findings: Abnormal Lab Results 05/04/18 05/04/18 05/04/18 11:19 11:25 11:50 WBC 4.9 RBC 4.41 Hgb 11.7 Hct 36.4 MCV 82.6 MCH 26.5 L MCHC 32.1 RDW 20.4 H Plt Count 133 L MPV 9.3 Neut % (Auto) 50.0 Lymph % (Auto) 27.7 [place] % (Auto) 13.5 H Eos % (Auto) 7.4 H Baso % (Auto) 1.4 Neut # (Auto) 2.4 Lymph # (Auto) 1.3 [place] # (Auto) 0.7 Eos # (Auto) 0.4 Baso # (Auto) 0.1 WBC Differential . Differential Comment Auto diff final PT INR APTT Sodium 144 Potassium 4.6 Chloride 110 H Carbon Dioxide 22.9 Anion Gap 11 BUN 68 H Creatinine 6.52 H Estimated GFR 8 L Random Glucose 109 H Calcium 8.9 Urine Color Urine Clarity Urine pH Ur Specific [place] Urine Protein Urine Glucose (UA) Urine Ketones Urine Occult Blood Urine Nitrate Urine Bilirubin Urine Urobilinogen Ur Leukocyte Esterase Urine RBC Urine WBC Ur Squamous Epith Cells Amorphous Sediment Urine Mucus Micro UA Comment Ur Microscopic Review Urine Culture Comments Blood Type O Positive Blood Type Recheck Not needed Antibody Screen Negative MTS Gel Crossmatch See Detail 05/04/18 05/04/18 05/05/18 11:50 12:20 04:08 WBC 6.2 RBC 4.46 Hgb 11.7 Hct 37.1 MCV 83.2 MCH 26.3 L MCHC 31.6 L RDW 20.4 H Plt Count 141 L MPV 9.2 Neut % (Auto) Lymph % (Auto) [place] % (Auto) Eos % (Auto) Baso % (Auto) Neut # (Auto) Lymph # (Auto) [place] # (Auto) Eos # (Auto) Baso # (Auto) WBC Differential Differential Comment PT 11.1 INR 1.1 APTT 61.3 H Sodium Potassium Chloride Carbon Dioxide Anion Gap BUN Creatinine Estimated GFR Random Glucose Calcium Urine Color Yellow Urine Clarity Hazy H Urine pH 5.0 Ur Specific [place] 1.014 Urine Protein 500 or greater Urine Glucose (UA) Negative Urine Ketones Negative Urine Occult Blood Negative Urine Nitrate Negative Urine Bilirubin Negative Urine Urobilinogen Less than 2 Ur Leukocyte Esterase Negative Urine RBC 1 Urine WBC 5 Ur Squamous Epith Cells 3 Amorphous Sediment Rare H Urine Mucus Few H Micro UA Comment Culture not ind Ur Microscopic Review Not Reportable Urine Culture Comments Culture not ind Blood Type Blood Type Recheck Antibody Screen MTS Gel Crossmatch 05/05/18 04:08 WBC RBC Hgb Hct MCV MCH MCHC RDW Plt Count MPV Neut % (Auto) Lymph % (Auto) [place] % (Auto) Eos % (Auto) Baso % (Auto) Neut # (Auto) Lymph # (Auto) [place] # (Auto) Eos # (Auto) Baso # (Auto) WBC Differential Differential Comment PT INR APTT Sodium 142 Potassium 5.3 H Chloride 110 H Carbon Dioxide 19.7 L Anion Gap 12 BUN 75 H Creatinine 7.24 H Estimated GFR 7 L Random Glucose 182 H Calcium 8.6 Urine Color Urine Clarity Urine pH Ur Specific [place] Urine Protein Urine Glucose (UA) Urine Ketones Urine Occult Blood Urine Nitrate Urine Bilirubin Urine Urobilinogen Ur Leukocyte Esterase Urine RBC Urine WBC Ur Squamous Epith Cells Amorphous Sediment Urine Mucus Micro UA Comment Ur Microscopic Review Urine Culture Comments Blood Type Blood Type Recheck Antibody Screen MTS Gel Crossmatch Hospital Course: The patient tolerated the procedure well. Intraoperatively, her AVF was 7-10mm and had a great thrill. It was superficialized without difficulty. Post-operatively she had a great thrill, her pain is well controlled and she has no hand trouble. She will be discharged after her scheduled hemodialysis today (Tuesday). PDMP was queried and she was prescribed narcotics which she filled on 05/03 so no additional narcotic prescription will be provided. - Discharge Instructions Any questions or concerns: [facility] [phone] Discharge Plan - Discharge Disposition Patient Disposition: 01 Discharge Home - Discharge Condition Condition: Good - Discharge Order Discharge Orders: Discharge Order (Routine); Ordered 05/05/18 Ordered By: Juan Cornell - Physicians Team Primary Care Provider: Jose Thompson Attending Provider: Juan Cornell Other Providers: Daniel Garber MD - Rxs /Orders / Referrals /Forms Prescriptions: Continue albuterol sulfate [ProAir HFA] 90 mcg/actuation Hfa Aerosol Inhaler 2 puff INHALATION Q4-6H PRN (Reason: COPD) ascorbic acid (vitamin C) 500 mg Tablet 500 mg PO DAILY aspirin [Aspir-81] 81 mg Tablet,Delayed Release (Dr/Ec) 81 mg PO DAILY atorvastatin 40 mg Tablet 40 mg PO HS cholecalciferol (vitamin D3) [Vitamin D3] 2,000 unit Capsule 2,000 unit PO DAILY clopidogrel 75 mg Tablet 75 mg PO DAILY ferric citrate 210 mg iron Tablet 210 mg PO TID furosemide 80 mg Tablet 80 mg PO BID Qty: 60 glipizide 5 mg Tablet 10 mg PO BID labetalol 100 mg Tablet 200 mg PO BID losartan 50 mg Tablet 50 mg PO BID nifedipine 90 mg Tablet Extended Release 90 mg PO DAILY omega-3 fatty acids-fish oil [Fish Oil] 340-1,000 mg Capsule 1 cap PO DAILY vitamin B comp and C no.3 [B Complex Plus Vitamin C] 39-45-31-5-300 mg Capsule 1 cap PO DAILY zolpidem [Ambien] 10 mg Tablet 10 mg PO HS Referrals: Jose Thompson MD [Primary Care Provider] - See Instructions
[2018-05-05 08:03] VITALS: BP 175/96; TEMP 98.3; O2SAT 95
[2018-05-05] MEDS: Furosemide 80 MG Tablet PO SCH (08:19)
[2018-05-05] MEDS: glipiZIDE 5 MG Tablet PO SCH (08:19)
[2018-05-05] MEDS: Labetalol 100 MG Tablet PO SCH (08:19)
[2018-05-05] MEDS: Senna/Docusate Sodium 8.6/50 MG Tablet PO SCH (08:20)
[2018-05-05] MEDS ORDERED: Ascorbic Acid 500 MG Tablet PO SCH (09:00)
[2018-05-05] MEDS ORDERED: Non-Formulary Drug (Omega-3 Fatty Acids-Fish Oil [Fish Oil] 1 CAP) PO SCH (09:00)
[2018-05-05] MEDS ORDERED: Vitamin B Complex/Vitamin C Tablet PO SCH (09:00)
[2018-05-05] MEDS ORDERED: Albumin Human 25% Inj 100 ML IV.SIG PRN (09:59)
[2018-05-05] MEDS ORDERED: Sod Chloride 0.9% Inj 1,000 ML IV.CONT PRN (09:59)
[2018-05-05] MEDS ORDERED: Acetaminophen 325 MG Tablet PO PRN (09:59)
[2018-05-05] MEDS ORDERED: Heparin 10,000 UNITS/10 ML Vial (for IV use) OTHER PRN ×2 (09:59)
[2018-05-05] MEDS ORDERED: Gelatin 12 MM/7 MM Topical Foam TOPICAL PRN (09:59)
[2018-05-05] MEDS ORDERED: Sod Chloride 0.9% Inj 1,000 ML OTHER PRN ×2 (09:59)
--- NOTE | 2018-05-05 12:15 | P.CONNP ---
<Rebecca Parmar - Last Filed: 05/05/18 12:16> History of Present Illness Reason for Consult: ESRD on dialysis Primary Care Provider: Jose Thompson MD History of Present Illness: Patient is a 52 year old female with ESRD currently on Hemodialysis who presents for the second stage of right upper extremity AVF revision with Dr. Cornell. Patient has medical history that includes End stage renal disease on dialysis, Diabetes, HTN, COPD, and Hyperlipidemia . Patient is a former tobacco and illicit drug user who denies alcohol use. Patient was seen during dialysis, on 2K, 350 ml/min, goal of 1.5 L. Patient had complaints of stomach cramping during dialysis. Per the dialysis nurse, dialysis had to be stopped early due to patient request. Patient was trying to stand up during dialysis and becoming agitated. 1 L of fluid removed. Review of Systems All other systems reviewed negative except as stated in HPI PMFSH - History History Provided By: Patient - Medical History Medical History: Medical History (Last Reviewed 05/04/18 @ 12:45 by Juan Cornell MD) CKD (chronic kidney disease) stage V requiring chronic dialysis COPD (chronic obstructive pulmonary disease) Diabetes Dialysis patient High cholesterol History of illicit drug use History of peritoneal dialysis Hx of transfusion Hypertension Peritoneal dialysis catheter in place Smoking hx TIA (transient ischemic attack) - Surgical History Surgical History: Surgical History (Last Reviewed 05/04/18 @ 12:45 by Juan Cornell MD) History of vascular access device Status post - Family History Family History: Family History (Last Reviewed 05/03/18 @ 10:08 by Gil Mojica RN) Mother Family history of diabetes mellitus Mother Family history of acute myocardial infarction - Tobacco History Second Hand Smoke Exposure: No Tobacco Use In Past 30 Days: No Smoking Status: Former smoker Tobacco Type: Cigarettes - Alcohol History How Often Do You Have a Drink Containing Alcohol: Never - Substance Use History Substance History: Past History - Travel History Recent Travel in the [place] Within the Last 8 Weeks: No Recent Travel Out of the Country Within the Last 8 Weeks: No Medications and Allergies Allergies Allergy/AdvReac Type Severity Reaction Status Date / Time levofloxacin Allergy Severe ITCHING Verified 05/04/18 11:27 Home Medications Medication Instructions Recorded Confirmed Type aspirin [Aspir-81] 81 mg PO DAILY 11/24/17 05/04/18 History atorvastatin 40 mg PO HS 11/24/17 05/04/18 History labetalol 200 mg PO BID 11/24/17 05/04/18 History nifedipine 90 mg PO DAILY 11/24/17 05/04/18 History zolpidem [Ambien] 10 mg PO HS 11/24/17 05/04/18 History clopidogrel 75 mg PO DAILY 01/19/18 05/04/18 History ferric citrate 210 mg PO TID 01/19/18 05/04/18 History omega-3 fatty acids-fish oil [Fish 1 cap PO DAILY 01/19/18 05/04/18 History Oil] albuterol sulfate [ProAir HFA] 2 puff INHALATION Q4-6H PRN 02/01/18 05/04/18 History ascorbic acid (vitamin C) 500 mg PO DAILY 02/01/18 05/04/18 History cholecalciferol (vitamin D3) 2,000 unit PO DAILY 02/01/18 05/04/18 History [Vitamin D3] glipizide 10 mg PO BID 02/01/18 05/04/18 History losartan 50 mg PO BID 02/01/18 05/04/18 History vitamin B comp and C no.3 [B 1 cap PO DAILY 02/01/18 05/04/18 History Complex Plus Vitamin C] Active Medications: Active Medications Acetaminophen (Tylenol) 650 mg PO UNSCH X1 PRN PRN Reason: SEE LABEL COMMENTS Albuterol (Ventolin Hfa Inh) 2 puff INH Q4H PRN PRN Reason: COPD Ascorbic Acid (Vitamin C) 500 mg PO DAILY [facility] Last Admin: 05/05/18 08:20 Dose: 500 mg Aspirin (Ecotrin) 81 mg PO DAILY [facility] Last Admin: 05/05/18 08:19 Dose: 81 mg Atorvastatin Calcium (Lipitor) 40 mg PO [facility] Last Admin: 05/04/18 21:50 Dose: 40 mg Bisacodyl (Dulcolax Supp) 10 mg RECTAL DAILY PRN PRN Reason: SEVERE CONSITIPATION Chlorhexidine Gluconate (Chlorhexidine 2% Cloth) 3 pack TOPICAL APPRAISAL MANAGER [facility] Stop: 05/07/18 11:21 Last Admin: 05/04/18 11:30 Dose: 3 pack Clonidine HCl (Catapres) 0.1 mg PO UNSCH X1 PRN PRN Reason: SEE LABEL COMMENTS Clopidogrel Bisulfate (Plavix) 75 mg PO DAILY [facility] Diphenhydramine HCl (Benadryl) 25 mg PO UNSCH PRN PRN Reason: SEE LABEL COMMENTS Epoetin Yrn (Epogen Inj) 10,000 unit IV.PUSH UNSCH PRN PRN Reason: SEE LABEL COMMENTS Furosemide (Lasix) 80 mg PO BID [facility] Last Admin: 05/05/18 08:19 Dose: 80 mg Gelatin (Gelfoam 12 Mm/7 Mm Topical) 1 foam TOPICAL UNSCH PRN PRN Reason: help stop bleeding from site Gentamicin Sulfate (Gentamicin Inj) 20 mg OTHER WITH DIALYSIS PRN PRN Reason: Dwell Gentamycin Lock Last Admin: 05/05/18 11:44 Dose: 20 mg Glipizide (Glucotrol) 10 mg PO BID [facility] Last Admin: 05/05/18 08:19 Dose: 10 mg Heparin Sodium (Porcine) (Heparin Inj) 0 units IV.FLUSH WITH DIALYSIS PRN PRN Reason: Flush each lumen Heparin Sodium (Porcine) (Heparin Inj) 5,000 units SQ Q8H [facility] Heparin Sodium (Porcine) (Heparin Inj) 8,000 units OTHER WITH DIALYSIS PRN PRN Reason: for machine prime Heparin Sodium (Porcine) (Heparin Inj) 0 units OTHER WITH DIALYSIS PRN PRN Reason: Dwell Heparin to Fill Catheter Hydromorphone HCl (Dilaudid) 2 mg PO Q4H PRN PRN Reason: PAIN SCALE 6 TO 10 Lactated Ringer's (Lr 1000 Ml Inj) 1,000 mls @ 30 mls/hr IV.SIG .Q24H [facility] Stop: 05/07/18 11:29 Last Admin: 05/04/18 12:05 Dose: Not Given Albumin Human (Flexbumin 25% Inj) 100 mls @ 60 mls/hr IV.SIG WITH DIALYSIS PRN PRN Reason: hypotension / volume replace Sodium Chloride (Ns Inj) 1,000 mls @ 0 mls/hr OTHER .Q0M PRN PRN Reason: for prime and rinse back Sodium Chloride (Ns Inj) 1,000 mls @ 200 mls/hr OTHER .Q5H PRN PRN Reason: for dialyzer flush PRN Sodium Chloride (Ns Inj) 1,000 mls @ 0 mls/hr IV.CONT .Q0M PRN PRN Reason: hypotension / volume replace Labetalol HCl (Trandate) 200 mg PO BID [facility] Last Admin: 05/05/18 08:19 Dose: 200 mg Lactulose (Lactulose Liq) 30 ml PO DAILY PRN PRN Reason: SEVERE CONSITIPATION Losartan Potassium (Cozaar) 50 mg PO BID [facility] Last Admin: 05/05/18 08:20 Dose: 50 mg Mannitol (Mannitol Inj) 12.5 gm IV.PUSH UNSCH PRN PRN Reason: hypotension / volume replace Metoprolol Tartrate (Lopressor) 25 mg PO APPRAISAL MANAGER [facility] Stop: 05/07/18 11:21 Last Admin: 05/04/18 12:06 Dose: Not Given Miscellaneous Information ([facility] [place] Nursing Information) 0 each OTHER UNSCH PRN PRN Reason: SEE LABEL COMMENTS Stop: 05/05/18 15:19 Morphine Sulfate (Morphine Inj) 2 mg IV.PUSH Q1H PRN PRN Reason: BREAKTHROUGH PAIN Nifedipine (Procardia Xl) 90 mg PO DAILY [facility] Last Admin: 05/05/18 08:19 Dose: 90 mg Nitroglycerin (Nitrostat Sl) 0.4 mg SL Q5M PRN PRN Reason: CHEST PAIN Ondansetron HCl (Zofran Inj) 4 mg IV.PUSH UNSCH X1 PRN PRN Reason: NAUSEA OR VOMITING Oxycodone HCl (Roxicodone) 5 mg PO Q4H PRN PRN Reason: PAIN SCALE 1 TO 5 Ptownmed (Ferric Citrate [Ferric Citrate] 210 Mg) 0 each PO TID [facility] Povidone Iodine (Betadine 5% Antisepsis Kit) 1 applicatio EACH NARE APPRAISAL MANAGER [facility] Stop: 05/07/18 11:21 Last Admin: 05/04/18 12:00 Dose: 1 applicatio Senna/Docusate Sodium (Mayra-Colace) 1 tab PO BID [facility] Last Admin: 05/05/18 08:20 Dose: 1 tab Sennosides (Senokot) 17.2 mg PO Q12H PRN PRN Reason: Moderate Constipation Sodium Chloride (Ns Flush) 0 ml IV.FLUSH PRN PRN PRN Reason: FLUSH AFTER USING IV ACCESS Last Admin: 05/04/18 21:51 Dose: 10 ml Sodium Chloride (Ns Flush) 5 ml IV.FLUSH UNSCH PRN PRN Reason: flush each lumen during HD Vitamin B Complex/Vitamin C (Allbee C) 1 tab PO DAILY [facility] Last Admin: 05/05/18 08:20 Dose: 1 tab Vitamin D (Vitamin D3) 2,000 unit PO DAILY [facility] Last Admin: 05/05/18 08:19 Dose: 2,000 unit Zolpidem Tartrate (Ambien) 10 mg PO [facility] Last Admin: 05/04/18 21:50 Dose: 10 mg Exam Vital signs: Vital Signs 05/04/18 15:25 05/04/18 15:30 05/04/18 15:45 Temperature 98.1 F Pulse Rate 67 65 62 Respiratory Rate 19 17 12 Blood Pressure 124/95 H 170/80 H 171/81 H Pulse Oximetry 99 97 98 05/04/18 16:00 05/04/18 16:15 05/04/18 16:30 Temperature Pulse Rate 61 61 63 Respiratory Rate 15 18 13 Blood Pressure 188/80 H 187/90 H 182/88 H Pulse Oximetry 98 98 98 05/04/18 16:45 05/04/18 17:00 05/04/18 18:00 Temperature Pulse Rate 61 62 62 Respiratory Rate 14 13 13 Blood Pressure 172/100 H 160/80 H 170/89 H Pulse Oximetry 98 100 97 05/04/18 18:38 05/04/18 18:58 05/04/18 20:00 Temperature 98.3 F 97.7 F Pulse Rate 64 67 Respiratory Rate 14 22 Blood Pressure 174/86 H 142/89 H 172/98 H Pulse Oximetry 97 93 L 05/05/18 00:00 05/05/18 04:00 05/05/18 07:56 Temperature 98.0 F 98.3 F Pulse Rate 71 70 70 Respiratory Rate 20 18 18 Blood Pressure 151/84 H 162/87 H 175/96 H Pulse Oximetry 92 L 92 L 95 Intake & Output 05/04/18 05/05/18 05/05/18 18:59 06:59 18:59 Intake Total 450 / 450 480 / 480 Output Total 50 / 50 200 / 200 1000 / 1000 Balance 400 / 400 280 / 280 -1000 / -1000 Weight 80.7 kg 82 kg Intake: Oral 480 / 480 Anesthesia Amount 450 / 450 Output: Urine 200 / 200 Hemodialysis Amount 1000 / 1000 Estimated Blood Loss 50 / 50 Other: # Voids 1 # Bowel Movements 0 Weight On Admission 80.7 kg - Constitutional mild distress - Routine HEENT Exam Head: Present: normocephalic, atraumatic Eye: Present: EOMI, PERRL ENT: Present: mucous membranes moist - Routine Neck Exam Present: trachea midline. Absent: tracheal deviation - Routine Respiratory Exam Absent: accessory muscle use, respiratory distress - Routine Cardiovascular Exam Present: RRR - Routine Abdominal Exam Present: soft, tenderness - Routine Extremities Exam Present: pulses intact, AV fistula. Absent: cyanosis, edema Comments: R AVF - Routine Neurological Exam Present: alert Results - Lab Results 05/05/18 04:08 05/05/18 04:08 Most recent lab results Calcium 8.6 mg/dL (8.5-10.1) 05/05/18 04:08 Assessment and Plan - Assessment (1) End stage renal disease on dialysis Code(s): N18.6 - End stage renal disease; Z99.2 - Dependence on renal dialysis Status: Acute Plan: [facility]. Patient was admitted to hospital for right AVF access revision with Dr. Cornell. Avoid BP measurements or blood draws in right arm. Patient to be discharged after dialysis today. <JcarlosDaniel - Last Filed: 05/05/18 21:01> History of Present Illness Primary Care Provider: Jose Thompson MD [facility] - Medical History Medical History: Medical History (Last Reviewed 05/04/18 @ 12:45 by Juan Cornell MD) CKD (chronic kidney disease) stage V requiring chronic dialysis COPD (chronic obstructive pulmonary disease) Diabetes Dialysis patient High cholesterol History of illicit drug use History of peritoneal dialysis Hx of transfusion Hypertension Peritoneal dialysis catheter in place Smoking hx TIA (transient ischemic attack) - Surgical History Surgical History: Surgical History (Last Reviewed 05/04/18 @ 12:45 by Juan Cornell MD) History of vascular access device Status post - Family History Family History: Family History (Last Reviewed 05/03/18 @ 10:08 by Gil Mojica RN) Mother Family history of diabetes mellitus Mother Family history of acute myocardial infarction Exam Vital signs: Vital Signs 05/05/18 00:00 05/05/18 04:00 05/05/18 07:56 Temperature 98.0 F 98.3 F Pulse Rate 71 70 70 Respiratory Rate 20 18 18 Blood Pressure 151/84 H 162/87 H 175/96 H Pulse Oximetry 92 L 92 L 95 Intake & Output 05/05/18 05/05/18 05/06/18 06:59 18:59 06:59 Intake Total 480 / 480 Output Total 200 / 200 1000 / 1000 Balance 280 / 280 -1000 / -1000 Weight 82 kg Intake: Oral 480 / 480 Output: Urine 200 / 200 Hemodialysis Amount 1000 / 1000 Other: # Bowel Movements 0 Results - Lab Results 05/05/18 04:08 05/05/18 04:08 Most recent lab results Calcium 8.6 mg/dL (8.5-10.1) 05/05/18 04:08 Assessment and Plan - Assessment (1) End stage renal disease on dialysis Code(s): N18.6 - End stage renal disease; Z99.2 - Dependence on renal dialysis Status: Acute - Attending Attestation patient was seen and examined. Agree with above assessment and plan.
[2018-05-05] MEDS ORDERED: Heparin - SQ 10,000 UNITS/ML Vial SQ SCH (15:00)
== END 2018-05-05 12:35 | disposition home or self-care (01) ==
LOC: HDOC 10:49 → HSDI 10:49 → HCVI 19:14 → HCPC 05-05 08:52
PROVIDERS: ADMIT Surgery; ATTEND Surgery

== ENCOUNTER 2018-05-07 05:42 | Observation (INO) ==
[2018-05-07 07:06] LABS: Baso # (Auto) 0.1 th/mm3 (0.0-0.2); Baso % (Auto) 1.3 % (0.0-2.0); Eos # (Auto) 0.3 th/mm3 (0.0-0.4); Eos % (Auto) 7.2 % (0.0-4.0); Hemoglobin 10.3 gm/dL (11.6-15.3); Lymph % (Auto) 21.4 % (9.0-44.0); Mean Corpuscular HGB Conc 31.2 % (32.0-36.0); Mean Corpuscular Hemoglobin 26.2 pg (27.0-34.0); Mean Platelet Volume 9.3 fL (7.0-11.0); Mono # (Auto) 0.6 th/mm3 (0.0-0.9); Mono % (Auto) 13.3 % (0.0-8.0); Neut # (Auto) 2.7 th/mm3 (1.8-7.7); Neut % (Auto) 56.8 % (16.0-70.0); Platelet Count 130 th/mm3 (150-450); Red Blood Count 3.93 mil/mm3 (4.00-5.30); Red Cell Distribution Width 20.2 % (11.6-17.2); White Blood Count 4.8 th/mm3 (4.0-11.0)
[2018-05-07 07:24] LABS: Calcium 7.7 mg/dL (8.5-10.1); Carbon Dioxide 25.3 meq/L (21.0-32.0)
[2018-05-07 07:34] LABS: Potassium 5.1 meq/L (3.5-5.1)
[2018-05-07] MEDS ORDERED: HYDROmorphone PF Inj 2 MG/ML Vial IV.PUSH ONE (07:50)
--- NOTE | 2018-05-07 07:56 | US ---
EXAM DATE: 05/07/2018 7:50 AM EST AGE/SEX: 52 years / Female INDICATIONS: Right arm swelling. CLINICAL DATA: This is the patient's initial encounter. Patient reports that signs and symptoms have been present for 1 day and indicates a pain score of 4/10. MEDICAL/SURGICAL HISTORY: Chronic obstructive pulmonary disease. Diabetes. Hypertension. CKD . High Cholesterol. TIA. History of peritoneal dialysis. section. History of vascular acces s device, right neck. COMPARISON: No prior exams available for comparison. FINDINGS: Exam limited due to nonremovable bandage over medial right arm extending from the distal ax illary region to just above the antecubital region. This is secondary to recent surgery for new vascu lar access site in the medial right arm. The brachial and basilic veins are not visualized due to ban dage. The right jugular, subclavian, axillary vein and cephalic veins are compressible with normal au gmentation. No filling defects seen. The flow is phasic with respiration. Flow is also seen within th e radial and ulnar veins. Other: None. CONCLUSION: 1. No evidence of venous occlusion within the imaged portion of the exam. Electronically signed by: Corina Christian MD Board Certified Radiologist 05/07/2018 7:55 AM FERDINAND Mcneill
--- NOTE | 2018-05-07 09:49 | CT ---
EXAM DATE: 05/07/2018 9:32 AM EST AGE/SEX: 52 years / Female INDICATIONS: Right upper extremity pain and swelling. Fistula on 05/04/18 per patient CLINICAL DATA: This is the patient's initial encounter. Patient reports that signs and symptoms have been present for 1 day and indicates a pain score of 7/10. MEDICAL/SURGICAL HISTORY: Diabetes. Hypertension. Transient ischemic attack. section. RADIATION DOSE: 9.04 CTDI (mGy) COMPARISON: [facility] [place], US VENOUS DOPPLER ARM RIGHT, 05/07/2018. [facility] [place], [place] MYOCARDIAL PERF PHARM SPECT W /EF, 04/27/2018. . TECHNIQUE: Volumetric scanning was performed using a multi-row detector CT scanner during bolus infu rosalind of 100 ml Omnipaque 350 (iohexol) nonionic water-soluble contrast as a single exam dose. The d libia was post processed with a variety of visualization algorithms including full volume maximum inten sity projection, multi-planar sliding thin slab reformation, curved planar reformation, and surface r endering techniques. Using automated exposure control and adjustment of the mA and/or kV according t o patient size, radiation dose was kept as low as reasonably achievable to obtain optimal diagnostic quality images. DICOM format image data is available electronically for review and comparison. FINDINGS: There is normal opacification of the venous system of the right upper extremity without evidence of t hrombosis. 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 There is extensive subcutaneous edema identified throughout the right upper extremity and scattered foci of air identifi ed within the soft tissues of the right upper arm. More distally at the level of the fistula the flui d within the soft tissues is increased in amount and attenuation.. This may represent vascular leakag e from the site of the fistula. CONCLUSION: 1. No evidence of thrombosis within the venous structures of the right upper extremity. There is con cern for possible vascular leakage at the site of fistula given the extensive subcutaneous edema iden tified within the soft tissues at this site as well as increased attenuation of the fluid surrounding the elbow. Electronically signed by: Corina Christian MD Board Certified Radiologist 05/07/2018 9:47 AM FERDINAND Mcneill
--- NOTE | 2018-05-07 10:48 | ED ---
HPI General Chief Complaint: Wound/Laceration Stated Complaint: Wound check Time Seen by Provider: 05/07/18 06:58 Source: patient Mode of arrival: ambulatory Limitations: no limitations History of Present Illness HPI narrative: 52 yo F c/o R arm pain and swelling with blood present about surgical dressing. AV fistula surgery by Dr Cornell done three days prior. Pt reports mild pain in right humerus distribution. No fever/chills. Distal RUE without numbness/tingling. PMH DM2, ESRD (MWF), chronic anemia, HLD, COPD, TIA. Timing constant. No modifying factor. Related Data Home Medications Medication Instructions Recorded Confirmed aspirin [Aspir-81] 81 mg PO DAILY 11/24/17 05/07/18 atorvastatin 40 mg PO HS 11/24/17 05/07/18 labetalol 200 mg PO BID 11/24/17 05/07/18 nifedipine 90 mg PO DAILY 11/24/17 05/07/18 zolpidem [Ambien] 10 mg PO HS 11/24/17 05/07/18 clopidogrel 75 mg PO DAILY 01/19/18 05/07/18 ferric citrate 210 mg PO TID 01/19/18 05/07/18 omega-3 fatty acids-fish oil [Fish 1 cap PO DAILY 01/19/18 05/07/18 Oil] albuterol sulfate [ProAir HFA] 2 puff INHALATION Q4-6H PRN 02/01/18 05/07/18 ascorbic acid (vitamin C) 500 mg PO DAILY 02/01/18 05/07/18 cholecalciferol (vitamin D3) 2,000 unit PO DAILY 02/01/18 05/07/18 [Vitamin D3] glipizide 10 mg PO BID 02/01/18 05/07/18 losartan 50 mg PO BID 02/01/18 05/07/18 vitamin B comp and C no.3 [B 1 cap PO DAILY 02/01/18 05/07/18 Complex Plus Vitamin C] Previous Rx's Medication Instructions Recorded furosemide 80 mg PO BID #60 tab 11/25/17 Allergies Allergy/AdvReac Type Severity Reaction Status Date / Time levofloxacin Allergy Severe ITCHING Verified 05/04/18 11:27 Review of Systems ROS: all other systems reviewed are negative PMFSH Social History Social History (Reviewed 12/08/17 @ 19:08 by Kenrick Li Substance History: No History of Abuse Second Hand Smoke Exposure: Yes Smoking Status: Never smoker Tobacco Type: Cigarettes How Often Do You Have a Drink Containing Alcohol: Never Recent Travel in [facility] within the Last 8 Weeks: No Recent Out of Country Travel within the Last 8 Weeks: No Immunization History Tetanus Immunization: Unsure Exam Narrative Exam Narrative: GENERAL: 52 yo F, pleasant, mild distress 2/2 pain and/or anxiety SKIN: Focused skin assessment warm/dry. HEAD: Atraumatic. Normocephalic. EYES: Pupils equal and round. No scleral icterus. No injection or drainage. ENT: No nasal bleeding or discharge. Mucous membranes pink and moist. NECK: Trachea midline. No JVD. CARDIOVASCULAR: Regular rate and rhythm. No murmur appreciated. RESPIRATORY: No accessory muscle use. Clear to auscultation. Breath sounds equal bilaterally. GASTROINTESTINAL: Abdomen soft, non-tender, nondistended. Hepatic and splenic margins not palpable. MUSCULOSKELETAL: Dressing about RUE with red blood. Minimal serous discharge about the dressing. Dressing not removed at bedside for concern of bleed 2/2 vascular surgery. Adjacent to surgical site is induration, warmth and tenderness. No purulent discharge. NEUROLOGICAL: Awake and alert. No obvious cranial nerve deficits. Motor grossly within normal limits. Normal speech. Hand silver lap machine tender equal bilaterally. PSYCHIATRIC: Appropriate mood and affect; insight and judgment normal. Course Initial Documented Vital Signs Temperature 98.2 F 05/07/18 06:01 Pulse Rate 84 05/07/18 06:01 Respiratory Rate 20 05/07/18 06:01 Pulse Oximetry 97 05/07/18 06:01 Last Documented Vital Signs Temperature 98.2 F 05/07/18 06:01 Pulse Rate 63 05/07/18 06:19 Respiratory Rate 15 05/07/18 06:19 Blood Pressure 99/55 L 05/07/18 06:19 Pulse Oximetry 98 05/07/18 06:19 Critical Care Time Critical Care Time: Yes Total Critical Care Time: 35 Attestation: Aggregate critical care time was 35 minutes. Time to perform other separately billable procedures was not included in the critical care time. My time did not include minutes spent treating any other patients simultaneously or on activities that did not directly contribute to the patient's treatment. The services I provided to this patient were to treat and/or prevent clinically significant deterioration that could result in: permanent disability, emergency surgery I provided critical care services requiring my management, as noted below: Chart data review, documentation time, medication orders and management, vital sign assessments/reviewing monitor data, ordering and reviewing lab tests, ordering and interpreting/reviewing x-rays and diagnostic studies, care of the patient and discussion of the patient with the admitting physicians. Medical Decision Making MDM Narrative Medical decision making narrative: Case d/w Dr Esposito, who also evaluated pt at beside CTA RUE added on per request Dr Esposito CTA RUE shows possible extravasation, no bleeding at bedside Pt to be kept overnight per request Dr Esposito D/w Dr Perez for [facility] CBC and CMP stable for patient. Medical Screen Exam Complete: Yes Emergency Medical Condition: Yes Lab Data Result diagrams: 05/07/18 06:40 05/07/18 06:40 Lab Results 05/07/18 05/07/18 Range/Units 06:40 06:40 WBC 4.8 (4.0-11.0) th/mm3 RBC 3.93 L (4.00-5.30) mil/mm3 Hgb 10.3 L (11.6-15.3) gm/dL Hct 33.0 L (35.0-46.0) % MCV 84.0 (80.0-100.0) fL MCH 26.2 L (27.0-34.0) pg MCHC 31.2 L (32.0-36.0) % RDW 20.2 H (11.6-17.2) % Plt Count 130 L (150-450) th/mm3 MPV 9.3 (7.0-11.0) fL Neut % (Auto) 56.8 (16.0-70.0) % Lymph % (Auto) 21.4 (9.0-44.0) % [place] % (Auto) 13.3 H (0.0-8.0) % Eos % (Auto) 7.2 H (0.0-4.0) % Baso % (Auto) 1.3 (0.0-2.0) % Neut # (Auto) 2.7 (1.8-7.7) th/mm3 Lymph # (Auto) 1.0 (1.0-4.8) th/mm3 [place] # (Auto) 0.6 (0.0-0.9) th/mm3 Eos # (Auto) 0.3 (0.0-0.4) th/mm3 Baso # (Auto) 0.1 (0.0-0.2) th/mm3 WBC Differential . Differential Comment Auto diff final Sodium 140 (136-145) meq/L Potassium 5.1 (3.5-5.1) meq/L Chloride 106 (98-107) meq/L Carbon Dioxide 25.3 (21.0-32.0) meq/L Anion Gap 9 (5-15) meq/L BUN 72 H (7-18) mg/dL Creatinine 7.45 H (0.50-1.00) mg/dL Estimated GFR 7 L (>89) mL/min Random Glucose 214 H (74-106) mg/dL Calcium 7.7 L (8.5-10.1) mg/dL Imaging Data Radiologist's impression: Venous Doppler Study 05/07/18 06:22 CONCLUSION: 1. No evidence of venous occlusion within the imaged portion of the exam. Upper Extremity CTA 05/07/18 08:00 CONCLUSION: 1. No evidence of thrombosis within the venous structures of the right upper extremity. There is concern for possible vascular leakage at the site of fistula given the extensive subcutaneous edema identified within the soft tissues at this site as well as increased attenuation of the fluid surrounding the elbow. Discharge Plan Discharge Disposition Patient Disposition: ED Admit(ED Internal Use Only) Discharge Order Discharge Orders: ED Use Only Admit Order (Routine); Ordered 05/07/18 Ordered By: Wm Celaya Physicians Team ED Provider: Wm Celaya Primary Care Provider: Jose Thompson Rxs /Orders / Referrals /Forms Prescriptions: No Action atorvastatin 40 mg Tablet 40 mg PO HS RF: 0 nifedipine 90 mg Tablet Extended Release 90 mg PO DAILY RF: 0 aspirin [Aspir-81] 81 mg Tablet,Delayed Release (Dr/Ec) 81 mg PO DAILY RF: 0 labetalol 100 mg Tablet 200 mg PO BID RF: 0 zolpidem [Ambien] 10 mg Tablet 10 mg PO HS RF: 0 furosemide 80 mg Tablet 80 mg PO BID Qty: 60 RF: 0 clopidogrel 75 mg Tablet 75 mg PO DAILY RF: 0 omega-3 fatty acids-fish oil [Fish Oil] 340-1,000 mg Capsule 1 cap PO DAILY RF: 0 ferric citrate 210 mg iron Tablet 210 mg PO TID RF: 0 losartan 50 mg Tablet 50 mg PO BID RF: 0 ascorbic acid (vitamin C) 500 mg Tablet 500 mg PO DAILY RF: 0 glipizide 5 mg Tablet 10 mg PO BID RF: 0 vitamin B comp and C no.3 [B Complex Plus Vitamin C] 51-74-84-5-300 mg Capsule 1 cap PO DAILY RF: 0 cholecalciferol (vitamin D3) [Vitamin D3] 2,000 unit Capsule 2,000 unit PO DAILY RF: 0 albuterol sulfate [ProAir HFA] 90 mcg/actuation Hfa Aerosol Inhaler 2 puff INHALATION Q4-6H PRN (Reason: COPD) RF: 0 Discharge Interventions Interventions: Vital Signs Last Done: 05/07/18 06:19 Status ED Status: With Doctor
--- NOTE | 2018-05-07 11:36 | P.HPIM ---
History of Present Illness Primary Care Physician: Jose Thompson MD History of Present Illness: 52 y/o F with esrd on HD MWF, HTN, DM, Hx TIA. Patient recently was here at [facility] and had a right upper ext avf placed and d/cd on the of this month. Now presents with bleeding from the avf site and swelling. ER ended up getting ct scan of the right upper ext which showed possible vascular leakage at the site and soft tissue edema. Vascular surgery was consulted and they wanted to keep this patient under observation and for possible surgical intervention. No fevers, no chills. No other complaints from the patient. Patient took her plavix this morning. PMH HTN, DM, TIA, ESRD on HD MWF, last HD Fri Surg hx, right upper ext avf, c sections in the past Fam hx HTN, DM Social Extensive tobacco smoking hx, quit one yr ago, No etoh, no hx of substance abuse Review of Systems All other systems reviewed negative except as stated in HPI PMFSH - History History Provided By: Patient - Medical History Medical History: Medical History (Last Reviewed 05/07/18 @ 06:03 by Tanisha Lewis) CKD (chronic kidney disease) stage V requiring chronic dialysis COPD (chronic obstructive pulmonary disease) Diabetes Dialysis patient High cholesterol History of illicit drug use History of peritoneal dialysis Hx of transfusion Hypertension Peritoneal dialysis catheter in place Smoking hx TIA (transient ischemic attack) - Surgical History Surgical History: Surgical History (Last Reviewed 05/07/18 @ 06:03 by Tanisha Lewis) History of vascular access device Status post - Family History Family History: Family History (Last Reviewed 05/03/18 @ 10:08 by Gil Mojica RN) Mother Family history of diabetes mellitus Mother Family history of acute myocardial infarction - Tobacco History Second Hand Smoke Exposure: Yes Smoking Status: Never smoker Tobacco Type: Cigarettes - Alcohol History How Often Do You Have a Drink Containing Alcohol: Never - Substance Use History Substance History: No History of Abuse - Travel History Recent Travel in the [place] Within the Last 8 Weeks: No Recent Travel Out of the Country Within the Last 8 Weeks: No - Immunization History Tetanus Immunization: Unsure Medications and Allergies Active Medications: Active Medications Aspirin (Aspirin Chew) 81 mg PO DAILY ZAK Atorvastatin Calcium (Lipitor) 40 mg PO HS ZAK Furosemide (Lasix) 80 mg PO BID@0900,1800 ZAK Losartan Potassium (Cozaar) 50 mg PO BID ZAK Nifedipine (Procardia Xl) 90 mg PO DAILY ZAK Zolpidem Tartrate (Ambien) 5 mg PO HS PRN PRN Reason: INSOMNIA Allergies Allergy/AdvReac Type Severity Reaction Status Date / Time levofloxacin Allergy Severe ITCHING Verified 05/04/18 11:27 Home Medications Medication Instructions Recorded Confirmed Type aspirin [Aspir-81] 81 mg PO DAILY 11/24/17 05/07/18 History atorvastatin 40 mg PO HS 11/24/17 05/07/18 History labetalol 200 mg PO BID 11/24/17 05/07/18 History nifedipine 90 mg PO DAILY 11/24/17 05/07/18 History zolpidem [Ambien] 10 mg PO HS 11/24/17 05/07/18 History clopidogrel 75 mg PO DAILY 01/19/18 05/07/18 History ferric citrate 210 mg PO TID 01/19/18 05/07/18 History omega-3 fatty acids-fish oil [Fish 1 cap PO DAILY 01/19/18 05/07/18 History Oil] albuterol sulfate [ProAir HFA] 2 puff INHALATION Q4-6H PRN 02/01/18 05/07/18 History ascorbic acid (vitamin C) 500 mg PO DAILY 02/01/18 05/07/18 History cholecalciferol (vitamin D3) 2,000 unit PO DAILY 02/01/18 05/07/18 History [Vitamin D3] glipizide 10 mg PO BID 02/01/18 05/07/18 History losartan 50 mg PO BID 02/01/18 05/07/18 History vitamin B comp and C no.3 [B 1 cap PO DAILY 02/01/18 05/07/18 History Complex Plus Vitamin C] Exam Vital signs: Vital Signs 05/07/18 06:01 05/07/18 06:19 Temperature 98.2 F Pulse Rate 84 63 Respiratory Rate 20 15 Blood Pressure 99/55 L Pulse Oximetry 97 98 Intake & Output 05/06/18 05/07/18 05/07/18 18:59 06:59 18:59 Weight 74.843 kg Narrative: Alert and oriented x 3 S1 S2 CTA B/L Soft non tender, normal bowel sounds Right upper ext with bandage over avf site, with some soakage of blood. Does not appear to be actively bleeding. No neuro deficits. Results - Labs CBC & Chem 7: 05/07/18 06:40 05/07/18 06:40 Labs: Short CBC 05/07/18 Range/Units 06:40 WBC 4.8 (4.0-11.0) th/mm3 Hgb 10.3 L (11.6-15.3) gm/dL Hct 33.0 L (35.0-46.0) % Plt Count 130 L (150-450) th/mm3 BMP 05/07/18 06:40 Sodium 140 Potassium 5.1 Chloride 106 Carbon Dioxide 25.3 BUN 72 H Creatinine 7.45 H Calcium 7.7 L - Imaging Impressions Venous Doppler Study 05/07/18 06:22 CONCLUSION: 1. No evidence of venous occlusion within the imaged portion of the exam. Upper Extremity CTA 05/07/18 08:00 CONCLUSION: 1. No evidence of thrombosis within the venous structures of the right upper extremity. There is concern for possible vascular leakage at the site of fistula given the extensive subcutaneous edema identified within the soft tissues at this site as well as increased attenuation of the fluid surrounding the elbow. Caprini VTE Risk Assessment Caprini VTE Risk Assessment: Moderate/High Risk (score >= 2) Caprini Risk Assessment Model: Point Value = 1 Point Value = 2 Point Value = 3 Point Value = 5 Age 41-60 Minor surgery BMI > 25 kg/m2 Swollen legs Varicose veins or History of unexplained or recurrent spontaneous Oral contraceptives or hormone replacement Sepsis (< 1 month) Serious lung disease, including pneumonia (< 1 month) Abnormal pulmonary function Acute myocardial infarction Congestive heart failure (< 1 month) History of inflammatory bowel disease Medical patient at bed rest Age 61-74 Arthroscopic surgery Major open surgery (> 45 min) Laparoscopic surgery (> 45 min) Malignancy Confined to bed (> 72 hours) Immobilizing plaster cast Central venous access Age >= 75 History of VTE Family history of VTE Factor V Leiden Prothrombin [id number] Lupus anticoagulant Anticardiolipin antibodies Elevated serum homocysteine Heparin-induced thrombocytopenia Other congenital or acquired thrombophilia Stroke (< 1 month) Elective arthroplasty Hip, pelvis, or leg fracture Acute spinal cord injury (< 1 month) Prophylaxis Regimen: Total Risk Factor Score Risk Level Prophylaxis Regimen 0-1 Low Early ambulation 2 Moderate Order ONE of the following: *Sequential Compression Device (SCD) *Heparin 5000 units SQ BID 3-4 Higher Order ONE of the following medications: *Heparin 5000 units SQ TID *Enoxaparin/Lovenox 40 mg SQ daily (WT < 150 kg, CrCl > 30 mL/min) *Enoxaparin/Lovenox 30 mg SQ daily (WT < 150 kg, CrCl > 10-29 mL/min) *Enoxaparin/Lovenox 30 mg SQ BID (WT < 150 kg, CrCl > 30 mL/min) AND/OR *Sequential Compression Device (SCD) 5 or more Highest Order ONE of the following medications: *Heparin 5000 units SQ TID (Preferred with Epidurals) *Enoxaparin/Lovenox 40 mg SQ daily (WT < 150 kg, CrCl > 30 mL/min) *Enoxaparin/Lovenox 30 mg SQ daily (WT < 150 kg, CrCl > 10-29 mL/min) *Enoxaparin/Lovenox 30 mg SQ BID (WT < 150 kg, CrCl > 30 mL/min) AND *Sequential Compression Device (SCD) Assessment and Plan - Plan 52 y/o F with esrd on HD MWF, HTN, DM, Hx TIA. Patient recently was here at [facility] and had a right upper ext avf placed and d/cd on the 14 of this month. Now presents with bleeding from the avf site and swelling. ER ended up getting ct scan of the right upper ext which showed possible vascular leakage at the site and soft tissue edema. Vascular surgery was consulted and they wanted to keep this patient under observation and for possible surgical intervention. 1. Right upper ext avf leakage and edema CT findings show leakage and subcutaneous edema. Vascular surgery consulted and recommends monitoring the patient. Plavix will be held until re eval by vasc surg Patient took her plavix this morning. Will monitor Hgb levels tonight and in am. Follow up with vasc surg recs. 2. HTN/DLD/TIA Continue home meds, adjust as needed. Patient took asa and plavix this am. Continue statin. Plavix will be held. Follow up with Vasc surg recs. 3. DM Continue low dose sliding scale. 5. ESRD on HD Patient will need HD tomorrow as scheduled. Dr. Washington is pts security nurse. No pharmacotherapy for dvt prophylaxis as pt currently is having bleeding from avf.
--- NOTE | 2018-05-07 12:01 | P.PNVS ---
Subjective Subjective/Hospital Course: 52-year-old female who recently underwent right upper extremity AV fistula superficialization by Dr. Cornell She presents with a chief complaint of a right upper extremity pain and swelling. Objective Vital Signs / I&O: Vital Signs 05/07/18 06:01 05/07/18 06:19 05/07/18 10:00 Temperature 98.2 F Pulse Rate 84 63 Respiratory Rate 20 15 18 Blood Pressure 99/55 L Pulse Oximetry 97 98 Intake & Output 05/06/18 05/07/18 05/07/18 18:59 06:59 18:59 Weight 74.843 kg Physical Exam: Right upper extremity wound with minimal ooze. There are multiple blisters involving the skin surrounding the wound. Generalized right upper extremity edema but no palpable hematoma There is good thrill over the fistula. Good radial pulse. Laboratory Results - last 24 hr 05/07/18 05/07/18 06:40 06:40 WBC 4.8 RBC 3.93 L Hgb 10.3 L Hct 33.0 L MCV 84.0 MCH 26.2 L MCHC 31.2 L RDW 20.2 H Plt Count 130 L MPV 9.3 Neut % (Auto) 56.8 Lymph % (Auto) 21.4 [place] % (Auto) 13.3 H Eos % (Auto) 7.2 H Baso % (Auto) 1.3 Neut # (Auto) 2.7 Lymph # (Auto) 1.0 [place] # (Auto) 0.6 Eos # (Auto) 0.3 Baso # (Auto) 0.1 WBC Differential . Differential Comment Auto diff final Sodium 140 Potassium 5.1 Chloride 106 Carbon Dioxide 25.3 Anion Gap 9 BUN 72 H Creatinine 7.45 H Estimated GFR 7 L Random Glucose 214 H Calcium 7.7 L Impressions Venous Doppler Study 05/07/18 06:22 CONCLUSION: 1. No evidence of venous occlusion within the imaged portion of the exam. Upper Extremity CTA 05/07/18 08:00 CONCLUSION: 1. No evidence of thrombosis within the venous structures of the right upper extremity. There is concern for possible vascular leakage at the site of fistula given the extensive subcutaneous edema identified within the soft tissues at this site as well as increased attenuation of the fluid surrounding the elbow. Assessment and Plan - Plan Right upper extremity swelling status post right upper extremity AV fistula superficialization POD #3 No evidence of DVT on duplex ultrasound. I reviewed the CT angiography: The fistula is intact. There is no evidence of active extravasation or pseudoaneurysm noted. There is dense fluid collection could be postoperative hematoma. No evidence of DVT on duplex ultrasound The skin blistering is most likely due to allergy to adhesive tape. The patient will be admitted for observation and serial exams of her upper extremity. No emergent vascular operation required at this time. Rayshawn Esposito MD [phone]
[2018-05-07] MEDS ORDERED: Acetaminophen 325 MG Tablet PO PRN ×2 (13:39→17:40)
[2018-05-07] MEDS ORDERED: Sod Chloride 0.9% Inj 1,000 ML OTHER PRN ×2 (13:39)
[2018-05-07] MEDS ORDERED: Heparin 10,000 UNITS/10 ML Vial (for IV use) OTHER PRN ×2 (13:39)
[2018-05-07] MEDS ORDERED: Albumin Human 25% Inj 100 ML IV.SIG PRN (13:39)
[2018-05-07] MEDS ORDERED: Gelatin 12 MM/7 MM Topical Foam TOPICAL PRN (13:39)
[2018-05-07] MEDS ORDERED: Sod Chloride 0.9% Inj 1,000 ML IV.CONT PRN (13:39)
--- NOTE | 2018-05-07 13:39 | P.CONNP ---
<Sonia Caban - Last Filed: 05/07/18 13:27> History of Present Illness Service: Nephrology Consult date: 05/07/18 Requesting Physician: Roxy Perez Reason for Consult: End stage renal disease on hemodialysis Primary Care Provider: Jose Thompson MD History of Present Illness: Patient is a 52 year old with end stage renal disease, hypertension, diabetes, and hx of TIA. Patient presents to the emergency room with bleeding and swelling and AVF site. Patient had AVF placed in right upper extremity on . CT scan of the right upper ext which showed possible vascular leakage at the site and soft tissue edema. Vascular surgery was consulted and they wanted to keep this patient under observation and for possible surgical intervention. Nephrology is consulted for management of dialysis. Regular scheduled days are on Tuesday, Tuesday, and Tuesday. Last HD on Tuesday with IJ Permacath. Denies any shortness of breath, chest pain, nausea, vomiting, fevers, or diarrhea. Review of Systems All other systems reviewed negative except as stated in HPI PMFSH - History History Provided By: Patient - Medical History Medical History: Medical History (Last Reviewed 05/07/18 @ 06:03 by Tanisha Lewis) CKD (chronic kidney disease) stage V requiring chronic dialysis COPD (chronic obstructive pulmonary disease) Diabetes Dialysis patient High cholesterol History of illicit drug use History of peritoneal dialysis Hx of transfusion Hypertension Peritoneal dialysis catheter in place Smoking hx TIA (transient ischemic attack) - Surgical History Surgical History: Surgical History (Last Reviewed 05/07/18 @ 06:03 by Tanisha Lewis) History of vascular access device Status post - Family History Family History: Family History (Last Reviewed 05/03/18 @ 10:08 by Gli Mojica RN) Mother Family history of diabetes mellitus Mother Family history of acute myocardial infarction - Tobacco History Second Hand Smoke Exposure: Yes Smoking Status: Never smoker Tobacco Type: Cigarettes - Alcohol History How Often Do You Have a Drink Containing Alcohol: Never - Substance Use History Substance History: No History of Abuse - Travel History Recent Travel in the [facility] Within the Last 8 Weeks: No Recent Travel Out of the Country Within the Last 8 Weeks: No - Immunization History Tetanus Immunization: Unsure Medications and Allergies Allergies Allergy/AdvReac Type Severity Reaction Status Date / Time levofloxacin Allergy Severe ITCHING Verified 05/04/18 11:27 Home Medications Medication Instructions Recorded Confirmed Type aspirin [Aspir-81] 81 mg PO DAILY 11/24/17 05/07/18 History atorvastatin 40 mg PO HS 11/24/17 05/07/18 History labetalol 200 mg PO BID 11/24/17 05/07/18 History nifedipine 90 mg PO DAILY 11/24/17 05/07/18 History zolpidem [Ambien] 10 mg PO HS 11/24/17 05/07/18 History clopidogrel 75 mg PO DAILY 01/19/18 05/07/18 History ferric citrate 210 mg PO TID 01/19/18 05/07/18 History omega-3 fatty acids-fish oil [Fish 1 cap PO DAILY 01/19/18 05/07/18 History Oil] albuterol sulfate [ProAir HFA] 2 puff INHALATION Q4-6H PRN 02/01/18 05/07/18 History ascorbic acid (vitamin C) 500 mg PO DAILY 02/01/18 05/07/18 History cholecalciferol (vitamin D3) 2,000 unit PO DAILY 02/01/18 05/07/18 History [Vitamin D3] glipizide 10 mg PO BID 02/01/18 05/07/18 History losartan 50 mg PO BID 02/01/18 05/07/18 History vitamin B comp and C no.3 [B 1 cap PO DAILY 02/01/18 05/07/18 History Complex Plus Vitamin C] Active Medications: Active Medications Aspirin (Aspirin Chew) 81 mg PO DAILY ZAK Atorvastatin Calcium (Lipitor) 40 mg PO HS ZAK Furosemide (Lasix) 80 mg PO BID@0900,1800 ZAK Losartan Potassium (Cozaar) 50 mg PO BID ZAK Nifedipine (Procardia Xl) 90 mg PO DAILY ZAK Zolpidem Tartrate (Ambien) 5 mg PO HS PRN PRN Reason: INSOMNIA Exam Vital signs: Vital Signs 05/07/18 06:01 05/07/18 06:19 05/07/18 10:00 Temperature 98.2 F Pulse Rate 84 63 Respiratory Rate 20 15 18 Blood Pressure 99/55 L Pulse Oximetry 97 98 05/07/18 12:03 Temperature Pulse Rate 62 Respiratory Rate 16 Blood Pressure 134/74 Pulse Oximetry 96 Intake & Output 05/06/18 05/07/18 05/07/18 18:59 06:59 18:59 Weight 74.843 kg Narrative: GENERAL: alert and oriented. SKIN: Warm and dry. NECK: Supple, trachea midline. No JVD. CARDIOVASCULAR: Regular rate and rhythm without murmurs, gallops, or rubs. right IJ PermCath. Right AVF with Kerlix on. Arm is swollen. RESPIRATORY: Breath sounds equal bilaterally. No accessory muscle use. GASTROINTESTINAL: Abdomen soft, non-tender, nondistended. MUSCULOSKELETAL: No cyanosis, or edema. BACK: Nontender without obvious deformity. No CVA tenderness. Results - Lab Results 05/07/18 06:40 05/07/18 06:40 Most recent lab results Calcium 7.7 mg/dL (8.5-10.1) L 05/07/18 06:40 Assessment and Plan - Assessment (1) End stage renal disease on dialysis Code(s): N18.6 - End stage renal disease; Z99.2 - Dependence on renal dialysis Status: Acute Plan: End stage renal disease on hemodialysis on Tuesday, Tuesday, Tuesday Last HD on Tuesday Right IJ perma cath Epogen with dialysis Continue with hemodialysis on Tuesday. Labs in AM (2) DM II (diabetes mellitus, type II), controlled Code(s): E11.9 - Type 2 diabetes mellitus without complications Status: Acute Plan: Maintain blood sugars between 140 mg/dl to 180 mg/dl. (3) Hypertension Code(s): I10 - Essential (primary) hypertension Status: Acute Plan: Will monitor, on losartan and nifedipine. (4) Anemia Code(s): D64.9 - Anemia, unspecified Status: Acute Plan: Anemia of chronic disease, on Epogen. Labs in AM <Cammie Granger - Last Filed: 05/07/18 21:52> History of Present Illness Primary Care Provider: Jose Thompson MD [facility] - Medical History Medical History: Medical History (Last Reviewed 05/07/18 @ 06:03 by Tanisha Lewis) CKD (chronic kidney disease) stage V requiring chronic dialysis COPD (chronic obstructive pulmonary disease) Diabetes Dialysis patient High cholesterol History of illicit drug use History of peritoneal dialysis Hx of transfusion Hypertension Peritoneal dialysis catheter in place Smoking hx TIA (transient ischemic attack) - Surgical History Surgical History: Surgical History (Last Reviewed 05/07/18 @ 06:03 by Tanisha Lewis) History of vascular access device Status post - Family History Family History: Family History (Last Reviewed 05/03/18 @ 10:08 by Gil Mojica RN) Mother Family history of diabetes mellitus Mother Family history of acute myocardial infarction Medications and Allergies Active Medications: Active Medications Acetaminophen (Tylenol) 650 mg PO UNSCH PRN PRN Reason: SEE LABEL COMMENTS Acetaminophen (Tylenol) 650 mg PO Q4H PRN PRN Reason: PAIN 1-10 AND/OR FEVER >101F Last Admin: 05/07/18 18:04 Dose: 650 mg Aspirin (Aspirin Chew) 81 mg PO DAILY ZAK Atorvastatin Calcium (Lipitor) 40 mg PO HS ZAK Last Admin: 05/07/18 20:49 Dose: 40 mg Clonidine HCl (Catapres) 0.1 mg PO UNSCH PRN PRN Reason: SEE LABEL COMMENTS Dextrose (D50w Vial) 50 ml IV.PUSH UNSCH PRN PRN Reason: PER HYPOGLYCEMIA PROTOCOL Diphenhydramine HCl (Benadryl) 25 mg PO UNSCH PRN PRN Reason: SEE LABEL COMMENTS Epoetin Yrn (Epogen Inj) 4,000 unit IV.PUSH UNSCH PRN PRN Reason: SEE LABEL COMMENTS Furosemide (Lasix) 80 mg PO BID@0900,1800 ZAK Last Admin: 05/07/18 18:04 Dose: 80 mg Gelatin (Gelfoam 12 Mm/7 Mm Topical) 1 foam TOPICAL PRN PRN PRN Reason: help stop bleeding from site Gentamicin Sulfate (Gentamicin Inj) 20 mg OTHER WITH DIALYSIS PRN PRN Reason: Dwell Gentamycin Lock Glucagon (Glucagon Inj) 1 mg OTHER PRN PRN PRN Reason: for Hypoglycemia Protocol Heparin Sodium (Porcine) (Heparin Inj) 8,000 units OTHER WITH DIALYSIS PRN PRN Reason: for machine prime Heparin Sodium (Porcine) (Heparin Inj) 1,000 units OTHER WITH DIALYSIS PRN PRN Reason: Dwell Heparin to Fill Catheter Albumin Human (Flexbumin 25% Inj) 100 mls @ 60 mls/hr IV.SIG WITH DIALYSIS PRN PRN Reason: hypotension / volume replace Sodium Chloride (Ns Inj) 1,000 mls @ 0 mls/hr OTHER .Q0M PRN PRN Reason: for prime and rinse back Sodium Chloride (Ns Inj) 1,000 mls @ 200 mls/hr OTHER .Q5H PRN PRN Reason: for dialyzer flush PRN Sodium Chloride (Ns Inj) 1,000 mls @ 0 mls/hr IV.CONT .Q0M PRN PRN Reason: hypotension / volume replace Insulin Aspart (Novolog Insulin Correctional Sugar Inj) 0 unit SQ ACHS ZAK; Protocol Last Admin: 05/07/18 20:53 Dose: 1 unit Losartan Potassium (Cozaar) 50 mg PO BID ZAK Last Admin: 05/07/18 20:49 Dose: 50 mg Mannitol (Mannitol Inj) 12.5 gm IV.PUSH UNSCH PRN PRN Reason: hypotension / volume replace Nifedipine (Procardia Xl) 90 mg PO DAILY [facility] Nitroglycerin (Nitrostat Sl) 0.4 mg SL Q5M PRN PRN Reason: CHEST PAIN Ondansetron HCl (Zofran Inj) 4 mg IV.PUSH UNSCH PRN PRN Reason: NAUSEA OR VOMITING Sodium Chloride (Ns Flush) 5 ml IV.FLUSH PRN PRN PRN Reason: flush each lumen during HD Zolpidem Tartrate (Ambien) 5 mg PO HS PRN PRN Reason: INSOMNIA Last Admin: 05/07/18 20:49 Dose: 5 mg Exam Vital signs: Vital Signs 05/07/18 06:01 05/07/18 06:19 05/07/18 10:00 Temperature 98.2 F Pulse Rate 84 63 Respiratory Rate 20 15 18 Blood Pressure 99/55 L Pulse Oximetry 97 98 05/07/18 12:03 05/07/18 17:25 Temperature Pulse Rate 62 74 Respiratory Rate 16 20 Blood Pressure 134/74 152/84 H Pulse Oximetry 96 95 Intake & Output 05/07/18 05/07/18 05/08/18 06:59 18:59 06:59 Weight 74.843 kg Results - Lab Results 05/07/18 06:40 05/07/18 06:40 Most recent lab results Calcium 7.7 mg/dL (8.5-10.1) L 05/07/18 06:40 Assessment and Plan - Assessment (1) End stage renal disease on dialysis Code(s): N18.6 - End stage renal disease; Z99.2 - Dependence on renal dialysis Status: Acute Plan: Patient seen and examined, agree with above. No acute urgent need for HD today, Dr. Garber will follow from AM. (2) DM II (diabetes mellitus, type II), controlled Code(s): E11.9 - Type 2 diabetes mellitus without complications Status: Acute (3) Hypertension Code(s): I10 - Essential (primary) hypertension Status: Acute (4) Anemia Code(s): D64.9 - Anemia, unspecified Status: Acute <Sonia Caban - Last Filed: 05/07/18 13:27> (2) DM II (diabetes mellitus, type II), controlled Qualifiers: Diabetes mellitus buttermaker insulin use: with buttermaker use Diabetes mellitus complication status: with kidney complications Diabetes mellitus complication detail: with nephropathy Qualified Code(s): E11.21 - Type 2 diabetes mellitus with diabetic nephropathy; Z79.4 - detention (current) use of insulin (4) Anemia Qualifiers: Anemia type: due to chronic kidney disease Chronic kidney disease stage: on chronic dialysis Qualified Code(s): N18.6 - End stage renal disease; D63.1 - Anemia in chronic kidney disease; Z99.2 - Dependence on renal dialysis <Cammie Granger - Last Filed: 05/07/18 21:52> (2) DM II (diabetes mellitus, type II), controlled Qualifiers: Diabetes mellitus longterm insulin use: with longterm use Diabetes mellitus complication status: with kidney complications Diabetes mellitus complication detail: with nephropathy Qualified Code(s): E11.21 - Type 2 diabetes mellitus with diabetic nephropathy; Z79.4 - emt intermediate (current) use of insulin (4) Anemia Qualifiers: Anemia type: due to chronic kidney disease Chronic kidney disease stage: on chronic dialysis Qualified Code(s): N18.6 - End stage renal disease; D63.1 - Anemia in chronic kidney disease; Z99.2 - Dependence on renal dialysis
[2018-05-07] MEDS ORDERED: Dextrose 50% in Water 50 ML Vial IV.PUSH PRN (17:39)
[2018-05-07] MEDS: Furosemide 80 MG Tablet PO SCH (18:04)
[2018-05-07] MEDS: Insulin NovoLOG Aspart Correctional Sugar Inj SQ SCH (20:53)
[2018-05-07] MEDS ORDERED: Zolpidem Tartrate 5 MG Tablet PO PRN (21:00)
[2018-05-08 02:02] LABS: Hematocrit 31.6 % (35.0-46.0)
[2018-05-08 08:27] VITALS: RESP 16; TEMP 97.4
--- NOTE | 2018-05-08 08:58 | P.PNIM ---
Subjective Interval history: Follow up leakage RUE AV fistula site, RUE pain and edema Patient is sitting up in bed. She complains of increased swelling and pain to her right upper extremity. She rates her pain as 8/10. She was given Hydrocodone last night and states that this helped her pain level. Patient is able to move all of her fingers. Physical Exam Vital signs: Last Vital Signs Temp 97.4 F L 05/08/18 08:24 Pulse 72 05/08/18 08:24 Resp 16 05/08/18 08:24 BP 171/86 H 05/08/18 08:24 Pulse Ox 95 05/08/18 03:47 Intake & Output 05/06/18 05/07/18 05/08/18 05/09/18 06:59 06:59 06:59 06:59 Weight 74.843 kg 83 kg Narrative: GENERAL: alert and oriented, no acute distress SKIN: warm and dry NECK: supple, trachea midline. No JVD. CARDIOVASCULAR: Regular rate and rhythm without murmurs, gallops, or rubs. Right IJ PermCath. Right AVF with Kerlix on. RESPIRATORY: Breath sounds equal bilaterally. No accessory muscle use. GASTROINTESTINAL: Abdomen soft, non-tender, nondistended. MUSCULOSKELETAL: RUE edema, moves all fingers, ROM intact Results Labs CBC & Chem 7: 05/08/18 01:49 05/07/18 06:40 Imaging Imaging: Impressions Upper Extremity CTA 05/07/18 08:00 CONCLUSION: 1. No evidence of thrombosis within the venous structures of the right upper extremity. There is concern for possible vascular leakage at the site of fistula given the extensive subcutaneous edema identified within the soft tissues at this site as well as increased attenuation of the fluid surrounding the elbow. Assessment and Plan (1) End stage renal disease on dialysis: Code(s): N18.6 - End stage renal disease; Z99.2 - Dependence on renal dialysis Status: Acute (2) DM II (diabetes mellitus, type II), controlled: Code(s): E11.9 - Type 2 diabetes mellitus without complications Status: Acute (3) Hypertension: Code(s): I10 - Essential (primary) hypertension Status: Acute (4) Anemia: Code(s): D64.9 - Anemia, unspecified Status: Acute Plan Patient is a 52-year-old female with a past medical history significant for end- stage renal disease on hemodialysis Tuesday, hypertension, diabetes and history of TIA. Patient was recently admitted and underwent a right upper extremity AV fistula placement and was discharged on the of this month. She presented with complaints of bleeding from her right upper extremity AV fistula site. AV fistula site leakage -vascular surgery consulted -CT angio RUE w/ no evidence of thrombosis within the venous structures of the right upper extremity. There is concern for possible vascular leakage at the site of fistula given extensive subcutaneous edema within the soft tissues. -Doppler RUE with no evidence of venous occlusion -Vascular specialty notes patient with expected postop operative incisional pain and mild swelling. Patient advised to elevate right upper extremity while swelling is present. She may leave her incision open to air and absence of drainage. Patient clear for discharge with continued outpatient follow-up in a few weeks. ESRD on HD M, W, Fr -nephrology consulted -pt underwent dialysis 05/08/18 Hypertension, chronic and elevated -resume home meds post dialysis -check blood pressure prior to discharge Hx of TIA x 2 -on ASA and Plavix MDM: self Code: Full DVT ppx: Heparin SQ Discharge patient: home Condition on discharge: Improved Renal Diet as tolerated Ad Loretta activity Rx written: none Follow-up with primary care physician, Nephrology and Vascular surgery outpatient Please refer to discharge packet for details regarding discharge Discussed Condition With: RN, patient Discharge Planning: Home Progress Note: Quality VTE Deep Vein Thrombosis/Pulmonary Embolism Present on Admission: No _ (1) Anemia Qualifiers: Anemia type: due to chronic kidney disease Bone marrow failure anemia type: Chronic kidney disease stage: on chronic dialysis Folate deficiency anemia type: Hemolytic anemia type: Iron deficiency anemia type: Other causes of anemia: Vitamin B12 deficiency anemia type: Qualified Code(s): N18.6 - End stage renal disease; D63.1 - Anemia in chronic kidney disease; Z99.2 - Dependence on renal dialysis (2) DM II (diabetes mellitus, type II), controlled Qualifiers: Chronic kidney disease stage: Diabetes mellitus complication detail: with nephropathy Diabetes mellitus complication status: with kidney complications Diabetes mellitus nursing home insulin use: with carcass splitter use Diabetes mellitus macular edema: Diabetic retinopathy severity: Laterality: Proliferative retinopathy type: Qualified Code(s): E11.21 - Type 2 diabetes mellitus with diabetic nephropathy; Z79.4 - detention (current) use of insulin (3) Hypertension Qualifiers: Hypertension type:
[2018-05-08] MEDS: Insulin NovoLOG Aspart Correctional Sugar Inj SQ SCH ×2 (09:25→12:06)
[2018-05-08] MEDS: Furosemide 80 MG Tablet PO SCH (09:26)
[2018-05-08 09:42] VITALS: O2SAT 99
[2018-05-08 10:06] VITALS: PULSE 71
[2018-05-08] MEDS ORDERED: Acetaminophen 325 MG Tablet PO PRN (10:10)
--- NOTE | 2018-05-08 11:34 | P.PNNP ---
Subjective Interval history: Patient was seen, no distress. Patient was seen during dialysis, on 2 K, 350 ml/min, goal of 1.3 L. <Rebecca Parmar - Last Filed: 05/08/18 11:35> Physical Exam Vital signs: Vital Signs 05/07/18 12:03 05/07/18 17:25 05/07/18 20:00 Temperature 97.8 F Pulse Rate 62 74 73 Respiratory Rate 16 20 18 Blood Pressure 134/74 152/84 H 135/75 Pulse Oximetry 96 95 96 05/07/18 23:36 05/08/18 00:00 05/08/18 03:47 Temperature 97.8 F 97.8 F Pulse Rate 67 68 Respiratory Rate 18 18 Blood Pressure 138/80 152/72 H Pulse Oximetry 99 94 L 95 05/08/18 04:00 05/08/18 08:15 05/08/18 08:24 Temperature 97.4 F L Pulse Rate 69 72 Respiratory Rate 16 Blood Pressure 171/86 H Pulse Oximetry 99 05/08/18 09:00 Temperature Pulse Rate 71 Respiratory Rate Blood Pressure Pulse Oximetry Intake & Output 05/07/18 05/08/18 05/08/18 18:59 06:59 18:59 Weight 83 kg Other: # Voids 2 Date of Last Bowel Movement 05/07/18 05/07/18 Narrative: GENERAL: alert and oriented, no acute distress SKIN: warm and dry NECK: supple, trachea midline. No JVD. CARDIOVASCULAR: Regular rate and rhythm without murmurs, gallops, or rubs. Right IJ PermCath. Right AVF covered. RESPIRATORY: Breath sounds equal bilaterally. No accessory muscle use. GASTROINTESTINAL: Abdomen soft, non-tender, nondistended. MUSCULOSKELETAL: RUE edema, moves all fingers, ROM intact <Rebecca Parmar - Last Filed: 05/08/18 11:35> Vital signs: Vital Signs 05/08/18 09:00 05/08/18 12:13 05/08/18 15:03 Pulse Rate 71 71 Blood Pressure 188/84 H Intake & Output 05/08/18 05/09/18 05/09/18 18:59 06:59 18:59 Output Total 1000 / 1000 Balance -1000 / -1000 Output: Hemodialysis Amount 1000 / 1000 Other: Date of Last Bowel Movement 05/07/18 <Daniel Garber - Last Filed: 05/09/18 08:36> Assessment and Plan - Assessment (1) End stage renal disease on dialysis Code(s): N18.6 - End stage renal disease; Z99.2 - Dependence on renal dialysis Status: Acute Plan: Patient gets dialysis MWF. Right upper extremity swelling status post right upper extremity AV fistula superficialization. Per vascular,no emergent vascular operation required at this time. Patient was seen during dialysis, on 2 K, 350 ml/min, goal of 1.3 L. Monitor fluid and electrolytes. Monitor phosphorus intermittently. (2) DM II (diabetes mellitus, type II), controlled Code(s): E11.9 - Type 2 diabetes mellitus without complications Status: Acute Qualifiers: Diabetes mellitus [facility] insulin use: with ad terminal makeup operator use Diabetes mellitus complication status: with kidney complications Diabetes mellitus complication detail: with nephropathy Qualified Code(s): E11.21 - Type 2 diabetes mellitus with diabetic nephropathy; Z79.4 - long term (current) use of insulin Plan: Maintain blood sugars between 140 mg/dl to 180 mg/dl. (3) Hypertension Code(s): I10 - Essential (primary) hypertension Status: Acute Plan: Monitor BP. On losartan and nifedipine. (4) Anemia Code(s): D64.9 - Anemia, unspecified Status: Acute Qualifiers: Anemia type: due to chronic kidney disease Chronic kidney disease stage: on chronic dialysis Qualified Code(s): N18.6 - End stage renal disease; D63.1 - Anemia in chronic kidney disease; Z99.2 - Dependence on renal dialysis Plan: Anemia of chronic disease, on Epogen with dialysis. <Rebecca Parmar - Last Filed: 05/08/18 11:35> - Assessment (1) End stage renal disease on dialysis Code(s): N18.6 - End stage renal disease; Z99.2 - Dependence on renal dialysis Status: Acute (2) DM II (diabetes mellitus, type II), controlled Code(s): E11.9 - Type 2 diabetes mellitus without complications Status: Acute Qualifiers: Diabetes mellitus ad terminal makeup operator insulin use: with [facility] use Diabetes mellitus complication status: with kidney complications Diabetes mellitus complication detail: with nephropathy Qualified Code(s): E11.21 - Type 2 diabetes mellitus with diabetic nephropathy; Z79.4 - USP (current) use of insulin (3) Hypertension Code(s): I10 - Essential (primary) hypertension Status: Acute (4) Anemia Code(s): D64.9 - Anemia, unspecified Status: Acute Qualifiers: Anemia type: due to chronic kidney disease Chronic kidney disease stage: on chronic dialysis Qualified Code(s): N18.6 - End stage renal disease; D63.1 - Anemia in chronic kidney disease; Z99.2 - Dependence on renal dialysis - Attending Attestation patient was seen and examined. Agree with above assessment and plan. <Daniel Garber - Last Filed: 05/09/18 08:36>
--- NOTE | 2018-05-08 11:59 | P.PNVS ---
Subjective Subjective/Hospital Course: 52/F S/P right upper extremity AV fistula superficialization Pt w/ mild R UE swelling Pt c/o incisional pain Incision w/ scant amount of drainage distal end of incision R UE incision intact with 3 skin tears noted eusebio wound from blisters No hand pain Objective Vital Signs / I&O: Vital Signs 05/07/18 12:03 05/07/18 17:25 05/07/18 20:00 Temperature 97.8 F Pulse Rate 62 74 73 Respiratory Rate 16 20 18 Blood Pressure 134/74 152/84 H 135/75 Pulse Oximetry 96 95 96 05/07/18 23:36 05/08/18 00:00 05/08/18 03:47 Temperature 97.8 F 97.8 F Pulse Rate 67 68 Respiratory Rate 18 18 Blood Pressure 138/80 152/72 H Pulse Oximetry 99 94 L 95 05/08/18 04:00 05/08/18 08:15 05/08/18 08:24 Temperature 97.4 F L Pulse Rate 69 72 Respiratory Rate 16 Blood Pressure 171/86 H Pulse Oximetry 99 05/08/18 09:00 Temperature Pulse Rate 71 Respiratory Rate Blood Pressure Pulse Oximetry Intake & Output 05/07/18 05/08/18 05/08/18 18:59 06:59 18:59 Weight 83 kg Other: # Voids 2 Date of Last Bowel Movement 05/07/18 05/07/18 Physical Exam: R UE incision intact w/ scant amount of drainage on dressing- no active drainage noted R UE 3 skin tears noted eusebio wound from blisters Mild R UE swelling palpable 2+ R Radial pulse Palpable strong thrill near R UE AVF Laboratory Results - last 24 hr 05/07/18 05/07/18 05/08/18 18:03 20:28 01:49 Hgb 10.0 L Hct 31.6 L POC Glucose 111 H 170 H 05/08/18 08:06 Hgb Hct POC Glucose 136 H Impressions Venous Doppler Study 05/07/18 06:22 CONCLUSION: 1. No evidence of venous occlusion within the imaged portion of the exam. Upper Extremity CTA 05/07/18 08:00 CONCLUSION: 1. No evidence of thrombosis within the venous structures of the right upper extremity. There is concern for possible vascular leakage at the site of fistula given the extensive subcutaneous edema identified within the soft tissues at this site as well as increased attenuation of the fluid surrounding the elbow. Assessment and Plan - Plan 52/F w/ right upper extremity swelling, blistering and incisional pain status post right upper extremity AV fistula superficialization No evidence of DVT on duplex ultrasound. Fistula is intact w/o evidence of active extravasation or pseudoaneurysm Skin blistering is most likely due to allergy to adhesive tape. Plan Pt w/ expected post operative incisional pain and mild swelling Pt advised to elevate R UE while swelling is present Continue pain control May leave incision open to air- in the absence of drainage If drainage present apply an non stick dry dressing Do not apply tape to patient skin as she has a sensitivity to tape Pt clear for D/C Arranged out pt follow up in a few weeks Shanika Luna NP [facility] [phone] Discharge Planning: today
[2018-05-08 15:05] VITALS: BP 188/84
== END 2018-05-08 15:47 | disposition home or self-care (01) ==
LOC: NEDA 05:42 → NEPC 05:42 → NEPFCDU 15:50
PROVIDERS: ADMIT Internal Medicine; ATTEND Internal Medicine